=== PATIENT | male | born 1985 | race Two or more races ===

== ENCOUNTER 2024-01-20 16:47 | Inpatient (IN) | payer MEDICAID ==
[~2024-01-20] VITALS: Ht 167.6 cm; Wt 63.6 kg
[2024-01-20 18:45] LABS: Hematocrit 40.5 % (41.0-53.0); Hemoglobin 13.6 g/dL (13.5-17.5); Mean Corpuscular Hemoglobin 31.3 pg (28.0-32.0); Mean Corpuscular Volume 93.1 fL (80.0-100.0); Red Blood Cells 4.36 10^6/uL (4.5-5.90); White Blood Cell 7.5 10^3/uL (4.4-10.8)
[2024-01-20 18:46] LABS: Mean Corpuscular Hgb Conc. 33.7 g/dL (32.0-36.0); Platelet Count (auto) 49 10^3/uL (140-450); Red Cell Distribution Width 14.6 % (11.8-14.3)
[2024-01-20 18:48] LABS: Band Neutrophils % (manual) 0
[2024-01-20 18:49] LABS: Basophils % (manual) 0 (0.0-2.0); Blast Cells 0; Eosinophils % (manual) 0 (0-7); Metamyelocytes % 0; Myelocytes % 0; Promyelocytes % 0; Reactive Lymphocytes 0
[2024-01-20 19:06] LABS: Lymphocytes % (manual) 13 (10.0-50.0); Monocytes % (manual) 6 (0-12)
[2024-01-20] MEDS: SODIUM CHLORIDE 0.9% 1,000 ML IV ONE ×2 (19:15→21:49)
[2024-01-20 19:39] LABS: INR 0.99 (0.9-1.15); Prothrombin Time 10.5 sec (9.3-11.8)
[2024-01-20 19:40] LABS: Partial Thromboplastin Time 29.9 SEC (24.5-34.5)
[2024-01-20 19:43] LABS: Albumin 2.7 g/dL (3.2-4.8); Alkaline Phosphatase 545 U/L (46-116); Anion Gap 20 (5-15); BUN/Creatinine Ratio 13.6 (10.0-20.0); Blood Urea Nitrogen 11 mg/dL (9-23); Calcium 7.3 mg/dL (8.7-10.4); Carbon Dioxide 13 mmol/L (20-30); Chloride 89 mmol/L (98-107); Glucose 194 mg/dL (74-106); Potassium 3.7 mmol/L (3.5-5.1); Sodium 122 mmol/L (136-145)
[2024-01-20 19:44] LABS: Bilirubin, Total 3.8 mg/dL (0.2-1.0); Total Protein 5.9 g/dL (5.7-8.2)
[2024-01-20 19:54] LABS: Alanine Aminotransferase 117 U/L (7-40); Aspartate Aminotransferase 179 U/L (13-40); Lipase 183 U/L (12-53)
[2024-01-20 20:17] LABS: Platelet Estimate Decreased
[2024-01-20] MEDS: FAMOTIDINE (10MG/ML) 2ML VL IV ONE (21:49)
[2024-01-20] MEDS: MORPHINE SULFATE 4 MG/ML SYR/VIAL IV ONE (21:49)
[2024-01-20] MEDS: ONDANSETRON HCL 4 MG/2 ML VIAL IV ONE (21:50)
[2024-01-20] MEDS: PIPERACILLIN-TAZO 4.5GM 100 ML IV ONE (21:50)
[2024-01-20] MEDS: LORazepam 2MG/ML-1ML VIAL IV ONE (21:50)
[2024-01-21] VITALS (7 sets, daily range): BP systolic 122–143; BP diastolic 66–86; PULSE 68–144; RESP 16–22; TEMP 97.5–98.5; O2SAT 96–100
[2024-01-21 01:42] LABS: Albumin 2.8 g/dL (3.2-4.8); Alkaline Phosphatase 486 U/L (46-116); Anion Gap 14 (5-15); Calcium 6.7 mg/dL (8.7-10.4); Carbon Dioxide 16 mmol/L (20-30); Chloride 97 mmol/L (98-107); Glucose 178 mg/dL (74-106); Total Protein 5.8 g/dL (5.7-8.2)
[2024-01-21 01:43] LABS: Alanine Aminotransferase 112 U/L (7-40); Aspartate Aminotransferase 190 U/L (13-40); BUN/Creatinine Ratio 13.3 (10.0-20.0); Blood Urea Nitrogen 12 mg/dL (9-23); Potassium 4.4 mmol/L (3.5-5.1)
[2024-01-21 01:44] LABS: Sodium 127 mmol/L (136-145)
[2024-01-21] MEDS ORDERED: NITROGLYCERIN 0.4 MG SL TAB SL PRN (04:15)
[2024-01-21] MEDS ORDERED: ONDANSETRON HCL 4 MG/2 ML VIAL IV PRN (04:15)
[2024-01-21] MEDS ORDERED: MORPHINE SULFATE INJ 2 MG/ml SYRG IV PRN ×2 (04:15)
[2024-01-21] MEDS: SODIUM CHLORIDE 0.9% 500 ML IV ONE (04:35)
[2024-01-21] MEDS: SODIUM CHLORIDE 0.9% 1,000 ML IV SCH ×2 (05:28→17:28)
[2024-01-21] MEDS: metroNIDAZOLE 500MG/100ML 100 ML IV SCH (05:56)
[2024-01-21 08:45] LABS: Basophils # (auto) 0 10 ^3/uL (0-0.2); Eosinophils # (auto) 0 10 ^3/uL (0-0.8); Red Blood Cells 3.53 10^6/uL (4.5-5.90); Red Cell Distribution Width 14.6 % (11.8-14.3)
[2024-01-21 08:47] LABS: Basophils % (auto) 0.5 % (0.0-2.0); Eosinophils % (auto) 0.1 % (0.0-7.0); Hematocrit 32.9 % (41.0-53.0); Lymphocytes # (auto) 3.4 10 ^3/uL (0.4-5.4); Mean Corpuscular Volume 93.2 fL (80.0-100.0); Monocytes # (auto) 0.1 10 ^3/uL (0-1.3); Monocytes % (auto) 2.5 % (0.0-12.0); Neutrophils # (auto) 0.8 10 ^3/uL (1.6-8.6); Neutrophils % (auto) 18.9 % (37.0-80.0); Platelet Count (auto) 41 10^3/uL (140-450); White Blood Cell 4.4 10^3/uL (4.4-10.8)
[2024-01-21 09:08] LABS: Anion Gap 14 (5-15); Blood Alcohol < 3.0 mg/dL (<10); Calcium 6.5 mg/dL (8.7-10.4); Carbon Dioxide 14 mmol/L (20-30); Chloride 94 mmol/L (98-107); Glucose 191 mg/dL (74-106)
[2024-01-21 09:18] LABS: Bilirubin, Total 3.9 mg/dL (0.2-1.0)
[2024-01-21] MEDS: cefTRIAXone 1GM/50ML D5W 50 ML IV SCH (09:22)
[2024-01-21 09:30] LABS: LDL Cholesterol 137 mg/dL (< 100)
[2024-01-21 09:31] LABS: Cholesterol 615 mg/dL (< 200)
[2024-01-21 09:45] LABS: Mean Corpuscular Hemoglobin 30.7 pg (28.0-32.0); Mean Corpuscular Hgb Conc. 32.7 g/dL (32.0-36.0)
[2024-01-21 09:47] LABS: Hemoglobin 11.4 g/dL (13.5-17.5)
[2024-01-21 10:23] LABS: Hepatitis B Surface Antigen Negative (Negative); Sodium 122 mmol/L (136-145)
[2024-01-21 10:44] LABS: Hepatitis B Core IgM Negative; Hepatitis C Antibody Negative (Negative)
[2024-01-21 10:53] LABS: Alanine Aminotransferase 96 U/L (7-40); Albumin 2.5 g/dL (3.2-4.8); Alkaline Phosphatase 393 U/L (46-116); Aspartate Aminotransferase 158 U/L (13-40); BUN/Creatinine Ratio 12.6 (10.0-20.0); Blood Urea Nitrogen 11 mg/dL (9-23); Potassium 4.3 mmol/L (3.5-5.1); Total Protein 5.2 g/dL (5.7-8.2)
[2024-01-21 11:58] LABS: HDL Cholesterol < 5 mg/dL (40-59); Triglycerides 2182 mg/dL (< 150)
[2024-01-21] MEDS: SODIUM CHLORIDE 0.9% 1,000 ML IV ONE (12:15)
[2024-01-21 16:29] LABS: Hepatitis A Ab IgM Negative
[2024-01-21] MEDS: LORazepam 2MG/ML-1ML VIAL IV ONE (17:29)
[2024-01-21] MEDS ORDERED: LORazepam 0.5 MG TAB PO PRN (19:15)
[2024-01-21] MEDS ORDERED: LORazepam 2MG/ML-1ML VIAL IV PRN (19:15)
[2024-01-21] MEDS: LORazepam 0.5 MG TAB PO PRN (20:32)
[2024-01-21] MEDS: LORazepam 2MG/ML-1ML VIAL IM ONE (20:57)
[2024-01-21] MEDS ORDERED: DEXTROSE (50%) 50ML SYRG IV PRN (21:00)
[2024-01-21 21:15] LABS: Base Excess -1.2 mmol/L (-2.0-3.0)
[2024-01-21] MEDS: diphenhdrAMINE HCL 50 MG/1 ML VL IV PRN (23:06)
[2024-01-22] VITALS (9 sets, daily range): BP systolic 101–117; BP diastolic 65–79; PULSE 92–112; RESP 16–28; TEMP 98.2–99.2; O2SAT 96–100
[2024-01-22] MEDS: InsuLIN REG 1unit/0.01ml Soln (100units/ml) SC SCH
[2024-01-22] MEDS: HALOPERIDOL LACTATE 5 MG/ML INJ VIAL IM PRN (01:37)
[2024-01-22] MEDS ORDERED: POTASSIUM CHLORIDE 20 MEQ in D5W/LACTATED RINGERS 1,000 ML IV SCH (08:00)
[2024-01-22] MEDS ORDERED: INSULIN DRIP 100 UNIT/100ML 100 ML IV SCH (08:00)
[2024-01-22] MEDS ORDERED: LACTATED RINGER'S 1,000 ML IV SCH (08:00)
[2024-01-22] MEDS ORDERED: SODIUM CHLORIDE 0.9% 1,000 ML IV SCH (08:15)
[2024-01-22 08:36] LABS: Base Excess -0.4 mmol/L (-2.0-3.0)
[2024-01-22] MEDS: D5W/ SOD CHL 0.9%/KCL 20MEQ 1,000 ML IV SCH ×3 (10:13→15:56)
[2024-01-22] MEDS: PANTOPRAZOLE 40 MG/10 ML VIAL INJ IV SCH (10:16)
[2024-01-22] MEDS: ACCU-CHEK COMFORT CURVE STRIP VI SCH ×2 (10:33)
[2024-01-22] MEDS: INSULIN DRIP 100 UNIT/100ML 100 ML IV SCH (10:35)
[2024-01-22 10:37] LABS: White Blood Cell 3.4 10^3/uL (4.4-10.8)
[2024-01-22 10:38] LABS: Hematocrit 28.2 % (41.0-53.0); Mean Corpuscular Hemoglobin 32.8 pg (28.0-32.0); Mean Corpuscular Hgb Conc. 35.4 g/dL (32.0-36.0); Mean Corpuscular Volume 92.8 fL (80.0-100.0); Platelet Count (auto) 41 10^3/uL (140-450); Red Blood Cells 3.04 10^6/uL (4.5-5.90); Red Cell Distribution Width 14.8 % (11.8-14.3)
[2024-01-22 10:41] LABS: INR 1.08 (0.9-1.15); Partial Thromboplastin Time 29.7 SEC (24.5-34.5); Prothrombin Time 11.4 sec (9.3-11.8)
[2024-01-22 10:42] LABS: Basophils % (manual) 0 (0.0-2.0); Blast Cells 0; Eosinophils % (manual) 0 (0-7); Metamyelocytes % 0; Myelocytes % 0; Promyelocytes % 0; Reactive Lymphocytes 0
[2024-01-22 10:47] LABS: Alanine Aminotransferase 70 U/L (7-40); Albumin 2.3 g/dL (3.2-4.8); Alkaline Phosphatase 302 U/L (46-116); Anion Gap 8 (5-15); Aspartate Aminotransferase 103 U/L (13-40); BUN/Creatinine Ratio 10.9 (10.0-20.0); Bilirubin, Total 5.3 mg/dL (0.2-1.0); Blood Urea Nitrogen 7 mg/dL (9-23); Calcium 7.1 mg/dL (8.7-10.4); Carbon Dioxide 22 mmol/L (20-30); Chloride 103 mmol/L (98-107); Cholesterol 323 mg/dL (< 200); Glucose 82 mg/dL (74-106); HDL Cholesterol < 5 mg/dL (40-59); LDL Cholesterol 153 mg/dL (< 100); Magnesium 1.7 mg/dL (1.6-2.6); Phosphorus 1.2 mg/dL (2.4-5.1); Potassium 2.7 mmol/L (3.5-5.1); Total Protein 4.6 g/dL (5.7-8.2)
[2024-01-22 10:55] LABS: Triglycerides 1229 mg/dL (< 150)
[2024-01-22 10:56] LABS: CRP High Sensitivity 8.43 mg/dL (<1.0)
[2024-01-22 11:05] LABS: Band Neutrophils % (manual) 12; Lymphocytes % (manual) 19 (10.0-50.0); Monocytes % (manual) 4 (0-12); Platelet Estimate Decreased
[2024-01-22] MEDS: DEXTROSE (50%) 50ML SYRG IV PRN (12:03)
[2024-01-22] MEDS: SODIUM CHLORIDE 0.9% 1,000 ML IV SCH (12:08)
[2024-01-22 12:18] LABS: Sodium 133 mmol/L (136-145)
[2024-01-22 12:20] LABS: Lipase 145 U/L (12-53)
[2024-01-22] MEDS ORDERED: POTASSIUM CHLORIDE 40 MEQ, LIDOCAINE 1% (LOCAL ANESTH.) 4 ML in SODIUM CHL 0.9% 250 ML IV ONE (15:00)
[2024-01-22] MEDS ORDERED: POTASSIUM PHOSPHATE 26.4 MEQ in SODIUM CHL 0.9% 100 ML IV ONE (15:00)
[2024-01-22 15:22] LABS: Lactic Acid w/Reflex 2.5 mmol/L (0.4-2.0); Potassium 2.4 mmol/L (3.5-5.1)
[2024-01-22] MEDS: POTASSIUM PHOSPHATE 44 MEQ in D5W 5% 250 ML IV ONE (15:50)
[2024-01-22 17:36] LABS: Alanine Aminotransferase 69 U/L (7-40); Alkaline Phosphatase 287 U/L (46-116); Aspartate Aminotransferase 91 U/L (13-40); Calcium 7.1 mg/dL (8.7-10.4); Carbon Dioxide 22 mmol/L (20-30); Chloride 107 mmol/L (98-107); Triglycerides 603 mg/dL (< 150)
[2024-01-22 17:37] LABS: Albumin 2.3 g/dL (3.2-4.8); Anion Gap 8 (5-15); Bilirubin, Total 5.6 mg/dL (0.2-1.0); Blood Urea Nitrogen 6 mg/dL (9-23); Glucose 68 mg/dL (74-106); Potassium 2.7 mmol/L (3.5-5.1); Sodium 137 mmol/L (136-145); Total Protein 4.8 g/dL (5.7-8.2)
[2024-01-22 17:43] LABS: Protein, Urine 28.8 mg/dL (0.0-11.9)
[2024-01-22 17:46] LABS: Creatinine, Urine 26.73 mg/dL (30.0-125.0)
[2024-01-22 18:00] LABS: Urine Bacteria FEW /hpf (None Seen); Urine Blood TRACE /uL (Negative); Urine Clarity Clear (Clear); Urine Color Yellow (Yellow); Urine Protein, UAD Negative (Negative); Urine Specific Gravity 1.006 (1.001-1.035); Urine Urobilinogen Normal (Negative); Urine WBC <1 /hpf (0 - 3); Urine pH 6.5 (5.0-9.0)
[2024-01-22] MEDS: POTASSIUM CHLORIDE 80 MEQ, LIDOCAINE 1% (LOCAL ANESTH.) 6 ML in SODIUM CHL 0.9% 500 ML IV ONE (22:34)
[2024-01-23] VITALS (17 sets, daily range): BP systolic 101–166; BP diastolic 67–89; PULSE 88–135; RESP 18–33; TEMP 98.2–99.9; O2SAT 94–99
[2024-01-23 04:20] LABS: Amphetamine Screen, Urine Neg (NEGATIVE); Barbiturate Scree,Urine Neg (NEGATIVE); Benzodiazephine Screen, Urine Neg (NEGATIVE); Cocaine Screen, Urine Neg (NEGATIVE)
[2024-01-23 04:21] LABS: Cannabinoid Screen, Urine Neg (NEGATIVE); Opiate Scree,Urine Neg (NEGATIVE); Phencyclidine Screen, Urine Neg (NEGATIVE)
[2024-01-23 05:13] LABS: Basophils # (auto) 0 10 ^3/uL (0-0.2); Eosinophils # (auto) 0 10 ^3/uL (0-0.8); Mean Corpuscular Volume 91.8 fL (80.0-100.0); Nucleated Red Blood Cells % 0.3 %; White Blood Cell 3.7 10^3/uL (4.4-10.8)
[2024-01-23 05:14] LABS: Basophils % (auto) 0.3 % (0.0-2.0); Eosinophils % (auto) 0.3 % (0.0-7.0); Hematocrit 28.9 % (41.0-53.0); Lymphocytes # (auto) 2.4 10 ^3/uL (0.4-5.4); Mean Corpuscular Hemoglobin 31.6 pg (28.0-32.0); Mean Corpuscular Hgb Conc. 34.5 g/dL (32.0-36.0); Monocytes # (auto) 0.3 10 ^3/uL (0-1.3); Monocytes % (auto) 7.4 % (0.0-12.0); Neutrophils % (auto) 27.8 % (37.0-80.0); Platelet Count (auto) 59 10^3/uL (140-450); Red Blood Cells 3.15 10^6/uL (4.5-5.90); Red Cell Distribution Width 14.9 % (11.8-14.3)
[2024-01-23 05:18] LABS: Lymphocytes % (auto) 64.2 % (10.0-50.0)
[2024-01-23 05:24] LABS: Alanine Aminotransferase 60 U/L (7-40); Albumin 2.3 g/dL (3.2-4.8); Alkaline Phosphatase 249 U/L (46-116); Anion Gap 6 (5-15); Aspartate Aminotransferase 65 U/L (13-40); Calcium 7.1 mg/dL (8.7-10.4); Carbon Dioxide 21 mmol/L (20-30); Chloride 112 mmol/L (98-107); Glucose 117 mg/dL (74-106); Magnesium 1.7 mg/dL (1.6-2.6); Potassium 3.4 mmol/L (3.5-5.1); Sodium 139 mmol/L (136-145)
[2024-01-23 05:25] LABS: Bilirubin, Total 5.7 mg/dL (0.2-1.0); Creatine Kinase IFCC 230 U/L (46-171); Phosphorus 0.9 mg/dL (2.4-5.1); Total Protein 4.8 g/dL (5.7-8.2)
[2024-01-23 05:41] LABS: BUN/Creatinine Ratio 8.6 (10.0-20.0); Blood Urea Nitrogen < 5 mg/dL (9-23)
[2024-01-23 05:51] LABS: Triglycerides 280 mg/dL (< 150)
[2024-01-23 05:53] LABS: Bilirubin, Direct 4.3 mg/dL (<0.3)
[2024-01-23] MEDS ORDERED: POTASSIUM PHOSPHATE 44 MEQ in D5W 5% 250 ML IV ONE (09:00)
[2024-01-23] MEDS: MAGNESIUM SULFATE 1GM/100ML 100 ML IV ONE (09:41)
[2024-01-23] MEDS: LACTATED RINGER'S 1,000 ML IV SCH (09:43)
[2024-01-23] MEDS ORDERED: DEXTROSE (50%) 50ML SYRG IV PRN (10:30)
[2024-01-23] MEDS: POTASSIUM PHOSPHATE 44 MEQ in D5W 5% 250 ML IV ONE (11:54)
[2024-01-23] MEDS: ACCU-CHEK COMFORT CURVE STRIP VI SCH (11:54)
[2024-01-23] MEDS ORDERED: InsuLIN REG 1unit/0.01ml Soln (100units/ml) SC SCH (12:00)
[2024-01-23] MEDS ORDERED: MORPHINE SULFATE INJ 2 MG/ml SYRG IV PRN (17:15)
[2024-01-23] MEDS: PANTOPRAZOLE 40 MG TAB PO ONE (17:40)
[2024-01-23] MEDS: ATORVASTATIN 20 MG TAB PO SCH (21:34)
[2024-01-24] VITALS (9 sets, daily range): BP systolic 95–111; BP diastolic 60–75; PULSE 76–134; RESP 14–24; TEMP 98–99.3; O2SAT 96–100
[2024-01-24] MEDS: MELATONIN 5 MG TAB PO ONE (00:32)
[2024-01-24] MEDS: PANTOPRAZOLE 40 MG TAB PO SCH (05:29)
[2024-01-24 05:47] LABS: Basophils # (auto) 0 10 ^3/uL (0-0.2); Basophils % (auto) 0.6 % (0.0-2.0); Eosinophils # (auto) 0 10 ^3/uL (0-0.8); Eosinophils % (auto) 0.9 % (0.0-7.0); Hematocrit 28.8 % (41.0-53.0); Hemoglobin 9.8 g/dL (13.5-17.5); Lymphocytes # (auto) 1.4 10 ^3/uL (0.4-5.4); Mean Corpuscular Hemoglobin 31.3 pg (28.0-32.0); Mean Corpuscular Hgb Conc. 34.2 g/dL (32.0-36.0); Mean Corpuscular Volume 91.7 fL (80.0-100.0); Neutrophils # (auto) 1.7 10 ^3/uL (1.6-8.6); Neutrophils % (auto) 41.5 % (37.0-80.0); Nucleated Red Blood Cells % 0.9 %; Platelet Count (auto) 89 10^3/uL (140-450); Red Blood Cells 3.14 10^6/uL (4.5-5.90); Red Cell Distribution Width 14.7 % (11.8-14.3); White Blood Cell 4.2 10^3/uL (4.4-10.8)
[2024-01-24 06:03] LABS: Alanine Aminotransferase 48 U/L (7-40); Albumin 2.5 g/dL (3.2-4.8); Alkaline Phosphatase 257 U/L (46-116); Anion Gap 6 (5-15); Aspartate Aminotransferase 40 U/L (13-40); Calcium 7.4 mg/dL (8.7-10.4); Carbon Dioxide 22 mmol/L (20-30); Chloride 106 mmol/L (98-107); Creatine Kinase IFCC 129 U/L (46-171); Glucose 110 mg/dL (74-106); Lipase 102 U/L (12-53); Magnesium 1.5 mg/dL (1.6-2.6); Phosphorus 2.3 mg/dL (2.4-5.1); Potassium 3.2 mmol/L (3.5-5.1)
[2024-01-24 06:04] LABS: Bilirubin, Total 4.8 mg/dL (0.2-1.0)
[2024-01-24 06:18] LABS: BUN/Creatinine Ratio 9.3 (10.0-20.0); Blood Urea Nitrogen < 5 mg/dL (9-23); Sodium 134 mmol/L (136-145)
[2024-01-24 06:58] LABS: Platelet Estimate Decreased; Stomatocytes Moderate
[2024-01-24] MEDS: MAGNESIUM SULFATE 1GM/100ML 100 ML IV SCH (11:06)
[2024-01-24 11:46] LABS: INR 1.14 (0.9-1.15)
[2024-01-24] MEDS: POTASSIUM EFFERVESENT TAB 25 MEQ PO ONE (14:32)
[2024-01-24] MEDS: METOPROLOL TARTRATE 25 MG TAB PO SCH (19:37)
[2024-01-25 01:00] VITALS: BP 113/68; PULSE 111; RESP 16; TEMP 99.8; O2SAT 95
[2024-01-25 05:00] VITALS: BP 111/75; PULSE 105; RESP 15; TEMP 98.9; O2SAT 99
[2024-01-25 08:00] VITALS: PULSE 89
[2024-01-25 08:27] LABS: Hematocrit 24.9 % (41.0-53.0); Hemoglobin 8.8 g/dL (13.5-17.5); Mean Corpuscular Hemoglobin 32.6 pg (28.0-32.0); Mean Corpuscular Hgb Conc. 35.2 g/dL (32.0-36.0); Mean Corpuscular Volume 92.6 fL (80.0-100.0); Platelet Count (auto) 117 10^3/uL (140-450); Red Blood Cells 2.69 10^6/uL (4.5-5.90); Red Cell Distribution Width 15.1 % (11.8-14.3); White Blood Cell 4.6 10^3/uL (4.4-10.8)
[2024-01-25 08:45] LABS: Alanine Aminotransferase 36 U/L (7-40); Albumin 2.4 g/dL (3.2-4.8); Alkaline Phosphatase 310 U/L (46-116); Anion Gap 6 (5-15); Aspartate Aminotransferase 38 U/L (13-40); Bilirubin, Total 2.9 mg/dL (0.2-1.0); Calcium 7.7 mg/dL (8.7-10.4); Carbon Dioxide 24 mmol/L (20-30); Chloride 104 mmol/L (98-107); Glucose 101 mg/dL (74-106); Magnesium 1.8 mg/dL (1.6-2.6); Phosphorus 2.4 mg/dL (2.4-5.1); Potassium 3.7 mmol/L (3.5-5.1); Sodium 134 mmol/L (136-145); Total Protein 4.9 g/dL (5.7-8.2)
[2024-01-25 08:46] LABS: BUN/Creatinine Ratio 8.9 (10.0-20.0); Blood Urea Nitrogen < 5 mg/dL (9-23)
[2024-01-25] MEDS: EMPAGLIFLOZIN 10 MG TAB PO SCH (08:49)
[2024-01-25] MEDS: SPIRONOLACTONE 25 MG TAB PO SCH (08:49)
[2024-01-25 08:55] LABS: Basophils % (manual) 0 (0.0-2.0); Blast Cells 0; Myelocytes % 0; Promyelocytes % 0
[2024-01-25 09:00] VITALS: BP 109/76; PULSE 87; RESP 16; O2SAT 95
[2024-01-25 09:16] LABS: Lipase 103 U/L (12-53)
[2024-01-25 09:27] LABS: Anisocytosis Slight; Band Neutrophils % (manual) 7; Eosinophils % (manual) 1 (0-7); Lymphocytes % (manual) 23 (10.0-50.0); Metamyelocytes % 1; Monocytes % (manual) 21 (0-12); Platelet Estimate Decreased; Reactive Lymphocytes 2; Stomatocytes Moderate
[2024-01-25] MEDS: LISINOPRIL 5 MG TAB PO SCH (10:00)
[2024-01-25 13:00] VITALS: BP 108/72; PULSE 101; RESP 16
[2024-01-25] MEDS: MAGNESIUM OXIDE 400 MG TAB PO ONE (14:06)
[2024-01-25] MEDS ORDERED: SPIR25TA8 PO (16:29)
[2024-01-25] MEDS ORDERED: LISI2.5T47 PO (16:29)
[2024-01-25] MEDS ORDERED: GEMF-66 PO (16:29)
[2024-01-25] MEDS ORDERED: MULT-1018 PO (16:29)
[2024-01-25] MEDS ORDERED: METO25TA93 PO (16:29)
[2024-01-25] MEDS ORDERED: MAGN400T40 OR (16:29)
[2024-01-25] MEDS ORDERED: EMPA1TAB PO (16:29)
[2024-01-25] MEDS ORDERED: [UNRECOGNIZED DRUG - CODE] PO (16:29)
[2024-01-25 16:59] VITALS: BP 108/74; PULSE 109; RESP 20; TEMP 98.2; O2SAT 98
[2024-01-25] MEDS ORDERED: GEMFIBROZIL 600 MG TAB PO SCH (22:00)
[2024-01-26] MEDS ORDERED: MAGNESIUM OXIDE 400 MG TAB PO SCH (10:00)
[2024-01-26] MEDS ORDERED: METOPROLOL SUCCINATE XL 50 MG TAB PO SCH (10:00)
== END 2024-01-25 19:05 | disposition home or self-care (01) | DRG 282 ==
LOC: EDBD 16:47 → ER 16:47 → OVERFLOW 01-21 04:05 → WEST WING 01-21 14:00 → TELE-WESTW 01-22 05:40 → DOU IN ICU 01-22 17:24 → TELE-E-ADS 01-23 12:51
PROVIDERS: ADMIT Internal Medicine; ATTEND Internal Medicine
DX: K85.20 Alcohol induced acute pancreatitis without necrosis or infection (principal); G92.8 Other toxic encephalopathy; D69.6 Thrombocytopenia, unspecified; E87.20 Acidosis, unspecified; E83.39 Other disorders of phosphorus metabolism; K70.10 Alcoholic hepatitis without ascites; E87.1 Hypo-osmolality and hyponatremia; I50.22 Chronic systolic (congestive) heart failure; E86.1 Hypovolemia; E87.6 Hypokalemia; E78.1 Pure hyperglyceridemia; K76.0 Fatty (change of) liver, not elsewhere classified; F10.139 Alcohol abuse with withdrawal, unspecified; R74.01 Elevation of levels of liver transaminase levels; F41.9 Anxiety disorder, unspecified; Z59.00 Homelessness unspecified; K52.9 Noninfective gastroenteritis and colitis, unspecified; Z79.899 Other long term (current) drug therapy; Y90.9 Presence of alcohol in blood, level not specified
CPT/HCPCS: 36415; 36600; 70450; 71045; 74176; 74181; 76705; 76870; 80053; 80061; 80074; 80307; 80320; 81001; 82140; 82248; 82550; 82570; 82805; 82962; 83036; 83605; 83615; 83690; 83735; 83880; 83930; 83935; 84100; 84132; 84156; 84300; 84443; 84478; 84484; 85007; 85025; 85027; 85610; 85730; 86038; 86141; 87040; 87045; 87427; 87493; 93005; 93306; G0378; J2001; J2405; J2470; J2543; J3490; J7060

== ENCOUNTER 2024-09-15 18:56 | Inpatient (IN) | payer SELFPAY ==
[~2024-09-15] VITALS: Ht 167.6 cm; Wt 63.3 kg
[~2024-09-15 18:56] MED LIST: EMPA1TAB PO; GEMF-66 PO; LISI2.5T47 PO; MAGN400T40 OR; METO25TA93 PO; MULT-1018 PO; SPIR25TA8 PO; [UNRECOGNIZED DRUG - CODE] PO
[2024-09-15] MEDS: SODIUM CHLORIDE 0.9% 1,000 ML IV ONE (19:15)
--- NOTE | 2024-09-15 19:15 | ED.PDOC ---
History of Present Illness HPI Comments 38-year-old male came to ER via EMS for alcohol intoxication. Per EMS, patient was picked up outside the [employer] restaurant, wherein the employees called them since patient was wandering around, annoying costumers, and patient appears to be intoxicated with alcohol. Difficult to obtain more information due to language barrier. 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 Allergies: Coded Allergies: NO KNOWN ALLERGIES (Unverified , 01/20/24) Home Meds Active Scripts Cobalamine Combinations (B-12 + Folic Acid 2500-400 Mcg) 1 Tab Tab, 1 TAB PO DAILY for 30 Days, #30 TAB 0 Refills Prov:ALYCIA ANDINO [facility] 01/25/24 Multiple Vitamin (Multivitamins) Tab, 1 TAB PO DAILY for 30 Days, #90 TAB 0 [facility] 01/25/24 Magnesium Oxide (MAGNESIUM OXIDE) 400 Mg Tab, 400 MG OR DAILY for 7 Days, #7 TAB Prov:ALYCIA ANDINO [facility] 01/25/24 Gemfibrozil (Gemfibrozil) 600 Mg Tab, 1 TAB PO BID for 30 Days, #60 TAB 2 Refills Prov:ALYCIA ANDINO [facility] 01/25/24 Lisinopril (Lisinopril) 2.5 Mg Tab, 1 TAB PO DAILY for 30 Days, #30 TAB 2 Refills Prov:ALYCIA ANDINO [facility] 01/25/24 Empagliflozin (Jardiance) 10 Mg Tab, 10 MG PO DAILY for 30 Days, #30 TAB 2 R efills Prov:ALYCIA ANDINO [facility] 01/25/24 Metoprolol Succinate (Metoprolol Succinate Er) 25 Mg Tab, 25 MG PO DAILY for 30 Days, #30 TAB 2 Refills Prov:ALYCIA ANDINO [facility] 01/25/24 Spironolactone (Spironolactone) 25 Mg Tab, 1 TAB PO DAILY for 30 Days, #30 TAB 2 Refills Prov:ALYCIA ANDINO [facility] 01/25/24 Information Source: Emergency Med Personnel Mode of Arrival: EMS Severity: Moderate Timing: Hours Duration: Since onset Past Medical History PAST MEDICAL HISTORY: Unobtainable Surgical History: Unobtainable Family History Family History: Unobtainable Social History Smoker: Unobtainable Alcohol: Heavy Drugs: Unobtainable Lives In: Unobtainable Unable to Obtain due to: Other (Intoxicated with alcohol) Physical Exam General Appearance: No Apparent Distress, Normal HEENT: Normal ENT Inspection, Pharynx Normal, TMs Normal Neck: Full Range of Motion, Non-Tender, Normal, Normal Inspection Respiratory: Chest Non-Tender, Lungs Clear, No Accessory Muscle Use, No Respiratory Distress, Normal Breath Sounds Cardiovascular: No Edema, No JVD, No Murmur, No Gallop, Normal Peripheral Pulses, Regular Rate/Rhythm Breast Exam: Deferred Gastrointestinal: No Organomegaly, Non Tender, No Pulsatile Mass, Normal Bowel Sounds, Soft Genitalia: Deferred Pelvic: Deferred Rectal: Deferred Extremities: No calf tenderness, Normal capillary refill, Normal inspection, Normal range of motion, Non-tender, No pedal edema Musculoskeletal : Apperance: Normal Neurologic: Alert, 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 Was a procedure done?: No Differential Dx Considerations may include: Anemia, electrolyte imbalance, dehydration, alcohol intoxication X-Ray, Labs, Meds, VS Vital Signs Date Time Temp Pulse Resp B/P (MAP) Pulse Ox O2 Delivery O2 Flow Rate FiO2 09/16/24 05:30 105 18 110/67 (81) 96 09/15/24 22:07 114 16 105/72 (83) 95 09/15/24 19:40 135 20 99 Room Air* 0 21 09/15/24 19:40 98.4 135 20 122/72 (89) 99 98.4 09/15/24 19:01 98.1 130 20 140/82 (101) 99 98.1 Lab Test 09/15/24 19:19 Range/Units White Blood Count 5.1 4.4-10.8 10^3/uL Red Blood Count 4.71 4.5-5.90 10^6/uL Hemoglobin 14.5 13.5-17.5 g/dL Hematocrit 42.8 41.0-53.0 % Mean Corpuscular Volume 90.9 80.0-100.0 fL Mean Corpuscular Hemoglobin 30.7 28.0-32.0 pg Mean Corpuscular Hemoglobin Concent 33.8 32.0-36.0 g/dL Red Cell Distribution Width 14.2 11.8-14.3 % Platelet Count 167 140-450 10^3/uL Mean Platelet Volume 6.5 L 6.9-10.8 fL Neutrophils (%) (Auto) 52.8 37.0-80.0 % Lymphocytes (%) (Auto) 37.3 10.0-50.0 % Monocytes (%) (Auto) 9.4 0.0-12.0 % Eosinophils (%) (Auto) 0.1 0.0-7.0 % Basophils (%) (Auto) 0.4 0.0-2.0 % Neutrophils # (Auto) 2.7 1.6-8.6 10 ^3/uL Lymphocytes # (Auto) 1.9 0.4-5.4 10 ^3/uL Monocytes # (Auto) 0.5 0-1.3 10 ^3/uL Eosinophils # (Auto) 0 0-0.8 10 ^3/uL Basophils # (Auto) 0 0-0.2 10 ^3/uL Nucleated Red Blood Cells 0.2 % Sodium Level 139 136-145 mmol/L Potassium Level 3.3 L 3.5-5.1 mmol/L Chloride Level 97 L 98-107 mmol/L Carbon Dioxide Level 23 20-31 mmol/L Anion Gap 19 H 5-15 Blood Urea Nitrogen 6 L 9-23 mg/dL Creatinine 0.72 0.700-1.30 mg/dL Glomerular Filtration Rate Calc 119 >90 mL/min BUN/Creatinine Ratio 8.3 L 10.0-20.0 Serum Glucose 122 H 74-106 mg/dL Calcium Level 9.1 8.7-10.4 mg/dL Plasma/Serum Blood Alcohol 418.9 *H <10 mg/dL Current Medications Medications (Trade) Dose Ordered Sig/Surjit Route Start Time Stop Time Status Last Admin Sodium Chloride 1,000 ml @ 1,000 mls/hr Q1H ONCE IV 09/15/24 19:15 09/15/24 20:14 DC 09/15/24 21:19 Ondansetron HCl (Zofran) 4 mg ONCE ONCE IV 09/15/24 19:15 09/15/24 19:16 DC 09/15/24 21:20 Pantoprazole Sodium (Protonix) 40 mg ONCE ONCE IV 5/1/25 19:15 09/15/24 19:16 DC 09/15/24 21:20 Thiamine HCl 100 mg ONCE ONCE IV 09/15/24 19:15 09/15/24 19:16 DC 09/15/24 21:21 Folic Acid 1 mg/ Dextrose 50.2 ml @ 200.8 mls/ hr ONCE ONCE INJ 09/15/24 19:15 09/15/24 19:29 DC 09/15/24 21:52 Chlordiazepoxide HCl (Librium Capsule) 50 mg ONCE ONCE PO 09/15/24 19:15 09/15/24 19:16 DC 09/15/24 21:20 Haloperidol Lactate (Haldol) 10 mg ONCE ONCE IM 09/15/24 20:00 09/15/24 20:01 DC 09/15/24 20:14 Chlordiazepoxide HCl (Librium Capsule) 50 mg ONCE ONCE PO 09/16/24 05:45 09/16/24 05:46 DC 09/16/24 05:40 Lorazepam (Ativan Inj) 2 mg ONCE ONCE IV 09/16/24 05:45 09/16/24 05:46 DC 09/16/24 05:40 Time of 1ST Reevaluation: 19:10 Reevaluation 1ST: Unchanged Patient Education/Counseling: Diagnosis, Treatment, Other (There is language ba wilber) Family Education/Counseling: No Family Present Departure 1 Departure Time of Disposition: 05:51 (Patient presented intoxicated however waited here until he would be into withdrawal from alcohol. We will admit patient for alcohol withdrawal) Impression: Primary Impression: Alcohol withdrawal Qualified Codes: F10.930 - Alcohol use, unspecified with withdrawal, unco mplicated Disposition: 09 ADMITTED INPATIENT Admit to: Med Surg Condition: Serious Critical Care Note Critical Care Time?: No Stability Stability form required: No Heart Score Heart Score: Heart Score Response (Comments) Value History N/A 0 EKG N/A 0 Age N/A 0 Risk Factors N/A 0 Troponin N/A 0 Total 0 I personally scribed for BOB SMITH MD ([email or web address]) on 09/15/24 at 19:15. Electronically submitted by Stephen Pearl ([facility]). BOB SMITH MD September 15, 2024 19:15
[2024-09-15 19:40] VITALS: PULSE 135; RESP 20; O2SAT 99
[2024-09-15 19:47] LABS: Basophils # (auto) 0 10 ^3/uL (0-0.2); Basophils % (auto) 0.4 % (0.0-2.0); Eosinophils # (auto) 0 10 ^3/uL (0-0.8); Eosinophils % (auto) 0.1 % (0.0-7.0); Hematocrit 42.8 % (41.0-53.0); Hemoglobin 14.5 g/dL (13.5-17.5); Lymphocytes # (auto) 1.9 10 ^3/uL (0.4-5.4); Lymphocytes % (auto) 37.3 % (10.0-50.0); Mean Corpuscular Hemoglobin 30.7 pg (28.0-32.0); Mean Corpuscular Hgb Conc. 33.8 g/dL (32.0-36.0); Mean Corpuscular Volume 90.9 fL (80.0-100.0); Monocytes # (auto) 0.5 10 ^3/uL (0-1.3); Monocytes % (auto) 9.4 % (0.0-12.0); Neutrophils # (auto) 2.7 10 ^3/uL (1.6-8.6); Neutrophils % (auto) 52.8 % (37.0-80.0); Nucleated Red Blood Cells % 0.2 %; Platelet Count (auto) 167 10^3/uL (140-450); Red Blood Cells 4.71 10^6/uL (4.5-5.90); Red Cell Distribution Width 14.2 % (11.8-14.3); White Blood Cell 5.1 10^3/uL (4.4-10.8)
[2024-09-15 19:58] LABS: Sodium 139 mmol/L (136-145)
[2024-09-15 19:59] LABS: Anion Gap 19 (5-15); Calcium 9.1 mg/dL (8.7-10.4); Carbon Dioxide 23 mmol/L (20-31)
[2024-09-15 20:04] LABS: BUN/Creatinine Ratio 8.3 (10.0-20.0)
[2024-09-15] MEDS: HALOPERIDOL LACTATE 5 MG/ML INJ VIAL IM ONE (20:14)
[2024-09-15 20:17] LABS: Blood Urea Nitrogen 6 mg/dL (9-23); Chloride 97 mmol/L (98-107); Glucose 122 mg/dL (74-106); Potassium 3.3 mmol/L (3.5-5.1)
[2024-09-15 20:19] LABS: Blood Alcohol 418.9 mg/dL (<10)
[2024-09-15] MEDS: chlordiazePOXIDE HCL 25 MG CAP PO ONE (21:20)
[2024-09-15] MEDS: ONDANSETRON HCL 4 MG/2 ML VIAL IV ONE (21:20)
[2024-09-15] MEDS: PANTOPRAZOLE 40 MG/10 ML VIAL INJ IV ONE (21:20)
[2024-09-15] MEDS: THIAMINE 100mg/ml INJ (200mg/2ml VIAL) IV ONE (21:21)
[2024-09-15] MEDS: FOLIC ACID 1 MG in D5W 5% 50 ML INJ ONE (21:52)
[2024-09-16] MEDS: chlordiazePOXIDE HCL 25 MG CAP PO ONE (05:40)
[2024-09-16] MEDS: LORazepam 2MG/ML-1ML VIAL IV ONE (05:40)
[2024-09-16 08:30] VITALS: PULSE 105; PULSE 135; RESP 20; O2SAT 99
--- NOTE | 2024-09-16 10:38 | DVHHP2 ---
History of Present Illness Reason for Visit: ETOH intoxication History of Present Illness Thien Rider is a 38-year-old male with past medical history of ETOH abuse who presents to the ED with ETOH intoxication. Patient was reported by bystanders in a restaurant stated that he was wandering around. Patient is a poor historian and unable to provide further information. Patient denies chest pain, fever, chills, shortness of breath, tremors, headache, visual or auditory hallucinations, abdominal pain, nausea, vomiting, or diarrhea. Upon examination patient looks disheveled and unkempt. Past Medical History ETOH abuse Past Surgical History: None Family History: None, Other (Reports that both parents are ) Smoke: No ALCOHOL: heavy Drugs: None Lives: Homeless Domestic Violence: Neg Review of Systems Other ETOH abuse Allergies: Coded Allergies: NO KNOWN ALLERGIES (Unverified , 01/20/24) Exam Vital Signs Vital Signs Date Time Temp Pulse Resp B/P (MAP) Pulse Ox O2 Delivery O2 Flow Rate FiO2 09/16/24 08:30 105 20 99 Room Air* 0 21 09/16/24 07:45 98.6 116/71 (86) 98.6 General Appearance: Alert, Cooperative, No acute distress HEENT: Atraumatic, PERRLA, EOMI Respiratory: Normal air movement Cardiovascular: Normal S1, Normal S2 Abdominal: Normal bowel sounds, Soft Extremities: No edema, Normal pulses Neuro: Normal speech, Normal tone, Sensation intact Psych/Mental Status: Mental status NL Labs/Xrays Labs Test 09/15/24 19:19 Range/Units White Blood Count 5.1 4.4-10.8 10^3/uL Red Blood Count 4.71 4.5-5.90 10^6/uL Hemoglobin 14.5 13.5-17.5 g/dL Hematocrit 42.8 41.0-53.0 % Mean Corpuscular Volume 90.9 80.0-100.0 fL Mean Corpuscular Hemoglobin 30.7 28.0-32.0 pg Mean Corpuscular Hemoglobin Concent 33.8 32.0-36.0 g/dL Red Cell Distribution Width 14.2 11.8-14.3 % Platelet Count 167 140-450 10^3/uL Mean Platelet Volume 6.5 L 6.9-10.8 fL Neutrophils (%) (Auto) 52.8 37.0-80.0 % Lymphocytes (%) (Auto) 37.3 10.0-50.0 % Monocytes (%) (Auto) 9.4 0.0-12.0 % Eosinophils (%) (Auto) 0.1 0.0-7.0 % Basophils (%) (Auto) 0.4 0.0-2.0 % Neutrophils # (Auto) 2.7 1.6-8.6 10 ^3/uL Lymphocytes # (Auto) 1.9 0.4-5.4 10 ^3/uL Monocytes # (Auto) 0.5 0-1.3 10 ^3/uL Eosinophils # (Auto) 0 0-0.8 10 ^3/uL Basophils # (Auto) 0 0-0.2 10 ^3/uL Nucleated Red Blood Cells 0.2 % Sodium Level 139 136-145 mmol/L Potassium Level 3.3 L 3.5-5.1 mmol/L Chloride Level 97 L 98-107 mmol/L Carbon Dioxide Level 23 20-31 mmol/L Anion Gap 19 H 5-15 Blood Urea Nitrogen 6 L 9-23 mg/dL Creatinine 0.72 0.700-1.30 mg/dL Glomerular Filtration Rate Calc 119 >90 mL/min BUN/Creatinine Ratio 8.3 L 10.0-20.0 Serum Glucose 122 H 74-106 mg/dL Calcium Level 9.1 8.7-10.4 mg/dL Plasma/Serum Blood Alcohol 418.9 *H <10 mg/dL XY CHEST TWO VIEWS ROUTINE, HISTORY: r/o pna COMPARISON: None None TECHNICAL DATA: 2 view of the chest was obtained. FINDINGS: Lines and tubes: None Cardiomediastinal silhouette: normal Pulmonary vasculature: normal Lung expansion: normal Lung airspace: normal Lung interstitium: normal Pleura: normal Pneumothorax: no Bones: Unremarkable Other: no IMPRESSION: No acute intrathoracic abnormality. 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
--- NOTE | 2024-09-16 11:07 | DVH ---
XY CHEST TWO VIEWS ROUTINE, HISTORY: r/o pna COMPARISON: None None TECHNICAL DATA: 2 view of the chest was obtained. FINDINGS: Lines and tubes: None Cardiomediastinal silhouette: normal Pulmonary vasculature: normal Lung expansion: normal Lung airspace: normal Lung interstitium: normal Pleura: normal Pneumothorax: no Bones: Unremarkable Other: no IMPRESSION: No acute intrathoracic abnormality.
[2024-09-16 11:11] LABS: Basophils # (auto) 0 10 ^3/uL (0-0.2); Basophils % (auto) 0.4 % (0.0-2.0); Eosinophils # (auto) 0 10 ^3/uL (0-0.8); Eosinophils % (auto) 0.4 % (0.0-7.0); Hematocrit 38.8 % (41.0-53.0); Hemoglobin 13.5 g/dL (13.5-17.5); Lymphocytes # (auto) 0.6 10 ^3/uL (0.4-5.4); Lymphocytes % (auto) 12.2 % (10.0-50.0); Mean Corpuscular Hemoglobin 31.2 pg (28.0-32.0); Mean Corpuscular Hgb Conc. 34.7 g/dL (32.0-36.0); Mean Corpuscular Volume 90.1 fL (80.0-100.0); Monocytes # (auto) 0.2 10 ^3/uL (0-1.3); Monocytes % (auto) 3.3 % (0.0-12.0); Neutrophils # (auto) 4.2 10 ^3/uL (1.6-8.6); Neutrophils % (auto) 83.7 % (37.0-80.0); Nucleated Red Blood Cells % 0.1 %; Platelet Count (auto) 136 10^3/uL (140-450); Red Blood Cells 4.31 10^6/uL (4.5-5.90); Red Cell Distribution Width 14.1 % (11.8-14.3); White Blood Cell 5.1 10^3/uL (4.4-10.8)
[2024-09-16] MEDS ORDERED: NITROGLYCERIN 0.4 MG SL TAB SL PRN (11:30)
[2024-09-16] MEDS ORDERED: ONDANSETRON HCL 4 MG/2 ML VIAL IV PRN (11:30)
[2024-09-16] MEDS ORDERED: MORPHINE SULFATE INJ 2 MG/ml SYRG IV PRN (11:30)
[2024-09-16] MEDS: MULTIPLE VITAMIN TAB PO ONE (11:35)
[2024-09-16] MEDS: FOLIC ACID 1 MG TAB PO ONE (11:35)
[2024-09-16] MEDS: THIAMINE HCL 100 MG TAB PO ONE (11:36)
[2024-09-16] MEDS: POTASSIUM CHL 20 Meq TABLET PO ONE (12:03)
[2024-09-16] MEDS: MAGNESIUM SULFATE 1GM/100ML 100 ML IV ONE (12:03)
[2024-09-16 19:45] VITALS: PULSE 103; RESP 17; O2SAT 95
[2024-09-16 20:00] VITALS: PULSE 99
[2024-09-16 22:01] VITALS: BP 126/79; PULSE 96; RESP 18; TEMP 98.4; O2SAT 97
[2024-09-16] MEDS: GEMFIBROZIL 600 MG TAB PO SCH (22:09)
[2024-09-17] VITALS (8 sets, daily range): BP systolic 87–130; BP diastolic 18–85; PULSE 83–108; RESP 16–19; TEMP 97.9–98.6; O2SAT 95–100
[2024-09-17 02:56] LABS: Urine Bacteria None Seen /hpf (None Seen)
[2024-09-17 03:06] LABS: Urine Blood Negative /uL (Negative); Urine Clarity Clear (Clear); Urine Color Colorless (Yellow); Urine Protein, UAD Negative (Negative); Urine Specific Gravity 1.004 (1.001-1.035); Urine Squamous Epithelial Cell None Seen /hpf (<5); Urine Urobilinogen Normal (Negative); Urine pH 7.5 (5.0-9.0)
[2024-09-17 03:07] LABS: Urine WBC < 1 /HPF (0-3)
[2024-09-17 03:19] LABS: Benzodiazephine Screen, Urine Pos (NEGATIVE)
[2024-09-17 03:20] LABS: Amphetamine Screen, Urine Neg (NEGATIVE); Barbiturate Scree,Urine Neg (NEGATIVE); Cannabinoid Screen, Urine Neg (NEGATIVE); Cocaine Screen, Urine Neg (NEGATIVE); Opiate Scree,Urine Neg (NEGATIVE); Phencyclidine Screen, Urine Neg (NEGATIVE)
[2024-09-17] MEDS: SPIRONOLACTONE 25 MG TAB PO SCH (09:51)
[2024-09-17] MEDS: LISINOPRIL 5 MG TAB PO SCH (09:51)
[2024-09-17] MEDS: MAGNESIUM OXIDE 400 MG TAB PO SCH (09:51)
[2024-09-17] MEDS: THIAMINE HCL 100 MG TAB PO SCH (09:51)
[2024-09-17] MEDS: MULTIPLE VITAMIN TAB PO SCH (09:51)
[2024-09-17] MEDS: FOLIC ACID 1 MG TAB PO SCH (09:51)
[2024-09-17] MEDS: METOPROLOL SUCCINATE XL 50 MG TAB PO SCH (09:52)
[2024-09-17] MEDS: FOLIC ACID PO SCH (10:00)
[2024-09-17] MEDS ORDERED: PATIENTS OWN MEDICATION (Magnesium Oxide 400 MG) OR SCH (10:00)
[2024-09-17] MEDS: CYANOCOBALAMIN PO SCH (10:00)
[2024-09-17] MEDS: ACETAMINOPHEN 325 MG TAB PO PRN (15:25)
--- NOTE | 2024-09-17 18:21 | DVHPN2 ---
Subjective having severe withdrawal with tremors, tachycardia Changes from previous H/P or p: No Changes Objective Vitals Vital Signs Date Time Temp Pulse Resp B/P (MAP) Pulse Ox O2 Delivery O2 Flow Rate FiO2 09/17/24 16:39 98.4 85 18 121/85 (97) 99 98.4 09/17/24 08:00 Room Air* 0 21 Intake/Output Intake and Output 09/17/24 07:00 Intake Total 100 ml Output Total 820 ml Balance -720 ml Intake Oral 100 ml Output Urine Total 820 ml General Appearance: Alert, Oriented X3 Lungs: Clear to auscultation Cardiovascular: Regular rate, Normal S1, Normal S2 Abdomen: Normal bowel sounds Medications Current Medications Medications Dose Ordered Sig/Surjit Route Start Time Stop Time Status Last Admin Dose Admin Thiamine HCl 100 mg DAILY PO 09/17/24 10:00 09/17/24 09:51 100 MG Folic Acid 1 mg DAILY PO 09/17/24 10:00 09/17/24 09:51 1 MG Multivitamins 1 tab DAILY PO 09/17/24 10:00 09/17/24 09:51 1 TAB Ondansetron HCl 4 mg Q4HP PRN IV 09/16/24 11:30 Acetaminophen 650 mg Q6HP PRN PO 09/16/24 11:30 09/17/24 15:25 650 MG Nitroglycerin 0.4 mg Q5MINP PRN SL 09/16/24 11:30 Morphine Sulfate 2 mg Q30M PRN IV 09/16/24 11:30 Gemfibrozil 600 mg BID PO 09/16/24 22:00 09/17/24 09:50 600 MG Spironolactone 25 mg DAILY PO 09/17/24 10:00 09/17/24 09:51 25 MG Patient Own Medication 1 tab DAILY PO 09/17/24 10:00 Lisinopril 2.5 mg DAILY PO 09/17/24 10:00 09/17/24 09:51 2.5 MG Patient Own Medication 400 mg DAILY OR 09/17/24 10:00 UNV Metoprolol Succinate 25 mg DAILY PO 09/17/24 10:00 09/17/24 09:52 25 MG Magnesium Oxide 400 mg DAILY PO 09/17/24 10:00 09/17/24 09:51 400 MG Laboratory Results Laboratory Tests 09/15/24 19:19 09/16/24 10:52 Urinalysis Test 09/17/24 02:23 Urine Color Colorless (Yellow) Urine Clarity Clear (Clear) Urine pH 7.5 (5.0-9.0) Urine Specific [place] 1.004 (1.001-1.035) Urine Protein Negative (Negative) Urine Ketones Negative (Negative) Urine Blood Negative /uL (Negative) Urine Nitrite Negative (Negative) Urine Bilirubin Negative (Negative) Urine Urobilinogen Normal mg/dL (Negative) Urine Leukocyte Esterase Negative /uL (Negative) Urine RBC <1 /hpf (0 - 3) Urine Microscopic WBC < 1 /HPF (0-3) Urine Squamous Epithelial Cells None seen /hpf (<5) Urine Bacteria None seen /hpf (None Seen) Urine Glucose Normal mg/dL (Normal) Microbiology Microbiology Date/Time Source Procedure Growth Status 09/16/24 22:00 Nose MRSA Screen - Final Complete Assessment/Plan Assessment/Plan ETOH intoxication alcohol withdrawal with CIWA 10 Hypokalemia Sinus tachycardia Start withdrawal protocol monitor BMP Plan discussed with: Patient Date of Service: September 17, 2024 Billing Provider: ANUSHA HERNANDEZ MD Common Visit Codes: [id number] INP/OBS CARE(HIGH) ANUSHA HERNANDEZ MD September 17, 2024 18:21
[2024-09-17] MEDS: chlordiazePOXIDE HCL 25 MG CAP PO SCH (18:57)
[2024-09-18] VITALS (8 sets, daily range): BP systolic 100–131; BP diastolic 68–89; PULSE 86–115; RESP 18–20; TEMP 97.7–98.4; O2SAT 95–100
--- NOTE | 2024-09-18 15:27 | DVHPN2 ---
Subjective tremors are better today Changes from previous H/P or p: No Changes Objective Vitals Vital Signs Date Time Temp Pulse Resp B/P (MAP) Pulse Ox O2 Delivery O2 Flow Rate FiO2 09/18/24 12:13 97.7 97 19 110/77 (88) 98 97.7 09/18/24 08:00 Room Air* 0 21 Intake/Output Intake and Output 09/18/24 07:00 Intake Total 1180 ml Output Total 1140 ml Balance 40 ml Intake Oral 1180 ml Output Urine Total 1140 ml # Voids 1 General Appearance: Alert, Oriented X3 Lungs: Clear to auscultation Cardiovascular: Regular rate, Normal S1, Normal S2 Abdomen: Normal bowel sounds Medications Current Medications Medications Dose Ordered Sig/Surjit Route Start Time Stop Time Status Last Admin Dose Admin Thiamine HCl 100 mg DAILY PO 09/17/24 10:00 09/18/24 09:06 100 MG Folic Acid 1 mg DAILY PO 09/17/24 10:00 09/18/24 09:08 1 MG Multivitamins 1 tab DAILY PO 09/17/24 10:00 09/18/24 09:05 1 TAB Ondansetron HCl 4 mg Q4HP PRN IV 09/16/24 11:30 Acetaminophen 650 mg Q6HP PRN PO 09/16/24 11:30 09/17/24 21:34 650 MG Nitroglycerin 0.4 mg Q5MINP PRN SL 09/16/24 11:30 Morphine Sulfate 2 mg Q30M PRN IV 09/16/24 11:30 Gemfibrozil 600 mg BID PO 09/16/24 22:00 09/18/24 09:06 600 MG Spironolactone 25 mg DAILY PO 09/17/24 10:00 09/18/24 09:06 25 MG Patient Own Medication 1 tab DAILY PO 09/17/24 10:00 Lisinopril 2.5 mg DAILY PO 09/17/24 10:00 09/18/24 09:08 2.5 MG Patient Own Medication 400 mg DAILY OR 09/17/24 10:00 UNV Metoprolol Succinate 25 mg DAILY PO 09/17/24 10:00 09/18/24 09:07 25 MG Magnesium Oxide 400 mg DAILY PO 09/17/24 10:00 09/18/24 09:05 400 MG Chlordiazepoxide HCl 50 mg Q12HR PO 09/18/24 22:00 09/19/24 10:01 Chlordiazepoxide HCl 25 mg Q12HR PO 09/19/24 22:00 09/20/24 10:01 Chlordiazepoxide HCl 25 mg QAM PO 09/20/24 22:00 09/20/24 22:01 Laboratory Results Laboratory Tests 09/15/24 19:19 09/16/24 10:52 Urinalysis Test 09/17/24 02:23 Urine Color Colorless (Yellow) Urine Clarity Clear (Clear) Urine pH 7.5 (5.0-9.0) Urine Specific [place] 1.004 (1.001-1.035) Urine Protein Negative (Negative) Urine Ketones Negative (Negative) Urine Blood Negative /uL (Negative) Urine Nitrite Negative (Negative) Urine Bilirubin Negative (Negative) Urine Urobilinogen Normal mg/dL (Negative) Urine Leukocyte Esterase Negative /uL (Negative) Urine RBC <1 /hpf (0 - 3) Urine Microscopic WBC < 1 /HPF (0-3) Urine Squamous Epithelial Cells None seen /hpf (<5) Urine Bacteria None seen /hpf (None Seen) Urine Glucose Normal mg/dL (Normal) Microbiology Microbiology Date/Time Source Procedure Growth Status 09/16/24 22:00 Nose MRSA Screen - Final Complete Assessment/Plan Assessment/Plan ETOH intoxication alcohol withdrawal with CIWA 10 Hypokalemia Sinus tachycardia withdrawal protocol monitor BMP Dispo: DC tomorrow if symptoms are better Plan discussed with: Patient My Orders Orders - ANUSHA HERNANDEZ MD Procedure Category Date Status Time Chlordiazepoxide Hcl PHA 09/18/24 In Process Capsule (Librium Ca 22:00 Chlordiazepoxide Hcl PHA 09/19/24 In Process Capsule (Librium Ca 22:00 Chlordiazepoxide Hcl PHA 09/20/24 In Process Capsule (Librium Ca 22:00 Basic Metabolic Panel LAB 09/19/24 Verified 05:00 Basic Metabolic Panel LAB 09/20/24 Verified 05:00 Basic Metabolic Panel LAB 09/21/24 Verified 05:00 Basic Metabolic Panel LAB 09/22/24 Verified 05:00 Basic Metabolic Panel LAB 09/23/24 Verified 05:00 Basic Metabolic Panel LAB 09/24/24 Verified 05:00 Basic Metabolic Panel LAB 09/25/24 Verified 05:00 Date of Service: September 18, 2024 Billing Provider: ANUSHA HERNANDEZ MD Common Visit Codes: [id number] INP/OBS CARE(HIGH) ANUSHA HERNANDEZ MD September 18, 2024 15:27
[2024-09-18] MEDS: chlordiazePOXIDE HCL 25 MG CAP PO SCH (21:11)
[2024-09-19] VITALS (8 sets, daily range): BP systolic 97–122; BP diastolic 65–86; PULSE 78–117; RESP 17–19; TEMP 97.3–98.3; O2SAT 97–100
[2024-09-19 06:28] LABS: Chloride 104 mmol/L (98-107); Potassium 4.1 mmol/L (3.5-5.1); Sodium 137 mmol/L (136-145)
[2024-09-19 06:29] LABS: Anion Gap 8 (5-15); Carbon Dioxide 25 mmol/L (20-31)
[2024-09-19 06:33] LABS: Calcium 10.6 mg/dL (8.7-10.4)
[2024-09-19 06:34] LABS: BUN/Creatinine Ratio 10.3 (10.0-20.0); Glucose 96 mg/dL (74-106)
[2024-09-19 06:35] LABS: Blood Urea Nitrogen 8 mg/dL (9-23)
--- NOTE | 2024-09-19 11:14 | DVHPN2 ---
Subjective Still having the tremors and anxiety Tachycardic Changes from previous H/P or p: Changes Objective Vitals Vital Signs Date Time Temp Pulse Resp B/P (MAP) Pulse Ox O2 Delivery O2 Flow Rate FiO2 09/19/24 10:05 117 122/67 09/19/24 09:00 97.6 17 99 97.6 09/18/24 20:00 Room Air* 0 21 Intake/Output Intake and Output 09/19/24 06:59 Intake Total 1370 ml Balance 1370 ml Intake Oral 1370 ml # Voids 5 # Bowel Movements 2 General Appearance: Alert, Oriented X3 Lungs: Clear to auscultation Cardiovascular: Regular rate, Normal S1, Normal S2 Abdomen: Normal bowel sounds Medications Current Medications Medications Dose Ordered Sig/Surjit Route Start Time Stop Time Status Last Admin Dose Admin Thiamine HCl 100 mg DAILY PO 09/17/24 10:00 09/19/24 10:05 100 MG Folic Acid 1 mg DAILY PO 09/17/24 10:00 09/19/24 10:05 1 MG Multivitamins 1 tab DAILY PO 09/17/24 10:00 09/19/24 10:04 1 TAB Ondansetron HCl 4 mg Q4HP PRN IV 09/16/24 11:30 Acetaminophen 650 mg Q6HP PRN PO 09/16/24 11:30 09/18/24 21:12 650 MG Nitroglycerin 0.4 mg Q5MINP PRN SL 09/16/24 11:30 Morphine Sulfate 2 mg Q30M PRN IV 09/16/24 11:30 Gemfibrozil 600 mg BID PO 09/16/24 22:00 09/19/24 10:06 600 MG Spironolactone 25 mg DAILY PO 09/17/24 10:00 09/19/24 10:05 25 MG Patient Own Medication 1 tab DAILY PO 09/17/24 10:00 Lisinopril 2.5 mg DAILY PO 09/17/24 10:09/19/24 10:05 2.5 MG Patient Own Medication 400 mg DAILY OR 09/17/24 10:00 UNV Metoprolol Succinate 25 mg DAILY PO 09/17/24 10:00 09/19/24 10:05 25 MG Magnesium Oxide 400 mg DAILY PO 09/17/24 10:00 09/19/24 10:04 400 MG Chlordiazepoxide HCl 25 mg Q12HR PO 09/19/24 22:00 09/20/24 10:01 Chlordiazepoxide HCl 25 mg QAM PO 09/20/24 22:00 09/20/24 22:01 Laboratory Results Laboratory Tests 09/16/24 10:52 09/19/24 05:28 Chemistry Test 09/19/24 05:28 Calcium Level 10.6 mg/dL (8.7-10.4) H Urinalysis Test 09/17/24 02:23 Urine Color Colorless (Yellow) Urine Clarity Clear (Clear) Urine pH 7.5 (5.0-9.0) Urine Specific [place] 1.004 (1.001-1.035) Urine Protein Negative (Negative) Urine Ketones Negative (Negative) Urine Blood Negative /uL (Negative) Urine Nitrite Negative (Negative) Urine Bilirubin Negative (Negative) Urine Urobilinogen Normal mg/dL (Negative) Urine Leukocyte Esterase Negative /uL (Negative) Urine RBC <1 /hpf (0 - 3) Urine Microscopic WBC < 1 /HPF (0-3) Urine Squamous Epithelial Cells None seen /hpf (<5) Urine Bacteria None seen /hpf (None Seen) Urine Glucose Normal mg/dL (Normal) Microbiology Microbiology Date/Time Source Procedure Growth Status 09/16/24 22:00 Nose MRSA Screen - Final Complete Assessment/Plan Assessment/Plan Alcohol withdrawal Post Alcohol intoxication Hypokalemia Sinus tachycardia to the above Hypomagnesemia Plan Continue IV fluids Librium Ativan as needed Multivitamins Thiamine May 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
[2024-09-19] MEDS ORDERED: chlordiazePOXIDE HCL 5 MG CAP PO PRN (11:15)
[2024-09-19] MEDS ORDERED: LORazepam 2MG/ML-1ML VIAL IV PRN (11:15)
[2024-09-19] MEDS: D5W/SOD CHL 0.45%/KCL 20MEQ 1,000 ML IV SCH (13:00)
[2024-09-19] MEDS: chlordiazePOXIDE HCL 25 MG CAP PO SCH (21:29)
[2024-09-20 01:00] VITALS: BP 108/73; PULSE 104; RESP 20; TEMP 97.6; O2SAT 99
[2024-09-20 05:00] VITALS: BP 104/68; PULSE 90; RESP 19; TEMP 97.4; O2SAT 99
[2024-09-20 08:00] VITALS: PULSE 108; PULSE 98; RESP 18; O2SAT 96
[2024-09-20 09:00] VITALS: BP 98/64; PULSE 104; RESP 17; TEMP 97.2; O2SAT 99
--- NOTE | 2024-09-20 10:21 | DVHDS2 ---
Discharge Summary Date of Admission September 16, 2024 at 11:23 Date of Discharge: September 20, 2024 Labs/Diagnostic Data: Laboratory Results Test 09/19/24 05:28 09/17/24 02:23 09/16/24 10:52 09/15/24 19:19 Sodium Level 137 mmol/L (136-145) Potassium Level 4.1 mmol/L (3.5-5.1) Chloride Level 104 mmol/L (98-107) Carbon Dioxide Level 25 mmol/L (20-31) Anion Gap 8 (5-15) Blood Urea Nitrogen 8 mg/dL (9-23) Creatinine 0.78 mg/dL (0.700-1.30) Glomerular Filtration Rate Calc 116 mL/min (>90) BUN/Creatinine Ratio 10.3 (10.0-20.0) Serum Glucose 96 mg/dL (74-106) Calcium Level 10.6 mg/dL (8.7-10.4) Urine Color Colorless (Yellow) Urine Clarity Clear (Clear) Urine pH 7.5 (5.0-9.0) Urine Specific [place] 1.004 (1.001-1.035) Urine Protein Negative (Negative) Urine Ketones Negative (Negative) Urine Blood Negative /uL (Negative) Urine Nitrite Negative (Negative) Urine Bilirubin Negative (Negative) Urine Urobilinogen Normal mg/dL (Negative) Urine Leukocyte Esterase Negative /uL (Negative) Urine RBC <1 /hpf (0 - 3) Urine Microscopic WBC < 1 /HPF (0-3) Urine Squamous Epithelial Cells None seen /hpf (<5) Urine Bacteria None seen /hpf (None Seen) Urine Glucose Normal mg/dL (Normal) Urine Opiates Screen Neg (NEGATIVE) Urine Fentanyl Screen Neg (NEGATIVE) Urine Barbiturates Screen Neg (NEGATIVE) Urine Phencyclidine Screen Neg (NEGATIVE) Urine Amphetamines Screen Neg (NEGATIVE) Urine Benzodiazepines Screen Pos (NEGATIVE) Urine Cocaine Screen Neg (NEGATIVE) Urine Cannabinoids Screen Neg (NEGATIVE) White Blood Count 5.1 10^3/uL (4.4-10.8) Red Blood Count 4.31 10^6/uL (4.5-5.90) Hemoglobin 13.5 g/dL (13.5-17.5) Hematocrit 38.8 % (41.0-53.0) Mean Corpuscular Volume 90.1 fL (80.0-100.0) Mean Corpuscular Hemoglobin 31.2 pg (28.0-32.0) Mean Corpuscular Hemoglobin Concent 34.7 g/dL (32.0-36.0) Red Cell Distribution Width 14.1 % (11.8-14.3) Platelet Count 136 10^3/uL (140-450) Mean Platelet Volume 6.9 fL (6.9-10.8) Neutrophils (%) (Auto) 83.7 % (37.0-80.0) Lymphocytes (%) (Auto) 12.2 % (10.0-50.0) Monocytes (%) (Auto) 3.3 % (0.0-12.0) Eosinophils (%) (Auto) 0.4 % (0.0-7.0) Basophils (%) (Auto) 0.4 % (0.0-2.0) Neutrophils # (Auto) 4.2 10 ^3/uL (1.6-8.6) Lymphocytes # (Auto) 0.6 10 ^3/uL (0.4-5.4) Monocytes # (Auto) 0.2 10 ^3/uL (0-1.3) Eosinophils # (Auto) 0 10 ^3/uL (0-0.8) Basophils # (Auto) 0 10 ^3/uL (0-0.2) Nucleated Red Blood Cells 0.1 % Magnesium Level 1.7 mg/dL (1.6-2.6) Plasma/Serum Blood Alcohol 418.9 mg/dL (<10) Other Laboratory Tests 09/19/24 05:28 09/16/24 10:52 Brief Hx & Hospital Course: Final diagnoses: Alcohol withdrawal Post Alcohol intoxication Hypokalemia Sinus tachycardia to the above Hypomagnesemia Acute metabolic encephalopathy due to the above 38-year-old male who was admitted for alcohol intoxication and metabolic encephalopathy Alcohol level was 418 He started going into withdrawal and therefore he was given IV fluids and electrolytes replacement and thiamine and multivitamins and folic acid He was given IV fluids which helped his tachycardia He was given Librium Overall he is doing better now and less tachycardic and more alert and oriented and he wants to go home Potassium magnesium were replaced Discharge the patient He is homeless but he lives in a Shack near a store and he wants to go back there but he does not have a right Consult social worker assistant for his homelessness and to provide him with a right Follow up with the primary care physician as soon as possible Condition at Discharge: Stable Final Diagnosis/Problems List Alcohol withdrawal Post Alcohol intoxication Hypokalemia Sinus tachycardia to the above Hypomagnesemia Discharge Disposition: Home SNF Discharge Will this Physician continue t: No Discharge Statement: "Patient was advised to return to the ER or call 911 if any headaches, dizziness, shortness of breath, chest pain, abdominal pain, bleeding, fevers, or worsening of medical condition. Patient was counseled about treatment plan, medications, possible side effects, patientverbalized understanding. All questions were answered to the best of my ability. This discharge took greater then 30 minutes in planning, reviewing documentation, counseling the patient, and discussing with other team members." ASSESSMENT ASSESSMENT Assessment Date of Service: September 20, 2024 Billing Provider: ZEINA REAGAN MD Common Visit Codes: 51667-BQO/OBS DISCH DAY >30min ZEINA REAGAN MD September 20, 2024 10:21
[2024-09-20 12:15] VITALS: BP 122/67; PULSE 117; TEMP 36.2
[2024-09-20] MEDS ORDERED: chlordiazePOXIDE HCL 25 MG CAP PO SCH (22:00)
== END 2024-09-20 13:05 | disposition home or self-care (01) | DRG 71 ==
LOC: EDBD 18:56 → ER 19:00 → OVERFLOW 09-16 11:23 → TELE-CENTR 09-17 02:10
PROVIDERS: ADMIT Internal Medicine Geriatric Medicine; ATTEND Internal Medicine Geriatric Medicine
DX: G93.41 Metabolic encephalopathy (principal); F10.130 Alcohol abuse with withdrawal, uncomplicated; Z59.00 Homelessness unspecified; E87.6 Hypokalemia; F10.129 Alcohol abuse with intoxication, unspecified; E83.42 Hypomagnesemia; F17.200 Nicotine dependence, unspecified, uncomplicated; F41.9 Anxiety disorder, unspecified; Y90.8 Blood alcohol level of 240 mg/100 ml or more; Z60.3 Acculturation difficulty
CPT/HCPCS: 36415; 71046; 80048; 80307; 80320; 81001; 83735; 85025; 87081; 96361; 96374; 96375; G0378; J2405; J2470; J7060

== ENCOUNTER 2024-09-30 16:42 | Emergency (ER) | payer SELFPAY ==
[~2024-09-30] VITALS: Ht 167.6 cm; Wt 64.0 kg
--- NOTE | 2024-09-30 17:11 | ED.PDOC ---
History of Present Illness HPI Comments 38-year-old male with unknown PMHx or PSHx brought in by EMS presents with a chief complaint of ETOH/ALOC. Patient was found by EMS outside an [place] restaurant, intoxicated, stating he had one bottle of vodka to drink today. Patient also states that his chest is hurting in the center of his sternum. Patient appears intoxicated, but denies any injury. No other symptoms or modifying factors present at this time. Chief Complaint: ETOH Time Seen by MD: 17:05 Primary Care Provider: NONE Reviewed Notes: Medications, Allergies Allergies: Coded Allergies: NO KNOWN ALLERGIES (Unverified , 01/20/24) Home Meds Active Scripts Pantoprazole Sodium Sesquihydr (Protonix) 40 Mg Tab, 40 MG PO DAILY, #30 TAB Prov:NAYELI SOSA MD 09/30/24 Ondansetron Odt 4MG Tab (ZOFRAN PO) 4 Mg Tb, 4 MG PO TID PRN, #30 TAB ODT TAB-DISSOLVE IN MOUTH, THEN SWALLOW Prov:NAYELI SOSA MD 09/30/24 Cobalamine Combinations (B-12 + Folic Acid 2500-400 Mcg) 1 Tab Tab, 1 TAB PO DAILY for 30 Days, #30 TAB 0 Refills Prov:ALYCIA ANDINO RESIDENT 01/25/24 Multiple Vitamin (Multivitamins) Tab, 1 TAB PO DAILY for 30 Days, #90 TAB 0 Refills Prov:ANDINOALYCIA [facility] 01/25/24 Magnesium Oxide (MAGNESIUM OXIDE) 400 Mg Tab, 400 MG OR DAILY for 7 Days, #7 TAB Prov:ALYCIA ANDINO [facility] 01/25/24 Gemfibrozil (Gemfibrozil) 600 Mg Tab, 1 TAB PO BID for 30 Days, #60 TAB 2 Refills Prov:ANDINOJUAN DANIEL SchulteU [facility] 01/25/24 Lisinopril (Lisinopril) 2.5 Mg Tab, 1 TAB PO DAILY for 30 Days, #30 TAB 2 Refills Prov:ANDINOALYCIA [facility] 01/25/24 Empagliflozin (Jardiance) 10 Mg Tab, 10 MG PO DAILY for 30 Days, #30 TAB 2 Refills Prov:ALYCIA ANDINO [facility] 01/25/24 Metoprolol Succinate (Metoprolol Succinate Er) 25 Mg Tab, 25 MG PO DAILY for 30 Days, #30 TAB 2 Refills Prov:ALYCIA ANDINO RESIDENT 01/25/24 Spironolactone (Spironolactone) 25 Mg Tab, 1 TAB PO DAILY for 30 Days, #30 TAB 2 Refills Prov:ALYCAI ANDINO RESIDENT 01/25/24 Information Source: Patient, Emergency Med Personnel Mode of Arrival: EMS Severity: Moderate Timing: Hours Duration: Since onset Prehospital treatment: Legal Services Professional Past Medical History PAST MEDICAL HISTORY: Unobtainable Surgical History: Unobtainable Family History Family History: Unobtainable Social History Smoker: Unobtainable Alcohol: Heavy Drugs: Unobtainable Lives In: Unobtainable Constitutional: denies: chills, diaphoresis, fatigue, fever, malaise, sweats, weakness, others EENTM: denies: blurred vision, double vision, ear bleeding, ear discharge, ear drainage, ear pain, ear ringing, eye pain, eye redness, hearing loss, mouth pain, mouth swelling, nasal discharge, nose bleeding, nose congestion, nose pain, photophobia, tearing, throat pain, throat swelling, voice changes, others Respiratory: denies: cough, hemoptysis, orthopnea, SOB at rest, shortness of breath, SOB with excertion, stridor, wheezing, others Cardiovascular: reports: chest pain; denies: dizzy spells, diaphoresis, Dyspnea on exertion, edema, irregular heart beat, left arm pain, lightheadedness, palpitations, PND, syncope, others Gastrointestinal: denies: abdomen distended, abdominal pain, blood streaked bowels, constipated, diarrhea, dysphagia, difficulty swallowing, hematemesis, melena, nausea, poor appetite, poor fluid intake, rectal bleeding, rectal pain, vomiting, others Genitourinary: denies: burning, dysuria, flank pain, frequency, hematuria, incontinence, penile discharge, penile sore, pain, testicle pain, testicle swelling, urgency, others Neurological: denies: dizziness, fainting, headache, left sided numbness, left sided weakness, numbness, paresthesia, pre-existing deficit, right sided numbness, right sided weakness, seizure, speech problems, tingling, tremors, weakness, others Musculoskeletal: denies: back pain, gout, joint pain, joint swelling, muscle pain, muscle stiffness, neck pain, others Integumetry: denies: bruises, change in color, change in hair/nails, dryness, laceration, lesions, lumps, rash, wounds, others Allergic/Immunocompromised: denies: Difficulty Healing, Frequent Infections, Hives, Itching, others Hematologic/Lymphatic: denies: anemia, blood clots, easy bleeding, easy bruising, swollen glands, others Endocrine: denies: excessive hunger, excessive sweating, excessive thirst, excessive urination, flushing, intolerance to cold, intolerance to heat, unexplained weight gain, unexplained weight loss, others Psychiatric: denies: anxiety, bipolar disorder, depression, hopeless, panic disorder, schizophrenia, sleepless, suicidal, others Unable to Obtain due to: Altered Mental Status (Complete systems review unobtainable due to intoxication. Positive for what is stated in the HPI.) Physical Exam General Appearance: No Apparent Distress, Other (Appears intoxicated) HEENT: Other (Pupils and face symmetric. Moist mucous membranes.) Neck: Full Range of Motion, Normal Inspection Respiratory: Lungs Clear, No Accessory Muscle Use, No Respiratory Distress, Normal Breath Sounds Cardiovascular: No Edema, No JVD, Tachycardia Breast Exam: Deferred Gastrointestinal: Non Tender, Soft Genitalia: Deferred Pelvic: Deferred Rectal: Deferred Extremities: Normal inspection, Normal range of motion, Non-tender, No pedal edema Neurologic: Alert (Oriented x3), Normal Affect, Normal Mood, Other (Moves all extremities. No gross focal deficit.) Cerebellar Function: NOT DONE Reflexes: NOT DONE Skin: Dry, Normal Color, Warm Lymphatic: NOT DONE Was a procedure done? Was a procedure done?: No EKG EKG : Comments Sinus tach, rate 123, normal VT and QRS intervals, QTC 482, normal axis, normal QRS, nonspecific T change. Differential Dx Considerations may include: Gastritis, ulcer disease, pancreatitis, GERD, ACS, OH, intoxication, electrolyte imbalance, among others X-Ray, Labs, Meds, VS Vital Signs Date Time Temp Pulse Resp B/P (MAP) Pulse Ox O2 Delivery O2 Flow Rate FiO2 09/30/24 20:10 135 18 100 Room Air* 0 21 09/30/24 20:09 98.4 135 18 127/75 (92) 100 98.4 09/30/24 16:51 98.6 145 16 138/72 (94) 100 98.6 Lab Test 09/30/24 18:46 09/30/24 17:34 Range/Units Troponin I High Sensitivity 18 19 </=54 ng/L White Blood Count 8.2 4.4-10.8 10^3/uL Red Blood Count 4.98 4.5-5.90 10^6/uL Hemoglobin 15.1 13.5-17.5 g/dL Hematocrit 44.5 41.0-53.0 % Mean Corpuscular Volume 89.3 80.0-100.0 fL Mean Corpuscular Hemoglobin 30.4 28.0-32.0 pg Mean Corpuscular Hemoglobin Concent 34.0 32.0-36.0 g/dL Red Cell Distribution Width 14.2 11.8-14.3 % Platelet Count 351 140-450 10^3/uL Mean Platelet Volume 6.2 L 6.9-10.8 fL Neutrophils (%) (Auto) 67.4 37.0-80.0 % Lymphocytes (%) (Auto) 29.6 10.0-50.0 % Monocytes (%) (Auto) 2.6 0.0-12.0 % Eosinophils (%) (Auto) 0.0 0.0-7.0 % Basophils (%) (Auto) 0.4 0.0-2.0 % Neutrophils # (Auto) 5.5 1.6-8.6 10 ^3/uL Lymphocytes # (Auto) 2.4 0.4-5.4 10 ^3/uL Monocytes # (Auto) 0.2 0-1.3 10 ^3/uL Eosinophils # (Auto) 0 0-0.8 10 ^3/uL Basophils # (Auto) 0 0-0.2 10 ^3/uL Nucleated Red Blood Cells 0.2 % Sodium Level 142 136-145 mmol/L Potassium Level 3.8 3.5-5.1 mmol/L Chloride Level 102 98-107 mmol/L Carbon Dioxide Level 20 20-31 mmol/L Anion Gap 20 H 5-15 Blood Urea Nitrogen 21 9-23 mg/dL Creatinine 0.91 0.700-1.30 mg/dL Glomerular Filtration Rate Calc 110 >90 mL/min BUN/Creatinine Ratio 23.1 H 10.0-20.0 Serum Glucose 119 H 74-106 mg/dL Calcium Level 9.3 8.7-10.4 mg/dL Total Bilirubin 0.6 0.2-1.0 mg/dL Aspartate Amino Transferase (AST) 39 13-40 U/L Alanine Aminotransferase (ALT) 62 H 7-40 U/L Alkaline Phosphatase 98 46-116 U/L B-Type Natriuretic Peptide 52.92 0-100 pg/mL Total Protein 7.3 5.7-8.2 g/dL Albumin 4.2 3.2-4.8 g/dL Plasma/Serum Blood Alcohol 371.4 H <10 mg/dL Current Medications Medications (Trade) Dose Ordered Sig/Surjit Route Start Time Stop Time Status Last Admin Sodium Chloride 1,000 ml @ 1,000 mls/hr Q1H ONCE IV 09/30/24 17:15 09/30/24 18:14 DC 09/30/24 17:48 Ondansetron HCl (Zofran) 4 mg ONCE ONCE IV 09/30/24 17:15 09/30/24 17:16 DC 09/30/24 17:43 Pantoprazole Sodium (Protonix) 40 mg ONCE ONCE IV 09/30/24 17:15 09/30/24 17:16 DC 09/30/24 17:41 Lidocaine HCl (Xylocaine 2% Viscous) 10 ml ONCE ONCE PO 09/30/24 17:15 09/30/24 17:16 DC 09/30/24 17:41 Belladonna Alkaloids/ Phenobarbital ( Elixir) 10 ml ONCE ONCE PO 09/30/24 17:15 09/30/24 17:16 DC 09/30/24 17:41 Al Hydrox/Mg Hydrox/Simethicone (Maalox Plus) 30 ml ONCE ONCE PO 09/30/24 17:15 09/30/24 17:16 DC 09/30/24 17:41 Acetaminophen/ Hydrocodone Bitart ([place] 5/325MG Tab) 1 tab ONCE ONCE PO 09/30/24 20:30 09/30/24 20:31 DC 09/30/24 20:25 Ondansetron HCl (Zofran) 4 mg ONCE ONCE IV 09/30/24 21:00 09/30/24 21:01 DC 09/30/24 21:20 X-Ray, Labs, Meds, VS Comment 38-year-old male with a history of alcohol dependence brought in by EMS after being found intoxicated Vitals remarkable for heart rate 145 Exam remarkable for tachycardia and the appearance of alcohol intoxication Rhythm strip independently interpreted by me: Sinus tach, rate 145, no ectopy. Alcohol level 371.4, CBC, CMP, BNP and 2 serial troponins unremarkable Patient treated with the following in the ED: 2 L 0.9 normal saline IV bolus, Zofran 4 mg IV x2, Protonix 40 mg IV, [place] 5/325 mg p.o. On re-evaluation at 9:43 p.m., patient appears comfortable, is eating crackers, and has stable vital signs. Patient appears stable for discharge with close outpatient follow-up with his primary physician. Rx Protonix, Zofran Time of 1ST Reevaluation: 17:35 Reevaluation 1ST: Unchanged Patient Education/Counseling: Diagnosis, Treatment Family Education/Counseling: No Family Present Departure 1 Departure Time of Disposition: 21:44 Impression: Primary Impression: Alcohol intoxication Qualified Codes: F10.929 - Alcohol use, unspecified with intoxication, unspecified Additional Impression: Chest pain with low risk for cardiac etiology Disposition: 01 HOME / SELF CARE / HOMELESS Condition: Stable Additional Instructions: Follow-up with your primary doctor in 1-2 days. e-Prescriptions Pantoprazole Sodium Sesquihydr (Protonix) 40 Mg Tab 40 MG PO DAILY, #30 TAB Prov: NAYELI SOSA MD 09/30/24 Ondansetron Odt 4MG Tab (ZOFRAN PO) 4 Mg Tb 4 MG PO TID PRN, #30 TAB ODT TAB-DISSOLVE IN MOUTH, THEN SWALLOW Prov: NAYELI SOSA MD 09/30/24 Discharged With: Self Critical Care Note Critical Care Time?: No Stability Stability form required: No Heart Score Heart Score: Heart Score Response (Comments) Value History Slightly Suspicious 0 EKG Repolarization Disturb 1 Age <45 0 Risk Factors No known risk factors 0 Troponin Normal limit 0 Total 1 I personally scribed for NAYELI SOSA MD ([email or web address]) on 09/30/24 at 17:11. Electronically submitted by Ryan Rivera ([email or web address]). NAYELI SOSA MD September 30, 2024 17:11
[2024-09-30] MEDS: DONNATAL 5ml ORAL Elix (BELLADONNA ALK-PHENOBARB) PO ONE (17:41)
[2024-09-30] MEDS: LIDOCAINE VISCOUS 2% 15ML UD PO ONE (17:41)
[2024-09-30] MEDS: PANTOPRAZOLE 40 MG/10 ML VIAL INJ IV ONE (17:41)
[2024-09-30] MEDS: MAALOX PLUS or MAALOX 30 ML PO ONE (17:41)
[2024-09-30] MEDS: ONDANSETRON HCL 4 MG/2 ML VIAL IV ONE ×2 (17:43→21:20)
[2024-09-30 17:46] LABS: Basophils # (auto) 0 10 ^3/uL (0-0.2); Basophils % (auto) 0.4 % (0.0-2.0); Eosinophils # (auto) 0 10 ^3/uL (0-0.8); Hematocrit 44.5 % (41.0-53.0); Hemoglobin 15.1 g/dL (13.5-17.5); Lymphocytes # (auto) 2.4 10 ^3/uL (0.4-5.4); Lymphocytes % (auto) 29.6 % (10.0-50.0); Mean Corpuscular Hemoglobin 30.4 pg (28.0-32.0); Mean Corpuscular Volume 89.3 fL (80.0-100.0); Monocytes # (auto) 0.2 10 ^3/uL (0-1.3); Monocytes % (auto) 2.6 % (0.0-12.0); Neutrophils # (auto) 5.5 10 ^3/uL (1.6-8.6); Neutrophils % (auto) 67.4 % (37.0-80.0); Nucleated Red Blood Cells % 0.2 %; Platelet Count (auto) 351 10^3/uL (140-450); Red Blood Cells 4.98 10^6/uL (4.5-5.90); Red Cell Distribution Width 14.2 % (11.8-14.3); White Blood Cell 8.2 10^3/uL (4.4-10.8)
[2024-09-30] MEDS: SODIUM CHLORIDE 0.9% 1,000 ML IV ONE ×2 (17:48→21:49)
[2024-09-30 18:15] LABS: Albumin 4.2 g/dL (3.2-4.8); Alkaline Phosphatase 98 U/L (46-116); Anion Gap 20 (5-15); Aspartate Aminotransferase 39 U/L (13-40); BUN/Creatinine Ratio 23.1 (10.0-20.0); Bilirubin, Total 0.6 mg/dL (0.2-1.0); Blood Urea Nitrogen 21 mg/dL (9-23); Calcium 9.3 mg/dL (8.7-10.4); Carbon Dioxide 20 mmol/L (20-31); Chloride 102 mmol/L (98-107); Potassium 3.8 mmol/L (3.5-5.1); Sodium 142 mmol/L (136-145); Total Protein 7.3 g/dL (5.7-8.2)
[2024-09-30 18:16] LABS: Alanine Aminotransferase 62 U/L (7-40); Glucose 119 mg/dL (74-106)
[2024-09-30 20:10] VITALS: PULSE 135; RESP 18; O2SAT 100
[2024-09-30] MEDS: HYDROcodone-ACET 5/325MG TAB PO ONE (20:25)
[2024-09-30] MEDS ORDERED: ZOFR4T PO (21:45)
[2024-09-30] MEDS ORDERED: MORPHINE SULFATE 4 MG/ML SYR/VIAL IV ONE (21:45)
[2024-09-30] MEDS ORDERED: PANT40TA2 PO (21:45)
[2024-09-30] MEDS ORDERED: ONDANSETRON HCL 4 MG/2 ML VIAL IV ONE (21:45)
[2024-09-30 22:39] VITALS: BP 109/70; PULSE 140; RESP 24; TEMP 98.7; O2SAT 95
--- NOTE | 2024-10-03 10:34 | ECG ---
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
== END 2024-09-30 22:25 | disposition home or self-care (01) ==
LOC: EDBD 16:42 → ER 16:46
DX: F10.129 Alcohol abuse with intoxication, unspecified (principal); Z79.84 Long term (current) use of oral hypoglycemic drugs; Z79.899 Other long term (current) drug therapy; Y90.8 Blood alcohol level of 240 mg/100 ml or more
CPT/HCPCS: 36415; 80053; 80320; 83880; 84484; 85025; 93005; 96361; 96374; 96375; 96376; 99284; J2405; J2470; J7030

== ENCOUNTER 2024-09-30 23:54 | Emergency (ER) | payer SELFPAY ==
[~2024-09-30] VITALS: Ht 167.6 cm; Wt 68.0 kg
[~2024-09-30 23:54] MED LIST changes: +PANT40TA2 PO; +ZOFR4T PO
[2024-10-01] MEDS: METOPROLOL TARTRATE 1MG/1ML-5ML VIAL IV ONE ×2 (00:15→02:30)
[2024-10-01 00:37] LABS: Chloride 100 mmol/L (98-107); Sodium 137 mmol/L (136-145)
[2024-10-01 00:38] LABS: Anion Gap 17 (5-15); Carbon Dioxide 20 mmol/L (20-31)
[2024-10-01 00:40] LABS: Basophils # (auto) 0 10 ^3/uL (0-0.2); Basophils % (auto) 0.4 % (0.0-2.0); Eosinophils # (auto) 0 10 ^3/uL (0-0.8); Hematocrit 39.6 % (41.0-53.0); Hemoglobin 13.6 g/dL (13.5-17.5); Lymphocytes # (auto) 0.6 10 ^3/uL (0.4-5.4); Lymphocytes % (auto) 9.6 % (10.0-50.0); Mean Corpuscular Hemoglobin 30.7 pg (28.0-32.0); Mean Corpuscular Hgb Conc. 34.3 g/dL (32.0-36.0); Mean Corpuscular Volume 89.3 fL (80.0-100.0); Monocytes # (auto) 0.5 10 ^3/uL (0-1.3); Monocytes % (auto) 7.5 % (0.0-12.0); Neutrophils # (auto) 5.1 10 ^3/uL (1.6-8.6); Neutrophils % (auto) 82.5 % (37.0-80.0); Nucleated Red Blood Cells % 0.1 %; Platelet Count (auto) 272 10^3/uL (140-450); Red Blood Cells 4.43 10^6/uL (4.5-5.90); Red Cell Distribution Width 14.5 % (11.8-14.3); White Blood Cell 6.1 10^3/uL (4.4-10.8)
[2024-10-01 00:42] LABS: Potassium 3.4 mmol/L (3.5-5.1)
[2024-10-01 00:43] LABS: Blood Urea Nitrogen 16 mg/dL (9-23)
[2024-10-01 00:47] LABS: Glucose 157 mg/dL (74-106)
[2024-10-01] MEDS: SODIUM CHLORIDE 0.9% 1,000 ML IV ONE (01:30)
[2024-10-01] MEDS: ONDANSETRON HCL 4 MG/2 ML VIAL IV ONE (01:40)
[2024-10-01] MEDS: KETOROLAC TROMETH 30 MG/ML 1ML VIAL IV ONE (01:41)
--- NOTE | 2024-10-01 01:51 | ED.PDOC ---
HPI Comments This patient is a 38-year-old male who has a history of significant alcohol abuse who arrives the ED again today for complaints of chest pain concerns. Patient was seen here earlier for ETOH overdose. Patient returns with complaints of chest pain. Patient denies any history of chest pain concerns. Patient blood alcohol level earlier was 0.37. Patient was tachycardic at arrival. Chief Complaint: Chest Pain Time Seen by MD: 00:00 Primary Care Provider: NONE Reviewed Notes: Nurses Notes Allergies: Coded Allergies: NO KNOWN ALLERGIES (Unverified , 01/20/24) Home Meds Active Scripts Pantoprazole Sodium Sesquihydr (Protonix) 40 Mg Tab, 40 MG PO DAILY, #30 TAB Prov:NAYELI SOSA MD 09/30/24 Ondansetron Odt 4MG Tab (ZOFRAN PO) 4 Mg Tb, 4 MG PO TID PRN, #30 TAB ODT TAB-DISSOLVE IN MOUTH, THEN SWALLOW Prov:NAYELI SOSA MD 09/30/24 Cobalamine Combinations (B-12 + Folic Acid 2500-400 Mcg) 1 Tab Tab, 1 TAB PO DAILY for 30 Days, #30 TAB 0 Refills Prov:ALYCIA ANDINO [facility] 01/25/24 Multiple Vitamin (Multivitamins) Tab, 1 TAB PO DAILY for 30 Days, #90 TAB 0 Refills Prov:ALYCIA ANDINO [facility] 01/25/24 Magnesium Oxide (MAGNESIUM OXIDE) 400 Mg Tab, 400 MG OR DAILY for 7 Days, #7 TAB [facility] 01/25/24 Gemfibrozil (Gemfibrozil) 600 Mg Tab, 1 TAB PO BID for 30 Days, #60 TAB 2 Refills Prov:ALYCIA ANDINO [facility] 01/25/24 Lisinopril (Lisinopril) 2.5 Mg Tab, 1 TAB PO DAILY for 30 Days, #30 TAB 2 Refills Prov:ALYCIA ANDINO [facility] 01/25/24 Empagliflozin (Jardiance) 10 Mg Tab, 10 MG PO DAILY for 30 Days, #30 TAB 2 Refills Prov:ALYCIA ANDINO [facility] 01/25/24 Metoprolol Succinate (Metoprolol Succinate Er) 25 Mg Tab, 25 MG PO DAILY for 30 Days, #30 TAB 2 Refills Prov:ALYCIA ANDINO [facility] 01/25/24 Spironolactone (Spironolactone) 25 Mg Tab, 1 TAB PO DAILY for 30 Days, #30 TAB 2 Refills Prov:ALYCIA ANDINO [facility] 01/25/24 Information Source: Patient Mode of Arrival: Ambulatory Severity: Moderate Timing: Hours Duration: Since onset Prehospital treatment: None Location: Substernal Radiation: No Radiation Quality: Sharp Onset: At Rest Cardiac Risk Factors: Other (Alcohol abuse) History of: Similar pain in past Past Medical History PAST MEDICAL HISTORY: Unobtainable Surgical History: Unobtainable Family History Family History: Unobtainable Social History Smoker: Non-Smoker Alcohol: Heavy Drugs: Methamphetamine Lives In: Homeless Constitutional: denies: chills, diaphoresis, fatigue, fever, malaise, sweats, weakness, others EENTM: denies: blurred vision, double vision, ear bleeding, ear discharge, ear drainage, ear pain, ear ringing, eye pain, eye redness, hearing loss, mouth pain, mouth swelling, nasal discharge, nose bleeding, nose congestion, nose pain, photophobia, tearing, throat pain, throat swelling, voice changes, others Respiratory: denies: cough, hemoptysis, orthopnea, SOB at rest, shortness of breath, SOB with excertion, stridor, wheezing, others Cardiovascular: reports: chest pain; denies: dizzy spells, diaphoresis, Dyspnea on exertion, edema, irregular heart beat, left arm pain, lightheadedness, palpitations, PND, syncope, others Gastrointestinal: denies: abdomen distended, abdominal pain, blood streaked bowels, constipated, diarrhea, dysphagia, difficulty swallowing, hematemesis, melena, nausea, poor appetite, poor fluid intake, rectal bleeding, rectal pain, vomiting, others Genitourinary: denies: burning, dysuria, flank pain, frequency, hematuria, incontinence, penile discharge, penile sore, pain, testicle pain, testicle swelling, urgency, others Neurological: denies: dizziness, fainting, headache, left sided numbness, left sided weakness, numbness, paresthesia, pre-existing deficit, right sided numbness, right sided weakness, seizure, speech problems, tingling, tremors, weakness, others Musculoskeletal: denies: back pain, gout, joint pain, joint swelling, muscle pain, muscle stiffness, neck pain, others Integumetry: denies: bruises, change in color, change in hair/nails, dryness, laceration, lesions, lumps, rash, wounds, others Allergic/Immunocompromised: denies: Difficulty Healing, Frequent Infections, Hives, Itching, others Hematologic/Lymphatic: denies: anemia, blood clots, easy bleeding, easy bruising, swollen glands, others Endocrine: denies: excessive hunger, excessive sweating, excessive thirst, excessive urination, flushing, intolerance to cold, intolerance to heat, unexplained weight gain, unexplained weight loss, others Psychiatric: denies: anxiety, bipolar disorder, depression, hopeless, panic disorder, schizophrenia, sleepless, suicidal, others Physical Exam General Appearance: Moderate Distress (Moderate distress due to probable drug use and alcohol abuse. Patient appears to be in poor overall health, not well kempt and dirty.), Normal HEENT: Normal ENT Inspection, Pharynx Normal, TMs Normal Neck: Full Range of Motion, Non-Tender, Normal, Normal Inspection Respiratory: Chest Non-Tender, Lungs Clear, No Accessory Muscle Use, No Respiratory Distress, Normal Breath Sounds Cardiovascular: No Edema, No JVD, No Murmur, No Gallop, Normal Peripheral Pulses, Tachycardia Breast Exam: Deferred Gastrointestinal: No Organomegaly, Non Tender, No Pulsatile Mass, Normal Bowel Sounds, Soft Genitalia: Deferred Pelvic: Deferred Rectal: Deferred Extremities: No calf tenderness, Normal capillary refill, Non-tender, No pedal edema Neurologic: Other (Patient was intoxicated at time of evaluation.) Cerebellar Function: Normal Reflexes: Normal Skin: Dry, Normal Color, Warm Lymphatic: No Adenopathy Was a procedure done? Was a procedure done?: No CP Differential Dx Differential Diagnosis: A-fib, A-Flutter, Anxiety / Panic Attack, Atrial Dysrhythmia, AL Differential Diagnosis: CHF, Other (Illicit drug use, alcoholism) X-Ray, Labs, Meds, VS Vital Signs Date Time Temp Pulse Resp B/P (MAP) Pulse Ox O2 Delivery O2 Flow Rate FiO2 10/01/24 01:19 99.4 138 18 135/77 (96) 97 99.4 10/01/24 01:19 138 18 97 Room Air 10/01/24 00:15 101.0 125 20 132/88 (103) 98 101.0 10/01/24 00:15 125 10/01/24 00:04 124 Lab Test 10/01/24 01:07 10/01/24 00:14 Range/Units Troponin I High Sensitivity 13 14 </=54 ng/L White Blood Count 6.1 # 4.4-10.8 10^3/uL Red Blood Count 4.43 L 4.5-5.90 10^6/uL Hemoglobin 13.6 13.5-17.5 g/dL Hematocrit 39.6 #L 41.0-53.0 % Mean Corpuscular Volume 89.3 80.0-100.0 fL Mean Corpuscular Hemoglobin 30.7 28.0-32.0 pg Mean Corpuscular Hemoglobin Concent 34.3 32.0-36.0 g/dL Red Cell Distribution Width 14.5 H 11.8-14.3 % Platelet Count 272 140-450 10^3/uL Mean Platelet Volume 6.1 L 6.9-10.8 fL Neutrophils (%) (Auto) 82.5 H 37.0-80.0 % Lymphocytes (%) (Auto) 9.6 L 10.0-50.0 % Monocytes (%) (Auto) 7.5 0.0-12.0 % Eosinophils (%) (Auto) 0.0 0.0-7.0 % Basophils (%) (Auto) 0.4 0.0-2.0 % Neutrophils # (Auto) 5.1 1.6-8.6 10 ^3/uL Lymphocytes # (Auto) 0.6 0.4-5.4 10 ^3/uL Monocytes # (Auto) 0.5 0-1.3 10 ^3/uL Eosinophils # (Auto) 0 0-0.8 10 ^3/uL Basophils # (Auto) 0 0-0.2 10 ^3/uL Nucleated Red Blood Cells 0.1 % Sodium Level 137 # 136-145 mmol/L Potassium Level 3.4 L 3.5-5.1 mmol/L Chloride Level 100 98-107 mmol/L Carbon Dioxide Level 20 20-31 mmol/L Anion Gap 17 H 5-15 Blood Urea Nitrogen 16 9-23 mg/dL Creatinine 0.84 0.700-1.30 mg/dL Glomerular Filtration Rate Calc 114 >90 mL/min BUN/Creatinine Ratio 19.0 10.0-20.0 Serum Glucose 157 H 74-106 mg/dL Calcium Level 8.0 L 8.7-10.4 mg/dL Current Medications Medications (Trade) Dose Ordered Sig/Surjit Route Start Time Stop Time Status Last Admin Sodium Chloride 1,000 ml @ 1,000 mls/hr Q1H ONCE IV 10/01/24 00:15 10/01/24 01:14 DC 10/01/24 01:30 Ketorolac Tromethamine (Toradol Injection) 30 mg ONCE ONCE IV 10/01/24 00:15 10/01/24 00:16 DC 10/01/24 01:41 Ondansetron HCl (Zofran) 4 mg ONCE ONCE IV 10/01/24 00:15 10/01/24 00:16 DC 10/01/24 01:40 X-Ray, Labs, Meds, VS Comment All studies performed the ED were evaluated by me personally. Serum laboratories were relatively unremarkable for any acute findings. EKG revealed a sinus tachycardia with a rate of 124. Borderline prolonged QT interval noted. NM interval 135 and QT interval of 340. Patient will receive treatment in the ED including the use of a beta-adri to aid in adjusting his tachycardic state. Advised patient to cease alcohol use immediately and follow up with a support groups such as alcohol anonymous. Time of 1ST Reevaluation: 01:49 Reevaluation 1ST: Improved Consultation: PCP, Other (AA) Patient Education/Counseling: Diagnosis, Treatment Family Education/Counseling: Diagnosis, Treatment Departure 1 Departure Time of Disposition: 01:50 Impression: Primary Impression: Chest pain Additional Impressions: Alcohol abuse Alcohol intoxication Illicit drug use Disposition: 01 HOME / SELF CARE / HOMELESS Condition: Stable Additional Instructions: Advised patient cease alcohol use immediately and follow up with an alcohol support groups such as AA. Advised good hydration and healthy nutrition for the next few months. Discharged With: Self Critical Care Note Critical Care Time?: No Stability Stability form required: No Heart Score Heart Score: Heart Score Response (Comments) Value History Slightly Suspicious 0 EKG Repolarization Disturb 1 Age <45 0 Risk Factors 1 or 2 risk factors 1 Troponin Normal limit 0 Total 2 LAYA KAPOOR PAC October 01, 2024 01:51
[2024-10-01 03:43] VITALS: RESP 14; O2SAT 95
[2024-10-01 04:00] VITALS: TEMP 98.5
[2024-10-01 05:00] VITALS: BP 114/67; PULSE 102; RESP 20; O2SAT 95
--- NOTE | 2024-10-01 06:34 | ECG ---
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
== END 2024-10-01 06:47 | disposition home or self-care (01) ==
LOC: ER 23:58
DX: F10.129 Alcohol abuse with intoxication, unspecified (principal); F19.90 Other psychoactive substance use, unspecified, uncomplicated; F15.90 Other stimulant use, unspecified, uncomplicated; Z79.84 Long term (current) use of oral hypoglycemic drugs; Z79.899 Other long term (current) drug therapy; Z59.00 Homelessness unspecified; Y90.9 Presence of alcohol in blood, level not specified
CPT/HCPCS: 36415; 80048; 84484; 85025; 93005; 96361; 96374; 96375; 96376; 99285; J1885; J2405; J7030

== ENCOUNTER 2024-10-08 03:12 | Emergency (ER) | payer MEDICAID ==
[~2024-10-08] VITALS: Ht 170.2 cm; Wt 68.2 kg
--- NOTE | 2024-10-08 03:29 | ED.PDOC ---
Altered Mental Status HPI Comments 38-year-old male came to ER via EMS for alcohol intoxication. Seen here multiple times for similar complaints. Patient is homeless. Patient was seen by the gas station, apparently intoxicated alcohol again. Denies any subjective complaints this time of care. Chief Complaint: ETOH Time Seen by MD: 03:29 Primary Care Provider: NONE Reviewed Notes: Embedder Notes Allergies: Coded Allergies: NO KNOWN ALLERGIES (Unverified , 01/20/24) Home Meds Active Scripts Pantoprazole Sodium Sesquihydr (Protonix) 40 Mg Tab, 40 MG PO DAILY, #30 TAB Prov:NAYELI SOSA MD 09/30/24 Ondansetron Odt 4MG Tab (ZOFRAN PO) 4 Mg Tb, 4 MG PO TID PRN, #30 TAB ODT TAB-DISSOLVE IN MOUTH, THEN SWALLOW Prov:NAYELI SOSA MD 09/30/24 Cobalamine Combinations (B-12 + Folic Acid 2500-400 Mcg) 1 Tab Tab, 1 TAB PO DAILY for 30 Days, #30 TAB 0 Refills Prov:ALYCIA ANDINO [facility] 01/25/24 Multiple Vitamin (Multivitamins) Tab, 1 TAB PO DAILY for 30 Days, #90 TAB 0 Refills Prov:ALYCIA ANDINO [facility] 01/25/24 Magnesium Oxide (MAGNESIUM OXIDE) 400 Mg Tab, 400 MG OR DAILY for 7 Days, #7 TAB Prov:ALYCIA ANDINO [facility] 01/25/24 Gemfibrozil (Gemfibrozil) 600 Mg Tab, 1 TAB PO BID for 30 Days, #60 TAB 2 Refills Prov:ALYCIA ANDINO [facility] 01/25/24 Lisinopril (Lisinopril) 2.5 Mg Tab, 1 TAB PO DAILY for 30 Days, #30 TAB 2 Refills Prov:ALYCIA ADNINO [facility] 01/25/24 Empagliflozin (Jardiance) 10 Mg Tab, 10 MG PO DAILY for 30 Days, #30 TAB 2 Refills Prov:ALYCIA ANDINO [facility] 01/25/24 Metoprolol Succinate (Metoprolol Succinate Er) 25 Mg Tab, 25 MG PO DAILY for 30 Days, #30 TAB 2 Refills Prov:ALYCIA ANDINO [facility] 01/25/24 Spironolactone (Spironolactone) 25 Mg Tab, 1 TAB PO DAILY for 30 Days, #30 TAB 2 Refills Prov:ALYCIA ANDINO [facility] 01/25/24 Information Source: Patient, Emergency Med Personnel Mode of Arrival: EMS Severity: Unable to Care for Self Timing: Hours Duration: Since onset Quality: Decreased Alertness, Change in Behavior, Confusion Recent: Medication/Drug Abuse (Alcohol) History of: Other (Alcohol) Past Medical History PAST MEDICAL HISTORY: Unobtainable Surgical History: Unobtainable Family History Family History: Unobtainable Social History Smoker: Non-Smoker Alcohol: Heavy Drugs: Denies Drug Use Lives In: Homeless Unable to Obtain due to: Altered Mental Status, Other (Intoxication alcohol) Physical Exam General Appearance: No Apparent Distress, Normal HEENT: Normal ENT Inspection, Pharynx Normal, TMs Normal Neck: Full Range of Motion, Non-Tender, Normal, Normal Inspection Respiratory: Chest Non-Tender, Lungs Clear, No Accessory Muscle Use, No Respiratory Distress, Normal Breath Sounds Cardiovascular: No Edema, No JVD, No Murmur, No Gallop, Normal Peripheral Pulses, Regular Rate/Rhythm Breast Exam: Deferred Gastrointestinal: No Organomegaly, Non Tender, No Pulsatile Mass, Normal Bowel Sounds, Soft Genitalia: Deferred Pelvic: Deferred Rectal: Deferred Extremities: No calf tenderness, Normal capillary refill, Normal inspection, Normal range of motion, Non-tender, No pedal edema Musculoskeletal : Apperance: Normal Neurologic: Alert, art therapy specialist II-XII 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 Was a procedure done?: No Differential Diagnosis (ALOC) Differential Diagnosis: Dehydration, Hypoglycemia, Encephalopathy, ETOH Intoxication X-Ray, Labs, Meds, VS Vital Signs Date Time Temp Pulse Resp B/P (MAP) Pulse Ox O2 Delivery O2 Flow Rate FiO2 10/08/24 03:26 98.3 98 14 115/80 (92) 96 98.3 10/08/24 03:17 88 Lab Test 10/08/24 03:35 Range/Units White Blood Count 4.3 L 4.4-10.8 10^3/uL Red Blood Count 5.03 4.5-5.90 10^6/uL Hemoglobin 15.4 13.5-17.5 g/dL Hematocrit 45.3 41.0-53.0 % Mean Corpuscular Volume 90.1 80.0-100.0 fL Mean Corpuscular Hemoglobin 30.6 28.0-32.0 pg Mean Corpuscular Hemoglobin Concent 34.0 32.0-36.0 g/dL Red Cell Distribution Width 14.7 H 11.8-14.3 % Platelet Count 260 140-450 10^3/uL Mean Platelet Volume 6.6 L 6.9-10.8 fL Neutrophils (%) (Auto) 37.0-80.0 % Lymphocytes (%) (Auto) 10.0-50.0 % Monocytes (%) (Auto) 0.0-12.0 % Basophils (%) (Auto) 0.0-2.0 % Neutrophils # (Auto) 1.6-8.6 10 ^3/uL Lymphocytes # (Auto) 0.4-5.4 10 ^3/uL Monocytes # (Auto) 0-1.3 10 ^3/uL Differential Total Cells Counted 100.0 100 Neutrophils % (Manual) 30 L 37.0-80.0 Band Neutrophils % (Manual) 0 Lymphocytes % (Manual) 64 H 10.0-50.0 Monocytes % (Manual) 0 0-12 Eosinophils % (Manual) 0 0-7 Basophils % (Manual) 0 0.0-2.0 Metamyelocytes % (manual) 0 Myelocytes % (Manual) 1 Promyelocytes % (Manual) 0 Blast Cells % (Manual) 0 Reactive Lymphocytes 5 Platelet Estimate Adequate Sodium Level 148 H 136-145 mmol/L Potassium Level 4.0 3.5-5.1 mmol/L Chloride Level 107 98-107 mmol/L Carbon Dioxide Level 31 20-31 mmol/L Anion Gap 10 5-15 Blood Urea Nitrogen 8 L 9-23 mg/dL Creatinine 0.68 L 0.700-1.30 mg/dL Glomerular Filtration Rate Calc 121 >90 mL/min BUN/Creatinine Ratio 11.8 10.0-20.0 Serum Glucose 121 H 74-106 mg/dL Calcium Level 8.8 8.7-10.4 mg/dL Total Bilirubin 0.3 0.2-1.0 mg/dL Aspartate Amino Transferase (AST) 29 13-40 U/L Alanine Aminotransferase (ALT) 33 7-40 U/L Alkaline Phosphatase 87 46-116 U/L Total Protein 7.5 5.7-8.2 g/dL Albumin 4.4 3.2-4.8 g/dL Salicylates Level < 3.0 -30 mg/dL Acetaminophen Level < 2.0 L 10.0-20.0 UG/ML Plasma/Serum Blood Alcohol 448.5 *H <10 mg/dL Time of 1ST Reevaluation: 03:26 Reevaluation 1ST: Unchanged Patient Education/Counseling: Diagnosis, Treatment Family Education/Counseling: No Family Present Departure 1 Departure Time of Disposition: 05:32 Impression: Primary Impression: Alcohol intoxication Disposition: 01 HOME / SELF CARE / HOMELESS Condition: Stable Discharged With: Self Comments Patient was observed in the emergency department for several hours and on re- evaluation the patient has a GCS of 15 and is ambulatory with steady gait Critical Care Note Critical Care Time?: No Stability Stability form required: No Heart Score Heart Score: Heart Score Response (Comments) Value History N/A 0 EKG N/A 0 Age N/A 0 Risk Factors N/A 0 Troponin N/A 0 Total 0 I personally scribed for BALDEMAR HUBER MD ([email or web address]) on 10/08/24 at 03:29. Electronically submitted by Stephen Pearl ([email or web address]). BALDEMAR HUBER MD October 08, 2024 03:29
[2024-10-08 03:56] LABS: Hematocrit 45.3 % (41.0-53.0); Hemoglobin 15.4 g/dL (13.5-17.5); Mean Corpuscular Hemoglobin 30.6 pg (28.0-32.0); Mean Corpuscular Volume 90.1 fL (80.0-100.0); Platelet Count (auto) 260 10^3/uL (140-450); Red Blood Cells 5.03 10^6/uL (4.5-5.90); Red Cell Distribution Width 14.7 % (11.8-14.3); White Blood Cell 4.3 10^3/uL (4.4-10.8)
[2024-10-08 04:03] LABS: Band Neutrophils % (manual) 0; Basophils % (manual) 0 (0.0-2.0); Blast Cells 0; Eosinophils % (manual) 0 (0-7); Metamyelocytes % 0; Monocytes % (manual) 0 (0-12); Promyelocytes % 0
[2024-10-08 04:11] LABS: Alanine Aminotransferase 33 U/L (7-40); Albumin 4.4 g/dL (3.2-4.8); Alkaline Phosphatase 87 U/L (46-116); Anion Gap 10 (5-15); Aspartate Aminotransferase 29 U/L (13-40); BUN/Creatinine Ratio 11.8 (10.0-20.0); Calcium 8.8 mg/dL (8.7-10.4); Total Protein 7.5 g/dL (5.7-8.2)
[2024-10-08 04:16] LABS: Bilirubin, Total 0.3 mg/dL (0.2-1.0); Blood Urea Nitrogen 8 mg/dL (9-23); Carbon Dioxide 31 mmol/L (20-31); Chloride 107 mmol/L (98-107); Glucose 121 mg/dL (74-106); Sodium 148 mmol/L (136-145)
[2024-10-08 04:21] LABS: Acetaminophen < 2.0 UG/ML (10.0-20.0); Blood Alcohol 448.5 mg/dL (<10); Salicylate < 3.0 mg/dL (-30)
[2024-10-08 05:07] LABS: Lymphocytes % (manual) 64 (10.0-50.0); Myelocytes % 1; Platelet Estimate Adequate; Reactive Lymphocytes 5
[2024-10-08 08:32] VITALS: BP 98/61; PULSE 102; RESP 14; TEMP 97.6; O2SAT 99
== END 2024-10-08 09:00 | disposition home or self-care (01) ==
LOC: ER 03:12
DX: F10.129 Alcohol abuse with intoxication, unspecified (principal); Z79.84 Long term (current) use of oral hypoglycemic drugs; Z79.899 Other long term (current) drug therapy; Z59.00 Homelessness unspecified; Y90.8 Blood alcohol level of 240 mg/100 ml or more
CPT/HCPCS: 36415; 80053; 80320; 80329; 85007; 85027

== ENCOUNTER 2024-10-10 01:40 | Emergency (ER) | payer SELFPAY ==
[~2024-10-10] VITALS: Ht 167.6 cm; Wt 58.7 kg
--- NOTE | 2024-10-10 01:59 | ED.PDOC ---
HPI Comments C/C: SHARP, NON-RADIATING, CHEST PAIN WITH GENERALIZED WEAKNESS TODAY. HR: 131, ALL OTHER VSS. A&OX4. DENIES SHORTNESS OF BREATH, DIFFICULTY BREATHING, NAUSEA, VOMITING, DIARRHEA, RECENT TRAVEL, CALF PAIN. Chief Complaint: Chest Pain Time Seen by MD: 01:55 Primary Care Provider: NONE Reviewed Notes: Nurses Notes, Medications, Allergies Allergies: Coded Allergies: NO KNOWN ALLERGIES (Unverified , 01/20/24) Home Meds Active Scripts Pantoprazole Sodium Sesquihydr (Protonix) 40 Mg Tab, 40 MG PO DAILY, #30 TAB Prov:NAYELI SOSA MD 09/30/24 Ondansetron Odt 4MG Tab (ZOFRAN PO) 4 Mg Tb, 4 MG PO TID PRN, #30 TAB ODT TAB-DISSOLVE IN MOUTH, THEN SWALLOW Prov:NAYELI SOSA MD 09/30/24 Cobalamine Combinations (B-12 + Folic Acid 2500-400 Mcg) 1 Tab Tab, 1 TAB PO DAILY for 30 Days, #30 TAB 0 Refills Prov:ALYCIA ANDINO [facility] 01/25/24 Multiple Vitamin (Multivitamins) Tab, 1 TAB PO DAILY for 30 Days, #90 TAB 0 [facility] 01/25/24 Magnesium Oxide (MAGNESIUM OXIDE) 400 Mg Tab, 400 MG OR DAILY for 7 Days, #7 TAB Prov[facility] 01/25/24 Gemfibrozil (Gemfibrozil) 600 Mg Tab, 1 TAB PO BID for 30 Days, #60 TAB 2 Refills Prov:ALYCIA ANDINO [facility] 01/25/24 Lisinopril (Lisinopril) 2.5 Mg Tab, 1 TAB PO DAILY for 30 Days, #30 TAB 2 [facility]ills [facility] 01/25/24 Empagliflozin (Jardiance) 10 Mg Tab, 10 MG PO DAILY for 30 Days, #30 TAB 2 Refills Prov:ALYCIA ANDINO [facility] 01/25/24 Metoprolol Succinate (Metoprolol Succinate Er) 25 Mg Tab, 25 MG PO DAILY for 30 Days, #30 TAB 2 Refills Prov[facility] 01/25/24 Spironolactone (Spironolactone) 25 Mg Tab, 1 TAB PO DAILY for 30 Days, #30 TAB 2 Refills Prov:ALYCIA ANDINO RESIDENT 01/25/24 Information Source: Patient Past Medical History PAST MEDICAL HISTORY: Unobtainable Surgical History: Unobtainable Family History Family History: Unobtainable Social History Smoker: Non-Smoker Alcohol: Heavy Drugs: Denies Drug Use Lives In: Homeless Constitutional: denies: chills, diaphoresis, fatigue, fever, malaise, sweats, weakness, others EENTM: denies: blurred vision, double vision, ear bleeding, ear discharge, ear drainage, ear pain, ear ringing, eye pain, eye redness, hearing loss, mouth pain, mouth swelling, nasal discharge, nose bleeding, nose congestion, nose pain, photophobia, tearing, throat pain, throat swelling, voice changes, others Respiratory: denies: cough, hemoptysis, orthopnea, SOB at rest, shortness of breath, SOB with excertion, stridor, wheezing, others Cardiovascular: reports: chest pain; denies: dizzy spells, diaphoresis, Dyspnea on exertion, edema, irregular heart beat, left arm pain, lightheadedness, palpitations, PND, syncope, others Gastrointestinal: denies: abdomen distended, abdominal pain, blood streaked bowels, constipated, diarrhea, dysphagia, difficulty swallowing, hematemesis, melena, nausea, poor appetite, poor fluid intake, rectal bleeding, rectal pain, vomiting, others Genitourinary: denies: burning, dysuria, flank pain, frequency, hematuria, incontinence, penile discharge, penile sore, pain, testicle pain, testicle swelling, urgency, others Neurological: denies: dizziness, fainting, headache, left sided numbness, left sided weakness, numbness, paresthesia, pre-existing deficit, right sided numbness, right sided weakness, seizure, speech problems, tingling, tremors, weakness, others Musculoskeletal: denies: back pain, gout, joint pain, joint swelling, muscle pain, muscle stiffness, neck pain, others Integumetry: reports: laceration; denies: bruises, change in color, change in hair/nails, dryness, lesions, lumps, rash, wounds, others Allergic/Immunocompromised: denies: Difficulty Healing, Frequent Infections, Hives, Itching, others Hematologic/Lymphatic: denies: anemia, blood clots, easy bleeding, easy bruising, swollen glands, others Endocrine: denies: excessive hunger, excessive sweating, excessive thirst, excessive urination, flushing, intolerance to cold, intolerance to heat, unexplained weight gain, unexplained weight loss, others Psychiatric: denies: anxiety, bipolar disorder, depression, hopeless, panic disorder, schizophrenia, sleepless, suicidal, others Physical Exam General Appearance: No Apparent Distress, Normal HEENT: Normal ENT Inspection, Pharynx Normal, TMs Normal Neck: Full Range of Motion, Non-Tender Respiratory: Chest Non-Tender, Lungs Clear, No Respiratory Distress, Normal Breath Sounds Cardiovascular: No Edema, No JVD, No Murmur, No Gallop, Normal Peripheral Pulses, Regular Rate/Rhythm Breast Exam: Deferred Gastrointestinal: No Organomegaly, Non Tender, No Pulsatile Mass, Normal Bowel Sounds, Soft Genitalia: Deferred Pelvic: Deferred Rectal: Deferred Extremities: No calf tenderness, Normal capillary refill, Normal inspection, Normal range of motion, Non-tender, No pedal edema Musculoskeletal : Apperance: Normal Neurologic: Alert, pulley man II-XII 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 Was a procedure done?: No CP Differential Dx Differential Diagnosis: SC, PAC's, PSVT, PVC's X-Ray, Labs, Meds, VS Vital Signs Date Time Temp Pulse Resp B/P (MAP) Pulse Ox O2 Delivery O2 Flow Rate FiO2 10/10/24 03:51 97.9 119 20 146/91 (109) 100 97.9 10/10/24 02:45 112 10/10/24 01:56 97.7 131 20 118/86 (97) 100 97.7 10/10/24 01:48 116 Lab Test 10/10/24 03:09 10/10/24 02:10 Range/Units Troponin I High Sensitivity 13 13 </=54 ng/L White Blood Count 3.6 L 4.4-10.8 10^3/uL Red Blood Count 4.68 4.5-5.90 10^6/uL Hemoglobin 14.2 13.5-17.5 g/dL Hematocrit 41.6 41.0-53.0 % Mean Corpuscular Volume 88.9 80.0-100.0 fL Mean Corpuscular Hemoglobin 30.3 28.0-32.0 pg Mean Corpuscular Hemoglobin Concent 34.1 32.0-36.0 g/dL Red Cell Distribution Width 14.7 H 11.8-14.3 % Platelet Count 238 140-450 10^3/uL Mean Platelet Volume 6.5 L 6.9-10.8 fL Neutrophils (%) (Auto) 49.8 37.0-80.0 % Lymphocytes (%) (Auto) 41.6 10.0-50.0 % Monocytes (%) (Auto) 7.9 0.0-12.0 % Eosinophils (%) (Auto) 0.2 0.0-7.0 % Basophils (%) (Auto) 0.5 0.0-2.0 % Neutrophils # (Auto) 1.8 1.6-8.6 10 ^3/uL Lymphocytes # (Auto) 1.5 0.4-5.4 10 ^3/uL Monocytes # (Auto) 0.3 0-1.3 10 ^3/uL Eosinophils # (Auto) 0 0-0.8 10 ^3/uL Basophils # (Auto) 0 0-0.2 10 ^3/uL Nucleated Red Blood Cells 0.1 % Sodium Level 140 # 136-145 mmol/L Potassium Level 3.5 3.5-5.1 mmol/L Chloride Level 102 98-107 mmol/L Carbon Dioxide Level 23 20-31 mmol/L Anion Gap 15 5-15 Blood Urea Nitrogen 11 9-23 mg/dL Creatinine 0.76 0.700-1.30 mg/dL Glomerular Filtration Rate Calc 117 >90 mL/min BUN/Creatinine Ratio 14.5 10.0-20.0 Serum Glucose 138 H 74-106 mg/dL Calcium Level 8.5 L 8.7-10.4 mg/dL Magnesium Level 1.9 1.6-2.6 mg/dL Total Bilirubin 0.4 0.2-1.0 mg/dL Aspartate Amino Transferase (AST) 39 13-40 U/L Alanine Aminotransferase (ALT) 33 7-40 U/L Alkaline Phosphatase 88 46-116 U/L Total Protein 7.3 5.7-8.2 g/dL Albumin 4.2 3.2-4.8 g/dL Thyroid Stimulating Hormone (TSH) 1.89 0.55-4.78 uIU/mL X-Ray, Labs, Meds, VS Comment CBC CMP WITHIN THI LIMITS MAGNESIUM WITHIN NORMAL LIMITS. EKG X2 NO ECTOPY OR ST ELEVATION TROPONINS X2 NEGATIVE REPORTS IMPROVEMENT IN PAIN STATUS RESOLVED. CHEST X-RAY PENDING IMPRESSION HOWEVER DOES SHOW RIGHT PERIHILAR EDEMA LIKELY LEAST SECONDARY TO ATYPICAL PNEUMONIA/VIRAL PNEUMONIA. WE WILL SCRIPT A TRIAL OF AZITHROMYCIN ADVISED PATIENT TAKE MEDICATIONS PRESCRIBED SIDE EFFECTS DISCUSSED. ADVISED TO FOLLOW UP WITH HIS PCP IN 2 DAYS. PATIENT REQUESTING DISCHARGE AT THIS TIME. PATIENT ADVISED TO FOLLOW UP WITH HIS PCP IN 2 DAYS. WE DISCUSSED ER RETURN PRECAUTIONS PATIENT INDICATES UNDERSTANDING AGREES WITH DISCHARGE PLAN OF CARE. Time of 1ST Reevaluation: 01:58 Reevaluation 1ST: Unchanged Time of 2ND Reevaluation: 04:02 Reevaluation 2ND: Improved Patient Education/Counseling: Diagnosis, Treatment, Prognosis, Need For Follow Up Family Education/Counseling: No Family Present Departure 1 Departure Time of Disposition: 04:01 Impression: Primary Impression: Chest pain Qualified Codes: R07.9 - Chest pain, unspecified Additional Impression: Lower respiratory infection (e.g., bronchitis, pneumonia, pneumonitis, pulmonitis) Disposition: 01 HOME / SELF CARE / HOMELESS Condition: Stable e-Prescriptions Azithromycin (Azithromycin) 250 Mg Tab 250 MG PO DAILY MDD 500 for 5 Days, #6 TAB 0 Refills 2 TABLETS ORALLY ON DAY ONE, THEN 1 TABLET ORALLY DAILY FOR 4 DAYS Prov: LOVE JIMENEZ 10/10/24 Discharged With: Self Critical Care Note Critical Care Time?: No Stability Stability form required: No Heart Score Heart Score: Heart Score Response (Comments) Value History Slightly Suspicious 0 EKG Normal 0 Age <45 0 Risk Factors 1 or 2 risk factors 1 Troponin Normal limit 0 Total 1 LOVE JIMENEZ October 10, 2024 01:59
--- NOTE | 2024-10-10 02:02 | ECG ---
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
--- NOTE | 2024-10-10 02:47 | ECG ---
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
[2024-10-10 02:51] LABS: Basophils # (auto) 0 10 ^3/uL (0-0.2); Basophils % (auto) 0.5 % (0.0-2.0); Eosinophils # (auto) 0 10 ^3/uL (0-0.8); Eosinophils % (auto) 0.2 % (0.0-7.0); Hematocrit 41.6 % (41.0-53.0); Hemoglobin 14.2 g/dL (13.5-17.5); Lymphocytes # (auto) 1.5 10 ^3/uL (0.4-5.4); Lymphocytes % (auto) 41.6 % (10.0-50.0); Mean Corpuscular Hemoglobin 30.3 pg (28.0-32.0); Mean Corpuscular Hgb Conc. 34.1 g/dL (32.0-36.0); Mean Corpuscular Volume 88.9 fL (80.0-100.0); Monocytes # (auto) 0.3 10 ^3/uL (0-1.3); Monocytes % (auto) 7.9 % (0.0-12.0); Neutrophils # (auto) 1.8 10 ^3/uL (1.6-8.6); Neutrophils % (auto) 49.8 % (37.0-80.0); Nucleated Red Blood Cells % 0.1 %; Platelet Count (auto) 238 10^3/uL (140-450); Red Blood Cells 4.68 10^6/uL (4.5-5.90); Red Cell Distribution Width 14.7 % (11.8-14.3); White Blood Cell 3.6 10^3/uL (4.4-10.8)
[2024-10-10 02:56] LABS: Alanine Aminotransferase 33 U/L (7-40); Albumin 4.2 g/dL (3.2-4.8); Alkaline Phosphatase 88 U/L (46-116); Anion Gap 15 (5-15); Aspartate Aminotransferase 39 U/L (13-40); BUN/Creatinine Ratio 14.5 (10.0-20.0); Blood Urea Nitrogen 11 mg/dL (9-23); Carbon Dioxide 23 mmol/L (20-31); Chloride 102 mmol/L (98-107); Magnesium 1.9 mg/dL (1.6-2.6); Potassium 3.5 mmol/L (3.5-5.1); Sodium 140 mmol/L (136-145); Total Protein 7.3 g/dL (5.7-8.2)
[2024-10-10 02:57] LABS: Bilirubin, Total 0.4 mg/dL (0.2-1.0)
[2024-10-10 03:17] LABS: Calcium 8.5 mg/dL (8.7-10.4); Glucose 138 mg/dL (74-106)
[2024-10-10 03:51] VITALS: BP 146/91; PULSE 119; RESP 20; TEMP 97.9; O2SAT 100
[2024-10-10] MEDS ORDERED: AZIT-43 PO (04:59)
[2024-10-10] MEDS: cefTRIAXone SOD 1,000 MG VL IM ONE (05:23)
--- NOTE | 2024-10-10 06:05 | DVH ---
EXAM: XY CHEST TWO VIEWS ROUTINE CLINICAL HISTORY: Chest pain COMPARISON: XY CHEST TWO VIEWS ROUTINE on DOS: 09/16/24 TECHNIQUE: Frontal and lateral view of the chest was obtained FINDINGS: Lines and Tubes: None Lungs: No focal consolidation. Pleura: No effusion. No pneumothorax. Cardiomediastinal contours: Unremarkable Bones: No acute osseous abnormality. IMPRESSION: No acute cardiopulmonary disease.
== END 2024-10-10 05:30 | disposition home or self-care (01) ==
LOC: ER 01:40
DX: J22 Unspecified acute lower respiratory infection (principal); R07.89 Other chest pain; Z79.899 Other long term (current) drug therapy; Z59.00 Homelessness unspecified
CPT/HCPCS: 36415; 71046; 80053; 83735; 84443; 84484; 85025; 93005; 96372; 99285; J0696

== ENCOUNTER 2024-10-29 17:36 | Emergency (ER) | payer MEDICAID ==
[~2024-10-29] VITALS: Ht 167.6 cm; Wt 62.2 kg
[~2024-10-29 17:36] MED LIST changes: +AZIT-43 PO
--- NOTE | 2024-10-29 17:45 | ECG ---
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
--- NOTE | 2024-10-29 18:05 | ED.PDOC ---
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 Patient states, he has been experiencing substernal chest pain x1year. In triage, patient's EKG shows sinus tachycardia with a HR of 123. Patient reports, similar symptoms in the past. Patient denies shortness of breath, headache, or extremity numbness. No other symptoms or modifying factors present at this time. Language skills made medical history limited. Patient has been seen at this facility multiple signs for chest pain concerns that resulted in unremarkable findings. Patient was tachycardic at arrival. Patient may utilize illicit drugs. Chief Complaint: Body Pain Time Seen by MD: 17:50 Primary Care Provider: NONE Reviewed Notes: Nurses Notes, Medications, Allergies Allergies: Coded Allergies: NO KNOWN ALLERGIES (Unverified , 01/20/24) Home Meds Active Scripts Azithromycin (Azithromycin) 250 Mg Tab, 250 MG PO DAILY MDD 500 for 5 Days, #6 TAB 0 Refills 2 TABLETS ORALLY ON DAY ONE, THEN 1 TABLET ORALLY DAILY FOR 4 DAYS Prov:LOVE JIMENEZ 10/10/24 Pantoprazole Sodium Sesquihydr (Protonix) 40 Mg Tab, 40 MG PO DAILY, #30 TAB Prov:NAYELI SOSA MD 09/30/24 Ondansetron Odt 4MG Tab (ZOFRAN PO) 4 Mg Tb, 4 MG PO TID PRN, #30 TAB ODT TAB-DISSOLVE IN MOUTH, THEN SWALLOW Prov:NAYELI SOSA MD 09/30/24 Cobalamine Combinations (B-12 + Folic Acid 2500-400 Mcg) 1 Tab Tab, 1 TAB PO DAILY for 30 Days, #30 TAB 0 Refills Prov:ALYCIA ANDINO [facility]IDENT 01/25/24 Multiple Vitamin (Multivitamins) Tab, 1 TAB PO DAILY for 30 Days, #90 TAB 0 Refills Prov:ALYCIA ANDINO RESIDENT 01/25/24 Magnesium Oxide (MAGNESIUM OXIDE) 400 Mg Tab, 400 MG OR DAILY for 7 Days, #7 TAB Prov:ALYCIA ANDINO RESIDENT 01/25/24 Gemfibrozil (Gemfibrozil) 600 Mg Tab, 1 TAB PO BID for 30 Days, #60 TAB 2 Refills Prov:ALYCIA ANDINO RESIDENT 01/25/24 Lisinopril (Lisinopril) 2.5 Mg Tab, 1 TAB PO DAILY for 30 Days, #30 TAB 2 Refills Prov:ALYCIA ANDINO 01/25/24 Empagliflozin (Jardiance) 10 Mg Tab, 10 MG PO DAILY for 30 Days, #30 TAB 2 Refills Prov:ALYCIA ANDINO [facility] 01/25/24 Metoprolol Succinate (Metoprolol Succinate Er) 25 Mg Tab, 25 MG PO DAILY for 30 Days, #30 TAB 2 Refills Prov:ALYCIA ANDINO [facility] 01/25/24 Spironolactone (Spironolactone) 25 Mg Tab, 1 TAB PO DAILY for 30 Days, #30 TAB 2 Refills Prov:ALYCIA ANDINO 01/25/24 Information Source: Patient Mode of Arrival: Ambulatory Severity: Moderate Timing: Months Duration: Since onset Location: Substernal Onset: At Rest Cardiac Risk Factors: None PE Risk Factors: None History of: Similar pain in past Modifying Factors: Nothing Associated Signs and Symptoms: None Past Medical History PAST MEDICAL HISTORY: Unknown Past Medical History (Other): History of chest pain Surgical History: Unobtainable Family History Family History: Unobtainable Social History Smoker: Non-Smoker Alcohol: Heavy Drugs: Denies Drug Use Lives In: Homeless Constitutional: denies: chills, diaphoresis, fatigue, fever, malaise, sweats, weakness, others EENTM: denies: blurred vision, double vision, ear bleeding, ear discharge, ear drainage, ear pain, ear ringing, eye pain, eye redness, hearing loss, mouth pain, mouth swelling, nasal discharge, nose bleeding, nose congestion, nose pain, photophobia, tearing, throat pain, throat swelling, voice changes, others Respiratory: denies: cough, hemoptysis, orthopnea, SOB at rest, shortness of breath, SOB with excertion, stridor, wheezing, others Cardiovascular: reports: chest pain; denies: dizzy spells, diaphoresis, Dyspnea on exertion, edema, irregular heart beat, left arm pain, lightheadedness, palpitations, PND, syncope, others Gastrointestinal: denies: abdomen distended, abdominal pain, blood streaked bowels, constipated, diarrhea, dysphagia, difficulty swallowing, hematemesis, melena, nausea, poor appetite, poor fluid intake, rectal bleeding, rectal pain, vomiting, others Genitourinary: denies: burning, dysuria, flank pain, frequency, hematuria, incontinence, penile discharge, penile sore, pain, testicle pain, testicle swelling, urgency, others Neurological: denies: dizziness, fainting, headache, left sided numbness, left sided weakness, numbness, paresthesia, pre-existing deficit, right sided numbness, right sided weakness, seizure, speech problems, tingling, tremors, weakness, others Musculoskeletal: denies: back pain, gout, joint pain, joint swelling, muscle pain, muscle stiffness, neck pain, others Integumetry: denies: bruises, change in color, change in hair/nails, dryness, laceration, lesions, lumps, rash, wounds, others Allergic/Immunocompromised: denies: Difficulty Healing, Frequent Infections, Hives, Itching, others Hematologic/Lymphatic: denies: anemia, blood clots, easy bleeding, easy bruising, swollen glands, others Endocrine: denies: excessive hunger, excessive sweating, excessive thirst, excessive urination, flushing, intolerance to cold, intolerance to heat, unexplained weight gain, unexplained weight loss, others Psychiatric: denies: anxiety, bipolar disorder, depression, hopeless, panic disorder, schizophrenia, sleepless, suicidal, others All Other Systems: Reviewed and Negative Physical Exam Exam Comments Patient is dirty and not well kempt. Patient may be on drugs or alcohol. General Appearance: Moderate Distress ([id number] distress due to chest pain concerns), Normal HEENT: Normal ENT Inspection, Pharynx Normal, TMs Normal Neck: Full Range of Motion, Non-Tender, Normal, Normal Inspection Respiratory: Chest Non-Tender, Lungs Clear, No Accessory Muscle Use, No Respiratory Distress, Normal Breath Sounds Cardiovascular: No Edema, No JVD, No Murmur, No Gallop, Normal Peripheral Pulses, Tachycardia Breast Exam: Deferred Gastrointestinal: No Organomegaly, Non Tender, No Pulsatile Mass, Normal Bowel Sounds, Soft Genitalia: Deferred Pelvic: Deferred Rectal: Deferred Extremities: No calf tenderness, Normal capillary refill, Normal inspection, Normal range of motion, Non-tender, No pedal edema Neurologic: No Motor Deficits, No Sensory Deficits Cerebellar Function: NOT DONE Reflexes: NOT DONE Skin: Dry, Normal Color, Warm Lymphatic: No Adenopathy Was a procedure done? Was a procedure done?: No CP Differential Dx Differential Diagnosis: Angina, [place], Sinus Tachycardia Differential Diagnosis: Chest Wall Pain, Costochondritis, Esophageal reflux/spasm, Gastritis, Other (Illicit drug use, alcohol abuse) X-Ray, Labs, Meds, VS Vital Signs Date Time Temp Pulse Resp B/P (MAP) Pulse Ox O2 Delivery O2 Flow Rate FiO2 10/29/24 19:27 98.3 117 20 113/81 (92) 98 98.3 10/29/24 18:59 130/70 10/29/24 18:36 130 20 99 Room Air* 0 21 10/29/24 18:19 137/89 10/29/24 18:14 99.1 133 16 137/89 (105) 98 99.1 10/29/24 17:43 123 Lab Test 10/29/24 18:37 10/29/24 18:05 10/29/24 17:48 Range/Units White Blood Count 4.2 L 4.4-10.8 10^3/uL Red Blood Count 4.63 4.5-5.90 10^6/uL Hemoglobin 13.7 13.5-17.5 g/dL Hematocrit 40.8 L 41.0-53.0 % Mean Corpuscular Volume 88.2 80.0-100.0 fL Mean Corpuscular Hemoglobin 29.7 28.0-32.0 pg Mean Corpuscular Hemoglobin Concent 33.6 32.0-36.0 g/dL Red Cell Distribution Width 15.6 H 11.8-14.3 % Platelet Count 367 140-450 10^3/uL Mean Platelet Volume 6.0 L 6.9-10.8 fL Neutrophils (%) (Auto) 37.9 37.0-80.0 % Lymphocytes (%) (Auto) 52.9 H 10.0-50.0 % Monocytes (%) (Auto) 7.5 0.0-12.0 % Eosinophils (%) (Auto) 0.4 0.0-7.0 % Basophils (%) (Auto) 1.3 0.0-2.0 % Neutrophils # (Auto) 1.6 1.6-8.6 10 ^3/uL Lymphocytes # (Auto) 2.2 0.4-5.4 10 ^3/uL Monocytes # (Auto) 0.3 0-1.3 10 ^3/uL Eosinophils # (Auto) 0 0-0.8 10 ^3/uL Basophils # (Auto) 0.1 0-0.2 10 ^3/uL Nucleated Red Blood Cells 0.2 % Lactic Acid Level 3.2 *H 0.4-2.0 mmol/L Troponin I High Sensitivity 10 10 </=54 ng/L Urine Color Light-yellow Yellow Urine Clarity Clear Clear Urine pH 7.0 5.0-9.0 Urine Specific [place] 1.020 1.001-1.035 Urine Protein Negative Negative Urine Ketones Negative Negative Urine Blood Negative Negative /uL Urine Nitrite Negative Negative Urine Bilirubin Negative Negative Urine Urobilinogen Normal Negative mg/dL Urine Leukocyte Esterase Negative Negative /uL Urine RBC 2 0 - 3 /hpf Urine Microscopic WBC 1 0-3 /HPF Urine Squamous Epithelial Cells None seen <5 /hpf Urine Bacteria None seen None Seen /hpf Urine Glucose Normal Normal mg/dL Urine Opiates Screen Neg NEGATIVE Urine Fentanyl Screen Neg NEGATIVE Urine Barbiturates Screen Neg NEGATIVE Urine Phencyclidine Screen Neg NEGATIVE Urine Amphetamines Screen Neg NEGATIVE Urine Benzodiazepines Screen Pos NEGATIVE Urine Cocaine Screen Neg NEGATIVE Urine Cannabinoids Screen Neg NEGATIVE Sodium Level 144 136-145 mmol/L Potassium Level 4.6 3.5-5.1 mmol/L Chloride Level 106 98-107 mmol/L Carbon Dioxide Level 23 20-31 mmol/L Anion Gap 15 5-15 Blood Urea Nitrogen 9 9-23 mg/dL Creatinine 0.83 0.700-1.30 mg/dL Glomerular Filtration Rate Calc 114 >90 mL/min BUN/Creatinine Ratio 10.8 10.0-20.0 Serum Glucose 135 H 74-106 mg/dL Calcium Level 8.5 L 8.7-10.4 mg/dL Current Medications Medications (Trade) Dose Ordered Sig/Surjit Route Start Time Stop Time Status Last Admin Nitroglycerin (Ntrostat Sublingual) 0.4 mg ONCE ONCE SL 10/29/24 18:00 10/29/24 18:01 DC 10/29/24 18:19 Sodium Chloride 1,000 ml @ 1,000 mls/hr Q1H ONCE IV 10/29/24 19:30 10/29/24 20:29 DC 10/29/24 19:24 X-Ray, Labs, Meds, VS Comment All studies performed the ED were evaluated by me personally. Serum studies were unremarkable for any systemic concerns other than an elevated lactic acid. Patient refused the 2nd lactic acid drop. Urinalysis was remarkable for benzo use. EKG revealed a sinus tachycardia with a rate of 123. Borderline prolonged QT interval. PA interval of 127 and QT interval of 346. Advised patient that we were unable to elicit any definitive cause of his chest pain concerns. Patient needs to follow up with the primary care provider for continued ceci luation and cease alcohol and drug use immediately. Time of 1ST Reevaluation: 21:31 Reevaluation 1ST: Improved Consultation: PCP, Cardiology Patient Education/Counseling: Diagnosis, Treatment Family Education/Counseling: Diagnosis, Treatment, No Family Present Sepsis Sepsis Reasesment Focused Exam Orders: Laboratory Tests 10/29/24 18:37: Lactic Acid Level 3.2 Departure 1 Departure Time of Disposition: 21:32 Impression: Primary Impression: Chest pain Disposition: 01 HOME / SELF CARE / HOMELESS Condition: Stable Additional Instructions: Patient needs to follow up with the primary care provider for continued evaluation and probable cardiac referral. e-Prescriptions Ibuprofen Micronized (Ibuprofen) 600 Mg Tab 600 MG PO Q6HP PRN, #30 TAB Prov: LAYA KAPOOR PAC 10/29/24 Discharged With: Self Critical Care Note Critical Care Time?: No Stability Stability form required: No Heart Score Heart Score: Heart Score Response (Comments) Value History Slightly Suspicious 0 EKG Repolarization Disturb 1 Age <45 0 Risk Factors 1 or 2 risk factors 1 Troponin Normal limit 0 Total 2 I personally scribed for LAYA KAPOOR PAC ([email or web address]) on 10/29/24 at 18:05. Elect ronically submitted by Wen Jones ([email or web address]). LAYA KAPOOR PAC Oct 29, 2024 18:05
[2024-10-29 18:16] LABS: Chloride 106 mmol/L (98-107); Potassium 4.6 mmol/L (3.5-5.1); Sodium 144 mmol/L (136-145)
[2024-10-29 18:17] LABS: Anion Gap 15 (5-15); Carbon Dioxide 23 mmol/L (20-31)
[2024-10-29 18:18] LABS: Calcium 8.5 mg/dL (8.7-10.4)
[2024-10-29] MEDS: NITROGLYCERIN 0.4 MG SL TAB SL ONE (18:19)
[2024-10-29 18:22] LABS: BUN/Creatinine Ratio 10.8 (10.0-20.0); Blood Urea Nitrogen 9 mg/dL (9-23)
[2024-10-29 18:22] LABS: Urine Bacteria None Seen /hpf (None Seen)
[2024-10-29 18:23] LABS: Glucose 135 mg/dL (74-106)
[2024-10-29 18:32] LABS: Urine Blood Negative /uL (Negative); Urine Clarity Clear (Clear); Urine Color Light-Yellow (Yellow); Urine Protein, UAD Negative (Negative); Urine Squamous Epithelial Cell None Seen /hpf (<5); Urine Urobilinogen Normal (Negative); Urine WBC 1 /HPF (0-3)
[2024-10-29 18:36] VITALS: PULSE 130; RESP 20; O2SAT 99
[2024-10-29 18:45] LABS: Benzodiazephine Screen, Urine Pos (NEGATIVE)
[2024-10-29 18:47] LABS: Amphetamine Screen, Urine Neg (NEGATIVE); Barbiturate Scree,Urine Neg (NEGATIVE); Cannabinoid Screen, Urine Neg (NEGATIVE); Cocaine Screen, Urine Neg (NEGATIVE); Opiate Scree,Urine Neg (NEGATIVE); Phencyclidine Screen, Urine Neg (NEGATIVE)
[2024-10-29 18:57] LABS: Basophils # (auto) 0.1 10 ^3/uL (0-0.2); Basophils % (auto) 1.3 % (0.0-2.0); Eosinophils # (auto) 0 10 ^3/uL (0-0.8); Eosinophils % (auto) 0.4 % (0.0-7.0); Hematocrit 40.8 % (41.0-53.0); Hemoglobin 13.7 g/dL (13.5-17.5); Lymphocytes # (auto) 2.2 10 ^3/uL (0.4-5.4); Lymphocytes % (auto) 52.9 % (10.0-50.0); Mean Corpuscular Hemoglobin 29.7 pg (28.0-32.0); Mean Corpuscular Hgb Conc. 33.6 g/dL (32.0-36.0); Mean Corpuscular Volume 88.2 fL (80.0-100.0); Monocytes # (auto) 0.3 10 ^3/uL (0-1.3); Monocytes % (auto) 7.5 % (0.0-12.0); Neutrophils # (auto) 1.6 10 ^3/uL (1.6-8.6); Neutrophils % (auto) 37.9 % (37.0-80.0); Nucleated Red Blood Cells % 0.2 %; Platelet Count (auto) 367 10^3/uL (140-450); Red Blood Cells 4.63 10^6/uL (4.5-5.90); Red Cell Distribution Width 15.6 % (11.8-14.3); White Blood Cell 4.2 10^3/uL (4.4-10.8)
[2024-10-29 19:18] LABS: Lactic Acid w/Reflex 3.2 mmol/L (0.4-2.0)
[2024-10-29] MEDS: SODIUM CHLORIDE 0.9% 1,000 ML IV ONE (19:24)
[2024-10-29 21:30] VITALS: BP 101/66; PULSE 108; RESP 18; TEMP 97.9; O2SAT 94
[2024-10-29] MEDS ORDERED: IBUP1TAB5 PO (21:33)
== END 2024-10-29 22:08 | disposition home or self-care (01) ==
LOC: ER 17:36
DX: R07.89 Other chest pain (principal); Z79.899 Other long term (current) drug therapy; Z59.00 Homelessness unspecified
CPT/HCPCS: 36415; 80048; 80307; 81001; 83605; 84484; 85025; 93005; 96360; 99284; J7030

== ENCOUNTER 2024-10-31 22:08 | Emergency (ER) | payer MEDICAID ==
[~2024-10-31] VITALS: Ht 167.6 cm; Wt 72.6 kg
[~2024-10-31 22:08] MED LIST changes: +IBUP1TAB5 PO
--- NOTE | 2024-10-31 22:31 | ECG ---
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
[2024-10-31 22:59] LABS: Basophils # (auto) 0 10 ^3/uL (0-0.2); Basophils % (auto) 0.8 % (0.0-2.0); Eosinophils # (auto) 0 10 ^3/uL (0-0.8); Eosinophils % (auto) 0.1 % (0.0-7.0); Hematocrit 45.2 % (41.0-53.0); Hemoglobin 15.4 g/dL (13.5-17.5); Lymphocytes % (auto) 50.5 % (10.0-50.0); Mean Corpuscular Hgb Conc. 34.1 g/dL (32.0-36.0); Mean Corpuscular Volume 88.1 fL (80.0-100.0); Monocytes # (auto) 0.4 10 ^3/uL (0-1.3); Monocytes % (auto) 7.5 % (0.0-12.0); Neutrophils # (auto) 2.4 10 ^3/uL (1.6-8.6); Neutrophils % (auto) 41.1 % (37.0-80.0); Nucleated Red Blood Cells % 0.2 %; Platelet Count (auto) 370 10^3/uL (140-450); Red Blood Cells 5.13 10^6/uL (4.5-5.90); Red Cell Distribution Width 15.4 % (11.8-14.3); White Blood Cell 5.9 10^3/uL (4.4-10.8)
[2024-10-31 23:09] LABS: Chloride 104 mmol/L (98-107); Potassium 3.8 mmol/L (3.5-5.1); Sodium 144 mmol/L (136-145)
[2024-10-31 23:10] LABS: Anion Gap 21 (5-15); Calcium 9.3 mg/dL (8.7-10.4)
[2024-10-31 23:11] LABS: Carbon Dioxide 19 mmol/L (20-31)
[2024-10-31 23:15] LABS: BUN/Creatinine Ratio 9.3 (10.0-20.0); Blood Urea Nitrogen 9 mg/dL (9-23)
[2024-10-31 23:19] LABS: Glucose 137 mg/dL (74-106)
--- NOTE | 2024-11-01 01:25 | ED.PDOC ---
History of Present Illness HPI Comments Patient brought in by EMS. Patient complaining of generalized weakness and chest pain. Patient has a history of being homeless. Patient states he has not eaten in days. Nothing makes it better, nothing makes it worse. Patient has a hard time following directions and obeying commands from EMS. Patient does not appear unkept. Thin. Chief Complaint: General Weakness Time Seen by MD: 22:11 Primary Care Provider: NONE Reviewed Notes: Nurses Notes Allergies: Coded Allergies: NO KNOWN ALLERGIES (Unverified , 01/20/24) Home Meds Active Scripts Ibuprofen Micronized (Ibuprofen) 600 Mg Tab, 600 MG PO Q6HP PRN, #30 TAB Prov:LAYA KAPOOR PAC 10/29/24 Azithromycin (Azithromycin) 250 Mg Tab, 250 MG PO DAILY MDD 500 for 5 Days, #6 TAB 0 Refills 2 TABLETS ORALLY ON DAY ONE, THEN 1 TABLET ORALLY DAILY FOR 4 DAYS Prov:LOVE JIMENEZ [employer] CUTTER 10/10/24 Pantoprazole Sodium Sesquihydr (Protonix) 40 Mg Tab, 40 MG PO DAILY, #30 TAB Prov:NAYELI SOSA MD 09/30/24 Ondansetron Odt 4MG Tab (ZOFRAN PO) 4 Mg Tb, 4 MG PO TID PRN, #30 TAB ODT TAB-DISSOLVE IN MOUTH, THEN SWALLOW Prov:NAYELI SOSA MD 09/30/24 Cobalamine Combinations (B-12 + Folic Acid 2500-400 Mcg) 1 Tab Tab, 1 TAB PO DAILY for 30 Days, #30 TAB 0 Refills Prov:JUAN DANIEL ANDINOU RESIDENT 01/25/24 Multiple Vitamin (Multivitamins) Tab, 1 TAB PO DAILY for 30 Days, #90 TAB 0 Refills Prov:JUAN DANIEL ANDINOU RESIDENT 01/25/24 Magnesium Oxide (MAGNESIUM OXIDE) 400 Mg Tab, 400 MG OR DAILY for 7 Days, #7 TAB Prov:JUAN DANIEL ANDINOU RESIDENT 01/25/24 Gemfibrozil (Gemfibrozil) 600 Mg Tab, 1 TAB PO BID for 30 Days, #60 TAB 2 Refills Prov:JUAN DANIEL ANDINOU RESIDENT 01/25/24 Lisinopril (Lisinopril) 2.5 Mg Tab, 1 TAB PO DAILY for 30 Days, #30 TAB 2 Refills Prov:ALYCIA ANDINO RESIDENT 01/25/24 Empagliflozin (Jardiance) 10 Mg Tab, 10 MG PO DAILY for 30 Days, #30 TAB 2 Refills Prov:ALYCIA ANDINO [facility] 01/25/24 Metoprolol Succinate (Metoprolol Succinate Er) 25 Mg Tab, 25 MG PO DAILY for 30 Days, #30 TAB 2 Refills Prov:ALYCIA ANDINO [facility] 01/25/24 Spironolactone (Spironolactone) 25 Mg Tab, 1 TAB PO DAILY for 30 Days, #30 TAB 2 Refills Prov:ALYCIA ANDINO [facility] 01/25/24 Information Source: Patient Mode of Arrival: EMS Past Medical History PAST MEDICAL HISTORY: Unknown Surgical History: Unobtainable Family History Family History: Unobtainable Social History Smoker: Non-Smoker Alcohol: Heavy Drugs: Denies Drug Use Lives In: Homeless Constitutional: reports: malaise; denies: chills, diaphoresis, fatigue, fever, sweats, weakness, others EENTM: denies: blurred vision, double vision, ear bleeding, ear discharge, ear drainage, ear pain, ear ringing, eye pain, eye redness, hearing loss, mouth pain, mouth swelling, nasal discharge, nose bleeding, nose congestion, nose pain, photophobia, tearing, throat pain, throat swelling, voice changes, others Respiratory: denies: cough, hemoptysis, orthopnea, SOB at rest, shortness of breath, SOB with excertion, stridor, wheezing, others Cardiovascular: denies: chest pain, dizzy spells, diaphoresis, Dyspnea on exertion, edema, irregular heart beat, left arm pain, lightheadedness, palpitations, PND, syncope, others Gastrointestinal: denies: abdomen distended, abdominal pain, blood streaked bowels, constipated, diarrhea, dysphagia, difficulty swallowing, hematemesis, melena, nausea, poor appetite, poor fluid intake, rectal bleeding, rectal pain, vomiting, others Genitourinary: denies: burning, dysuria, flank pain, frequency, hematuria, incontinence, penile discharge, penile sore, pain, testicle pain, testicle swelling, urgency, others Neurological: denies: dizziness, fainting, headache, left sided numbness, left sided weakness, numbness, paresthesia, pre-existing deficit, right sided numbness, right sided weakness, seizure, speech problems, tingling, tremors, weakness, others Musculoskeletal: denies: back pain, gout, joint pain, joint swelling, muscle pain, muscle stiffness, neck pain, others Integumetry: denies: bruises, change in color, change in hair/nails, dryness, laceration, lesions, lumps, rash, wounds, others Allergic/Immunocompromised: denies: Difficulty Healing, Frequent Infections, Hives, Itching, others Physical Exam General Appearance: Mild Distress, Normal HEENT: Normal ENT Inspection, Pharynx Normal, TMs Normal Neck: Full Range of Motion, Non-Tender, Normal, Normal Inspection Respiratory: Chest Non-Tender, Lungs Clear, No Accessory Muscle Use, No Respiratory Distress, Normal Breath Sounds Cardiovascular: No Edema, No JVD, No Murmur, No Gallop, Normal Peripheral Pulses, Regular Rate/Rhythm Breast Exam: Deferred Gastrointestinal: No Organomegaly, Non Tender, No Pulsatile Mass, Normal Bowel Sounds, Soft Genitalia: Deferred Pelvic: Deferred Rectal: Deferred Extremities: No calf tenderness, Normal capillary refill, Normal inspection, Normal range of motion, Non-tender, No pedal edema Musculoskeletal : Apperance: Normal Neurologic: Alert, building operator II-XII 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 Was a procedure done?: No Differential Dx Considerations may include: Generalized weakness, anxiety, [place], X-Ray, Labs, Meds, VS Vital Signs Date Time Temp Pulse Resp B/P (MAP) Pulse Ox O2 Delivery O2 Flow Rate FiO2 10/31/24 22:19 144 10/31/24 22:15 98.6 133 20 121/59 (79) 100 98.6 Lab Test 10/31/24 22:31 Range/Units White Blood Count 5.9 # 4.4-10.8 10^3/uL Red Blood Count 5.13 4.5-5.90 10^6/uL Hemoglobin 15.4 13.5-17.5 g/dL Hematocrit 45.2 # 41.0-53.0 % Mean Corpuscular Volume 88.1 80.0-100.0 fL Mean Corpuscular Hemoglobin 30.0 28.0-32.0 pg Mean Corpuscular Hemoglobin Concent 34.1 32.0-36.0 g/dL Red Cell Distribution Width 15.4 H 11.8-14.3 % Platelet Count 370 140-450 10^3/uL Mean Platelet Volume 6.3 L 6.9-10.8 fL Neutrophils (%) (Auto) 41.1 37.0-80.0 % Lymphocytes (%) (Auto) 50.5 H 10.0-50.0 % Monocytes (%) (Auto) 7.5 0.0-12.0 % Eosinophils (%) (Auto) 0.1 0.0-7.0 % Basophils (%) (Auto) 0.8 0.0-2.0 % Neutrophils # (Auto) 2.4 1.6-8.6 10 ^3/uL Lymphocytes # (Auto) 3.0 0.4-5.4 10 ^3/uL Monocytes # (Auto) 0.4 0-1.3 10 ^3/uL Eosinophils # (Auto) 0 0-0.8 10 ^3/uL Basophils # (Auto) 0 0-0.2 10 ^3/uL Nucleated Red Blood Cells 0.2 % Sodium Level 144 136-145 mmol/L Potassium Level 3.8 3.5-5.1 mmol/L Chloride Level 104 98-107 mmol/L Carbon Dioxide Level 19 L 20-31 mmol/L Anion Gap 21 H 5-15 Blood Urea Nitrogen 9 9-23 mg/dL Creatinine 0.97 0.700-1.30 mg/dL Glomerular Filtration Rate Calc 102 >90 mL/min BUN/Creatinine Ratio 9.3 L 10.0-20.0 Serum Glucose 137 H 74-106 mg/dL Calcium Level 9.3 8.7-10.4 mg/dL Troponin I High Sensitivity 10 </=54 ng/L X-Ray, Labs, Meds, VS Comment Imaging: X-rays and CT scans were reviewed and interpreted by this provider, imaging shows no fractures and no pathological disease. Pending radiology review. Laboratory: Labs reviewed and interpreted by this provider. No significant abnormalities noted. Patient has prior medical visits reviewed. Med reconciliation performed Vital signs reviewed Time of 1ST Reevaluation: 01:25 Reevaluation 1ST: Improved Patient Education/Counseling: Diagnosis, Treatment, Need For Follow Up (Follow up with PCP next available appointment) Family Education/Counseling: Diagnosis SEPSIS Sepsis Screen Date sepsis recognized/suspect: Oct 31, 2024 Time Sepsis recognized/suspect: 2215 Recent Procedure: No On Antibiotic Therapy: No Respiratory Rate >20: No Heart Rate >90: Yes Temp<36 C (96.8 F) or >38.3 C: No SBP <90 or MAP <65 mmHG: No New Acute Mental Status Change: No Is the patient on CPAP, BIPAP,: No Orders/Vitals/Labs Physician Orders Chest Xray 1 View (10/31/24 22:13) Vital Signs Date Time Temp Pulse Resp B/P (MAP) Pulse Ox O2 Delivery O2 Flow Rate FiO2 10/31/24 22:19 144 10/31/24 22:15 98.6 133 20 121/59 (79) 100 98.6 Laboratory Tests Test 10/31/24 22:31 White Blood Count 5.9 10^3/uL (4.4-10.8) # Departure 1 Departure Time of Disposition: 01:24 Impression: Primary Impression: Chest pain Qualified Codes: R07.1 - Chest pain on breathing Additional Impression: Alcohol withdrawal Qualified Codes: F10.930 - Alcohol use, unspecified with withdrawal, uncomplicated Disposition: 01 HOME / SELF CARE / HOMELESS Condition: Fair Discharged With: Self Critical Care Note Critical Care Time?: No Stability Stability form required: No Heart Score Heart Score: Heart Score Response (Comments) Value History N/A 0 EKG N/A 0 Age N/A 0 Risk Factors N/A 0 Troponin N/A 0 Total 0 BHARATH BETTENCOURT Nov 01, 2024 01:25
--- NOTE | 2024-11-01 01:54 | DVH ---
CHEST RADIOGRAPH Indication: cp Technique: Single frontal view of the chest was obtained COMPARISON: XY CHEST XRAY 1 VIEW on DOS: 01/23/24, XY CHEST PORTABLE on DOS: 01/22/24 FINDINGS: Lines and Tubes: None Lungs: Clear Pleura: No effusion. No pneumothorax. Cardiomediastinal contours: Unremarkable Bones: Unremarkable IMPRESSION: 1. No acute disease.
[2024-11-01 03:50] VITALS: BP 151/98; TEMP 98.3
[2024-11-01 04:00] VITALS: PULSE 70; RESP 20; O2SAT 98
== END 2024-11-01 04:03 | disposition home or self-care (01) ==
LOC: EDBD 22:08 → ER 22:08
DX: R07.89 Other chest pain (principal); F10.139 Alcohol abuse with withdrawal, unspecified; Z79.899 Other long term (current) drug therapy; Z79.84 Long term (current) use of oral hypoglycemic drugs; Z59.00 Homelessness unspecified; Y90.9 Presence of alcohol in blood, level not specified
CPT/HCPCS: 36415; 71045; 80048; 84484; 85025; 93005

== ENCOUNTER 2024-11-10 16:10 | Inpatient (IN) | payer MEDICAID ==
[~2024-11-10] VITALS: Ht 167.6 cm; Wt 63.3 kg
--- NOTE | 2024-11-10 16:30 | ED.PDOC ---
HPI Comments This is a 38 year old male PANCHO presenting to the ED with chief complaint of chest pain. EMS reports that the patient was found in the lobby of [facility] complaining of chest pain and generalized weakness. EMS relays that the patient is fully alert and awake, continuing to complain of chest pain. Patient denies any SOB, dizziness, N/V/D, abdominal pain, headache, or fever. 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 10/10/24 Pantoprazole Sodium Sesquihydr (Protonix) 40 Mg Tab, 40 MG PO DAILY, #30 TAB Prov:NAYELI SOSA MD 09/30/24 Ondansetron Odt 4MG Tab (ZOFRAN PO) 4 Mg Tb, 4 MG PO TID PRN, #30 TAB ODT TAB-DISSOLVE IN MOUTH, THEN SWALLOW Prov:NAYELI SOSA MD 09/30/24 Cobalamine Combinations (B-12 + Folic Acid 2500-400 Mcg) 1 Tab Tab, 1 TAB PO DAILY for 30 Days, #30 TAB 0 Refills Prov:ALYCIA ANDINO RESIDENT 01/25/24 Multiple Vitamin (Multivitamins) Tab, 1 TAB PO DAILY for 30 Days, #90 TAB 0 Refills Prov:ALYCIA ANDINO RESIDENT 01/25/24 Magnesium Oxide (MAGNESIUM OXIDE) 400 Mg Tab, 400 MG OR DAILY for 7 Days, #7 TAB Prov:ALYCIA ANDINO RESIDENT 01/25/24 Gemfibrozil (Gemfibrozil) 600 Mg Tab, 1 TAB PO BID for 30 Days, #60 TAB 2 Refills Prov:ALYCIA ANDINO RESIDENT 01/25/24 Lisinopril (Lisinopril) 2.5 Mg Tab, 1 TAB PO DAILY for 30 Days, #30 TAB 2 Refills Prov:ALYCIA ANDINO 01/25/24 Empagliflozin (Jardiance) 10 Mg Tab, 10 MG PO DAILY for 30 Days, #30 TAB 2 Refills Prov:ALYCIA ANDINO 01/25/24 Metoprolol Succinate (Metoprolol Succinate Er) 25 Mg Tab, 25 MG PO DAILY for 30 Days, #30 TAB 2 Refills Prov:ALYCIA ANDINO 01/25/24 Spironolactone (Spironolactone) 25 Mg Tab, 1 TAB PO DAILY for 30 Days, #30 TAB 2 Refills Prov:ALYCIA ANDINO 01/25/24 Information Source: Patient, Emergency Med Personnel Mode of Arrival: EMS Severity: Moderate Timing: Hours Duration: Since onset Prehospital treatment: None Location: Substernal Radiation: No Radiation Quality: Sharp Onset: At Rest Cardiac Risk Factors: None PE Risk Factors: None History of: None Past Medical History PAST MEDICAL HISTORY: Denies Surgical History: Denies all surgeries Family History Family History: Reviewed,noncontributory to illness Social History Smoker: Non-Smoker Alcohol: Heavy Drugs: Denies Drug Use Lives In: Homeless Constitutional: reports: weakness; denies: chills, diaphoresis, fatigue, fever, malaise, sweats, others EENTM: denies: blurred vision, double vision, ear bleeding, ear discharge, ear drainage, ear pain, ear ringing, eye pain, eye redness, hearing loss, mouth pain, mouth swelling, nasal discharge, nose bleeding, nose congestion, nose pain , photophobia, tearing, throat pain, throat swelling, voice changes, others Respiratory: denies: cough, hemoptysis, orthopnea, SOB at rest, shortness of breath, SOB with excertion, stridor, wheezing, others Cardiovascular: reports: chest pain; denies: dizzy spells, diaphoresis, Dyspnea on exertion, edema, irregular heart beat, left arm pain, lightheadedness, palpitations, PND, syncope, others Gastrointestinal: denies: abdomen distended, abdominal pain, blood streaked bowels, constipated, diarrhea, dysphagia, difficulty swallowing, hematemesis, melena, nausea, poor appetite, poor fluid intake, rectal bleeding, rectal pain, vomiting, others Genitourinary: denies: burning, dysuria, flank pain, frequency, hematuria, incontinence, penile discharge, penile sore, pain, testicle pain, testicle swelling, urgency, others Neurological: denies: dizziness, fainting, headache, left sided numbness, left sided weakness, numbness, paresthesia, pre-existing deficit, right sided numbness, right sided weakness, seizure, speech problems, tingling, tremors, weakness, others Musculoskeletal: denies: back pain, gout, joint pain, joint swelling, muscle pain, muscle stiffness, neck pain, others Integumetry: denies: bruises, change in color, change in hair/nails, dryness, laceration, lesions, lumps, rash, wounds, others Allergic/Immunocompromised: denies: Difficulty Healing, Frequent Infections, Hives, Itching, others Hematologic/Lymphatic: denies: anemia, blood clots, easy bleeding, easy bruising, swollen glands, others Endocrine: denies: excessive hunger, excessive sweating, excessive thirst, excessive urination, flushing, intolerance to cold, intolerance to heat, unexplained weight gain, unexplained weight loss, others Psychiatric: denies: anxiety, bipolar disorder, depression, hopeless, panic disorder, schizophrenia, sleepless, suicidal, others All Other Systems: Reviewed and Negative Physical Exam General Appearance: Moderate Distress HEENT: Normal ENT Inspection, Pharynx Normal, TMs Normal Neck: Full Range of Motion, Non-Tender, Normal, Normal Inspection Respiratory: Chest Non-Tender, Lungs Clear, No Accessory Muscle Use, No Respiratory Distress, Normal Breath Sounds Cardiovascular: No Edema, No JVD, No Murmur, No Gallop, Tachycardia Breast Exam: Deferred Gastrointestinal: No Organomegaly, Non Tender, No Pulsatile Mass, Normal Bowel Sounds, Soft Genitalia: Deferred Pelvic: Deferred Rectal: Deferred Extremities: No calf tenderness, Normal capillary refill, Pedal edema Musculoskeletal : Apperance: Normal Neurologic: culinary specialist II-XII nml as Tested, Motor Weakness, Normal Affect, Normal Mood, No Sensory Deficits Cerebellar Function: Normal Reflexes: Normal Skin: Dry, Normal Color, Warm Lymphatic: No Adenopathy EKG EKG : Pulse Rate (adult): 110 [place]: Normal Cardiac Rhythm: ST Block: None ST: Nonsp Was a procedure done? Was a procedure done?: No CP Differential Dx Differential Diagnosis: A-fib, A-Flutter, Angina, [place], Pulmonary Embolus Differential Diagnosis: CHF X-Ray, Labs, Meds, VS Vital Signs Date Time Temp Pulse Resp B/P (MAP) Pulse Ox O2 Delivery O2 Flow Rate FiO2 11/10/24 18:48 110 11/10/24 16:25 98.3 113 20 111/81 (91) 99 98.3 Lab Test 11/10/24 16:33 Range/Units White Blood Count 3.1 L 4.4-10.8 10^3/uL Red Blood Count 4.80 4.5-5.90 10^6/uL Hemoglobin 14.2 13.5-17.5 g/dL Hematocrit 41.8 41.0-53.0 % Mean Corpuscular Volume 86.9 80.0-100.0 fL Mean Corpuscular Hemoglobin 29.6 28.0-32.0 pg Mean Corpuscular Hemoglobin Concent 34.1 32.0-36.0 g/dL Red Cell Distribution Width 16.1 H 11.8-14.3 % Platelet Count 123 L 140-450 10^3/uL Mean Platelet Volume 6.5 L 6.9-10.8 fL Neutrophils (%) (Auto) 37.0-80.0 % Lymphocytes (%) (Auto) 10.0-50.0 % Monocytes (%) (Auto) 0.0-12.0 % Basophils (%) (Auto) 0.0-2.0 % Neutrophils # (Auto) 1.6-8.6 10 ^3/uL Lymphocytes # (Auto) 0.4-5.4 10 ^3/uL Monocytes # (Auto) 0-1.3 10 ^3/uL Differential Total Cells Counted 100.0 100 Neutrophils % (Manual) 35 L 37.0-80.0 Band Neutrophils % (Manual) 0 Lymphocytes % (Manual) 60 H 10.0-50.0 Monocytes % (Manual) 5 0-12 Eosinophils % (Manual) 0 0-7 Basophils % (Manual) 0 0.0-2.0 Metamyelocytes % (manual) 0 Myelocytes % (Manual) 0 Promyelocytes % (Manual) 0 Blast Cells % (Manual) 0 Reactive Lymphocytes 0 Platelet Estimate Decreased Sodium Level 143 136-145 mmol/L Potassium Level 4.3 3.5-5.1 mmol/L Chloride Level 105 98-107 mmol/L Carbon Dioxide Level 25 20-31 mmol/L Anion Gap 13 5-15 Blood Urea Nitrogen 12 9-23 mg/dL Creatinine 0.88 0.700-1.30 mg/dL Glomerular Filtration Rate Calc 112 >90 mL/min BUN/Creatinine Ratio 13.6 10.0-20.0 Serum Glucose 110 H 74-106 mg/dL Calcium Level 8.9 8.7-10.4 mg/dL Plasma/Serum Blood Alcohol 357.9 H <10 mg/dL IV Hep-Lock was established The alcohol level 357.9 Patient's CBC is within normal limits The chemistry panel is within normal limits The patient is being admitted to the hospitalist with toxic encephalopathy The patient is also admitted the CT exhaustion and dehydration Images Reviewed?: Images reviewed and evaluated by me Time of 1ST Reevaluation: 18:47 Reevaluation 1ST: Unchanged Patient Education/Counseling: Diagnosis, Treatment, Prognosis Family Education/Counseling: No Family Present SEPSIS Sepsis Screen Physician Orders Urinalysis (11/10/24 16:17) Heplock Iv (11/10/24 16:17) Rasper Machine Operator (11/10/24 16:17) Blood Pressure (11/10/24 16:17) Pulse Oximetry (11/10/24 16:17) Electrocardigram (11/10/24 16:17) Drug Screen (11/10/24 16:17) Vital Signs Date Time Temp Pulse Resp B/P (MAP) Pulse Ox O2 Delivery O2 Flow Rate FiO2 11/10/24 18:48 110 11/10/24 16:25 98.3 113 20 111/81 (91) 99 98.3 Laboratory Tests Test 11/10/24 16:33 White Blood Count 3.1 10^3/uL (4.4-10.8) L Departure 1 Departure Time of Disposition: 18:47 Impression: Primary Impression: Dehydration Additional Impressions: Toxic encephalopathy Qualified Codes: G92.9 - Unspecified toxic encephalopathy Alcohol abuse Disposition: 09 ADMITTED INPATIENT Admit to: [place] Condition: Fair Critical Care Note Critical Care Time?: No Stability Stability form required: No Heart Score Heart Score: Heart Score Response (Comments) Value History Moderate Suspicious 1 EKG Normal 0 Age <45 0 Risk Factors No known risk factors 0 Troponin Normal limit 0 Total 1 I personally scribed for BENTLEY CISNEROS MD ([email or web address]) on 11/10/24 at 16:30. Electronically submitted by Zeeshan Estevez ([email or web address]). BENTLEY CISNEROS MD Nov 10, 2024 16:30
[2024-11-10 16:57] LABS: Hematocrit 41.8 % (41.0-53.0); Hemoglobin 14.2 g/dL (13.5-17.5); Mean Corpuscular Hemoglobin 29.6 pg (28.0-32.0); Mean Corpuscular Hgb Conc. 34.1 g/dL (32.0-36.0); Mean Corpuscular Volume 86.9 fL (80.0-100.0); Platelet Count (auto) 123 10^3/uL (140-450); Red Cell Distribution Width 16.1 % (11.8-14.3); White Blood Cell 3.1 10^3/uL (4.4-10.8)
[2024-11-10 17:02] LABS: Band Neutrophils % (manual) 0; Basophils % (manual) 0 (0.0-2.0); Blast Cells 0; Eosinophils % (manual) 0 (0-7); Metamyelocytes % 0; Myelocytes % 0; Promyelocytes % 0; Reactive Lymphocytes 0
[2024-11-10 17:09] LABS: Chloride 105 mmol/L (98-107); Potassium 4.3 mmol/L (3.5-5.1); Sodium 143 mmol/L (136-145)
[2024-11-10 17:10] LABS: Anion Gap 13 (5-15); Carbon Dioxide 25 mmol/L (20-31)
[2024-11-10 17:11] LABS: Calcium 8.9 mg/dL (8.7-10.4)
[2024-11-10 17:15] LABS: BUN/Creatinine Ratio 13.6 (10.0-20.0); Blood Urea Nitrogen 12 mg/dL (9-23)
[2024-11-10 17:25] LABS: Blood Alcohol 357.9 mg/dL (<10); Glucose 110 mg/dL (74-106)
[2024-11-10 18:07] LABS: Lymphocytes % (manual) 60 (10.0-50.0); Monocytes % (manual) 5 (0-12); Platelet Estimate Decreased
[2024-11-10] MEDS: SODIUM CHLORIDE 0.9% 1,000 ML IV ONE (20:41)
[2024-11-10] MEDS: LORazepam 2MG/ML-1ML VIAL IV ONE (21:05)
[2024-11-10] MEDS: LORazepam 2MG/ML-1ML VIAL ONE ×2 (21:06→22:33)
[2024-11-10] MEDS ORDERED: NITROGLYCERIN 0.4 MG SL TAB SL PRN (21:15)
[2024-11-10] MEDS ORDERED: MORPHINE SULFATE INJ 2 MG/ml SYRG IV PRN (21:15)
[2024-11-10 21:35] LABS: Magnesium 1.9 mg/dL (1.6-2.6)
[2024-11-10 21:37] LABS: Phosphorus 3.2 mg/dL (2.4-5.1)
[2024-11-10] MEDS: SUCRALFATE 1 GM/10 ML ORAL SUSP PO SCH (22:00)
[2024-11-10 22:20] LABS: Bilirubin, Total 0.8 mg/dL (0.2-1.0)
[2024-11-10 22:28] LABS: Bilirubin, Direct 0.3 mg/dL (<0.3)
[2024-11-10] MEDS: PANTOPRAZOLE 40 MG/10 ML VIAL INJ IV ONE ×2 (22:32→22:33)
[2024-11-10] MEDS: LORazepam 2MG/ML-1ML VIAL IV SCH (22:32)
[2024-11-10 22:33] LABS: Lactic Acid w/Reflex 3.5 mmol/L (0.4-2.0)
[2024-11-10] MEDS: THIAMINE 100mg/ml INJ (200mg/2ml VIAL) ONE (23:19)
[2024-11-10] MEDS: SUCRALFATE 1 GM TAB PO ONE (23:19)
[2024-11-10] MEDS: FOLIC ACID 1 MG in D5W 5% 50 ML INJ ONE (23:19)
[2024-11-10] MEDS: SODIUM CHLORIDE 0.9% 500 ML IV ONE (23:22)
[2024-11-10] MEDS: THIAMINE 100mg/ml INJ (200mg/2ml VIAL) IV ONE (23:22)
[2024-11-11] MEDS ORDERED: ONDANSETRON HCL 4 MG/2 ML VIAL IV PRN (01:15)
[2024-11-11] MEDS: SODIUM CHLORIDE 0.9% 1,000 ML IV ONE (01:30)
--- NOTE | 2024-11-11 03:31 | DVHHPRES ---
History of Present Illness Resident Creating Document: MAINORLUI RESIDENT History of Present Illness Patient is a 38-year-old male with a past medical history of hypertriglyceridemia, hypertension, heart failure with reduced ejection fraction presented to the ED with a chief complaint of chest pain. Patient reported lowe r sternal chest pain that started a few hours ago, nonradiating, sharp and is intermittent following which 12 lead ECG was done which showed sinus tachycardia with no ST or T-wave changes. Patient reported that he has on and off pain at the same location, severe in intensity at times and otherwise he does not have with the pain at all. Reports binge drinking last night with multiple shots of hard liquor with the last drink being about 24 hours ago. Patient denied nausea, vomiting, abdominal pain. He reported feeling very anxious,"feels like he is going to ", fidgety. 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 Denies nausea, vomiting, abdominal pain Reports mild headache and chest pain has improved Allergies: Coded Allergies: NO KNOWN ALLERGIES (Unverified , 01/20/24) Medications Current Medications Medications Dose Ordered Sig/Surjit Route Start Time Stop Time Status Last Admin Dose Admin Nitroglycerin 0.4 mg Q5MINP PRN SL 11/10/24 21:15 Morphine Sulfate 2 mg Q30M PRN IV 11/10/24 21:15 Folic Acid 1 mg/ Dextrose 50.2 ml @ 200.8 mls/ hr DAILY INJ 11/11/24 10:00 Lorazepam 1 mg Q4HR IV 11/10/24 22:00 11/10/24 22:32 1 MG Pantoprazole Sodium 40 mg DAILY IV 11/11/24 10:00 Sucralfate 1 gm BID@0600,2200 PO 11/10/24 22:00 Ondansetron HCl 4 mg Q8HPRN PRN IV 11/11/24 01:15 Exam Vital Signs Vital Signs Date Time Temp Pulse Resp B/P (MAP) Pulse Ox O2 Delivery O2 Flow Rate FiO2 11/11/24 00:00 98 11/10/24 22:47 99.4 18 120/83 (95) 99 99.4 11/10/24 20:18 Room Air* 0 21 Exam Gen - no pallor, no icterus, no cyanosis, no clubbing, no LAD, no edema . Skin - Patients skin is warm and dry. HEENT - normocephalic, atraumatic, dry mucous membranes. Neck - full ROM, no LAD, no JVD Pulmonary - B/L equal breath sounds, no crackles, no wheezing, no stridor. cardiovascular - regular S1,S2 heard, no added sounds, no murmurs heard. GI - soft, nontender abdomen. no hepatospleenomegaly. Bowel sounds normoactive Neurological - Patient is A/O X 3 . Bilateral upper extremity strength 5/5, bilateral lower extremity strength 5/5, no facial droop, normal speech, no tremor, no sensory deficiets. CIWA score> 20 Labs/Xrays Labs Test 11/10/24 23:36 11/10/24 16:33 Range/Units Lactic Acid Level 3.1 *H 0.4-2.0 mmol/L White Blood Count 3.1 L 4.4-10.8 10^3/uL Red Blood Count 4.80 4.5-5.90 10^6/uL Hemoglobin 14.2 13.5-17.5 g/dL Hematocrit 41.8 41.0-53.0 % Mean Corpuscular Volume 86.9 80.0-100.0 fL Mean Corpuscular Hemoglobin 29.6 28.0-32.0 pg Mean Corpuscular Hemoglobin Concent 34.1 32.0-36.0 g/dL Red Cell Distribution Width 16.1 H 11.8-14.3 % Platelet Count 123 L 140-450 10^3/uL Mean Platelet Volume 6.5 L 6.9-10.8 fL Neutrophils (%) (Auto) 37.0-80.0 % Lymphocytes (%) (Auto) 10.0-50.0 % Monocytes (%) (Auto) 0.0-12.0 % Basophils (%) (Auto) 0.0-2.0 % Neutrophils # (Auto) 1.6-8.6 10 ^3/uL Lymphocytes # (Auto) 0.4-5.4 10 ^3/uL Monocytes # (Auto) 0-1.3 10 ^3/uL Differential Total Cells Counted 100.0 100 Neutrophils % (Manual) 35 L 37.0-80.0 Band Neutrophils % (Manual) 0 Lymphocytes % (Manual) 60 H 10.0-50.0 Monocytes % (Manual) 5 0-12 Eosinophils % (Manual) 0 0-7 Basophils % (Manual) 0 0.0-2.0 Metamyelocytes % (manual) 0 Myelocytes % (Manual) 0 Promyelocytes % (Manual) 0 Blast Cells % (Manual) 0 Reactive Lymphocytes 0 Platelet Estimate Decreased Sodium Level 143 136-145 mmol/L Potassium Level 4.3 3.5-5.1 mmol/L Chloride Level 105 98-107 mmol/L Carbon Dioxide Level 25 20-31 mmol/L Anion Gap 13 5-15 Blood Urea Nitrogen 12 9-23 mg/dL Creatinine 0.88 0.700-1.30 mg/dL Glomerular Filtration Rate Calc 112 >90 mL/min BUN/Creatinine Ratio 13.6 10.0-20.0 Serum Glucose 110 H 74-106 mg/dL Calcium Level 8.9 8.7-10.4 mg/dL Phosphorus Level 3.2 2.4-5.1 mg/dL Magnesium Level 1.9 1.6-2.6 mg/dL Total Bilirubin 0.8 0.2-1.0 mg/dL Direct Bilirubin 0.3 <0.3 mg/dL Aspartate Amino Transferase (AST) 20 <34 U/L Alanine Aminotransferase (ALT) 14 7-40 U/L Alkaline Phosphatase 94 46-116 U/L Total Protein 7.0 5.7-8.2 g/dL Albumin 4.0 3.2-4.8 g/dL Triglycerides Level 333 H < 150 mg/dL Cholesterol Level 160 < 200 mg/dL LDL Cholesterol 55 < 100 mg/dL HDL Cholesterol 68 H 40-59 mg/dL Lipase 33 12-53 U/L Plasma/Serum Blood Alcohol 357.9 H <10 mg/dL Assessment/Plan Assessment/Plan Acute chest pain Rule out ACS Probable acute gastritis - ECG shows no acute ST segment or T-wave changes - IV Protonix and sucralfate p.o. Severe alcohol withdrawal syndrome, CIWA > 20 - IV fluids - thiamine - banana bag - lorazepam 1 mg IV q.6 hours - on telemetry H/o heart failure with reduced ejection fraction, no exacerbation Hypertriglyceridemia - echo from January 2024 shows LVEF 40% with the anterior anteroseptal akinesis - patient noncompliant with his medications including lisinopril, metoprolol succinate, spironolactone, empagliflozin -to be continued on gemfibrozil PUD prophylaxis: Protonix DVT prophylaxis: Not indicated Goals of care discussed with the patient for over 21 minutes. Full code Time spent: 39 minutes Plan discussed with Dr. 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 PHA 11/10/24 In Process 23:45 Sodium Chloride 0.9% PHA 11/11/24 In Process 01:15 Ondansetron Hcl PHA 11/11/24 In Process (Zofran) 01:15 Date of Service: Nov 10, 2024 Billing Provider: MIGUEL PEDRAZA MD Common Visit Codes: [id number] INP/OBS CARE (HIGH) Secondary Visit Codes: [id number] CARE PLAN 30 MINUTES LUI HAYWARD RESIDENT Nov 11, 2024 03:30
[2024-11-11] MEDS: SODIUM CHLORIDE 0.9% 1,000 ML IV SCH (05:24)
[2024-11-11] MEDS: LORazepam 2MG/ML-1ML VIAL IV SCH ×2 (06:09→13:04)
[2024-11-11 06:10] LABS: Urine Bacteria None Seen /hpf (None Seen)
[2024-11-11 06:30] LABS: Basophils # (auto) 0 10 ^3/uL (0-0.2); Basophils % (auto) 0.8 % (0.0-2.0); Eosinophils # (auto) 0 10 ^3/uL (0-0.8); Eosinophils % (auto) 0.8 % (0.0-7.0); Hematocrit 36.1 % (41.0-53.0); Hemoglobin 12.1 g/dL (13.5-17.5); Mean Corpuscular Hemoglobin 29.4 pg (28.0-32.0); Mean Corpuscular Hgb Conc. 33.6 g/dL (32.0-36.0); Mean Corpuscular Volume 87.6 fL (80.0-100.0); Monocytes # (auto) 0.3 10 ^3/uL (0-1.3); Monocytes % (auto) 13.7 % (0.0-12.0); Neutrophils % (auto) 43.7 % (37.0-80.0); Nucleated Red Blood Cells % 0.3 %; Platelet Count (auto) 88 10^3/uL (140-450); Red Blood Cells 4.12 10^6/uL (4.5-5.90); Red Cell Distribution Width 15.4 % (11.8-14.3); White Blood Cell 2.4 10^3/uL (4.4-10.8)
[2024-11-11 06:44] LABS: Sodium 142 mmol/L (136-145)
[2024-11-11 06:44] LABS: Urine Blood Negative /uL (Negative); Urine Clarity Clear (Clear); Urine Color Colorless (Yellow); Urine Protein, UAD Negative (Negative); Urine Specific Gravity 1.011 (1.001-1.035); Urine Squamous Epithelial Cell None Seen /hpf (<5); Urine Urobilinogen Normal (Negative); Urine WBC < 1 /HPF (0-3); Urine pH 6.5 (5.0-9.0)
[2024-11-11 06:45] LABS: Anion Gap 15 (5-15)
[2024-11-11 06:48] LABS: INR 1.19 (0.9-1.15); Partial Thromboplastin Time 28.6 SEC (24.5-34.5); Prothrombin Time 12.4 sec (9.3-11.8)
[2024-11-11 06:49] LABS: Amphetamine Screen, Urine Neg (NEGATIVE); Barbiturate Scree,Urine Neg (NEGATIVE); Benzodiazephine Screen, Urine Neg (NEGATIVE); Cannabinoid Screen, Urine Neg (NEGATIVE); Cocaine Screen, Urine Neg (NEGATIVE); Opiate Scree,Urine Neg (NEGATIVE); Phencyclidine Screen, Urine Neg (NEGATIVE)
[2024-11-11 06:50] LABS: BUN/Creatinine Ratio 10.2 (10.0-20.0); Blood Urea Nitrogen 6 mg/dL (9-23); Calcium 7.3 mg/dL (8.7-10.4); Carbon Dioxide 19 mmol/L (20-31); Chloride 108 mmol/L (98-107); Glucose 78 mg/dL (74-106); Potassium 3.5 mmol/L (3.5-5.1)
[2024-11-11] MEDS: FOLIC ACID 1 MG, MAGNESIUM SULF SDV 50% 8 MEQ, MULTIPLE VITAMIN 10 ML, THIAMINE INJ 100... INJ ONE (08:42)
[2024-11-11 09:00] VITALS: PULSE 109; RESP 14; O2SAT 98
[2024-11-11] MEDS: LISINOPRIL 5 MG TAB PO SCH (10:29)
[2024-11-11] MEDS: EMPAGLIFLOZIN 10 MG TAB PO SCH (10:29)
[2024-11-11] MEDS: SPIRONOLACTONE 25 MG TAB PO SCH (10:29)
[2024-11-11] MEDS: PANTOPRAZOLE 40 MG/10 ML VIAL INJ IV SCH (10:30)
[2024-11-11] MEDS: METOPROLOL SUCCINATE XL 50 MG TAB PO SCH (10:30)
[2024-11-11] MEDS: FOLIC ACID 1 MG in D5W 5% 50 ML INJ SCH (10:39)
[2024-11-11] MEDS ORDERED: LORazepam 2MG/ML-1ML VIAL IV PRN (12:00)
--- NOTE | 2024-11-11 12:12 | DVHPNRES ---
Progress Note Date Seen: Nov 11, 2024 Resident Creating Document: DALLAS CHANDLER RUFINA Has the PT tested + for MRSA If YES, has PT been informed?: No Medical Necessity Reason Pt with a Central, PICC or Fol: No Subjective Review of Systems Patient is a 38-year-old male with a past medical history of hypertriglyceridemia, hypertension, heart failure with reduced ejection fraction presented to the ED with a chief complaint of chest pain. Patient reported lower sternal chest pain that started a few hours ago, nonradiating, sharp and is intermittent following which 12 lead ECG was done which showed sinus tachycardia with no ST or T-wave changes. Patient reports that he can not recall properly the event. Reports binge drinking last night with multiple shots of hard liquor with the last drink being about 24 hours ago. Patient denied nausea, vomiting, abdominal pain. He reported feeling very anxious,"feels like he is going to ", fidgety. 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 Patient is still complaining of anxiety, and epigastric pain. Patient reports: No new complaints Changes from previous H/P or p: No Changes Objective vital signs Vital Sign Date Time Temp Pulse Resp B/P (MAP) Pulse Ox O2 Delivery O2 Flow Rate FiO2 11/11/24 10:30 99 15 133/88 (103) 99 11/11/24 09:00 Room Air* 0 21 11/11/24 08:00 98.0 98.0 medications Current Medications Medications Dose Ordered Sig/Surjit Route Start Time Stop Time Status Last Admin Dose Admin Folic Acid 1 mg/ Dextrose 50.2 ml @ 200.8 mls/ hr DAILY INJ 11/11/24 10:00 11/11/24 10:39 200.8 MLS/HR Pantoprazole Sodium 40 mg DAILY IV 11/11/24 10:00 11/11/24 10:30 40 MG Sucralfate 1 gm BID@0600,2200 PO 11/10/24 22:00 11/11/24 06:09 1 GM Ondansetron HCl 4 mg Q8HPRN PRN IV 11/11/24 01:15 Gemfibrozil 600 mg DAILY PO 11/11/24 22:00 Thiamine HCl 100 mg DAILY IV 11/11/24 18:00 Sodium Chloride 1,000 ml @ 100 mls/hr Q10H IV 11/11/24 05:15 11/11/24 05:24 100 MLS/HR Empaglifozin 10 mg DAILY PO 11/11/24 10:00 11/11/24 10:29 10 MG Lisinopril 2.5 mg DAILY PO 11/11/24 10:00 11/11/24 10:29 2.5 MG Metoprolol Succinate 25 mg DAILY PO 11/11/24 10:00 11/11/24 10:30 25 MG Spironolactone 25 mg DAILY PO 11/11/24 10:00 11/11/24 10:29 25 MG Lorazepam 1 mg Q6HR IV 11/11/24 12:00 UNV Lorazepam 1 mg Q2HP PRN IV 11/11/24 12:00 UNV Examination General Appearance: Alert, Oriented X3, Cooperative, No acute distress HEENT: Atraumatic, PERRLA, EOMI, Mucous membrane moist/pink Respiratory: Clear to auscultation, Normal air movement Cardiovascular: Regular rate, Normal S1, Normal S2, No murmurs, no chest wall tenderness Abdominal: Epigastric tenderness Extremities: No clubbing, No cyanosis, No edema, Normal pulses, No tenderness/swelling Skin: No rashes, No breakdown, No significant lesion Neuro: Bilateral upper limb tremor happened extension Psych/Mental Status: Mental status NL, Mood NL laboratory and microbiology Laboratory Tests 11/11/24 06:00 11/11/24 03:27 Test 11/11/24 03:27 Range/Units Serum Glucose 78 74-106 mg/dL Labs and/or images reviewed: Labs reviewed by me, Image(s) reviewed by me Problem List/Assessment/Plan Problem List/Assessment/Plan ? Aspiration pneumonia Sepsis, likely due to above Alcohol intoxication Alcohol withdrawal Acute gastritis, likely due to alcohol and induced Systolic heart failure Medication and adherence Dyslipidemia Thrombocytopenia Homelessness Plan/recommendation Empiric antibiotic Rocephin, IV fluid, pain management Ativan 1 mg q.6 hours Thiamine Folic acid Banana bag Consulted surgeon, for homelessness Continue meds Check echocardiogram Blood culture DIET: Cardiac diet DVT PROPHYLAXIS: Lovenox GI PROPHYLAXIS:: Protonix CODE STATUS: Goal of care discussed for more than 18 minutes, full code DISPOSITION: Telemetry Patient's status and plan discussed with the patient. Case discussed with Dr. Chu. Plan discussed with: Patient, Other (RN) My Orders My Orders Orders - DALLAS CHANDLER Procedure Category Date Status Time Empagliflozin PHA 11/11/24 In Process (Jardiance) 10:00 Lisinopril Tablet PHA 11/11/24 In Process (Zestril Tablet) 10:00 Metoprolol Xl PHA 11/11/24 In Process Succinate (Toprol Xl) 10:00 Spironolactone PHA 11/11/24 In Process (Aldactone) 10:00 Electrocardigram EKG 11/11/24 Logged 08:35 Lorazepam 2mg/Ml Inj PHA 11/11/24 Logged (Ativan Inj) 12:00 Lorazepam 2mg/Ml Inj PHA 11/11/24 Logged (Ativan Inj) 12:00 Date of Service: Nov 11, 2024 Billing Provider: OPAL CHU MD Common Visit Codes: [id number] INP/OBS CARE(HIGH) DALLAS CHANDLER RESDIENT Nov 11, 2024 12:12 OPAL CHU MD Nov 14, 2024 22:14
[2024-11-11 16:00] VITALS: BP 131/84; PULSE 92; RESP 19; TEMP 97.7; O2SAT 99
--- NOTE | 2024-11-11 17:05 | DVH ---
CHEST RADIOGRAPH Indication: Pneumonia Technique: Single frontal view of the chest was obtained COMPARISON: XY CHEST XRAY 1 VIEW on DOS: 10/31/24, XY CHEST XRAY 1 VIEW on DOS: 01/23/24, XY CHEST JAMAAL BLE on DOS: 01/22/24 FINDINGS: Lines and Tubes: None Lungs: Increased interstitial prominence Pleura: No effusion. No pneumothorax. Cardiomediastinal contours: Unremarkable Bones: Unremarkable IMPRESSION: Possible viral pneumonia
--- NOTE | 2024-11-11 17:44 | DVH ---
Technique: Real-time ultrasound imaging of the abdomen was performed with grayscale and color Doppler . Indication: liver cirrhosis Comparison: US LIVER on DOS: 01/21/24 Findings: Liver measures 14.4 cm. It is increased in echogenicity and echotexture without focal mass. Portal v ein is normal in caliber and demonstrates normal hepatopetal flow. Gallbladder demonstrates no evidence for cholelithiasis. There is no pericholecystic fluid. The wall thickness is normal. The common bile duct measures 3 mm. No intrahepatic biliary ductal dilatation. The right kidney measures 11.4 cm. There is no hydronephrosis or sonographic evidence of nephrolithia sis. The visualized portion of the pancreas is unremarkable. The visualized portion of the IVC is unremarkable. Impression: Echogenic liver which can be seen with hepatic steatosis, cirrhosis.
[2024-11-11] MEDS: THIAMINE 100mg/ml INJ (200mg/2ml VIAL) IV SCH (18:50)
--- NOTE | 2024-11-11 19:45 | DVHSR ---
APPROVED REPORT EXAM: Two-dimensional and M-mode echocardiogram with Doppler and color Doppler. Blood Pressure: 126/88 mmHg INDICATION Chest Pain RISK FACTORS Height: 66, Weight: 155 DIMENSIONS LVDd5.6 (3.8-5.7cm)LA (2D)4.0 (1.9-4.0cm)Aortic Root4.4 (2.0-3.7cm) LVDs4.9 (2.5-4.0cm)LA (MM) (1.9-4.0cm)Aortic Cusp Exc2.0 (1.5-2.0cm) EF (%) 26.0 (55-70%)Rt. Atrium4.0 (1.9-4.0cm)Asc. Aorta cm IVSd1.0 (0.7-1.1cm)RV (D) (1.8-2.4cm) PWd1.1 (0.7-1.1cm) Mitral Valve MitralMitral Stenosis E wave1.14m/sMV Mean GR.mmHg E/A ratio0.02D MVAcm2 Aortic Valve Aortic ValveAortic Stenosis V10.90m/Iraida Mean GR.4mmHg V21.28m/Iraida Peak GR.7mmHg LVOT Diameter2.4 (1.8-2.4cm)Doppler AVA3.18cm2 Pulmonic Valve V20.93m/s Other Information Technically limited study due to body habitus and patient position. Conclusion DILATED ALL CARDIAC CHAMBERS SEVERE LV AND RV HYPOKINESIS LV EF IS ONLY 20% NORMAL VALVES NO EFFUSION
[2024-11-11 20:58] VITALS: BP 134/87; PULSE 102; RESP 18; TEMP 98.4; O2SAT 99
[2024-11-11 22:04] VITALS: PULSE 109; RESP 18; O2SAT 100
[2024-11-11 22:10] VITALS: BP 128/98; PULSE 106; RESP 19; TEMP 98.5; O2SAT 100
[2024-11-11] MEDS: GEMFIBROZIL 600 MG TAB PO SCH (22:17)
[2024-11-11 23:49] VITALS: PULSE 89
[2024-11-12] VITALS (7 sets, daily range): BP systolic 118–127; BP diastolic 75–89; PULSE 99–110; RESP 16–20; TEMP 97.3–98.7; O2SAT 99–100
[2024-11-12 05:39] LABS: Basophils # (auto) 0 10 ^3/uL (0-0.2); Basophils % (auto) 0.6 % (0.0-2.0); Eosinophils # (auto) 0 10 ^3/uL (0-0.8); Eosinophils % (auto) 1.2 % (0.0-7.0); Hematocrit 37.8 % (41.0-53.0); Hemoglobin 13.1 g/dL (13.5-17.5); Lymphocytes # (auto) 0.9 10 ^3/uL (0.4-5.4); Mean Corpuscular Hemoglobin 30.3 pg (28.0-32.0); Mean Corpuscular Hgb Conc. 34.7 g/dL (32.0-36.0); Mean Corpuscular Volume 87.3 fL (80.0-100.0); Monocytes # (auto) 0.5 10 ^3/uL (0-1.3); Monocytes % (auto) 17.3 % (0.0-12.0); Neutrophils # (auto) 1.5 10 ^3/uL (1.6-8.6); Neutrophils % (auto) 50.9 % (37.0-80.0); Nucleated Red Blood Cells % 0.3 %; Platelet Count (auto) 73 10^3/uL (140-450); Red Blood Cells 4.32 10^6/uL (4.5-5.90); Red Cell Distribution Width 15.7 % (11.8-14.3); White Blood Cell 2.9 10^3/uL (4.4-10.8)
[2024-11-12 06:01] LABS: Anion Gap 14 (5-15); Chloride 101 mmol/L (98-107)
[2024-11-12 06:03] LABS: Calcium 8.7 mg/dL (8.7-10.4); Carbon Dioxide 20 mmol/L (20-31); Potassium 3.3 mmol/L (3.5-5.1); Sodium 135 mmol/L (136-145)
[2024-11-12 06:10] LABS: BUN/Creatinine Ratio 8.2 (10.0-20.0); Blood Urea Nitrogen < 5 mg/dL (9-23); Glucose 66 mg/dL (74-106)
[2024-11-12] MEDS ORDERED: chlordiazePOXIDE HCL 25 MG CAP PO PRN (15:45)
--- NOTE | 2024-11-12 23:32 | DVHPN2 ---
Objective Vitals Vital Signs Date Time Temp Pulse Resp B/P (MAP) Pulse Ox O2 Delivery O2 Flow Rate FiO2 11/12/24 21:00 97.3 104 16 125/75 (92) 99 97.3 11/12/24 08:00 Room Air* 0 21 Intake/Output Intake and Output 11/12/24 07:00 Intake Total 700 ml Output Total 600 ml Balance 100 ml Intake Oral 0 ml IV Total 700 ml Output Urine Total 600 ml # Voids 1 Medications Current Medications Medications Dose Ordered Sig/Surjit Route Start Time Stop Time Status Last Admin Dose Admin Folic Acid 1 mg/ Dextrose 50.2 ml @ 200.8 mls/ hr DAILY INJ 11/11/24 10:00 11/12/24 10:13 200.8 MLS/HR Pantoprazole Sodium 40 mg DAILY IV 11/11/24 10:00 11/12/24 10:06 40 MG Sucralfate 1 gm BID@0600,2200 PO 11/10/24 22:00 11/12/24 20:38 1 GM Ondansetron HCl 4 mg Q8HPRN PRN IV 11/11/24 01:15 Gemfibrozil 600 mg DAILY PO 11/11/24 22:00 11/12/24 10:06 600 MG Thiamine HCl 100 mg DAILY IV 11/11/24 18:00 11/12/24 10:07 100 MG Sodium Chloride 1,000 ml @ 100 mls/hr Q10H IV 11/11/24 05:15 11/12/24 20:34 100 MLS/HR Empaglifozin 10 mg DAILY PO 11/11/24 10:00 11/12/24 10:05 10 MG Lisinopril 2.5 mg DAILY PO 11/11/24 10:00 11/12/24 10:06 2.5 MG Metoprolol Succinate 25 mg DAILY PO 11/11/24 10:00 11/12/24 10:05 25 MG Spironolactone 25 mg DAILY PO 11/11/24 10:00 11/12/24 10:05 25 MG Lorazepam 1 mg Q6HR IV 11/11/24 12:00 11/12/24 17:47 1 MG Lorazepam 1 mg Q2HP PRN IV 11/11/24 12:00 Chlordiazepoxide HCl 25 mg Q8HPRN PRN PO 11/12/24 15:45 Laboratory Results Laboratory Tests 11/12/24 05:05 Chemistry Test 11/12/24 05:05 Calcium Level 8.7 mg/dL (8.7-10.4) Urinalysis Test 11/11/24 05:25 Urine Color Colorless (Yellow) Urine Clarity Clear (Clear) Urine pH 6.5 (5.0-9.0) Urine Specific [place] 1.011 (1.001-1.035) Urine Protein Negative (Negative) Urine Ketones Negative (Negative) Urine Blood Negative /uL (Negative) Urine Nitrite Negative (Negative) Urine Bilirubin Negative (Negative) Urine Urobilinogen Normal mg/dL (Negative) Urine Leukocyte Esterase Negative /uL (Negative) Urine RBC <1 /hpf (0 - 3) Urine Microscopic WBC < 1 /HPF (0-3) Urine Squamous Epithelial Cells None seen /hpf (<5) Urine Bacteria None seen /hpf (None Seen) Urine Glucose Normal mg/dL (Normal) Microbiology Microbiology Date/Time Source Procedure Growth Status 11/11/24 15:34 Blood Blood Culture - Preliminary NO GROWTH AFTER 24 HOURS OF INCUBATION. Resulted Assessment/Plan My Orders Orders - IRON YU MD Procedure Category Date Status Time Chlordiazepoxide Hcl PHA 11/12/24 In Process Capsule (Librium Ca 15:45 IRON UY MD Nov 12, 2024 23:32
[2024-11-13] VITALS (8 sets, daily range): BP systolic 107–133; BP diastolic 77–88; PULSE 85–104; RESP 16–20; TEMP 97.3–98.8; O2SAT 99–100
[2024-11-13 09:12] LABS: Basophils # (auto) 0 10 ^3/uL (0-0.2); Basophils % (auto) 0.4 % (0.0-2.0); Eosinophils # (auto) 0.1 10 ^3/uL (0-0.8); Eosinophils % (auto) 2.2 % (0.0-7.0); Hematocrit 37.8 % (41.0-53.0); Hemoglobin 12.9 g/dL (13.5-17.5); Lymphocytes # (auto) 0.9 10 ^3/uL (0.4-5.4); Lymphocytes % (auto) 30.7 % (10.0-50.0); Mean Corpuscular Hemoglobin 30.3 pg (28.0-32.0); Mean Corpuscular Hgb Conc. 34.1 g/dL (32.0-36.0); Mean Corpuscular Volume 88.8 fL (80.0-100.0); Monocytes # (auto) 0.4 10 ^3/uL (0-1.3); Monocytes % (auto) 13.9 % (0.0-12.0); Neutrophils # (auto) 1.5 10 ^3/uL (1.6-8.6); Neutrophils % (auto) 52.8 % (37.0-80.0); Platelet Count (auto) 85 10^3/uL (140-450); Red Blood Cells 4.26 10^6/uL (4.5-5.90); Red Cell Distribution Width 15.4 % (11.8-14.3); White Blood Cell 2.9 10^3/uL (4.4-10.8)
[2024-11-13 09:21] LABS: Chloride 105 mmol/L (98-107); Sodium 136 mmol/L (136-145)
[2024-11-13] MEDS: POTASSIUM EFFERVESENT TAB 25 MEQ PO ONE (09:21)
[2024-11-13 09:22] LABS: Anion Gap 9 (5-15); Calcium 8.8 mg/dL (8.7-10.4); Carbon Dioxide 22 mmol/L (20-31); Potassium 3.4 mmol/L (3.5-5.1)
[2024-11-13 09:30] LABS: BUN/Creatinine Ratio 7.1 (10.0-20.0); Blood Urea Nitrogen < 5 mg/dL (9-23); Glucose 154 mg/dL (74-106)
[2024-11-13 09:38] LABS: Lactic Acid w/Reflex 2.4 mmol/L (0.4-2.0)
--- NOTE | 2024-11-13 14:13 | DVHPN2 ---
Objective Vitals Vital Signs Date Time Temp Pulse Resp B/P (MAP) Pulse Ox O2 Delivery O2 Flow Rate FiO2 11/13/24 13:00 98.5 104 20 122/87 (99) 100 98.5 11/13/24 08:00 Room Air* 0 21 Intake/Output Intake and Output 11/13/24 07:00 Intake Total 2800 ml Output Total 1300 ml Balance 1500 ml Intake Oral 650 ml IV Total 2150 ml Output Urine Total 1300 ml Medications Current Medications Medications Dose Ordered Sig/Surjit Route Start Time Stop Time Status Last Admin Dose Admin Folic Acid 1 mg/ Dextrose 50.2 ml @ 200.8 mls/ hr DAILY INJ 11/11/24 10:00 11/13/24 09:38 200.8 MLS/HR Pantoprazole Sodium 40 mg DAILY IV 11/11/24 10:00 11/13/24 09:20 40 MG Sucralfate 1 gm BID@0600,2200 PO 11/10/24 22:00 11/13/24 06:02 1 GM Ondansetron HCl 4 mg Q8HPRN PRN IV 11/11/24 01:15 Gemfibrozil 600 mg DAILY PO 11/11/24 22:00 11/13/24 09:23 600 MG Thiamine HCl 100 mg DAILY IV 11/11/24 18:00 11/13/24 09:20 100 MG Sodium Chloride 1,000 ml @ 100 mls/hr Q10H IV 11/11/24 05:15 11/13/24 06:02 100 MLS/HR Empaglifozin 10 mg DAILY PO 11/11/24 10:00 11/13/24 09:23 10 MG Lisinopril 2.5 mg DAILY PO 11/11/24 10:00 11/13/24 09:23 2.5 MG Metoprolol Succinate 25 mg DAILY PO 11/11/24 10:00 11/13/24 09:24 25 MG Spironolactone 25 mg DAILY PO 11/11/24 10:00 11/13/24 09:21 25 MG Lorazepam 1 mg Q6HR IV 11/11/24 12:00 11/13/24 11:54 1 MG Lorazepam 1 mg Q2HP PRN IV 11/11/24 12:00 Chlordiazepoxide HCl 25 mg Q8HPRN PRN PO 11/12/24 15:45 Laboratory Results Laboratory Tests 11/13/24 08:51 Chemistry Test 11/13/24 08:51 Calcium Level 8.8 mg/dL (8.7-10.4) Urinalysis Test 11/11/24 05:25 Urine Color Colorless (Yellow) Urine Clarity Clear (Clear) Urine pH 6.5 (5.0-9.0) Urine Specific [place] 1.011 (1.001-1.035) Urine Protein Negative (Negative) Urine Ketones Negative (Negative) Urine Blood Negative /uL (Negative) Urine Nitrite Negative (Negative) Urine Bilirubin Negative (Negative) Urine Urobilinogen Normal mg/dL (Negative) Urine Leukocyte Esterase Negative /uL (Negative) Urine RBC <1 /hpf (0 - 3) Urine Microscopic WBC < 1 /HPF (0-3) Urine Squamous Epithelial Cells None seen /hpf (<5) Urine Bacteria None seen /hpf (None Seen) Urine Glucose Normal mg/dL (Normal) Microbiology Microbiology Date/Time Source Procedure Growth Status 11/11/24 15:34 Blood Blood Culture - Preliminary NO GROWTH AFTER 24 HOURS OF INCUBATION. Resulted Assessment/Plan My Orders Orders - IRON YU MD Procedure Category Date Status Time Chlordiazepoxide Hcl PHA 11/12/24 In Process Capsule (Librium Ca 15:45 IRON YU MD Nov 13, 2024 14:13
[2024-11-14 01:00] VITALS: BP 118/83; PULSE 88; RESP 17; TEMP 98.3; O2SAT 99
[2024-11-14 05:00] VITALS: BP 118/78; PULSE 89; RESP 17; TEMP 98.2; O2SAT 98
[2024-11-14 06:00] VITALS: BP 123/90; PULSE 92; RESP 18; TEMP 98.5; O2SAT 99
[2024-11-14 08:00] VITALS: PULSE 90
[2024-11-14 13:15] VITALS: BP 118/89; PULSE 89; RESP 18; TEMP 98.2; O2SAT 98
--- NOTE | 2024-11-14 16:14 | DVHDSRES ---
Discharge Summary Date of Admission Resident Creating Document: JALEN SENIOR RESIDENT Nov 10, 2024 at 21:01 Date of Discharge: Nov 14, 2024 Admitting Diagnosis Acute Chest Pain Labs/Diagnostic Data: Laboratory Results Test 11/14/24 15:00 11/13/24 08:51 11/11/24 06:00 11/11/24 05:25 Lactic Acid Level 2.0 mmol/L (0.4-2.0) White Blood Count 2.9 10^3/uL (4.4-10.8) Red Blood Count 4.26 10^6/uL (4.5-5.90) Hemoglobin 12.9 g/dL (13.5-17.5) Hematocrit 37.8 % (41.0-53.0) Mean Corpuscular Volume 88.8 fL (80.0-100.0) Mean Corpuscular Hemoglobin 30.3 pg (28.0-32.0) Mean Corpuscular Hemoglobin Concent 34.1 g/dL (32.0-36.0) Red Cell Distribution Width 15.4 % (11.8-14.3) Platelet Count 85 10^3/uL (140-450) Mean Platelet Volume 7.8 fL (6.9-10.8) Neutrophils (%) (Auto) 52.8 % (37.0-80.0) Lymphocytes (%) (Auto) 30.7 % (10.0-50.0) Monocytes (%) (Auto) 13.9 % (0.0-12.0) Eosinophils (%) (Auto) 2.2 % (0.0-7.0) Basophils (%) (Auto) 0.4 % (0.0-2.0) Neutrophils # (Auto) 1.5 10 ^3/uL (1.6-8.6) Lymphocytes # (Auto) 0.9 10 ^3/uL (0.4-5.4) Monocytes # (Auto) 0.4 10 ^3/uL (0-1.3) Eosinophils # (Auto) 0.1 10 ^3/uL (0-0.8) Basophils # (Auto) 0 10 ^3/uL (0-0.2) Nucleated Red Blood Cells 0.0 % Sodium Level 136 mmol/L (136-145) Potassium Level 3.4 mmol/L (3.5-5.1) Chloride Level 105 mmol/L (98-107) Carbon Dioxide Level 22 mmol/L (20-31) Anion Gap 9 (5-15) Blood Urea Nitrogen < 5 mg/dL (9-23) Creatinine 0.70 mg/dL (0.700-1.30) Glomerular Filtration Rate Calc 120 mL/min (>90) BUN/Creatinine Ratio 7.1 (10.0-20.0) Serum Glucose 154 mg/dL (74-106) Calcium Level 8.8 mg/dL (8.7-10.4) Prothrombin Time 12.4 sec (9.3-11.8) Prothrombin Time INR 1.19 (0.9-1.15) Activated Partial Thromboplast Time 28.6 SEC (24.5-34.5) Urine Color Colorless (Yellow) Urine Clarity Clear (Clear) Urine pH 6.5 (5.0-9.0) Urine Specific [place] 1.011 (1.001-1.035) Urine Protein Negative (Negative) Urine Ketones Negative (Negative) Urine Blood Negative /uL (Negative) Urine Nitrite Negative (Negative) Urine Bilirubin Negative (Negative) Urine Urobilinogen Normal mg/dL (Negative) Urine Leukocyte Esterase Negative /uL (Negative) Urine RBC <1 /hpf (0 - 3) Urine Microscopic WBC < 1 /HPF (0-3) Urine Squamous Epithelial Cells None seen /hpf (<5) Urine Bacteria None seen /hpf (None Seen) Urine Glucose Normal mg/dL (Normal) Urine Opiates Screen Neg (NEGATIVE) Urine Fentanyl Screen Neg (NEGATIVE) Urine Barbiturates Screen Neg (NEGATIVE) Urine Phencyclidine Screen Neg (NEGATIVE) Urine Amphetamines Screen Neg (NEGATIVE) Urine Benzodiazepines Screen Neg (NEGATIVE) Urine Cocaine Screen Neg (NEGATIVE) Urine Cannabinoids Screen Neg (NEGATIVE) Test 11/11/24 03:27 11/10/24 16:33 Troponin I High Sensitivity 11 ng/L (</=54) Differential Total Cells Counted 100.0 (100) Neutrophils % (Manual) 35 (37.0-80.0) Band Neutrophils % (Manual) 0 Lymphocytes % (Manual) 60 (10.0-50.0) Monocytes % (Manual) 5 (0-12) Eosinophils % (Manual) 0 (0-7) Basophils % (Manual) 0 (0.0-2.0) Metamyelocytes % (manual) 0 Myelocytes % (Manual) 0 Promyelocytes % (Manual) 0 Blast Cells % (Manual) 0 Reactive Lymphocytes 0 Platelet Estimate Decreased Phosphorus Level 3.2 mg/dL (2.4-5.1) Magnesium Level 1.9 mg/dL (1.6-2.6) Total Bilirubin 0.8 mg/dL (0.2-1.0) Direct Bilirubin 0.3 mg/dL (<0.3) Aspartate Amino Transferase (AST) 20 U/L (<34) Alanine Aminotransferase (ALT) 14 U/L (7-40) Alkaline Phosphatase 94 U/L (46-116) Total Protein 7.0 g/dL (5.7-8.2) Albumin 4.0 g/dL (3.2-4.8) Triglycerides Level 333 mg/dL (< 150) Cholesterol Level 160 mg/dL (< 200) LDL Cholesterol 55 mg/dL (< 100) HDL Cholesterol 68 mg/dL (40-59) Lipase 33 U/L (12-53) Plasma/Serum Blood Alcohol 357.9 mg/dL (<10) Other Laboratory Tests 11/13/24 08:51 Brief Hx & Hospital Course: Patient is a 38-year-old male with prior medical history of hypertriglyceridemia , hypertension, HFrEF who presented to the ED BIBA with chief complaint of chest pain in the lower sternal region described as nonradiating, sharp, intermittent secondary to binge drinking hard liquor the 24 hours before. Patient denied nausea, vomiting, and abdominal pain. On examination patient found in moderate distress and with tachycardia. A 12 lead ECG performed in the ED showed sinus tachycardia with no ST or T-wave changes. Troponins negative. Serum alcohol level 357.9. Patient admitted for further monitoring. On admission, patient stated improvement of chest pain, ACS ruled out. On physical examination patient was found to have epigastric tenderness and upper limb tremors on extension. On evaluation CIWA score was found to be greater than 20, suggesting severe alcohol withdrawal secondary to chronic alcohol abuse. Labs show leukopenia, anemia and thrombocytopenia possibly due to early stage liver disease, however liver function tests were normal. Lactic acid was elevated at 3.5, 3.1, 2.4. Patient placed on telemetry, and started on IV fluids, thiamine replacement started, banana bag, and lorazepam g IV q.6 hours. Additionally, patient started on IV Protonix and sucralfate p.o. for probable acute gastritis. Liver ultrasound showed steatosis and cirrhosis. Due to prior history of the patient of HFrEF, echocardiogram was performed showing dilation and all heart chambers, severe left ventricular and right ventricular hypokinesis, left ventricular EF only 20%, normal valves and no effusions. Worsened from previous echocardiogram from January 2024 which showed an EF of 40%. Likely due to medication noncompliance. Due to decreased ejection fraction fluids were discontinued. X-ray showing increased interstitial prominence with possible viral pneumonia. Due to concern of possible aspiration pneumonia blood cultures were drawn which preliminary results of no growth at 48 hours, however no antibiotics were given. On examination today, patient stated he felt better and had resolution of his chest pain. All stable condition and normalization of lactic acid patient was discharged to assisted with outpatient follow-up with Cardiology and PCP. Consults/Reason for consult Social work was consulted for placement due to homelessness. Operations or Procedures Technique: Real-time ultrasound imaging of the abdomen was performed with grayscale and color Doppler. Indication: liver cirrhosis Comparison: US LIVER on DOS: 01/21/24 Findings: Liver measures 14.4 cm. It is increased in echogenicity and echotexture without focal mass. Portal vein is normal in caliber and demonstrates normal hepatopetal flow. Gallbladder demonstrates no evidence for cholelithiasis. There is no pericholecystic fluid. The wall thickness is normal. The common bile duct measures 3 mm. No intrahepatic biliary ductal dilatation. The right kidney measures 11.4 cm. There is no hydronephrosis or sonographic evidence of nephrolithiasis. The visualized portion of the pancreas is unremarkable. The visualized portion of the IVC is unremarkable. Impression: Echogenic liver which can be seen with hepatic steatosis, cirrhosis. CHEST RADIOGRAPH Indication: Pneumonia Technique: Single frontal view of the chest was obtained COMPARISON: XY CHEST XRAY 1 VIEW on DOS: 10/31/24, XY CHEST XRAY 1 VIEW on DOS: 01/23/24, XY CHEST PORTABLE on DOS: 01/22/24 FINDINGS: Lines and Tubes: None Lungs: Increased interstitial prominence Pleura: No effusion. No pneumothorax. Cardiomediastinal contours: Unremarkable Bones: Unremarkable IMPRESSION: Possible viral pneumonia EXAM: Two-dimensional and M-mode echocardiogram with Doppler and color Doppler. Blood Pressure: 126/88 mmHg INDICATION Chest Pain RISK FACTORS Height: 66, Weight: 155 DIMENSIONS LVDd 5.6 (3.8-5.7cm) LA (2D) 4.0 (1.9-4.0cm) Aortic Root 4.4 (2.0- 3.7cm) LVDs 4.9 (2.5-4.0cm) LA (MM) (1.9-4.0cm) Aortic Cusp Exc 2.0 (1.5- 2.0cm) EF (%) 26.0 (55-70%) Rt. Atrium 4.0 (1.9-4.0cm) Asc. Aorta cm IVSd 1.0 (0.7-1.1cm) RV (D) (1.8-2.4cm) PWd 1.1 (0.7-1.1cm) Mitral Valve Mitral Mitral Stenosis E wave 1.14m/s MV Mean GR. mmHg E/A ratio 0.0 2D MVA cm2 Aortic Valve Aortic Valve Aortic Stenosis V1 0.90m/s AO Mean GR. 4mmHg V2 1.28m/s AO Peak GR. 7mmHg LVOT Diameter 2.4 (1.8-2.4cm) Doppler GAVI 3.18cm2 Pulmonic Valve V2 0.93m/s Other Information Technically limited study due to body habitus and patient position. Conclusion DILATED ALL CARDIAC CHAMBERS SEVERE LV AND RV HYPOKINESIS LV EF IS ONLY 20% NORMAL VALVES NO EFFUSION Condition at Discharge: Stable Final Diagnosis/Problems List Possible Aspiration pneumonia Sepsis, ruled out SIRS without end organ damage Alcohol intoxication Alochol abuse Alcohol withdrawal Acute gastritis, likely due to alcohol and induced Chronic Systolic heart failure ACS, ruled out Medication and adherence Dyslipidemia Thrombocytopenia Homelessness Discharge Disposition: Halfway Discharge Instruct/Medications Diet: Cardiac 2g Na,low cholest Activity: No Restrictions, As Tolerated Follow Up/Referral: Follow up with Cardiology outpatient Follow up with PCP in 1-2 weeks Medications: Resume home medications Discharge Statement: "Patient was advised to return to the ER or call 911 if any headaches, dizziness, shortness of breath, chest pain, abdominal pain, bleeding, fevers, or worsening of medical condition. Patient was counseled about treatment plan, medications, possible side effects, patientverbalized understanding. All questions were answered to the best of my ability. This discharge took greater then 30 minutes in planning, reviewing documentation, counseling the patient, and discussing with other team members." ASSESSMENT ASSESSMENT Assessment Possible Aspiration pneumonia Sepsis, likely due to above Alcohol intoxication Alcohol withdrawal Acute gastritis, likely due to alcohol and induced Systolic heart failure Medication and adherence Dyslipidemia Thrombocytopenia Homelessness Date of Service: Nov 14, 2024 Billing Provider: ANUSHA HERNANDEZ MD Common Visit Codes: 29912-ZVH/OBS DISCH DAY >30min JALEN SENIOR RESIDENT Nov 14, 2024 16:14 ANUSHA HERNANDEZ MD Nov 15, 2024 20:35
[2024-11-14 17:00] VITALS: BP 108/82; PULSE 98; RESP 16; TEMP 98.1; O2SAT 98
== END 2024-11-14 18:40 | disposition home or self-care (01) | DRG 137 ==
LOC: EDBD 16:10 → ER 16:14 → OVERFLOW 21:01 → TELE-WESTW 11-11 22:04
PROVIDERS: ADMIT Hospitalist; ATTEND Hospitalist
DX: J69.0 Pneumonitis due to inhalation of food and vomit (principal); D69.6 Thrombocytopenia, unspecified; R65.10 Systemic inflammatory response syndrome (SIRS) of non-infectious origin without acute organ dysfunction; E87.20 Acidosis, unspecified; I11.0 Hypertensive heart disease with heart failure; I50.22 Chronic systolic (congestive) heart failure; E86.0 Dehydration; E78.1 Pure hyperglyceridemia; F10.239 Alcohol dependence with withdrawal, unspecified; K29.00 Acute gastritis without bleeding; K29.20 Alcoholic gastritis without bleeding; F10.229 Alcohol dependence with intoxication, unspecified; Z59.00 Homelessness unspecified; Z91.148 Patient's other noncompliance with medication regimen for other reason; Y90.8 Blood alcohol level of 240 mg/100 ml or more; Z79.899 Other long term (current) drug therapy
CPT/HCPCS: 36415; 71045; 76705; 80048; 80061; 80076; 80307; 80320; 81001; 83605; 83690; 83735; 84100; 84484; 85007; 85025; 85027; 85610; 85730; 87040; 93306; 96361; 96374; 96375; G0378; J2470; J7060

== ENCOUNTER 2024-11-19 02:48 | Emergency (ER) | payer MEDICAID ==
[~2024-11-19] VITALS: Ht 162.6 cm; Wt 60.0 kg
[~2024-11-19 02:48] MED LIST changes: -AZIT-43 PO
[2024-11-19 04:16] LABS: Hematocrit 42.0 % (41.0-53.0); Hemoglobin 14.0 g/dL (13.5-17.5); Mean Corpuscular Hemoglobin 30.0 pg (28.0-32.0); Mean Corpuscular Volume 89.7 fL (80.0-100.0)
[2024-11-19 04:17] LABS: Chloride 107 mmol/L (98-107); Potassium 3.8 mmol/L (3.5-5.1)
[2024-11-19 04:18] LABS: Anion Gap 9 (5-15); Carbon Dioxide 30 mmol/L (20-31)
[2024-11-19 04:23] LABS: BUN/Creatinine Ratio 15.7 (10.0-20.0); Glucose 102 mg/dL (74-106)
[2024-11-19 04:31] LABS: Blood Urea Nitrogen 8 mg/dL (9-23); Calcium 8.1 mg/dL (8.7-10.4); Sodium 146 mmol/L (136-145)
--- NOTE | 2024-11-19 04:41 | ED.PDOC ---
History of Present Illness HPI Comments 38-year-old male with h/o etoh dependence brought in by EMS with alcohol intoxication. Patient well known to this ER, and has been seen here multiple times for alcohol intoxication. Per EMS, patient was found outside [employer] restaurant, intoxicated. was also on scene and stated patient could stay on the premises, so patient was transported here for evaluation. On arrival, the patient denies any recent illness or injury. He states he is hungry. He has no other complaints. Chief Complaint: ETOH Time Seen by MD: 04:40 Primary Care Provider: NONE Reviewed Notes: Die Polisher Notes Allergies: Coded Allergies: NO KNOWN ALLERGIES (Unverified , 01/20/24) Home Meds Active Scripts Ibuprofen Micronized (Ibuprofen) 600 Mg Tab, 600 MG PO Q6HP PRN, #30 TAB Prov:LAYA KAPOOR PAC 10/29/24 Pantoprazole Sodium Sesquihydr (Protonix) 40 Mg Tab, 40 MG PO DAILY, #30 TAB Prov:NAYELI SOSA MD 09/30/24 Ondansetron Odt 4MG Tab (ZOFRAN PO) 4 Mg Tb, 4 MG PO TID PRN, #30 TAB ODT TAB-DISSOLVE IN MOUTH, THEN SWALLOW Prov:NAYELI SOSA MD 09/30/24 Cobalamine Combinations (B-12 + Folic Acid 2500-400 Mcg) 1 Tab Tab, 1 TAB PO DAILY for 30 Days, #30 TAB 0 Refills Prov:ALYCIA ANDINO RESIDENT 01/25/24 Multiple Vitamin (Multivitamins) Tab, 1 TAB PO DAILY for 30 Days, #90 TAB 0 Refills Prov:ALYCIA ANDINO RESIDENT 01/25/24 Magnesium Oxide (MAGNESIUM OXIDE) 400 Mg Tab, 400 MG OR DAILY for 7 Days, #7 TAB Prov:ALYCIA ANDINO RESIDENT 01/25/24 Gemfibrozil (Gemfibrozil) 600 Mg Tab, 1 TAB PO BID for 30 Days, #60 TAB 2 Refills Prov:ALYCIA ANDINO RESIDENT 01/25/24 Lisinopril (Lisinopril) 2.5 Mg Tab, 1 TAB PO DAILY for 30 Days, #30 TAB 2 Refills Prov:ALYCIA ANDINO RESIDENT 01/25/24 Empagliflozin (Jardiance) 10 Mg Tab, 10 MG PO DAILY for 30 Days, #30 TAB 2 Refills Prov:ALYCIA ANDINO RESIDENT 01/25/24 Metoprolol Succinate (Metoprolol Succinate Er) 25 Mg Tab, 25 MG PO DAILY for 30 Days, #30 TAB 2 Refills Prov:ALYCIA ANDINO RESIDENT 01/25/24 Spironolactone (Spironolactone) 25 Mg Tab, 1 TAB PO DAILY for 30 Days, #30 TAB 2 Refills Prov:ALYCIA ANDINO 01/25/24 Discontinued Scripts Azithromycin (Azithromycin) 250 Mg Tab, 250 MG PO DAILY MDD 500 for 5 Days, #6 TAB 0 Refills 2 TABLETS ORALLY ON DAY ONE, THEN 1 TABLET ORALLY DAILY FOR 4 DAYS Prov:LOVE JIMENEZ 10/10/24 Information Source: Patient, Emergency Med Personnel Mode of Arrival: EMS Severity: Moderate Timing: Hours Duration: Since onset Past Medical History Past Medical History (Other): alcohol dependence Surgical History: Denies all surgeries Family History Family History: Reviewed,noncontributory to illness Social History Smoker: Non-Smoker Alcohol: Heavy Drugs: Denies Drug Use Lives In: Homeless Constitutional: denies: chills, diaphoresis, fatigue, fever, malaise, sweats, weakness, others EENTM: denies: blurred vision, double vision, ear bleeding, ear discharge, ear drainage, ear pain, ear ringing, eye pain, eye redness, hearing loss, mouth pain, mouth swelling, nasal discharge, nose bleeding, nose congestion, nose pain, photophobia, tearing, throat pain, throat swelling, voice changes, others Respiratory: denies: cough, hemoptysis, orthopnea, SOB at rest, shortness of breath, SOB with excertion, stridor, wheezing, others Cardiovascular: denies: chest pain, dizzy spells, diaphoresis, Dyspnea on exertion, edema, irregular heart beat, left arm pain, lightheadedness, palpitations, PND, syncope, others Gastrointestinal: denies: abdomen distended, abdominal pain, blood streaked bowels, constipated, diarrhea, dysphagia, difficulty swallowing, hematemesis, melena, nausea, poor appetite, poor fluid intake, rectal bleeding, rectal pain, vomiting, others Genitourinary: denies: burning, dysuria, flank pain, frequency, hematuria, incontinence, penile discharge, penile sore, pain, testicle pain, testicle swelling, urgency, others Neurological: denies: dizziness, fainting, headache, left sided numbness, left sided weakness, numbness, paresthesia, pre-existing deficit, right sided numbness, right sided weakness, seizure, speech problems, tingling, tremors, weakness, others Musculoskeletal: denies: back pain, gout, joint pain, joint swelling, muscle pain, muscle stiffness, neck pain, others Integumetry: denies: bruises, change in color, change in hair/nails, dryness, laceration, lesions, lumps, rash, wounds, others Allergic/Immunocompromised: denies: Difficulty Healing, Frequent Infections, Hives, Itching, others Hematologic/Lymphatic: denies: anemia, blood clots, easy bleeding, easy bruising, swollen glands, others Endocrine: denies: excessive hunger, excessive sweating, excessive thirst, excessive urination, flushing, intolerance to cold, intolerance to heat, unexplained weight gain, unexplained weight loss, others Psychiatric: reports: others (Intoxicated with alcohol); denies: anxiety, bipolar disorder, depression, hopeless, panic disorder, schizophrenia, sleepless, suicidal All Other Systems: Reviewed and Negative (Comprehensive systems review obtained and negative except for what is stated in the HPI.) Physical Exam General Appearance: No Apparent Distress, Other (Appears intoxicated) HEENT: PERRL/EOMI, Other (No facial asymmetry. Moist mucous membranes.) Neck: Full Range of Motion, Normal Inspection Respiratory: Lungs Clear, No Accessory Muscle Use, No Respiratory Distress, Normal Breath Sounds Cardiovascular: No Edema, No JVD, Regular Rate/Rhythm Breast Exam: Deferred Gastrointestinal: Non Tender, Soft Genitalia: Deferred Pelvic: Deferred Rectal: Deferred Extremities: Normal inspection, Normal range of motion, Non-tender, No pedal edema Neurologic: Alert (Oriented x3), Normal Affect, Normal Mood, Other (Moves all extremities. No gross focal deficit.) Cerebellar Function: NOT DONE Reflexes: NOT DONE Skin: Dry, Normal Color, Warm Lymphatic: NOT DONE Was a procedure done? Was a procedure done?: No Differential Dx Considerations may include: Alcohol intoxication, drug intoxication, electrolyte imbalance, dehydration, among others X-Ray, Labs, Meds, VS Vital Signs Date Time Temp Pulse Resp B/P (MAP) Pulse Ox O2 Delivery O2 Flow Rate FiO2 11/19/24 05:20 98.0 107 18 114/82 (93) 97 98.0 11/19/24 02:55 98.3 93 17 117/96 (103) 97 98.3 Lab Test 11/19/24 03:07 Range/Units White Blood Count 3.3 L 4.4-10.8 10^3/uL Red Blood Count 4.69 4.5-5.90 10^6/uL Hemoglobin 14.0 13.5-17.5 g/dL Hematocrit 42.0 # 41.0-53.0 % Mean Corpuscular Volume 89.7 80.0-100.0 fL Mean Corpuscular Hemoglobin 30.0 28.0-32.0 pg Mean Corpuscular Hemoglobin Concent 33.4 32.0-36.0 g/dL Red Cell Distribution Width 16.7 H 11.8-14.3 % Platelet Count 263 # 140-450 10^3/uL Mean Platelet Volume 6.2 L 6.9-10.8 fL Neutrophils (%) (Auto) 37.0-80.0 % Lymphocytes (%) (Auto) 10.0-50.0 % Monocytes (%) (Auto) 0.0-12.0 % Basophils (%) (Auto) 0.0-2.0 % Neutrophils # (Auto) 1.6-8.6 10 ^3/uL Lymphocytes # (Auto) 0.4-5.4 10 ^3/uL Monocytes # (Auto) 0-1.3 10 ^3/uL Differential Total Cells Counted Pending Neutrophils % (Manual) Pending Band Neutrophils % (Manual) Pending Lymphocytes % (Manual) Pending Monocytes % (Manual) Pending Eosinophils % (Manual) Pending Basophils % (Manual) Pending Metamyelocytes % (manual) Pending Myelocytes % (Manual) Pending Promyelocytes % (Manual) Pending Blast Cells % (Manual) Pending Reactive Lymphocytes Pending Platelet Estimate Pending Sodium Level 146 #H 136-145 mmol/L Potassium Level 3.8 3.5-5.1 mmol/L Chloride Level 107 98-107 mmol/L Carbon Dioxide Level 30 20-31 mmol/L Anion Gap 9 5-15 Blood Urea Nitrogen 8 L 9-23 mg/dL Creatinine 0.51 L 0.700-1.30 mg/dL Glomerular Filtration Rate Calc 132 >90 mL/min BUN/Creatinine Ratio 15.7 10.0-20.0 Serum Glucose 102 74-106 mg/dL Calcium Level 8.1 L 8.7-10.4 mg/dL Plasma/Serum Blood Alcohol 488.8 *H <10 mg/dL X-Ray, Labs, Meds, VS Comment 38-year-old male with a history of alcohol dependence brought in by EMS after being found intoxicated outside a local restaurant. Patient has no complaint. Vitals remarkable for heart rate 107, BP 117/96 Exam unremarkable except for the appearance of intoxication Rhythm strip independently interpreted by me: Sinus tach, rate 107, no ectopy. CBC remarkable for WBC 3.3, basic metabolic panel remarkable for sodium 136, serum alcohol level 488.8 Patient treated with the following in the ED: 2 L 0.9 normal saline IV bolus On re-evaluation, patient was alert, ate a sandwich, vitals were stable. Patient appears stable for discharge pending sobriety. Patient endorsed to the oncoming ED physician at 6:00 a.m. pending sobriety. Time of 1ST Reevaluation: 04:36 Reevaluation 1ST: Unchanged Patient Education/Counseling: Diagnosis, Treatment Family Education/Counseling: No Family Present SEPSIS Sepsis Screen Date sepsis recognized/suspect: Nov 19, 2024 Time Sepsis recognized/suspect: 254 Recent Procedure: No On Antibiotic Therapy: No Respiratory Rate >20: No Heart Rate >90: No Temp<36 C (96.8 F) or >38.3 C: No SBP <90 or MAP <65 mmHG: No New Acute Mental Status Change: No Is the patient on CPAP, BIPAP,: No SEPSIS EXCLUSION NOTE: Sepsis Exclusion Note: Patient presents with SIRS criteria, but the SIRS response is attributed to [alcohol intoxication ], not a suspected infection. Sepsis bundle is not initiated at this time, due to this reason. Further management will focus on the treatment of the above condition (s). Physician Orders Complete Blood Count (11/19/24 02:58) Drug Screen (11/19/24 02:58) Manual Differential (11/19/24 03:07) Vital Signs Date Time Temp Pulse Resp B/P (MAP) Pulse Ox O2 Delivery O2 Flow Rate FiO2 11/19/24 05:20 98.0 107 18 114/82 (93) 97 98.0 11/19/24 02:55 98.3 93 17 117/96 (103) 97 98.3 Laboratory Tests Test 11/19/24 03:07 White Blood Count 3.3 10^3/uL (4.4-10.8) L Departure 1 Departure Time of Disposition: 06:00 Impression: Primary Impression: Alcohol intoxication Disposition: HOME / SELF CARE / HOMELESS Condition: Stable Additional Instructions: Follow-up with your primary doctor in 1-2 days. Discharged With: Self Critical Care Note Critical Care Time?: No Stability Stability form required: No Heart Score Heart Score: Heart Score Response (Comments) Value History N/A 0 EKG N/A 0 Age N/A 0 Risk Factors N/A 0 Troponin N/A 0 Total 0 I personally scribed for NAYELI SOSA MD ([email or web address]) on 11/19/24 at 04: 41. Electronically submitted by Stephen Pearl ([facility]). NAYELI SOSA MD Nov 19, 2024 04:41
[2024-11-19] MEDS: SODIUM CHLORIDE 0.9% 2,000 ML IV ONE ×2 (05:28→15:30)
[2024-11-19 06:56] LABS: Total Cells Counted 100.0 (100)
[2024-11-19 16:05] VITALS: PULSE 96; RESP 19; O2SAT 99
[2024-11-19 19:20] VITALS: PULSE 88; RESP 14; O2SAT 94
[2024-11-20 04:00] VITALS: BP 110/72; PULSE 94; RESP 12; TEMP 97.3; O2SAT 95
[2024-11-20 04:46] LABS: Benzodiazephine Screen, Urine Neg (NEGATIVE)
[2024-11-20 04:49] LABS: Barbiturate Scree,Urine Neg (NEGATIVE); Cannabinoid Screen, Urine Neg (NEGATIVE); Cocaine Screen, Urine Neg (NEGATIVE); Opiate Scree,Urine Neg (NEGATIVE); Phencyclidine Screen, Urine Neg (NEGATIVE)
[2024-11-20 05:02] LABS: Amphetamine Screen, Urine Neg (NEGATIVE)
== END 2024-11-20 05:35 | disposition home or self-care (01) ==
LOC: ER 02:48 → EDUNIT# 02:48 → EDBD 02:48 → ER 11-20 05:35
DX: F10.129 Alcohol abuse with intoxication, unspecified (principal); Z79.899 Other long term (current) drug therapy; Z79.84 Long term (current) use of oral hypoglycemic drugs; Z59.00 Homelessness unspecified; Y90.8 Blood alcohol level of 240 mg/100 ml or more
CPT/HCPCS: 36415; 80048; 80307; 80320; 85007; 85027; 96360; 96361; 99285; J7030

== ENCOUNTER 2024-11-25 19:58 | Emergency (ER) | payer MEDICAID ==
[~2024-11-25] VITALS: Ht 170.2 cm; Wt 63.0 kg
--- NOTE | 2024-11-25 20:35 | ED.PDOC ---
History of Present Illness HPI Comments 39 year old male with a history of alcohol abuse brought in by EMS for evaluation of alcohol intoxication and complaining of chest pain. Per EMS, he was picked up outside a gas station intoxicated. He states he is having chest pain and wants water. No other history is available from the patient due to intoxication. Chief Complaint: Chest Pain Time Seen by MD: 20:35 Primary Care Provider: NONE Reviewed Notes: Nurses Notes Allergies: Coded Allergies: NO KNOWN ALLERGIES (Unverified , 01/20/24) Home Meds Active Scripts Ibuprofen Micronized (Ibuprofen) 600 Mg Tab, 600 MG PO Q6HP PRN, #30 TAB Prov:LAYA KAPOOR PAC 10/29/24 Pantoprazole Sodium Sesquihydr (Protonix) 40 Mg Tab, 40 MG PO DAILY, #30 TAB Prov:NAYELI SOSA MD 09/30/24 Ondansetron Odt 4MG Tab (ZOFRAN PO) 4 Mg Tb, 4 MG PO TID PRN, #30 TAB ODT TAB-DISSOLVE IN MOUTH, THEN SWALLOW Prov:NAYELI SOSA MD 09/30/24 Cobalamine Combinations (B-12 + Folic Acid 2500-400 Mcg) 1 Tab Tab, 1 TAB PO DAILY for 30 Days, #30 TAB 0 Refills Prov:ALYCIA ANDINO [facility] 01/25/24 Multiple Vitamin (Multivitamins) Tab, 1 TAB PO DAILY for 30 Days, #90 TAB 0 Refills Prov:JUAN DANIEL ANDINOU [facility] 01/25/24 Magnesium Oxide (MAGNESIUM OXIDE) 400 Mg Tab, 400 MG OR DAILY for 7 Days, #7 TAB Prov:ANDINOJUAN DANIEL SchulteU [facility] 01/25/24 Gemfibrozil (Gemfibrozil) 600 Mg Tab, 1 TAB PO BID for 30 Days, #60 TAB 2 [facility]ills [facility] 01/25/24 Lisinopril (Lisinopril) 2.5 Mg Tab, 1 TAB PO DAILY for 30 Days, #30 TAB 2 Refills Prov:JUAN DANIEL ANDINOU [facility] 01/25/24 Empagliflozin (Jardiance) 10 Mg Tab, 10 MG PO DAILY for 30 Days, #30 TAB 2 Refills Prov:ANDINOALYCIA [facility] 01/25/24 Metoprolol Succinate (Metoprolol Succinate Er) 25 Mg Tab, 25 MG PO DAILY for 30 Days, #30 TAB 2 Refills Prov:ALYCIA ANDINO [facility] 01/25/24 Spironolactone (Spironolactone) 25 Mg Tab, 1 TAB PO DAILY for 30 Days, #30 TAB 2 Refills Prov:ALYCIA ANDINO [facility] 01/25/24 Information Source: Patient Mode of Arrival: EMS Severity: Moderate Timing: Hours Duration: Since onset Past Medical History Past Medical History (Other): Alcohol dependence Surgical History: Denies all surgeries Family History Family History: Reviewed,noncontributory to illness Social History Smoker: Non-Smoker Alcohol: Heavy Drugs: Denies Drug Use Lives In: Homeless Constitutional: denies: chills, diaphoresis, fatigue, fever, malaise, sweats, weakness, others EENTM: denies: blurred vision, double vision, ear bleeding, ear discharge, ear drainage, ear pain, ear ringing, eye pain, eye redness, hearing loss, mouth pain, mouth swelling, nasal discharge, nose bleeding, nose congestion, nose pain, photophobia, tearing, throat pain, throat swelling, voice changes, others Respiratory: denies: cough, hemoptysis, orthopnea, SOB at rest, shortness of breath, SOB with excertion, stridor, wheezing, others Cardiovascular: reports: chest pain; denies: dizzy spells, diaphoresis, Dyspnea on exertion, edema, irregular heart beat, left arm pain, lightheadedness, palpitations, PND, syncope, others Gastrointestinal: denies: abdomen distended, abdominal pain, blood streaked bowels, constipated, diarrhea, dysphagia, difficulty swallowing, hematemesis, melena, nausea, poor appetite, poor fluid intake, rectal bleeding, rectal pain, vomiting, others Genitourinary: denies: burning, dysuria, flank pain, frequency, hematuria, incontinence, penile discharge, penile sore, pain, testicle pain, testicle swelling, urgency, others Neurological: denies: dizziness, fainting, headache, left sided numbness, left sided weakness, numbness, paresthesia, pre-existing deficit, right sided numbness, right sided weakness, seizure, speech problems, tingling, tremors, weakness, others Musculoskeletal: denies: back pain, gout, joint pain, joint swelling, muscle pain, muscle stiffness, neck pain, others Integumetry: denies: bruises, change in color, change in hair/nails, dryness, laceration, lesions, lumps, rash, wounds, others Allergic/Immunocompromised: denies: Difficulty Healing, Frequent Infections, Hives, Itching, others Hematologic/Lymphatic: denies: anemia, blood clots, easy bleeding, easy bruising, swollen glands, others Endocrine: denies: excessive hunger, excessive sweating, excessive thirst, excessive urination, flushing, intolerance to cold, intolerance to heat, unexplained weight gain, unexplained weight loss, others Psychiatric: reports: others (intoxicated with alcohol); denies: anxiety, bipolar disorder, depression, hopeless, panic disorder, schizophrenia, sleepless, suicidal Physical Exam General Appearance: No Apparent Distress HEENT: Other (Pupils and face symmetric. Moist mucous membranes.) Neck: Full Range of Motion, Normal Inspection Respiratory: Lungs Clear, No Accessory Muscle Use, No Respiratory Distress, Normal Breath Sounds Cardiovascular: No Edema, No JVD, Tachycardia Breast Exam: Deferred Gastrointestinal: Non Tender, Soft Genitalia: Deferred Pelvic: Deferred Rectal: Deferred Extremities: Normal inspection, Normal range of motion, Non-tender, No pedal edema Neurologic: Alert, Other (Appears intoxicated. Can answer yes or no questions. Follows commands.) Cerebellar Function: NOT DONE Reflexes: NOT DONE Skin: Dry, Normal Color, Warm Lymphatic: NOT DONE Was a procedure done? Was a procedure done?: No EKG EKG : Comments Sinus tach, rate 125, normal SD and QRS intervals, QTC 479, normal axis, normal QRS, no ST/T changes. Differential Dx Considerations may include: alcohol intoxication, drug intoxication, ACS, [place], pancreatitis, dehydration, electrolyte imbalance, among others X-Ray, Labs, Meds, VS Vital Signs Date Time Temp Pulse Resp B/P (MAP) Pulse Ox O2 Delivery O2 Flow Rate FiO2 11/25/24 20:02 125 11/25/24 19:58 98.0 120 16 126/86 (99) 96 98.0 Lab Test 11/25/24 21:42 11/25/24 20:48 Range/Units Troponin I High Sensitivity 8 7 </=54 ng/L White Blood Count 3.2 L 4.4-10.8 10^3/uL Red Blood Count 4.68 4.5-5.90 10^6/uL Hemoglobin 14.2 13.5-17.5 g/dL Hematocrit 41.6 41.0-53.0 % Mean Corpuscular Volume 88.8 80.0-100.0 fL Mean Corpuscular Hemoglobin 30.2 28.0-32.0 pg Mean Corpuscular Hemoglobin Concent 34.0 32.0-36.0 g/dL Red Cell Distribution Width 16.5 H 11.8-14.3 % Platelet Count 231 140-450 10^3/uL Mean Platelet Volume 6.3 L 6.9-10.8 fL Neutrophils (%) (Auto) 71.6 37.0-80.0 % Lymphocytes (%) (Auto) 24.3 10.0-50.0 % Monocytes (%) (Auto) 3.5 0.0-12.0 % Eosinophils (%) (Auto) 0.0 0.0-7.0 % Basophils (%) (Auto) 0.6 0.0-2.0 % Neutrophils # (Auto) 2.3 1.6-8.6 10 ^3/uL Lymphocytes # (Auto) 0.8 0.4-5.4 10 ^3/uL Monocytes # (Auto) 0.1 0-1.3 10 ^3/uL Eosinophils # (Auto) 0 0-0.8 10 ^3/uL Basophils # (Auto) 0 0-0.2 10 ^3/uL Nucleated Red Blood Cells 0.2 % Sodium Level 135 #L 136-145 mmol/L Potassium Level 3.7 3.5-5.1 mmol/L Chloride Level 97 #L 98-107 mmol/L Carbon Dioxide Level 19 #L 20-31 mmol/L Anion Gap 19 H 5-15 Blood Urea Nitrogen 9 9-23 mg/dL Creatinine 0.85 0.700-1.30 mg/dL Glomerular Filtration Rate Calc 113 >90 mL/min BUN/Creatinine Ratio 10.6 10.0-20.0 Serum Glucose 168 H 74-106 mg/dL Calcium Level 9.1 8.7-10.4 mg/dL B-Type Natriuretic Peptide 14.14 0-100 pg/mL Lipase 39 12-53 U/L Plasma/Serum Blood Alcohol 382.5 H <10 mg/dL PROCEDURE(s): CXRP - CHEST PORTABLE REASON: cp ORDER NUMBER(s): [id number], ACCESSION NUMBER(s): [id number] CHEST RADIOGRAPH Indication: cp Technique: Single frontal view of the chest was obtained Comparison: XY CHEST PORTABLE on DOS: 11/11/24, XY CHEST XRAY 1 VIEW on DOS: 10/31/24, XY CHEST XRAY 1 VIEW on DOS: 01/23/24 FINDINGS: Lines and Tubes: None Lungs: No focal consolidation. Pleura: No effusion. No pneumothorax. Cardiomediastinal contours: Unremarkable Bones: No acute osseous abnormality. IMPRESSION: 1. No acute cardiopulmonary disease. X-Ray, Labs, Meds, VS Comment 39-year-old male with a history of alcohol dependence brought in by EMS with alcohol intoxication and complaining of chest pain Vitals remarkable for heart rate 120 Exam remarkable for tachycardia Rhythm strip independently interpreted by me: Sinus tach, rate 125, no ectopy. Chest x-ray unremarkable CBC remarkable for WBC 3.2, basic metabolic panel remarkable for sodium 135, chloride 97, CO2 19, BNP and 2 serial troponins negative, alcohol 382.5 Patient treated with the following in the ED: 2 L 0.9 normal saline IV bolus, morphine 2 mg IV, Zofran 4 mg IV, Ativan 1 mg IV, Librium 50 mg p.o. On re-evaluation, patient is tremulous. Patient has been seen in this ED with much higher alcohol levels in the past. He was treated with Ativan and Librium for prevention of alcohol withdrawal. Patient appears stable for discharge at this time. Time of 1ST Reevaluation: 20:32 Reevaluation 1ST: Unchanged Patient Education/Counseling: Diagnosis, Treatment Family Education/Counseling: No Family Present SEPSIS Sepsis Screen Date sepsis recognized/suspect: Nov 25, 2024 Time Sepsis recognized/suspect: 1957 Recent Procedure: No On Antibiotic Therapy: No Respiratory Rate >20: No Heart Rate >90: No Temp<36 C (96.8 F) or >38.3 C: No SBP <90 or MAP <65 mmHG: No New Acute Mental Status Change: No Is the patient on CPAP, BIPAP,: No SEPSIS EXCLUSION NOTE: Sepsis Exclusion Note: Patient presents with SIRS criteria, but the SIRS response is attributed to [ alcohol intoxication], not a suspected infection. Sepsis bundle is not initiated at this time, due to this reason. Further management will focus on the treatment of the above condition (s). Physician Orders Chest Portable (11/25/24 20:22) Urinalysis (11/25/24 20:22) Electrocardigram (11/25/24 23:22) Electrocardigram (11/25/24 21:22) Vital Signs Date Time Temp Pulse Resp B/P (MAP) Pulse Ox O2 Delivery O2 Flow Rate FiO2 11/25/24 20:02 125 11/25/24 19:58 98.0 120 16 126/86 (99) 96 98.0 Laboratory Tests Test 11/25/24 20:48 White Blood Count 3.2 10^3/uL (4.4-10.8) L Departure 1 Departure Time of Disposition: 03:05 Impression: Primary Impression: Alcohol intoxication Qualified Codes: F10.929 - Alcohol use, unspecified with intoxication, unspecified Additional Impression: Chest pain with low risk for cardiac etiology Disposition: 01 HOME / SELF CARE / HOMELESS Condition: Fair Additional Instructions: Your blood tests, including screening test for heart attack and heart failure were unremarkable except for a high alcohol level. Your chest x-ray was normal. Follow-up with your primary doctor in 1-2 days. Discharged With: Self Critical Care Note Critical Care Time?: No Stability Stability form required: No Heart Score Heart Score: Heart Score Response (Comments) Value History Slightly Suspicious 0 EKG Repolarization Disturb 1 Age <45 0 Risk Factors No known risk factors 0 Troponin Normal limit 0 Total 1 I personally scribed for NAYELI SOSA MD ([facility]) on 11/25/24 at 20:35. Electronically submitted by Stephen Pearl ([facility]). NAYELI SOSA MD Nov 25, 2024 20:35
--- NOTE | 2024-11-25 21:02 | DVH ---
CHEST RADIOGRAPH Indication: cp Technique: Single frontal view of the chest was obtained Comparison: XY CHEST PORTABLE on DOS: 11/11/24, XY CHEST XRAY 1 VIEW on DOS: 10/31/24, XY CHEST XRAY 1 VIEW on DOS: 01/23/24 FINDINGS: Lines and Tubes: None Lungs: No focal consolidation. Pleura: No effusion. No pneumothorax. Cardiomediastinal contours: Unremarkable Bones: No acute osseous abnormality. IMPRESSION: 1. No acute cardiopulmonary disease.
[2024-11-25 21:15] LABS: Hematocrit 41.6 % (41.0-53.0); Hemoglobin 14.2 g/dL (13.5-17.5); Mean Corpuscular Hemoglobin 30.2 pg (28.0-32.0); Mean Corpuscular Volume 88.8 fL (80.0-100.0); Nucleated Red Blood Cells % 0.2 %
--- NOTE | 2024-11-25 21:16 | ECG ---
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
[2024-11-25 21:20] LABS: Potassium 3.7 mmol/L (3.5-5.1)
[2024-11-25 21:21] LABS: Anion Gap 19 (5-15); Calcium 9.1 mg/dL (8.7-10.4)
[2024-11-25 21:25] LABS: Carbon Dioxide 19 mmol/L (20-31); Chloride 97 mmol/L (98-107); Sodium 135 mmol/L (136-145)
[2024-11-25 21:26] LABS: Glucose 168 mg/dL (74-106)
[2024-11-25 21:27] LABS: BUN/Creatinine Ratio 10.6 (10.0-20.0); Blood Urea Nitrogen 9 mg/dL (9-23)
[2024-11-25 21:38] LABS: Lipase 39 U/L (12-53)
[2024-11-26 05:45] VITALS: BP 129/84; PULSE 119; RESP 20; TEMP 98.3
[2024-11-26] MEDS: MORPHINE SULFATE INJ 2 MG/ml SYRG IV ONE (05:47)
[2024-11-26] MEDS: SODIUM CHLORIDE 0.9% 2,000 ML IV ONE (05:48)
[2024-11-26] MEDS: PANTOPRAZOLE 40 MG/10 ML VIAL INJ IV ONE (05:52)
[2024-11-26] MEDS: ONDANSETRON HCL 4 MG/2 ML VIAL IV ONE (05:52)
[2024-11-26] MEDS: LORazepam 2MG/ML-1ML VIAL IV ONE (05:52)
[2024-11-26 06:32] VITALS: O2SAT 98
== END 2024-11-26 06:44 | disposition home or self-care (01) ==
LOC: EDUNIT# 19:58 → EDBD 19:58 → ER 19:58
DX: F10.129 Alcohol abuse with intoxication, unspecified (principal); R07.9 Chest pain, unspecified; R06.02 Shortness of breath; Z79.899 Other long term (current) drug therapy
CPT/HCPCS: 36415; 71045; 80048; 80320; 83690; 83880; 84484; 85025; 93005; 96361; 96374; 96375; 99285; J2060; J2405; J2470; J7030

== ENCOUNTER 2024-11-28 11:06 | Emergency (ER) | payer MEDICAID ==
[~2024-11-28] VITALS: Ht 172.7 cm; Wt 68.0 kg
--- NOTE | 2024-11-28 11:10 | ED.PDOC ---
History of Present Illness HPI Comments This is a 39-year-old male who comes in with chief complaint of ETOH intoxication. The patient is well known to our facility and was picked up at the [employer] restaurant. At this time, the patient is answering questions slowly but has a strong odor of ETOH. Time Seen by MD: 11:07 Primary Care Provider: NONE Reviewed Notes: Nurses Notes, Medications, Allergies (No allergies to medications) Allergies: Coded Allergies: NO KNOWN ALLERGIES (Unverified , 01/20/24) Home Meds Active Scripts Ibuprofen Micronized (Ibuprofen) 600 Mg Tab, 600 MG PO Q6HP PRN, #30 TAB Prov:LAYA KAPOOR PAC 10/29/24 Pantoprazole Sodium Sesquihydr (Protonix) 40 Mg Tab, 40 MG PO DAILY, #30 TAB Prov:NAYELI SOSA MD 09/30/24 Ondansetron Odt 4MG Tab (ZOFRAN PO) 4 Mg Tb, 4 MG PO TID PRN, #30 TAB ODT TAB-DISSOLVE IN MOUTH, THEN SWALLOW Prov:NAYELI SOSA MD 09/30/24 Cobalamine Combinations (B-12 + Folic Acid 2500-400 Mcg) 1 Tab Tab, 1 TAB PO DAILY for 30 Days, #30 TAB 0 Refills Prov:ALYCIA ANDINO [facility] 01/25/24 Multiple Vitamin (Multivitamins) Tab, 1 TAB PO DAILY for 30 Days, #90 TAB 0 Refills Prov:JUAN DANIEL [facility] 01/25/24 Magnesium Oxide (MAGNESIUM OXIDE) 400 Mg Tab, 400 MG OR DAILY for 7 Days, #7 TAB Prov:ANDINOJUAN DANIEL SchulteU [facility] 01/25/24 Gemfibrozil (Gemfibrozil) 600 Mg Tab, 1 TAB PO BID for 30 Days, #60 TAB 2 [facility]ills [facility] 01/25/24 Lisinopril (Lisinopril) 2.5 Mg Tab, 1 TAB PO DAILY for 30 Days, #30 TAB 2 Refills Prov:JUAN DANIEL ANDINOU [facility] 01/25/24 Empagliflozin (Jardiance) 10 Mg Tab, 10 MG PO DAILY for 30 Days, #30 TAB 2 Ref ills Prov:ANDINOJUAN DANIEL SchulteU [facility] 01/25/24 Metoprolol Succinate (Metoprolol Succinate Er) 25 Mg Tab, 25 MG PO DAILY for 30 Days, #30 TAB 2 Refills Prov:ALYCIA ANDINO [facility] 01/25/24 Spironolactone (Spironolactone) 25 Mg Tab, 1 TAB PO DAILY for 30 Days, #30 TAB 2 Refills Prov:ALYCIA ANDINO [facility] 01/25/24 Information Source: Patient, Emergency Med Personnel Mode of Arrival: EMS Severity: Moderate Timing: Hours Duration: Since onset 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 Past Medical History PAST MEDICAL HISTORY: Denies Surgical History: Denies all surgeries Family History Family History: Reviewed,noncontributory to illness Social History Smoker: Non-Smoker Alcohol: Heavy Drugs: Denies Drug Use Lives In: Homeless Constitutional: reports: weakness; denies: chills, diaphoresis, fatigue, fever, malaise, sweats, others EENTM: denies: blurred vision, double vision, ear bleeding, ear discharge, ear drainage, ear pain, ear ringing, eye pain, eye redness, hearing loss, mouth pain , mouth swelling, nasal discharge, nose bleeding, nose congestion, nose pain, photophobia, tearing, throat pain, throat swelling, voice changes, others Respiratory: denies: cough, hemoptysis, orthopnea, SOB at rest, shortness of breath, SOB with excertion, stridor, wheezing, others Cardiovascular: denies: chest pain, dizzy spells, diaphoresis, Dyspnea on exertion, edema, irregular heart beat, left arm pain, lightheadedness, palpitations, PND, syncope, others Gastrointestinal: denies: abdomen distended, abdominal pain, blood streaked bowels, constipated, diarrhea, dysphagia, difficulty swallowing, hematemesis, melena, nausea, poor appetite, poor fluid intake, rectal bleeding, rectal pain, vomiting, others Genitourinary: denies: burning, dysuria, flank pain, frequency, hematuria, incontinence, penile discharge, penile sore, pain, testicle pain, testicle swelling, urgency, others Neurological: denies: dizziness, fainting, headache, left sided numbness, left sided weakness, numbness, paresthesia, pre-existing deficit, right sided numbness, right sided weakness, seizure, speech problems, tingling, tremors, weakness, others Musculoskeletal: denies: back pain, gout, joint pain, joint swelling, muscle pain, muscle stiffness, neck pain, others Integumetry: denies: bruises, change in color, change in hair/nails, dryness, laceration, lesions, lumps, rash, wounds, others Allergic/Immunocompromised: denies: Difficulty Healing, Frequent Infections, Hives, Itching, others Hematologic/Lymphatic: denies: anemia, blood clots, easy bleeding, easy bruising, swollen glands, others Endocrine: denies: excessive hunger, excessive sweating, excessive thirst, excessive urination, flushing, intolerance to cold, intolerance to heat, unexplained weight gain, unexplained weight loss, others Psychiatric: denies: anxiety, bipolar disorder, depression, hopeless, panic disorder, schizophrenia, sleepless, suicidal, others Physical Exam General Appearance: Mild Distress, Other (Alcohol on the breath) HEENT: Normal ENT Inspection, Pharynx Normal, TMs Normal Neck: Full Range of Motion, Non-Tender, Normal, Normal Inspection Respiratory: Chest Non-Tender, Lungs Clear, No Accessory Muscle Use, No Respiratory Distress, Normal Breath Sounds Cardiovascular: No Edema, No JVD, No Murmur, No Gallop, Normal Peripheral Pulses, Regular Rate/Rhythm Breast Exam: Deferred Gastrointestinal: No Organomegaly, Non Tender, No Pulsatile Mass, Normal Bowel Sounds, Soft Genitalia: Deferred Pelvic: Deferred Rectal: Deferred Extremities: No calf tenderness, Normal capillary refill, Normal inspection, Normal range of motion, Non-tender, No pedal edema Musculoskeletal : Apperance: Normal 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 Was a procedure done?: No Differential Dx Considerations may include: Alcohol intoxication, generalized weakness, dehydration X-Ray, Labs, Meds, VS Vital Signs Date Time Temp Pulse Resp B/P (MAP) Pulse Ox O2 Delivery O2 Flow Rate FiO2 11/28/24 12:00 99.7 108 18 108/73 (85) 98 99.7 Lab Test 11/28/24 11:52 11/28/24 11:31 Range/Units Urine Opiates Screen Neg NEGATIVE Urine Fentanyl Screen Neg NEGATIVE Urine Barbiturates Screen Neg NEGATIVE Urine Phencyclidine Screen Neg NEGATIVE Urine Amphetamines Screen Neg NEGATIVE Urine Benzodiazepines Screen Pos NEGATIVE Urine Cocaine Screen Neg NEGATIVE Urine Cannabinoids Screen Neg NEGATIVE Plasma/Serum Blood Alcohol 404.1 *H <10 mg/dL Current Medications Medications (Trade) Dose Ordered Sig/Surjit Route Start Time Stop Time Status Last Admin Sodium Chloride 1,000 ml @ 1,000 mls/hr Q1H ONCE IV 11/28/24 11:30 11/28/24 12:29 DC 11/28/24 11:27 At this time the urine tox is positive for benzodiazepine The alcohol level is also elevated at 404 An IV Hep-Lock was established The patient was given 1 L bolus of normal saline At this time, the patient is being discharged and will follow up with the primary care doctor The patient will return to the emergency department's the condition worsens. The patient understands and agrees with the management. We did call high school social studies tutor and they will be evaluating the patient secondary to his homelessness Time of 1ST Reevaluation: 11:15 Reevaluation 1ST: Unchanged Patient Education/Counseling: Diagnosis, Treatment, Prognosis, Need For Follow Up Family Education/Counseling: No Family Present SEPSIS Sepsis Screen Physician Orders Heplock Iv (11/28/24 ) * Vice President Fixed Income Consult (11/28/24 ) Vital Signs Date Time Temp Pulse Resp B/P (MAP) Pulse Ox O2 Delivery O2 Flow Rate FiO2 11/28/24 12:00 99.7 108 18 108/73 (85) 98 99.7 Medications Medications Dose Ordered Sig/Surjit Route Start Time Stop Time Status Last Admin Dose Admin Sodium Chloride 1,000 ml @ 1,000 mls/hr Q1H ONCE IV 11/28/24 11:30 11/28/24 12:29 DC 11/28/24 11:27 Departure 1 Departure Time of Disposition: 14:51 Impression: Primary Impression: Alcohol intoxication Qualified Codes: F10.920 - Alcohol use, unspecified with intoxication, uncomplicated Disposition: 01 HOME / SELF CARE / HOMELESS Condition: Fair Discharged With: Self Critical Care Note Critical Care Time?: No Stability Stability form required: No Heart Score Heart Score: Heart Score Response (Comments) Value History N/A 0 EKG N/A 0 Age N/A 0 Risk Factors N/A 0 Troponin N/A 0 Total 0 BENTLEY CISNEROS MD Nov 28, 2024 11:10
[2024-11-28] MEDS: SODIUM CHLORIDE 0.9% 1,000 ML IV ONE (11:27)
[2024-11-28 12:20] LABS: Barbiturate Scree,Urine Neg (NEGATIVE); Opiate Scree,Urine Neg (NEGATIVE)
[2024-11-28 12:21] LABS: Amphetamine Screen, Urine Neg (NEGATIVE); Benzodiazephine Screen, Urine Pos (NEGATIVE); Cannabinoid Screen, Urine Neg (NEGATIVE); Cocaine Screen, Urine Neg (NEGATIVE); Phencyclidine Screen, Urine Neg (NEGATIVE)
[2024-11-28 14:54] VITALS: BP 106/64; PULSE 90; RESP 18; TEMP 97.4; O2SAT 98
== END 2024-11-28 15:56 | disposition home or self-care (01) ==
LOC: EDBD 11:06 → ER 11:06
DX: F10.129 Alcohol abuse with intoxication, unspecified (principal); Z79.899 Other long term (current) drug therapy; Z59.00 Homelessness unspecified; Z79.84 Long term (current) use of oral hypoglycemic drugs; Y90.8 Blood alcohol level of 240 mg/100 ml or more
CPT/HCPCS: 36415; 80307; 80320; 96360; 99283; J7030

== ENCOUNTER 2024-12-06 12:06 | Emergency (ER) | payer MEDICAID ==
[~2024-12-06] VITALS: Ht 175.3 cm; Wt 75.0 kg
[2024-12-06] MEDS: SODIUM CHLORIDE 0.9% 1,000 ML IV ONE (12:15)
--- NOTE | 2024-12-06 12:23 | ECG ---
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
--- NOTE | 2024-12-06 12:31 | ED.PDOC ---
History of Present Illness HPI Comments 39-year-old male with no reported PMHx presents with a chief complaint of alcohol use and chest pain. Patient was picked up at the local [employer] after being found intoxicated. Patient also complains of chest pain, but is unable to quantify it or state the quality of the pain. Patient endorses nausea, but no vomiting. No other symptoms or modifying factors present at this time. Chief Complaint: Chest Pain Time Seen by MD: 12:25 Primary Care Provider: NONE Reviewed Notes: Nurses Notes, Medications, Allergies Allergies: Coded Allergies: NO KNOWN ALLERGIES (Unverified , 01/20/24) Home Meds Active Scripts Ibuprofen Micronized (Ibuprofen) 600 Mg Tab, 600 MG PO Q6HP PRN, #30 TAB Prov:LAYA KAPOOR 10/29/24 Pantoprazole Sodium Sesquihydr (Protonix) 40 Mg Tab, 40 MG PO DAILY, #30 TAB Prov:NAYELI SOSA MD 09/30/24 Ondansetron Odt 4MG Tab (ZOFRAN PO) 4 Mg Tb, 4 MG PO TID PRN, #30 TAB ODT TAB-DISSOLVE IN MOUTH, THEN SWALLOW Prov:NAYELI SOSA MD 09/30/24 Cobalamine Combinations (B-12 + Folic Acid 2500-400 Mcg) 1 Tab Tab, 1 TAB PO DAILY for 30 Days, #30 TAB 0 Refills Prov:ALYCIA ANDINO [facility] 01/25/24 Multiple Vitamin (Multivitamins) Tab, 1 TAB PO DAILY for 30 Days, #90 TAB 0 Refills Prov:ALYCIA ANDINO [facility] 01/25/24 Magnesium Oxide (MAGNESIUM OXIDE) 400 Mg Tab, 400 MG OR DAILY for 7 Days, #7 TAB Prov:ALYCIA ANDINO [facility] 01/25/24 Gemfibrozil (Gemfibrozil) 600 Mg Tab, 1 TAB PO BID for 30 Days, #60 TAB 2 Refills Prov:ALYCIA ANDINO [facility] 01/25/24 Lisinopril (Lisinopril) 2.5 Mg Tab, 1 TAB PO DAILY for 30 Days, #30 TAB 2 Refills Prov:ALYCIA ANDINO 01/25/24 Empagliflozin (Jardiance) 10 Mg Tab, 10 MG PO DAILY for 30 Days, #30 TAB 2 Refills Prov:ALYCIA ANDINO 01/25/24 Metoprolol Succinate (Metoprolol Succinate Er) 25 Mg Tab, 25 MG PO DAILY for 30 Days, #30 TAB 2 Refills Prov:ALYCIA ANDINO [facility] 01/25/24 Spironolactone (Spironolactone) 25 Mg Tab, 1 TAB PO DAILY for 30 Days, #30 TAB 2 Refills Prov:ALYCIA ANDINO [facility] 01/25/24 Information Source: Patient Mode of Arrival: EMS Severity: Moderate Timing: Hours Duration: Since onset Prehospital treatment: 12 Lead EKG, Supervisor Intelligence Analyst Past Medical History PAST MEDICAL HISTORY: Denies Surgical History: Denies all surgeries Family History Family History: Reviewed,noncontributory to illness Social History Smoker: Non-Smoker Alcohol: Heavy Drugs: Denies Drug Use Lives In: Homeless Constitutional: denies: chills, diaphoresis, fatigue, fever, malaise, sweats, weakness, others EENTM: denies: blurred vision, double vision, ear bleeding, ear discharge, ear drainage, ear pain, ear ringing, eye pain, eye redness, hearing loss, mouth pain, mouth swelling, nasal discharge, nose bleeding, nose congestion, nose pain, photophobia, tearing, throat pain, throat swelling, voice changes, others Respiratory: denies: cough, hemoptysis, orthopnea, SOB at rest, shortness of breath, SOB with excertion, stridor, wheezing, others Cardiovascular: reports: chest pain; denies: dizzy spells, diaphoresis, Dyspnea on exertion, edema, irregular heart beat, left arm pain, lightheadedness, palpitations, PND, syncope, others Gastrointestinal: reports: nausea; denies: abdomen distended, abdominal pain, b lood streaked bowels, constipated, diarrhea, dysphagia, difficulty swallowing, hematemesis, melena, poor appetite, poor fluid intake, rectal bleeding, rectal pain, vomiting, others Genitourinary: denies: burning, dysuria, flank pain, frequency, hematuria, incontinence, penile discharge, penile sore, pain, testicle pain, testicle swelling, urgency, others Neurological: denies: dizziness, fainting, headache, left sided numbness, left sided weakness, numbness, paresthesia, pre-existing deficit, right sided numbness, right sided weakness, seizure, speech problems, tingling, tremors, weakness, others Musculoskeletal: denies: back pain, gout, joint pain, joint swelling, muscle pain, muscle stiffness, neck pain, others Integumetry: denies: bruises, change in color, change in hair/nails, dryness, laceration, lesions, lumps, rash, wounds, others Allergic/Immunocompromised: denies: Difficulty Healing, Frequent Infections, Hives, Itching, others Hematologic/Lymphatic: denies: anemia, blood clots, easy bleeding, easy bruising, swollen glands, others Endocrine: denies: excessive hunger, excessive sweating, excessive thirst, excessive urination, flushing, intolerance to cold, intolerance to heat, unexplained weight gain, unexplained weight loss, others Psychiatric: denies: anxiety, bipolar disorder, depression, hopeless, panic disorder, schizophrenia, sleepless, suicidal, others All Other Systems: Reviewed and Negative Physical Exam General Appearance: No Apparent Distress, Other (Alcohol on the breath) HEENT: Normal ENT Inspection, Pharynx Normal, TMs Normal Neck: Full Range of Motion, Non-Tender, Normal, Normal Inspection Respiratory: Chest Non-Tender, Lungs Clear, No Accessory Muscle Use, No Respiratory Distress, Normal Breath Sounds Cardiovascular: No Edema, No JVD, No Murmur, No Gallop, Normal Peripheral Pulses, Regular Rate/Rhythm Breast Exam: Deferred Gastrointestinal: No Organomegaly, Non Tender, No Pulsatile Mass, Normal Bowel Sounds, Soft Genitalia: Deferred Pelvic: Deferred Rectal: Deferred Extremities: No calf tenderness, Normal capillary refill, Normal inspection, Normal range of motion, Non-tender, No pedal edema Musculoskeletal : Apperance: Normal 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 Was a procedure done?: No EKG EKG : Pulse Rate (adult): 114 [place]: Normal Cardiac Rhythm: ST Block: None Hypertrophy: None ST: Normal Differential Dx Considerations may include: Generalized weakness, electrolyte imbalance, dehydration, alcohol intoxication X-Ray, Labs, Meds, VS Vital Signs Date Time Temp Pulse Resp B/P (MAP) Pulse Ox O2 Delivery O2 Flow Rate FiO2 12/06/24 12:31 114 12/06/24 12:22 114 12/06/24 12:12 98.0 101 16 97 98.0 Lab Test 12/06/24 12:41 Range/Units Urine Color Light-yellow Yellow Urine Clarity Clear Clear Urine pH 6.5 5.0-9.0 Urine Specific Revere 1.009 1.001-1.035 Urine Protein Negative Negative Urine Ketones Negative Negative Urine Blood 1+ H Negative /uL Urine Nitrite Negative Negative Urine Bilirubin Negative Negative Urine Urobilinogen Normal Negative mg/dL Urine Leukocyte Esterase Negative Negative /uL Urine RBC None seen 0 - 3 /hpf Urine Microscopic WBC 1 0-3 /HPF Urine Squamous Epithelial Cells Few <5 /hpf Urine Bacteria None seen None Seen /hpf Urine Glucose Normal Normal mg/dL Current Medications Medications (Trade) Dose Ordered Sig/Surjit Route Start Time Stop Time Status Last Admin Aspirin 162 mg ONCE ONCE PO 12/06/24 12:30 12/06/24 12:31 DC 12/06/24 13:46 The patient was given aspirin 160 mg by mouth The urine test is negative The patient is refusing all blood work at this time. The chest x-ray is negative At this time, the patient is being discharged The patient will follow up with the primary care doctor The patient has been wandering around the emergency department's At this time, the patient will follow up with the primary care doctor Images Reviewed?: Images reviewed and evaluated by me Time of 1ST Reevaluation: 12:50 Reevaluation 1ST: Improved Patient Education/Counseling: Diagnosis, Treatment, Prognosis, Need For Follow Up Family Education/Counseling: No Family Present SEPSIS Sepsis Screen Date sepsis recognized/suspect: Dec 06, 2024 Time Sepsis recognized/suspect: 1209 Recent Procedure: No On Antibiotic Therapy: No Respiratory Rate >20: No Heart Rate >90: No Temp<36 C (96.8 F) or >38.3 C: No SBP <90 or MAP <65 mmHG: No New Acute Mental Status Change: No Is the patient on CPAP, BIPAP,: No Physician Orders Chest Portable (12/06/24 12:11) Heplock Iv (12/06/24 12:08) Supervisor Intelligence Analyst (12/06/24 12:08) Blood Pressure (12/06/24 12:08) Pulse Oximetry (12/06/24 12:08) Electrocardigram (12/06/24 13:08) Electrocardigram (12/06/24 15:08) Vital Signs Date Time Temp Pulse Resp B/P (MAP) Pulse Ox O2 Delivery O2 Flow Rate FiO2 12/06/24 12:31 114 12/06/24 12:22 114 12/06/24 12:12 98.0 101 16 97 98.0 Medications Medications Dose Ordered Sig/Surjit Route Start Time Stop Time Status Last Admin Dose Admin Aspirin 162 mg ONCE ONCE PO 12/06/24 12:30 12/06/24 12:31 DC 12/06/24 13:46 Departure 1 Departure Time of Disposition: 19:12 Impression: Primary Impression: Alcohol intoxication Qualified Codes: F10.920 - Alcohol use, unspecified with intoxication, uncomplicated Additional Impression: Chest pain with low risk for cardiac etiology Disposition: 01 HOME / SELF CARE / HOMELESS Condition: Fair Discharged With: Self Critical Care Note Critical Care Time?: No Stability Stability form required: No Heart Score Heart Score: Heart Score Response (Comments) Value History N/A 0 EKG N/A 0 Age N/A 0 Risk Factors N/A 0 Troponin N/A 0 Total 0 I personally scribed for BENTLEY CISNEROS MD ([email or web address]) on 12/06/24 at 12:31. Electronically submitted by Ryan Rivera ([email or web address]). BENTLEY CISNEROS MD Dec 06, 2024 12:31
--- NOTE | 2024-12-06 12:51 | DVH ---
EXAM: XY CHEST PORTABLE Indication: cp Technique: Single frontal view of the chest was obtained Comparison: XY CHEST PORTABLE on DOS: 11/25/24, XY CHEST PORTABLE on DOS: 11/11/24, XY CHEST XRAY 1 VIE W on DOS: 10/31/24, XY CHEST XRAY 1 VIEW on DOS: 01/23/24, XY CHEST PORTABLE on DOS: 01/22/24 FINDINGS: Lines and Tubes: None Lungs: No focal consolidation. Pleura: No effusion. No pneumothorax. Cardiomediastinal contours: Unremarkable Bones: No acute osseous abnormality. IMPRESSION: No acute cardiopulmonary disease.
[2024-12-06 13:44] LABS: Urine Protein, UAD Negative (Negative)
[2024-12-06 19:20] VITALS: BP 110/75; PULSE 100; RESP 18; TEMP 98.1; O2SAT 98
== END 2024-12-06 19:44 | disposition home or self-care (01) ==
LOC: ER 12:06 → EDBD 12:06 → ER 19:44
DX: F10.129 Alcohol abuse with intoxication, unspecified (principal); R07.89 Other chest pain; Z79.899 Other long term (current) drug therapy; Z79.84 Long term (current) use of oral hypoglycemic drugs; Z59.00 Homelessness unspecified; Y90.9 Presence of alcohol in blood, level not specified
CPT/HCPCS: 71045; 81001; 93005

== ENCOUNTER 2024-12-19 23:33 | Emergency (ER) | payer MEDICAID ==
[~2024-12-19] VITALS: Ht 177.8 cm; Wt 68.2 kg
[2024-12-19 23:38] VITALS: BP 122/86; PULSE 110; RESP 16; TEMP 97.7; O2SAT 96
--- NOTE | 2024-12-20 02:46 | ED.PDOC ---
History of Present Illness HPI Comments 39-year-old male, with a history of alcohol abuse, is brought in by ambulance for chief complaint of alcohol intoxication. Per EMS report, patient was found passed out outside a [employer] diner restaurant, this morning, by employees. On scene, patient was only arousable to name and refusing to answer questions. Patient was tachycardic heart rate in the 110s. Initial blood glucose of 109. REVIEW OF SYSTEMS: Unable to obtain PHYSICAL EXAM: General: Obtunded and disheveled No acute distress. Skin: Skin in warm, dry and intact without rashes or lesions. HEENT: The head is normocephalic and atraumatic. Conjunctivae are clear without exudates or hemorrhage. Sclera is non-icteric. Neck: Normal range of motion. No JVD. Cardiac: Regular rate Respiratory: No signs of respiratory distress. No Stridor. Extremities: Upper and lower extremities are atraumatic in appearance without deformity. Neurological: Responsive the pain. Snoring respirations. Not answering questions. Chief Complaint: ETOH Time Seen by MD: 02:30 Primary Care Provider: NONE Reviewed Notes: Nurses Notes, Medications, Allergies Allergies: Coded Allergies: NO KNOWN ALLERGIES (Unverified , 01/20/24) Home Meds Active Scripts Ibuprofen Micronized (Ibuprofen) 600 Mg Tab, 600 MG PO Q6HP PRN, #30 TAB Prov:LAYA KAPOOR PAC 10/29/24 Pantoprazole Sodium Sesquihydr (Protonix) 40 Mg Tab, 40 MG PO DAILY, #30 TAB Prov:NAYELI SOSA MD 09/30/24 Ondansetron Odt 4MG Tab (ZOFRAN PO) 4 Mg Tb, 4 MG PO TID PRN, #30 TAB ODT TAB-DISSOLVE IN MOUTH, THEN SWALLOW Prov:NAYELI SOSA MD 09/30/24 Cobalamine Combinations (B-12 + Folic Acid 2500-400 Mcg) 1 Tab Tab, 1 TAB PO DAILY for 30 Days, #30 TAB 0 Refills Prov:ALYCIA ANDINO [facility] 01/25/24 Multiple Vitamin (Multivitamins) Tab, 1 TAB PO DAILY for 30 Days, #90 TAB 0 Refills Prov:ALYCIA ANDINO RESIDENT 01/25/24 Magnesium Oxide (MAGNESIUM OXIDE) 400 Mg Tab, 400 MG OR DAILY for 7 Days, #7 TAB Prov:ALYCIA ANDINO 01/25/24 Gemfibrozil (Gemfibrozil) 600 Mg Tab, 1 TAB PO BID for 30 Days, #60 TAB 2 Refills Prov:ALYCIA ANDINO 01/25/24 Lisinopril (Lisinopril) 2.5 Mg Tab, 1 TAB PO DAILY for 30 Days, #30 TAB 2 Refills Prov:ALYCIA ANDINO 01/25/24 Empagliflozin (Jardiance) 10 Mg Tab, 10 MG PO DAILY for 30 Days, #30 TAB 2 Refills Prov:ALYICA ANDINO 01/25/24 Metoprolol Succinate (Metoprolol Succinate Er) 25 Mg Tab, 25 MG PO DAILY for 30 Days, #30 TAB 2 Refills Prov:ALYCIA ANDINO 01/25/24 Spironolactone (Spironolactone) 25 Mg Tab, 1 TAB PO DAILY for 30 Days, #30 TAB 2 Refills Prov:ALYCIA ANDINO [facility] 01/25/24 Information Source: Patient, Emergency Med Personnel Mode of Arrival: EMS Severity: Moderate Timing: Hours Duration: Since onset Prehospital treatment: 12 Lead EKG, Accucheck, Cardiothoracic Physiotherapist Past Medical History PAST MEDICAL HISTORY: Denies Surgical History: Denies all surgeries Family History Family History: Reviewed,noncontributory to illness Social History Smoker: Non-Smoker Alcohol: Heavy Drugs: Denies Drug Use Lives In: Homeless Was a procedure done? Was a procedure done?: No Differential Dx Considerations may include: Differential diagnosis considered includes but not limited to intracranial hemorrhage, stroke, head injury, seizure, metabolic disturbance, electrolyte imbalance, infection, substance intoxication, psychiatric cause, other systemic illness, other X-Ray, Labs, Meds, VS Vital Signs Date Time Temp Pulse Resp B/P (MAP) Pulse Ox O2 Delivery O2 Flow Rate FiO2 12/19/24 23:38 97.7 110 16 122/86 96 97.7 Lab Test 12/20/24 03:32 Range/Units White Blood Count 3.0 L 4.4-10.8 10^3/uL Red Blood Count 4.88 4.5-5.90 10^6/uL Hemoglobin 15.0 13.5-17.5 g/dL Hematocrit 44.2 41.0-53.0 % Mean Corpuscular Volume 90.4 80.0-100.0 fL Mean Corpuscular Hemoglobin 30.7 28.0-32.0 pg Mean Corpuscular Hemoglobin Concent 33.9 32.0-36.0 g/dL Red Cell Distribution Width 18.1 H 11.8-14.3 % Platelet Count 88 L 140-450 10^3/uL Mean Platelet Volume 6.4 L 6.9-10.8 fL Neutrophils (%) (Auto) 38.5 37.0-80.0 % Lymphocytes (%) (Auto) 51.4 H 10.0-50.0 % Monocytes (%) (Auto) 8.8 0.0-12.0 % Eosinophils (%) (Auto) 0.4 0.0-7.0 % Basophils (%) (Auto) 0.9 0.0-2.0 % Neutrophils # (Auto) 1.2 L 1.6-8.6 10 ^3/uL Lymphocytes # (Auto) 1.5 0.4-5.4 10 ^3/uL Monocytes # (Auto) 0.3 0-1.3 10 ^3/uL Eosinophils # (Auto) 0 0-0.8 10 ^3/uL Basophils # (Auto) 0 0-0.2 10 ^3/uL Nucleated Red Blood Cells 0.2 % Sodium Level 144 136-145 mmol/L Potassium Level 3.4 L 3.5-5.1 mmol/L Chloride Level 105 98-107 mmol/L Carbon Dioxide Level 23 20-31 mmol/L Anion Gap 16 H 5-15 Blood Urea Nitrogen 6 L 9-23 mg/dL Creatinine 0.56 L 0.700-1.30 mg/dL Glomerular Filtration Rate Calc 128 >90 mL/min BUN/Creatinine Ratio 10.7 10.0-20.0 Serum Glucose 147 H 74-106 mg/dL Calcium Level 8.2 L 8.7-10.4 mg/dL Total Bilirubin 0.3 0.2-1.0 mg/dL Aspartate Amino Transferase (AST) 69 H 13-40 U/L Alanine Aminotransferase (ALT) 31 7-40 U/L Alkaline Phosphatase 123 H 46-116 U/L Total Protein 7.3 5.7-8.2 g/dL Albumin 4.2 3.2-4.8 g/dL Plasma/Serum Blood Alcohol 545.3 *H <10 mg/dL Time of 1ST Reevaluation: 03:00 Reevaluation 1ST: Unchanged Patient Education/Counseling: Other (Patient intoxicated) Family Education/Counseling: No Family Present SEPSIS Sepsis Screen Date sepsis recognized/suspect: Dec 19, 2024 Time Sepsis recognized/suspect: 2335 Recent Procedure: No On Antibiotic Therapy: No Respiratory Rate >20: No Heart Rate >90: Yes Temp<36 C (96.8 F) or >38.3 C: No SBP <90 or MAP <65 mmHG: No New Acute Mental Status Change: No Is the patient on CPAP, BIPAP,: No Physician Orders Drug Screen (12/20/24 00:27) Vital Signs Q1HR (12/20/24 02:12) Continuous Pulse Oximetry (12/20/24 02:12) Vital Signs Date Time Temp Pulse Resp B/P (MAP) Pulse Ox O2 Delivery O2 Flow Rate FiO2 12/19/24 23:38 97.7 110 16 122/86 96 97.7 Laboratory Tests Test 12/20/24 03:32 White Blood Count 3.0 10^3/uL (4.4-10.8) L Departure 1 Departure Time of Disposition: 06:00 Impression: Primary Impression: Thrombocytopenia Additional Impression: Alcohol intoxication Disposition: 30 STILL A PATIENT Condition: Other Comments MDM: 39-year-old male with history of alcohol abuse presents with severe alcohol intoxication. Signed out to Dr. Aviles @ 0600 I reviewed the following notes from the pt's past medical encounters: November 19, 2024, 2024, November 28, 2024, December 06, 2024 and November 10, 2024 encounters for alcohol intoxication. Additional information was gathered from interviewing the following independent historians: EMS personnel Critical Care Note Critical Care Time?: No Stability Stability form required: No Heart Score Heart Score: Heart Score Response (Comments) Value History N/A 0 EKG N/A 0 Age N/A 0 Risk Factors N/A 0 Troponin N/A 0 Total 0 I personally scribed for JESÚS MATOS MD ([email or web address]) on 12/20/24 at 02:46. Electronically submitted by Paulo Cheatham ([email or web address]). I personally scribed for JESÚS MATOS MD ([email or web address]) on 12/20/24 at 05:17. Electronically submitted by Paulo Cheatham ([email or web address]). JESÚS MATOS MD Dec 20, 2024 02:46
[2024-12-20 03:50] LABS: Hematocrit 44.2 % (41.0-53.0); Hemoglobin 15.0 g/dL (13.5-17.5); Mean Corpuscular Hemoglobin 30.7 pg (28.0-32.0); Mean Corpuscular Volume 90.4 fL (80.0-100.0); Nucleated Red Blood Cells % 0.2 %
[2024-12-20 04:06] LABS: Alanine Aminotransferase 31 U/L (7-40); Albumin 4.2 g/dL (3.2-4.8); Anion Gap 16 (5-15); BUN/Creatinine Ratio 10.7 (10.0-20.0); Carbon Dioxide 23 mmol/L (20-31); Chloride 105 mmol/L (98-107); Sodium 144 mmol/L (136-145); Total Protein 7.3 g/dL (5.7-8.2)
[2024-12-20 04:07] LABS: Alkaline Phosphatase 123 U/L (46-116); Bilirubin, Total 0.3 mg/dL (0.2-1.0); Blood Urea Nitrogen 6 mg/dL (9-23); Calcium 8.2 mg/dL (8.7-10.4); Glucose 147 mg/dL (74-106); Potassium 3.4 mmol/L (3.5-5.1)
[2024-12-20] MEDS ORDERED: FOLIC ACID 1 MG, MAGNESIUM SULF SDV 50% 8 MEQ, MULTIPLE VITAMIN 10 ML, THIAMINE INJ 100... INJ STA (04:39)
== END 2024-12-20 09:01 | disposition left against medical advice (07) ==
LOC: EDBD 23:33 → ER 23:33
DX: D69.6 Thrombocytopenia, unspecified (principal); F10.129 Alcohol abuse with intoxication, unspecified; Z79.899 Other long term (current) drug therapy; Z79.84 Long term (current) use of oral hypoglycemic drugs; Z59.00 Homelessness unspecified; Y90.8 Blood alcohol level of 240 mg/100 ml or more
CPT/HCPCS: 36415; 80053; 80320; 85025

== ENCOUNTER 2024-12-20 21:38 | Inpatient (IN) | payer MEDICAID ==
[~2024-12-20] VITALS: Ht 172.7 cm; Wt 64.2 kg
--- NOTE | 2024-12-20 22:57 | ED.PDOC ---
History of Present Illness HPI Comments 39-year-old male with a history of chronic alcohol abuse presents to the ED with a chief complaint of alcohol intoxication with the associated generalized weakness, chest pain. Was noted to have been seen here at [facility] earlier today with the same chief complaint, where he was noted to have eloped from the facility. Pt States that he drank hard liquor earlier today, in assisted with the symptoms, with no alleviating factors at this time. Patient is noted to be speaking but denies any nausea, vomiting, diarrhea, abdominal pain or associated symptoms at this time. PHYSICAL EXAM: General: Homeless appearing, ill-appearing. Skin: Skin in warm, dry and intact. Appropriate color for ethnicity. HEENT: The head is normocephalic and atraumatic. Conjunctivae are clear without exudates or hemorrhage. Sclera is non-icteric. EOM are intact. No signs of nystagmus. Eyelids are normal in appearance without swelling or lesions. Oral mucosa is pink and moist Neck: The neck is supple with normal range of motion. No JVD. Cardiac: Heart rate and rhythm are normal. No murmurs, gallops, or rubs are auscultated. Respiratory: No signs of respiratory distress. Lung sounds are clear in all lobes bilaterally without rales, rhonchi, or wheezes. Abdominal: Abdomen is soft, non-tender without distention, guarding or rigidity. Bowel sounds are present and normoactive in all four quadrants. Extremities: Upper and lower extremities are atraumatic in appearance without deformity or edema. Neurological: The patient is awake, alert and oriented to person, place, and time with normal speech. Speech is clear. There is no facial asymmetry. Psychiatric: Appropriate mood and affect. Good judgement and insight. REVIEW OF SYSTEMS: General: No fever, no chills, or fatigue HEENT: No sore throat, no earache, no congestion, no neck pain. Cardiac: + chest pain. No palpitations. Lungs: No shortness of breath, no cough. GI: No nausea, no vomiting, no diarrhea, no constipation, no abdominal pain : No dysuria, frequency, or urgency. No hematuria. Musculoskeletal: No joint pain , no joint swelling, no extremity edema. Skin: No rash, no itching. Neuro: No headache, no dizziness, no weakness Chief Complaint: ETOH Time Seen by MD: 22:53 Primary Care Provider: NONE Reviewed Notes: Nurses Notes, Medications, Allergies Allergies: Coded Allergies: NO KNOWN ALLERGIES (Unverified , 01/20/24) Home Meds Active Scripts Ibuprofen Micronized (Ibuprofen) 600 Mg Tab, 600 MG PO Q6HP PRN, #30 TAB Prov:LAYA KAPOOR [employer] [facility] 10/29/24 Pantoprazole Sodium Sesquihydr (Protonix) 40 Mg Tab, 40 MG PO DAILY, #30 TAB Prov:NAYELI SOSA MD 09/30/24 Ondansetron Odt 4MG Tab (ZOFRAN PO) 4 Mg Tb, 4 MG PO TID PRN, #30 TAB ODT TAB-DISSOLVE IN MOUTH, THEN SWALLOW Prov:NAYELI SOSA MD 09/30/24 Cobalamine Combinations (B-12 + Folic Acid 2500-400 Mcg) 1 Tab Tab, 1 TAB PO DAILY for 30 Days, #30 TAB 0 [facility] 01/[facility]/24 Multiple Vitamin (Multivitamins) Tab, 1 TAB PO DAILY for 30 Days, #90 TAB 0 [facility]24 Magnesium Oxide (MAGNESIUM OXIDE) 400 Mg Tab, 400 MG OR DAILY for 7 Days, #7 TAB [facility] 01/25/24 Gemfibrozil (Gemfibrozil) 600 Mg Tab, 1 TAB PO BID for 30 Days, #60 TAB 2 [facility] 01/25/24 Lisinopril (Lisinopril) 2.5 Mg Tab, 1 TAB PO DAILY for 30 Days, #30 TAB 2 [facility] 01/25/24 Empagliflozin (Jardiance) 10 Mg Tab, 10 MG PO DAILY for 30 Days, #30 TAB 2 [facility] 01/25/24 Metoprolol Succinate (Metoprolol Succinate Er) 25 Mg Tab, 25 MG PO DAILY for 30 Days, #30 TAB 2 [facility]ills [facility] 01/25/24 Spironolactone (Spironolactone) 25 Mg Tab, 1 TAB PO DAILY for 30 Days, #30 TAB 2 Refills Prov:ALYCIA ANDINO [facility] 01/25/24 Information Source: Patient Mode of Arrival: Ambulatory Severity: Mild Timing: Hours Duration: Since onset, Hours Prehospital treatment: None Past Medical History PAST MEDICAL HISTORY: Denies Surgical History: Denies all surgeries Family History Family History: Reviewed,noncontributory to illness Social History Smoker: Non-Smoker Alcohol: Heavy Drugs: Denies Drug Use Lives In: Homeless Was a procedure done? Was a procedure done?: No EKG EKG : Pulse Rate (adult): 118 Waldo: Normal Cardiac Rhythm: Afib Block: None Hypertrophy: None ST: Normal Differential Dx Considerations may include: Differential diagnosis considered includes but not limited to intracranial hemorrhage, stroke, head injury, seizure, metabolic disturbance, electrolyte imbalance, infection, substance intoxication, psychiatric cause, other systemic illness, other X-Ray, Labs, Meds, VS Vital Signs Date Time Temp Pulse Resp B/P (MAP) Pulse Ox O2 Delivery O2 Flow Rate FiO2 12/21/24 05:22 118 12/21/24 05:19 118 12/20/24 21:50 139 16 116/73 98 Lab Test 12/21/24 05:31 12/20/24 23:17 Range/Units White Blood Count 3.4 L 3.7 L 4.4-10.8 10^3/uL Red Blood Count 4.68 4.40 L 4.5-5.90 10^6/uL Hemoglobin 14.4 13.7 13.5-17.5 g/dL Hematocrit 42.0 39.3 #L 41.0-53.0 % Mean Corpuscular Volume 89.8 89.3 80.0-100.0 fL Mean Corpuscular Hemoglobin 30.8 31.0 28.0-32.0 pg Mean Corpuscular Hemoglobin Concent 34.3 34.8 32.0-36.0 g/dL Red Cell Distribution Width 18.3 H 18.5 H 11.8-14.3 % Platelet Count 74 L 79 L 140-450 10^3/uL Mean Platelet Volume 7.1 6.6 L 6.9-10.8 fL Neutrophils (%) (Auto) 47.3 37.0-80.0 % Lymphocytes (%) (Auto) 42.0 10.0-50.0 % Monocytes (%) (Auto) 9.6 0.0-12.0 % Basophils (%) (Auto) 0.7 0.0-2.0 % Neutrophils # (Auto) 1.8 1.6-8.6 10 ^3/uL Lymphocytes # (Auto) 1.6 0.4-5.4 10 ^3/uL Monocytes # (Auto) 0.4 0-1.3 10 ^3/uL Differential Total Cells Counted 100.0 100 Neutrophils % (Manual) 25 L 37.0-80.0 Band Neutrophils % (Manual) 0 Lymphocytes % (Manual) 69 H 10.0-50.0 Monocytes % (Manual) 5 0-12 Eosinophils % (Manual) 1 0-7 Basophils % (Manual) 0 0.0-2.0 Metamyelocytes % (manual) 0 Myelocytes % (Manual) 0 Promyelocytes % (Manual) 0 Blast Cells % (Manual) 0 Reactive Lymphocytes 0 Platelet Estimate Decreased Sodium Level 140 140 136-145 mmol/L Potassium Level 3.8 3.7 3.5-5.1 mmol/L Chloride Level 103 102 98-107 mmol/L Carbon Dioxide Level 23 26 20-31 mmol/L Anion Gap 14 12 5-15 Blood Urea Nitrogen 6 L 6 L 9-23 mg/dL Creatinine 0.64 L 0.75 0.700-1.30 mg/dL Glomerular Filtration Rate Calc 123 117 >90 mL/min BUN/Creatinine Ratio 9.4 L 8.0 L 10.0-20.0 Serum Glucose 97 115 H 74-106 mg/dL Calcium Level 8.4 L 8.6 L 8.7-10.4 mg/dL Magnesium Level 1.8 1.6-2.6 mg/dL Total Bilirubin 0.7 0.2-1.0 mg/dL Aspartate Amino Transferase (AST) 37 13-40 U/L Alanine Aminotransferase (ALT) 28 7-40 U/L Alkaline Phosphatase 101 46-116 U/L Total Protein 7.3 5.7-8.2 g/dL Albumin 4.4 3.2-4.8 g/dL Plasma/Serum Blood Alcohol 302.4 H <10 mg/dL Eosinophils (%) (Auto) 0.4 0.0-7.0 % Eosinophils # (Auto) 0 0-0.8 10 ^3/uL Basophils # (Auto) 0 0-0.2 10 ^3/uL Nucleated Red Blood Cells 0.2 % Troponin I High Sensitivity 19 </=54 ng/L B-Type Natriuretic Peptide 43.57 0-100 pg/mL PATIENT: DAMIEN BAIG ACCT: [id number] UNIT: [id number] : 1985 LOC: ER ROOM / BED: / AGE / SEX: 39 / M ADM STATUS: REG ER SERVICE 4213 ORDERING PHYSICIAN: JESÚS MATOS MD PROCEDURE(s): CXR1 - CHEST XRAY 1 VIEW REASON: cp ORDER NUMBER(s): [id number], ACCESSION NUMBER(s): [id number] CHEST RADIOGRAPH Indication: cp Technique: Single frontal view of the chest was obtained Comparison: XY CHEST PORTABLE on DOS: 12/06/24, XY CHEST PORTABLE on DOS: 11/25/24, XY CHEST PORTABLE on DOS: 11/11/24, XY CHEST XRAY 1 VIEW on DOS: 10/31/24, XY CHEST TWO VIEWS ROUTINE on DOS: 10/10/24 FINDINGS: Lines and Tubes: None Lungs: No focal consolidation. Pleura: No effusion. No pneumothorax. Cardiomediastinal contours: Unremarkable Bones: No acute osseous abnormality. IMPRESSION: 1. No focal consolidation. Time of 1ST Reevaluation: 23:23 Reevaluation 1ST: Unchanged Patient Education/Counseling: Diagnosis, Treatment, Need For Follow Up Family Education/Counseling: No Family Present SEPSIS Sepsis Screen Date sepsis recognized/suspect: Dec 20, 2024 Time Sepsis recognized/suspect: 2201 Recent Procedure: No On Antibiotic Therapy: No Respiratory Rate >20: No Heart Rate >90: No Temp<36 C (96.8 F) or >38.3 C: No SBP <90 or MAP <65 mmHG: No New Acute Mental Status Change: No Is the patient on CPAP, BIPAP,: No Physician Orders Electrocardigram (12/20/24 22:57) Chest Xray 1 View (12/20/24 22:57) Vital Signs Q1HR (12/20/24 22:57) Vital Signs Date Time Temp Pulse Resp B/P (MAP) Pulse Ox O2 Delivery O2 Flow Rate FiO2 12/21/24 05:22 118 12/21/24 05:19 118 12/20/24 21:50 139 16 116/73 98 Laboratory Tests Test 12/20/24 23:17 12/21/24 05:31 White Blood Count 3.7 10^3/uL (4.4-10.8) L 3.4 10^3/uL (4.4-10.8) L Departure 1 Departure Time of Disposition: 05:17 Impression: Primary Impression: Thrombocytopenia Additional Impressions: Alcohol abuse Chest pain Disposition: ADMITTED INPATIENT Condition: Stable Critical Care Note Critical Care Time?: No Stability Stability form required: No Heart Score Heart Score: Heart Score Response (Comments) Value History N/A 0 EKG N/A 0 Age N/A 0 Risk Factors N/A 0 Troponin N/A 0 Total 0 I personally scribed for JESÚS MATOS MD ([email or web address]) on 12/20/24 at 22:57. Electronically submitted by Rito Anand ([email or web address]). I personally scribed for JESÚS MATOS MD ([email or web address]) on 12/21/24 at 00:11. Electronically submitted by Rito Anand ([email or web address]). I personally scribed for JESÚS MATOS MD ([email or web address]) on 12/21/24 at 04:13. Electronically submitted by Rito Anand ([email or web address]). I personally scribed for JESÚS MATOS MD ([email or web address]) on 12/21/24 at 05:15. Electronically submitted by Rito Anand ([email or web address]). I personally scribed for JESÚS MATOS MD ([email or web address]) on 12/21/24 at 05:22. Electronically submitted by Rito Anand ([email or web address]). JESÚS MATOS MD Dec 20, 2024 22:57
[2024-12-20 23:54] LABS: Chloride 102 mmol/L (98-107); Potassium 3.7 mmol/L (3.5-5.1); Sodium 140 mmol/L (136-145)
[2024-12-20 23:55] LABS: Anion Gap 12 (5-15); Carbon Dioxide 26 mmol/L (20-31); Hematocrit 39.3 % (41.0-53.0); Hemoglobin 13.7 g/dL (13.5-17.5); Mean Corpuscular Hemoglobin 31.0 pg (28.0-32.0); Mean Corpuscular Volume 89.3 fL (80.0-100.0); Nucleated Red Blood Cells % 0.2 %
[2024-12-20 23:57] LABS: Calcium 8.6 mg/dL (8.7-10.4)
[2024-12-21] LABS: BUN/Creatinine Ratio 8.0 (10.0-20.0)
--- NOTE | 2024-12-21 00:05 | DVH ---
CHEST RADIOGRAPH Indication: cp Technique: Single frontal view of the chest was obtained Comparison: XY CHEST PORTABLE on DOS: 12/06/24, XY CHEST PORTABLE on DOS: 11/25/24, XY CHEST PORTABLE o n DOS: 11/11/24, XY CHEST XRAY 1 VIEW on DOS: 10/31/24, XY CHEST TWO VIEWS ROUTINE on DOS: 10/10/24 FINDINGS: Lines and Tubes: None Lungs: No focal consolidation. Pleura: No effusion. No pneumothorax. Cardiomediastinal contours: Unremarkable Bones: No acute osseous abnormality. IMPRESSION: 1. No focal consolidation.
[2024-12-21 00:13] LABS: Blood Urea Nitrogen 6 mg/dL (9-23); Glucose 115 mg/dL (74-106)
[2024-12-21] MEDS ORDERED: NITROGLYCERIN 0.4 MG SL TAB SL PRN (07:30)
[2024-12-21] MEDS ORDERED: ONDANSETRON HCL 4 MG/2 ML VIAL IV PRN (07:30)
[2024-12-21] MEDS: SODIUM CHLORIDE 0.9% 1,000 ML IVB ONE (07:30)
[2024-12-21] MEDS ORDERED: MORPHINE SULFATE INJ 2 MG/ml SYRG IV PRN (07:30)
[2024-12-21] MEDS ORDERED: DOCUSATE SOD 100 MG CAP PO PRN (07:30)
--- NOTE | 2024-12-21 07:57 | DVHHP2 ---
History of Present Illness Reason for Visit: ETOH History of Present Illness Thien Rider is a 39-year-old male with no significant past medical history who came to the hospital due to alcohol intoxication. Patient is homeless, and a daily drinker. He states he came to the hospital due to chest pain and tremors. At time of assessment he denies any chest pain, shortness of breath, or palpitations. Past Surgical History: None Smoke: No ALCOHOL: heavy Drugs: None Lives: Homeless Domestic Violence: Neg Review of Systems Review of Systems ETOH dependance Constitutional: No: Fever, Chills, Sweats, Weakness, Malaise, Other Eyes: No: Pain, Vision change, Conjunctivae inflammation, Eyelid inflammation, Other, Redness ENT: No: Ear pain, Ear discharge, Nose pain, Nose discharge, Nose congestion, Mouth pain, Mouth swelling, Throat pain, Throat swelling, Other Respiratory: No: Cough, Dry, Shortness of breath, SOB with excertion, Wheezing, Hemoptysis, Pleuritic Pain, Sputum, Wheezing, Other Cardiovascular: Chest Pain; No: Palpitations, Orthopnea, Paroxysmal Noc. Dyspnea, Edema, Lt Headedness, Other Gastrointestinal: No: Nausea, Vomiting, Abdominal Pain, Diarrhea, Constipation, Melena, Hematochezia, Other Genitourinary: No Dysuria, No Frequency, No Incontinence, No Hematuria, No Retention, No Other Musculoskeletal: No: other, neck pain, shoulder pain, arm pain, back pain, hand pain, leg pain, foot pain Skin: No: Rash, Lesions, Jaundice, Bruising, Other Neurological: Other (tremors); No: Weakness, Numbness, Incoordination, Change in speech, Confusion, Seizures Allergies: Coded Allergies: NO KNOWN ALLERGIES (Unverified , 01/20/24) Medications Current Medications Medications Dose Ordered Sig/Surjit Route Start Time Stop Time Status Last Admin Dose Admin Acetaminophen/ Hydrocodone Bitart 1 tab Q4HP PRN PO 12/21/24 07:30 UNV Ondansetron HCl 4 mg Q4HP PRN IV 12/21/24 07:30 UNV Docusate Sodium 100 mg BIDPRN PRN PO 12/21/24 07:30 UNV Acetaminophen 650 mg Q6HP PRN PO 12/21/24 07:30 UNV Nitroglycerin 0.4 mg Q5MINP PRN SL 12/21/24 07:30 UNV Morphine Sulfate 2 mg Q30M PRN IV 12/21/24 07:30 UNV Lorazepam 1 mg Q4H IV 12/21/24 07:30 UNV Lorazepam 1 mg Q2HPRN PRN IV 12/21/24 07:30 UNV Chlordiazepoxide HCl 50 mg TID PO 12/21/24 07:30 UNV Folic Acid 1 mg/ Multivitamins 10 ml/Magnesium Sulfate 8 meq/ Thiamine HCl 100 mg/Dextrose 1,013.2 ml @ 125.001 mls/hr DAILY@1800 INJ 12/21/24 07:30 UNV Exam Vital Signs Vital Signs Date Time Temp Pulse Resp B/P (MAP) Pulse Ox O2 Delivery O2 Flow Rate FiO2 12/21/24 05:22 118 12/20/24 21:50 16 116/73 98 General Appearance: Alert, Oriented X3, Cooperative, moderate distress HEENT: Atraumatic, PERRLA Respiratory: Clear to auscultation, Normal air movement Cardiovascular: Other (ST) Abdominal: Normal bowel sounds, Soft, No tenderness, No hepatospenomegaly Extremities: No clubbing, No cyanosis, No edema, Normal pulses Skin: No rashes, No breakdown Neuro: Normal speech, Other (tremors) Psych/Mental Status: Mood NL Labs/Xrays Labs Test 12/21/24 05:31 12/20/24 23:17 Range/Units Plasma/Serum Blood Alcohol 302.4 H <10 mg/dL White Blood Count 3.7 L 4.4-10.8 10^3/uL Red Blood Count 4.40 L 4.5-5.90 10^6/uL Hemoglobin 13.7 13.5-17.5 g/dL Hematocrit 39.3 #L 41.0-53.0 % Mean Corpuscular Volume 89.3 80.0-100.0 fL Mean Corpuscular Hemoglobin 31.0 28.0-32.0 pg Mean Corpuscular Hemoglobin Concent 34.8 32.0-36.0 g/dL Red Cell Distribution Width 18.5 H 11.8-14.3 % Platelet Count 79 L 140-450 10^3/uL Mean Platelet Volume 6.6 L 6.9-10.8 fL Neutrophils (%) (Auto) 47.3 37.0-80.0 % Lymphocytes (%) (Auto) 42.0 10.0-50.0 % Monocytes (%) (Auto) 9.6 0.0-12.0 % Eosinophils (%) (Auto) 0.4 0.0-7.0 % Basophils (%) (Auto) 0.7 0.0-2.0 % Neutrophils # (Auto) 1.8 1.6-8.6 10 ^3/uL Lymphocytes # (Auto) 1.6 0.4-5.4 10 ^3/uL Monocytes # (Auto) 0.4 0-1.3 10 ^3/uL Eosinophils # (Auto) 0 0-0.8 10 ^3/uL Basophils # (Auto) 0 0-0.2 10 ^3/uL Nucleated Red Blood Cells 0.2 % Sodium Level 140 136-145 mmol/L Potassium Level 3.7 3.5-5.1 mmol/L Chloride Level 102 98-107 mmol/L Carbon Dioxide Level 26 20-31 mmol/L Anion Gap 12 5-15 Blood Urea Nitrogen 6 L 9-23 mg/dL Creatinine 0.75 0.700-1.30 mg/dL Glomerular Filtration Rate Calc 117 >90 mL/min BUN/Creatinine Ratio 8.0 L 10.0-20.0 Serum Glucose 115 H 74-106 mg/dL Calcium Level 8.6 L 8.7-10.4 mg/dL Troponin I High Sensitivity 19 </=54 ng/L B-Type Natriuretic Peptide 43.57 0-100 pg/mL CHEST RADIOGRAPH FINDINGS: Lines and Tubes: None Lungs: No focal consolidation. Pleura: No effusion. No pneumothorax. Cardiomediastinal contours: Unremarkable Bones: No acute osseous abnormality. IMPRESSION: 1. No focal consolidation. SEPSIS Sepsis Screen Date sepsis recognized/suspect: Dec 20, 2024 Time Sepsis recognized/suspect: 2201 Recent Procedure: No On Antibiotic Therapy: No Respiratory Rate >20: No Heart Rate >90: No Temp<36 C (96.8 F) or >38.3 C: No SBP <90 or MAP <65 mmHG: No New Acute Mental Status Change: No Is the patient on CPAP, BIPAP,: No Physician Orders Admit (12/21/24 07:21) Code Status (12/21/24 07:21) Hydrocodone-Acet 5/325mg Tab ([place] 5/32 (8/6/25 07:30) Ondansetron Hcl (Zofran) (12/21/24 07:30) Docusate Sodium Capsule (Colace Capsule) (12/21/24 07:30) Complete Blood Count (12/22/24 04:00) Comprehensive Metabolic Panel (12/22/24 04:00) Condition: Critical (12/21/24 07:21) Acetaminophen Tablet (Tylenol Tablet) (12/21/24 07:30) Nitroglycerin Sublingual (Ntrostat Subli (12/21/24 07:30) Morphine Sulfate Injection (12/21/24 07:30) Stat Ekg For Chest Pain (12/21/24 07:21) Notify Md Of Changes From Base (12/21/24:21) Sports Doctor For 24 Hours (12/21/24 07:21) Emergency Dysrhythmia Protocol (12/21/24 07:21) Rhythm Strips Once Every Shift (12/21/24 07:21) Oxygen By Nasal Cannula (12/21/24 07:21) Sodium Chloride 0.9% (12/21/24 07:30) Magnesium (12/21/24 07:21) Lorazepam 2mg/Ml Inj (Ativan Inj) (12/21/24 07:30) Lorazepam 2mg/Ml Inj (Ativan Inj) (12/21/24 07:30) Lorazepam 2mg/Ml Inj (Ativan Inj) (12/21/24 07:30) Etoh Withdrawal Assessment (12/21/24 07:21) Etoh Withdrawal Assessment NOW (12/21/24 07:21) Chlordiazepoxide Hcl Capsule (Librium Ca (12/21/24 07:30) Complete Blood Count (12/21/24 07:21) Comprehensive Metabolic Panel (12/21/24 07:21) Folic Acid... (12/21/24 07:30) Vital Signs Date Time Temp Pulse Resp B/P (MAP) Pulse Ox O2 Delivery O2 Flow Rate FiO2 12/21/24 05:22 118 12/21/24 05:19 118 Laboratory Tests Test 12/20/24 23:17 White Blood Count 3.7 10^3/uL (4.4-10.8) L Assessment/Plan Assessment/Plan Assessment: Alcohol intoxication, ETOH dependance, Thrombocytopenia, Homelessness, Plan: Admit to [facility] protocol, Daily Banana bag, IV hydration, Scheduled Ativan, PRN Ativan, Social service consult, Manage/Monitor electrolytes closely, Plan discussed with: Patient My Orders Orders - ERIN NAIK Sandee [employer] Procedure Category Date Status Time Admit ADMIT 12/21/24 Transmitted 07:21 Code Status CODE 12/21/24 Transmitted 07:21 Hydrocodone-Acet PHA 12/21/24 Logged 5/325mg Tab ([place] 07:30 Ondansetron Hcl PHA 12/21/24 Logged (Zofran) 07:30 Docusate Sodium PHA 12/21/24 Logged Capsule (Colace 07:30 Complete Blood Count LAB 12/22/24 Verified 04:00 Comprehensive LAB 12/22/24 Verified Metabolic Panel 04:00 Condition: Critical [place] 12/21/24 In Process 07:21 Acetaminophen Tablet PHA 12/21/24 Logged (Tylenol Tablet) 07:30 Nitroglycerin PHA 12/21/24 Logged Sublingual (Ntrostat 07:30 Morphine Sulfate PHA 12/21/24 Logged Injection 07:30 Stat Ekg For Chest [facility] 12/21/24 In Process Pain 07:21 Notify Of Changes [facility] 12/21/24 In Process From Base 07:21 Sports Doctor For [facility] 12/21/24 In Process 24 Hours 07:21 Emergency Dysrhythmia [facility] 12/21/24 In Process Protocol 07:21 Rhythm Strips Once [facility] 12/21/24 In Process Every Shift 07:21 Oxygen By Nasal RT 12/21/24 Transmitted Cannula 07:21 Sodium Chloride 0.9% PHA 12/21/24 Logged 07:30 Magnesium LAB 12/21/24 Logged 07:21 Lorazepam 2mg/Ml Inj PHA 12/21/24 Logged (Ativan Inj) 07:30 Lorazepam 2mg/Ml Inj PHA 12/21/24 Logged (Ativan Inj) 07:30 Lorazepam 2mg/Ml Inj PHA 12/21/24 Logged (Ativan Inj) 07:30 Etoh Withdrawal [place] 12/21/24 In Process Assessment 07:21 Etoh Withdrawal [place] 12/21/24 In Process Assessment 07:21 Chlordiazepoxide Hcl PHA 12/21/24 Logged Capsule (Librium Ca 07:30 Complete Blood Count LAB 12/21/24 Logged 07:21 Comprehensive LAB 12/21/24 Logged Metabolic Panel 07:21 Folic Acid... PHA 12/21/24 Logged 07:30 Date of Service: Dec 21, 2024 Billing Provider: ERIN NAIK Common Visit Codes: [id number] INP/OBS CARE (HIGH) ERIN NAIK Dec 21, 2024 07:57
[2024-12-21 08:40] LABS: Hematocrit 42.0 % (41.0-53.0); Hemoglobin 14.4 g/dL (13.5-17.5); Mean Corpuscular Hemoglobin 30.8 pg (28.0-32.0); Mean Corpuscular Volume 89.8 fL (80.0-100.0)
[2024-12-21 08:52] LABS: Alanine Aminotransferase 28 U/L (7-40); Albumin 4.4 g/dL (3.2-4.8); Alkaline Phosphatase 101 U/L (46-116); Anion Gap 14 (5-15); BUN/Creatinine Ratio 9.4 (10.0-20.0); Bilirubin, Total 0.7 mg/dL (0.2-1.0); Carbon Dioxide 23 mmol/L (20-31); Chloride 103 mmol/L (98-107); Glucose 97 mg/dL (74-106); Magnesium 1.8 mg/dL (1.6-2.6); Potassium 3.8 mmol/L (3.5-5.1); Sodium 140 mmol/L (136-145); Total Protein 7.3 g/dL (5.7-8.2)
[2024-12-21 08:55] LABS: Blood Urea Nitrogen 6 mg/dL (9-23); Calcium 8.4 mg/dL (8.7-10.4)
[2024-12-21 08:59] LABS: Total Cells Counted 100.0 (100)
--- NOTE | 2024-12-21 11:46 | ECG ---
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
[2024-12-21] MEDS: FOLIC ACID 1 MG, MULTIPLE VITAMIN 10 ML, MAGNESIUM SULF SDV 50% 8 MEQ, THIAMINE INJ 100... INJ SCH (11:53)
[2024-12-21] MEDS: LORazepam 2MG/ML-1ML VIAL IV SCH (12:16)
[2024-12-21] MEDS: LORazepam 2MG/ML-1ML VIAL IV ONE (12:16)
[2024-12-21 14:55] VITALS: PULSE 99; RESP 17; O2SAT 99
--- NOTE | 2024-12-21 14:55 | DVHPN2 ---
Subjective Patient here for withdrawal, following up on CIWA. Reviewed: H&P Changes from previous H/P or p: No Changes General: Per HPI Eyes: No Pain, No Vision change, No Conjunctivae inflammation, No Eyelid inflammation, No Other, No Redness ENT: No Ear pain, No Ear discharge, No Nose pain, No Nose discharge, No Nose congestion, No Mouth pain, No Mouth swelling, No Throat pain, No Throat swelling, No Other Cardiovascular: Chest Pain; No Palpitations, No Orthopnea, No Paroxysmal Noc. Dyspnea, No Edema, No Lt Headedness, No Other Respiratory: No Cough, No Dry, No Shortness of breath, No SOB with excertion, No Wheezing, No Hemoptysis, No Pleuritic Pain, No Sputum, No Other Gastrointestinal: No Nausea, No Vomiting, No Abdominal Pain, No Diarrhea, No Constipation, No Melena, No Hematochezia, No Other Genitourinary: No Dysuria, No Frequency, No Incontinence, No Hematuria, No Retention, No Other Musculoskeletal: No other, No neck pain, No shoulder pain, No arm pain, No back pain, No hand pain, No leg pain, No foot pain Skin: No Rash, No Lesions, No Jaundice, No Bruising, No Other Objective Vitals Vital Signs Date Time Temp Pulse Resp B/P (MAP) Pulse Ox O2 Delivery O2 Flow Rate FiO2 12/21/24 11:24 76 18 98 Room Air 12/21/24 11:24 98.0 136/78 (97) 98.0 Exam GEN: Healthy appearing, well-developed, NAD. HEENT: NC/AT; MMM. CV: RRR, no m/r/g. LUNGS: CTAB, no w/r/c. ABD: Soft, NT/ND, NBS, no masses or organomegaly. EXT: skin Warm, well perfused. no rashes. No clubbing, cyanosis, or edema. NEURO: Ambulating with no limitations. No focal deficits. CIWA elevated Medications Current Medications Medications Dose Ordered Sig/Surjit Route Start Time Stop Time Status Last Admin Dose Admin Acetaminophen/ Hydrocodone Bitart 1 tab Q4HP PRN PO 12/21/24 07:30 Ondansetron HCl 4 mg Q4HP PRN IV 12/21/24 07:30 Docusate Sodium 100 mg BIDPRN PRN PO 12/21/24 07:30 Acetaminophen 650 mg Q6HP PRN PO 12/21/24 07:30 Nitroglycerin 0.4 mg Q5MINP PRN SL 12/21/24 07:30 Morphine Sulfate 2 mg Q30M PRN IV 12/21/24 07:30 Lorazepam 1 mg Q4H IV 12/21/24 07:30 Lorazepam 1 mg Q2HPRN PRN IV 12/21/24 07:30 Chlordiazepoxide HCl 50 mg TID PO 12/21/24 07:30 12/21/24 12:21 50 MG Folic Acid 1 mg/ Multivitamins 10 ml/Magnesium Sulfate 8 meq/ Thiamine HCl 100 mg/Dextrose 1,013.2 ml @ 125.001 mls/hr DAILY@1800 INJ 12/21/24 07:30 12/21/24 11:53 125.001 MLS/HR Laboratory Results Laboratory Tests 12/21/24 05:31 Chemistry Test 12/20/24 23:17 12/21/24 05:31 Calcium Level 8.6 mg/dL (8.7-10.4) L 8.4 mg/dL (8.7-10.4) L Albumin 4.4 g/dL (3.2-4.8) Magnesium Level 1.8 mg/dL (1.6-2.6) Total Protein 7.3 g/dL (5.7-8.2) Cardiac Markers Test 12/20/24 23:17 B-Type Natriuretic Peptide 43.57 pg/mL (0-100) LFT Test 12/21/24 05:31 Alanine Aminotransferase (ALT) 28 U/L (7-40) Alkaline Phosphatase 101 U/L (46-116) Aspartate Amino Transferase (AST) 37 U/L (13-40) Total Bilirubin 0.7 mg/dL (0.2-1.0) Labs and/or images reviewed: Labs reviewed by me, Image(s) reviewed by me Assessment/Plan Assessment/Plan 39-year-old male with history of alcohol dependence, who came to the hospital due to alcohol intoxication. Patient is homeless, and a daily drinker. He states he came to the hospital due to chest pain and tremors. At time of assessment he denies any chest pain, shortness of breath, or palpitations. 12/21: Patient pulses tachycardic, thrombocytopenic 70s, leukopenic 3.7, blood alcohol level 302, chest x-ray without any opacities. CIWA levels are elevated,. We will continue Librium taper, IV hydration, NPO, CIWA protocol, patient is homeless. Can deescalate down to tele. Alcohol intoxication, with poisoning Alcohol withdrawal Tachycardia ETOH dependance, Thrombocytopenia, Leukopenia Homelessness, CIWA protocol Banana bag, x1 then IV hydration, d5 halfNS 60cchr continuuous Scheduled librium taper PRN Ativan, per ciwa protocol Social service consult, homelessness Manage/Monitor electrolytes closely NPO tele Full code Plan discussed with: Patient Date of Service: Dec 21, 2024 Billing Provider: MORIAH FIERRO MD Common Visit Codes: [id number] INP/OBS CARE(HIGH) MORIAH FIERRO MD Dec 21, 2024 14:55
[2024-12-21] MEDS ORDERED: FOLIC ACID 1 MG, MAGNESIUM SULF SDV 50% 8 MEQ, MULTIPLE VITAMIN 10 ML, THIAMINE INJ 100... INJ SCH (18:00)
[2024-12-21 22:00] VITALS: PULSE 103; RESP 20; O2SAT 98
[2024-12-22] VITALS (9 sets, daily range): BP systolic 103–148; BP diastolic 73–97; PULSE 98–158; RESP 16–21; TEMP 98–98.7; O2SAT 97–99
[2024-12-22 08:34] LABS: Hematocrit 40.1 % (41.0-53.0); Hemoglobin 13.8 g/dL (13.5-17.5); Mean Corpuscular Hemoglobin 30.8 pg (28.0-32.0); Mean Corpuscular Volume 89.9 fL (80.0-100.0); Nucleated Red Blood Cells % 0.1 %
[2024-12-22 08:43] LABS: Alanine Aminotransferase 21 U/L (7-40); Albumin 4.1 g/dL (3.2-4.8); Alkaline Phosphatase 103 U/L (46-116); Anion Gap 10 (5-15); BUN/Creatinine Ratio 7.8 (10.0-20.0); Bilirubin, Total 1.8 mg/dL (0.2-1.0); Blood Urea Nitrogen 5 mg/dL (9-23); Calcium 8.8 mg/dL (8.7-10.4); Carbon Dioxide 26 mmol/L (20-31); Chloride 100 mmol/L (98-107); Glucose 89 mg/dL (74-106); Potassium 3.3 mmol/L (3.5-5.1); Sodium 136 mmol/L (136-145); Total Protein 6.7 g/dL (5.7-8.2)
[2024-12-22] MEDS: POTASSIUM CHL 20 Meq TABLET PO ONE (13:53)
--- NOTE | 2024-12-22 15:25 | DVHPN2 ---
Subjective Patient here for withdrawal, following up on CIWA. Reviewed: H&P Changes from previous H/P or p: No Changes General: Per HPI Eyes: No Pain, No Vision change, No Conjunctivae inflammation, No Eyelid inflammation, No Other, No Redness ENT: No Ear pain, No Ear discharge, No Nose pain, No Nose discharge, No Nose congestion, No Mouth pain, No Mouth swelling, No Throat pain, No Throat swelling, No Other Cardiovascular: Chest Pain; No Palpitations, No Orthopnea, No Paroxysmal Noc. Dyspnea, No Edema, No Lt Headedness, No Other Respiratory: No Cough, No Dry, No Shortness of breath, No SOB with excertion, No Wheezing, No Hemoptysis, No Pleuritic Pain, No Sputum, No Other Gastrointestinal: No Nausea, No Vomiting, No Abdominal Pain, No Diarrhea, No Constipation, No Melena, No Hematochezia, No Other Genitourinary: No Dysuria, No Frequency, No Incontinence, No Hematuria, No Retention, No Other Musculoskeletal: No other, No neck pain, No shoulder pain, No arm pain, No back pain, No hand pain, No leg pain, No foot pain Skin: No Rash, No Lesions, No Jaundice, No Bruising, No Other Objective Vitals Vital Signs Date Time Temp Pulse Resp B/P (MAP) Pulse Ox O2 Delivery O2 Flow Rate FiO2 12/22/24 13:07 98.0 98 21 110/83 (92) 98 98.0 12/22/24 08:30 Room Air* 0 21 Intake/Output Intake and Output 12/22/24 07:00 Intake Total 1475.007 ml Balance 1475.007 ml Intake Oral 600 ml IV Total 875.007 ml Exam GEN: Healthy appearing, well-developed, NAD. HEENT: NC/AT; MMM. CV: RRR, no m/r/g. LUNGS: CTAB, no w/r/c. ABD: Soft, NT/ND, NBS, no masses or organomegaly. EXT: skin Warm, well perfused. no rashes. No clubbing, cyanosis, or edema. NEURO: Ambulating with no limitations. No focal deficits. CIWA elevated Medications Current Medications Medications Dose Ordered Sig/Surjit Route Start Time Stop Time Status Last Admin Dose Admin Acetaminophen/ Hydrocodone Bitart 1 tab Q4HP PRN PO 12/21/24 07:30 Ondansetron HCl 4 mg Q4HP PRN IV 12/21/24 07:30 Docusate Sodium 100 mg BIDPRN PRN PO 12/21/24 07:30 Acetaminophen 650 mg Q6HP PRN PO 12/21/24 07:30 Nitroglycerin 0.4 mg Q5MINP PRN SL 12/21/24 07:30 Morphine Sulfate 2 mg Q30M PRN IV 12/21/24 07:30 Lorazepam 1 mg Q4H IV 12/21/24 07:30 12/22/24 11:50 1 MG Lorazepam 1 mg Q2HPRN PRN IV 12/21/24 07:30 Folic Acid 1 mg/ Multivitamins 10 ml/Magnesium Sulfate 8 meq/ Thiamine HCl 100 mg/Dextrose 1,013.2 ml @ 125.001 mls/hr DAILY@1800 INJ 12/21/24 07:30 12/21/24 11:53 125.001 MLS/HR Chlordiazepoxide HCl 50 mg Q12HR PO 12/22/24 10:00 12/22/24 22:01 12/22/24 10:04 50 MG Chlordiazepoxide HCl 25 mg Q12HR PO 12/23/24 10:00 12/23/24 22:01 Chlordiazepoxide HCl 25 mg QAM PO 12/24/24 07:00 12/24/24 07:01 Laboratory Results Laboratory Tests 12/22/24 07:42 Chemistry Test 12/22/24 07:42 Albumin 4.1 g/dL (3.2-4.8) Calcium Level 8.8 mg/dL (8.7-10.4) Total Protein 6.7 g/dL (5.7-8.2) LFT Test 12/22/24 07:42 Alanine Aminotransferase (ALT) 21 U/L (7-40) Alkaline Phosphatase 103 U/L (46-116) Aspartate Amino Transferase (AST) 28 U/L (13-40) Total Bilirubin 1.8 mg/dL (0.2-1.0) H Labs and/or images reviewed: Labs reviewed by me, Image(s) reviewed by me Assessment/Plan Assessment/Plan 39-year-old male with history of alcohol dependence, who came to the hospital due to alcohol intoxication. Patient is homeless, and a daily drinker. He states he came to the hospital due to chest pain and tremors. At time of assessment he denies any chest pain, shortness of breath, or palpitations. 12/21: Patient pulses tachycardic, thrombocytopenic 70s, leukopenic 3.7, blood alcohol level 302, chest x-ray without any opacities. CIWA levels are elevated. We will continue Librium taper, IV hydration, NPO, CIWA protocol, patient is homeless. Can deescalate down to tele. 12/22: CIWA mildly elevated continuing Librium taper, patient had trouble swallowing, some nausea. We will start IV Protonix daily. Decreased diet to soft mechanical vegetarian. Patient presented yesterday with elevated alcohol level, We will monitor 24 hours more for alcohol withdrawal. social consult for homeless. Alcohol intoxication, with poisoning Alcohol withdrawal Tachycardia ETOH dependance, Thrombocytopenia, Leukopenia Homelessness, - [facility] protocol - Banana bag, x1 then IV hydration, d5 halfNS 60cchr continuous - Scheduled librium taper - PRN Ativan, per [facility] protocol - Social service consult, homelessness - Manage/Monitor electrolytes closely soft mech (vegeratian) Tele Full code Plan discussed with: Patient My Orders Orders - MORIAH FIERRO MD Procedure Category Date Status Time Transfer Orders XFER 12/21/24 Transmitted 17:36 Mrsa Screen LEOBARDO 12/22/24 Uncollected 02:47 Potassium Er Tablet PHA 12/22/24 In Process (Klor-Con Tablet) 13:45 Soft Diet DIET 12/22/24 Transmitted Dinner Lorazepam 2mg/Ml Inj PHA 12/22/24 Verified (Ativan Inj) 15:30 Date of Service: Dec 22, 2024 Billing Provider: MORIAH FIERRO MD Common Visit Codes: 66201-[id number] INP/OBS CARE(HIGH) MORIAH FIERRO MD Dec 22, 2024 15:25
[2024-12-22] MEDS ORDERED: LORazepam 2MG/ML-1ML VIAL IV PRN (15:30)
[2024-12-22] MEDS: MULTIPLE VITAMIN TAB PO SCH (15:57)
[2024-12-22] MEDS: FOLIC ACID 1 MG TAB PO SCH (15:57)
[2024-12-22] MEDS: D5W/SOD CHL 0.45% 1,000 ML IV SCH (15:58)
[2024-12-22] MEDS: THIAMINE HCL 100 MG TAB PO SCH (15:58)
[2024-12-22] MEDS: HYDROcodone-ACET 5/325MG TAB PO PRN (22:35)
[2024-12-23 01:00] VITALS: BP 108/80; PULSE 96; RESP 19; TEMP 98.1; O2SAT 96
[2024-12-23 05:00] VITALS: BP 104/75; PULSE 96; RESP 18; TEMP 98; O2SAT 98
[2024-12-23] MEDS: LORazepam 2MG/ML-1ML VIAL IV PRN (07:51)
[2024-12-23 08:15] LABS: Alanine Aminotransferase 17 U/L (7-40); Albumin 3.8 g/dL (3.2-4.8); Alkaline Phosphatase 91 U/L (46-116); Anion Gap 8 (5-15); BUN/Creatinine Ratio 7.9 (10.0-20.0); Bilirubin, Total 1.1 mg/dL (0.2-1.0); Carbon Dioxide 23 mmol/L (20-31); Chloride 104 mmol/L (98-107); Glucose 100 mg/dL (74-106); Total Protein 6.3 g/dL (5.7-8.2)
[2024-12-23 08:16] LABS: Blood Urea Nitrogen 5 mg/dL (9-23); Calcium 8.4 mg/dL (8.7-10.4); Potassium 3.3 mmol/L (3.5-5.1); Sodium 135 mmol/L (136-145)
[2024-12-23 09:04] VITALS: BP 117/88; PULSE 131; RESP 20; TEMP 97.3; O2SAT 99
[2024-12-23] MEDS: ACETAMINOPHEN 325 MG TAB PO PRN (10:40)
[2024-12-23 13:00] VITALS: BP 109/77; PULSE 132; RESP 18; TEMP 97.5; O2SAT 98
--- NOTE | 2024-12-23 16:43 | DVHDS2 ---
Discharge Summary Date of Admission Dec 21, 2024 at 07:21 Labs/Diagnostic Data: Laboratory Results Test 12/23/24 07:12 12/22/24 07:42 12/21/24 05:31 12/20/24 23:17 Sodium Level 135 mmol/L (136-145) Potassium Level 3.3 mmol/L (3.5-5.1) Chloride Level 104 mmol/L (98-107) Carbon Dioxide Level 23 mmol/L (20-31) Anion Gap 8 (5-15) Blood Urea Nitrogen 5 mg/dL (9-23) Creatinine 0.63 mg/dL (0.700-1.30) Glomerular Filtration Rate Calc 123 mL/min (>90) BUN/Creatinine Ratio 7.9 (10.0-20.0) Serum Glucose 100 mg/dL (74-106) Calcium Level 8.4 mg/dL (8.7-10.4) Total Bilirubin 1.1 mg/dL (0.2-1.0) Aspartate Amino Transferase (AST) 25 U/L (13-40) Alanine Aminotransferase (ALT) 17 U/L (7-40) Alkaline Phosphatase 91 U/L (46-116) Total Protein 6.3 g/dL (5.7-8.2) Albumin 3.8 g/dL (3.2-4.8) White Blood Count 3.3 10^3/uL (4.4-10.8) Red Blood Count 4.47 10^6/uL (4.5-5.90) Hemoglobin 13.8 g/dL (13.5-17.5) Hematocrit 40.1 % (41.0-53.0) Mean Corpuscular Volume 89.9 fL (80.0-100.0) Mean Corpuscular Hemoglobin 30.8 pg (28.0-32.0) Mean Corpuscular Hemoglobin Concent 34.3 g/dL (32.0-36.0) Red Cell Distribution Width 18.3 % (11.8-14.3) Platelet Count 54 10^3/uL (140-450) Mean Platelet Volume 7.1 fL (6.9-10.8) Neutrophils (%) (Auto) 65.2 % (37.0-80.0) Lymphocytes (%) (Auto) 19.3 % (10.0-50.0) Monocytes (%) (Auto) 14.1 % (0.0-12.0) Eosinophils (%) (Auto) 0.8 % (0.0-7.0) Basophils (%) (Auto) 0.6 % (0.0-2.0) Neutrophils # (Auto) 2.2 10 ^3/uL (1.6-8.6) Lymphocytes # (Auto) 0.6 10 ^3/uL (0.4-5.4) Monocytes # (Auto) 0.5 10 ^3/uL (0-1.3) Eosinophils # (Auto) 0 10 ^3/uL (0-0.8) Basophils # (Auto) 0 10 ^3/uL (0-0.2) Nucleated Red Blood Cells 0.1 % Differential Total Cells Counted 100.0 (100) Neutrophils % (Manual) 25 (37.0-80.0) Band Neutrophils % (Manual) 0 Lymphocytes % (Manual) 69 (10.0-50.0) Monocytes % (Manual) 5 (0-12) Eosinophils % (Manual) 1 (0-7) Basophils % (Manual) 0 (0.0-2.0) Metamyelocytes % (manual) 0 Myelocytes % (Manual) 0 Promyelocytes % (Manual) 0 Blast Cells % (Manual) 0 Reactive Lymphocytes 0 Platelet Estimate Decreased Magnesium Level 1.8 mg/dL (1.6-2.6) Plasma/Serum Blood Alcohol 302.4 mg/dL (<10) Troponin I High Sensitivity 19 ng/L (</=54) B-Type Natriuretic Peptide 43.57 pg/mL (0-100) Other Laboratory Tests 12/23/24 07:12 12/22/24 07:42 Brief Hx & Hospital Course: 39-year-old male with history of alcohol dependence, who came to the hospital due to alcohol intoxication. Patient is homeless, and a daily drinker. He states he came to the hospital due to chest pain and tremors. At time of assessment he denies any chest pain, shortness of breath, or palpitations. 12/21: Patient pulses tachycardic, thrombocytopenic 70s, leukopenic 3.7, blood alcohol level 302, chest x-ray without any opacities. CIWA levels are elevated. We will continue Librium taper, IV hydration, NPO, CIWA protocol, patient is homeless. Can deescalate down to tele. 12/22: CIWA mildly elevated continuing Librium taper, patient had trouble swallowing, some nausea. We will start IV Protonix daily. Decreased diet to soft mechanical vegetarian. Patient presented yesterday with elevated alcohol level, We will monitor 24 hours more for alcohol withdrawal. social consult for homeless. 12/23: plan was for dc but patient left prior to completion of order/visit. adviced of risks by RN but accepted all risks. he is unable to find work due to undocumented status and due to this, he continues to drink. multiple interventions/counselling attempted. poor prognosis. diagnosis: Alcohol intoxication, with poisoning Alcohol withdrawal Tachycardia ETOH dependance, Thrombocytopenia, Leukopenia Homelessness, discharge: left AMA Condition at Discharge: Undetermined Final Diagnosis/Problems List Alcohol intoxication, with poisoning Alcohol withdrawal Tachycardia ETOH dependance, Thrombocytopenia, Leukopenia Homelessness, Discharge Disposition: AMA Discharge Instruct/Medications Scheduled Cobalamine Combinations (B-12 + Folic Acid 2500-400 Mcg), 1 TAB PO DAILY Empagliflozin (Jardiance), 10 MG PO DAILY Gemfibrozil (Gemfibrozil), 1 TAB PO BID Lisinopril (Lisinopril), 1 TAB PO DAILY Magnesium Oxide (Magnesium Oxide), 400 MG OR DAILY Metoprolol Succinate (Metoprolol Succinate Er), 25 MG PO DAILY Multiple Vitamin (Multivitamins), 1 TAB PO DAILY Pantoprazole Sodium Sesquihydr (Protonix), 40 MG PO DAILY Spironolactone (Spironolactone), 1 TAB PO DAILY Scheduled PRN Ibuprofen Micronized (Ibuprofen), 600 MG PO Q6HP PRN Ondansetron Odt 4MG Tab (Zofran Po), 4 MG PO TID PRN Discharge Statement: "Patient was advised to return to the ER or call 911 if any headaches, dizziness, shortness of breath, chest pain, abdominal pain, bleeding, fevers, or worsening of medical condition. Patient was counseled about treatment plan, medications, possible side effects, patientverbalized understanding. All questions were answered to the best of my ability. This discharge took greater then 30 minutes in planning, reviewing documentation, counseling the patient, and discussing with other team members." ASSESSMENT ASSESSMENT Assessment Date of Service: Dec 23, 2024 Billing Provider: MORIAH FIERRO MD Common Visit Codes: NOT BILLABLE MORIAH FIERRO MD Dec 23, 2024 16:43
== END 2024-12-23 15:43 | disposition left against medical advice (07) | DRG 812 ==
LOC: ER 21:38 → OVERFLOW 12-21 07:21 → TELE-WESTW 12-21 23:32
PROVIDERS: ADMIT Student in an Organized Health Care Education/Training Program; ATTEND Student in an Organized Health Care Education/Training Program
DX: T51.8X1A Toxic effect of other alcohols, accidental (unintentional), initial encounter (principal); D69.6 Thrombocytopenia, unspecified; D72.819 Decreased white blood cell count, unspecified; F10.139 Alcohol abuse with withdrawal, unspecified; F10.129 Alcohol abuse with intoxication, unspecified; Z59.00 Homelessness unspecified; R13.10 Dysphagia, unspecified; R00.0 Tachycardia, unspecified; Z53.29 Procedure and treatment not carried out because of patient's decision for other reasons; Y92.89 Other specified places as the place of occurrence of the external cause; Y90.8 Blood alcohol level of 240 mg/100 ml or more
CPT/HCPCS: 36415; 71045; 80048; 80053; 80320; 83735; 83880; 84484; 85007; 85025; 85027; 93005; 96374; 96376; G0378

== ENCOUNTER 2025-01-07 16:16 | Inpatient (IN) | payer MEDICAID ==
[~2025-01-07] VITALS: Ht 172 cm; Wt 70.0 kg
--- NOTE | 2025-01-07 17:08 | DVH ---
CHEST RADIOGRAPH Indication: tachycardia Technique: Single frontal view of the chest was obtained COMPARISON: XY CHEST XRAY 1 VIEW on DOS: 12/20/24, XY CHEST PORTABLE on DOS: 12/06/24, XY CHEST PORTABLE on DOS: 11/25/24, XY CHEST PORTABLE on DOS: 11/11/24, XY CHEST XRAY 1 VIEW on DOS: 10/31/24 FINDINGS: Lines and Tubes: None Lungs: Clear Pleura: No effusion. No pneumothorax. Cardiomediastinal contours: Unremarkable Bones: Unremarkable IMPRESSION: No acute disease.
--- NOTE | 2025-01-07 17:26 | ED.PDOC ---
Altered Mental Status HPI Comments 39 y/o M with history of alcohol abuse tachycardia brought in by EMS complaining of chest discomfort and appearing intoxicated with alcohol. Patient admits to drinking multiple shots of liquor today. He denies any shortness of breath. History is limited due to intoxication. Patient was noted to be actively vo miting shortly after arrival. Chief Complaint: ETOH Time Seen by MD: 16:30 Primary Care Provider: NONE Reviewed Notes: Nurses Notes, Medications, Allergies Allergies: Coded Allergies: NO KNOWN ALLERGIES (Unverified , 01/20/24) Home Meds Active Scripts Ibuprofen Micronized (Ibuprofen) 600 Mg Tab, 600 MG PO Q6HP PRN, #30 TAB Prov:LAYA KAPOOR PAC 10/29/24 Pantoprazole Sodium Sesquihydr (Protonix) 40 Mg Tab, 40 MG PO DAILY, #30 TAB Prov:NAYELI SOSA MD 09/30/24 Ondansetron Odt 4MG Tab (ZOFRAN PO) 4 Mg Tb, 4 MG PO TID PRN, #30 TAB ODT TAB-DISSOLVE IN MOUTH, THEN SWALLOW Prov:NAYELI SOSA MD 09/30/24 Cobalamine Combinations (B-12 + Folic Acid 2500-400 Mcg) 1 Tab Tab, 1 TAB PO DAILY for 30 Days, #30 TAB 0 Refills Prov:ALYCIA ANDINO RESIDENT 01/25/24 Multiple Vitamin (Multivitamins) Tab, 1 TAB PO DAILY for 30 Days, #90 TAB 0 Refills Prov:ALYCIA ANDINO [facility] 01/25/24 Magnesium Oxide (MAGNESIUM OXIDE) 400 Mg Tab, 400 MG OR DAILY for 7 Days, #7 TAB Prov:ALYCIA ANDINO [facility] 01/25/24 Gemfibrozil (Gemfibrozil) 600 Mg Tab, 1 TAB PO BID for 30 Days, #60 TAB 2 Refills Prov:ALYCIA ANDINO [facility] 01/25/24 Lisinopril (Lisinopril) 2.5 Mg Tab, 1 TAB PO DAILY for 30 Days, #30 TAB 2 Refills Prov:ALYCIA ANDINO [facility] 01/25/24 Empagliflozin (Jardiance) 10 Mg Tab, 10 MG PO DAILY for 30 Days, #30 TAB 2 Refills Prov:ALYCIA ANDINO [facility] 01/25/24 Metoprolol Succinate (Metoprolol Succinate Er) 25 Mg Tab, 25 MG PO DAILY for 30 Days, #30 TAB 2 Refills Prov:ALYCIA ANDINO RESIDENT 01/25/24 Spironolactone (Spironolactone) 25 Mg Tab, 1 TAB PO DAILY for 30 Days, #30 TAB 2 Refills Prov:ALYCIA ANDINO RESIDENT 01/25/24 Information Source: Patient Mode of Arrival: EMS Past Medical History Past Medical History (Other): Alcohol abuse/dependence, tachycardia Surgical History: Denies all surgeries Family History Family History: Reviewed,noncontributory to illness Social History Smoker: Non-Smoker Alcohol: Heavy Drugs: Denies Drug Use Lives In: Homeless Unable to Obtain due to: Altered Mental Status (Comprehensive systems review unobtainable due to intoxication.) Physical Exam General Appearance: Moderate Distress HEENT: Other (Pupils and face symmetric. Moist mucous membranes.) Neck: Full Range of Motion, Normal Inspection Respiratory: Lungs Clear, No Accessory Muscle Use, No Respiratory Distress, Normal Breath Sounds Cardiovascular: No Edema, No JVD, Tachycardia Breast Exam: Deferred Gastrointestinal: Non Tender, Soft Genitalia: Deferred Pelvic: Deferred Rectal: Deferred Extremities: Normal inspection, Normal range of motion, Non-tender, No pedal edema Neurologic: Alert, Other (Moves all extremities and follows commands. Appears intoxicated.) Cerebellar Function: NOT DONE Reflexes: NOT DONE Skin: Dry, Normal Color, Warm Lymphatic: NOT DONE EKG EKG : Comments Sinus tach, rate 154, normal SC and QRS intervals, QTC prolonged at 490, normal axis, normal QRS, inferior ST-depression Was a procedure done? Was a procedure done?: No Differential Diagnosis (ALOC) Differential Diagnosis: Dehydration, Encephalopathy, Drug Overdose, ETOH Intoxication Other Differential Diagnosis Electrolyte imbalance, alcohol withdrawal, arrhythmia, mi, among others X-Ray, Labs, Meds, VS Vital Signs Date Time Temp Pulse Resp B/P (MAP) Pulse Ox O2 Delivery O2 Flow Rate FiO2 01/07/25 20:00 118 30 124/85 (98) 98 01/07/25 19:00 108 25 116/80 (92) 97 01/07/25 18:00 98.1 112 30 117/81 (93) 98 98.1 01/07/25 18:00 112 30 98 Room Air* 0 21 01/07/25 16:24 154 01/07/25 16:21 98.0 125 16 129/93 98 98.0 Lab Test 01/07/25 20:12 01/07/25 19:25 01/07/25 18:09 Range/Units Troponin I High Sensitivity 19 16 </=54 ng/L White Blood Count 2.7 L 4.4-10.8 10^3/uL Red Blood Count 4.58 4.5-5.90 10^6/uL Hemoglobin 14.1 13.5-17.5 g/dL Hematocrit 41.6 41.0-53.0 % Mean Corpuscular Volume 90.9 80.0-100.0 fL Mean Corpuscular Hemoglobin 30.7 28.0-32.0 pg Mean Corpuscular Hemoglobin Concent 33.8 32.0-36.0 g/dL Red Cell Distribution Width 17.3 H 11.8-14.3 % Platelet Count 193 140-450 10^3/uL Mean Platelet Volume 6.8 L 6.9-10.8 fL Neutrophils (%) (Auto) 36.9 L 37.0-80.0 % Lymphocytes (%) (Auto) 49.5 10.0-50.0 % Monocytes (%) (Auto) 10.8 0.0-12.0 % Eosinophils (%) (Auto) 0.1 0.0-7.0 % Basophils (%) (Auto) 2.7 H 0.0-2.0 % Neutrophils # (Auto) 1.0 L 1.6-8.6 10 ^3/uL Lymphocytes # (Auto) 1.3 0.4-5.4 10 ^3/uL Monocytes # (Auto) 0.3 0-1.3 10 ^3/uL Eosinophils # (Auto) 0 0-0.8 10 ^3/uL Basophils # (Auto) 0.1 0-0.2 10 ^3/uL Nucleated Red Blood Cells 0.3 % Sodium Level 142 136-145 mmol/L Potassium Level 3.4 L 3.5-5.1 mmol/L Chloride Level 103 98-107 mmol/L Carbon Dioxide Level 21 20-31 mmol/L Anion Gap 18 H 5-15 Blood Urea Nitrogen < 5 L 9-23 mg/dL Creatinine 0.68 L 0.700-1.30 mg/dL Glomerular Filtration Rate Calc 121 >90 mL/min BUN/Creatinine Ratio 7.4 L 10.0-20.0 Serum Glucose 113 H 74-106 mg/dL Calcium Level 8.4 L 8.7-10.4 mg/dL Total Bilirubin 0.7 0.2-1.0 mg/dL Aspartate Amino Transferase (AST) 61 H 13-40 U/L Alanine Aminotransferase (ALT) 45 H 7-40 U/L Alkaline Phosphatase 105 46-116 U/L B-Type Natriuretic Peptide 39.76 0-100 pg/mL Total Protein 7.2 5.7-8.2 g/dL Albumin 4.2 3.2-4.8 g/dL Plasma/Serum Blood Alcohol 340.9 H <10 mg/dL Urine Color Yellow Yellow Urine Clarity Clear Clear Urine pH 7.5 5.0-9.0 Urine Specific [place] 1.013 1.001-1.035 Urine Protein 1+ H Negative Urine Ketones Negative Negative Urine Blood 2+ H Negative /uL Urine Nitrite Negative Negative Urine Bilirubin Negative Negative Urine Urobilinogen Normal Negative mg/dL Urine Leukocyte Esterase Negative Negative /uL Urine RBC 76 0 - 3 /hpf Urine Microscopic WBC 2 0-3 /HPF Urine Squamous Epithelial Cells Few <5 /hpf Urine Bacteria None seen None Seen /hpf Urine Mucus Few None Seen Urine Glucose Normal Normal mg/dL Urine Opiates Screen Neg NEGATIVE Urine Fentanyl Screen Neg NEGATIVE Urine Barbiturates Screen Neg NEGATIVE Urine Phencyclidine Screen Neg NEGATIVE Urine Amphetamines Screen Neg NEGATIVE Urine Benzodiazepines Screen Pos NEGATIVE Urine Cocaine Screen Neg NEGATIVE Urine Cannabinoids Screen Neg NEGATIVE Current Medications Medications (Trade) Dose Ordered Sig/Surjit Route Start Time Stop Time Status Last Admin Sodium Chloride 2,000 ml @ 1,000 mls/hr Q2H ONCE IV 01/07/25 16:45 01/07/25 18:44 DC 01/07/25 18:41 Ondansetron HCl (Zofran) 4 mg ONCE ONCE IV 01/07/25 20:30 01/07/25 20:31 DC 01/07/25 20:31 Sodium Chloride 1,000 ml @ 1,000 mls/hr Q1H ONCE IV 01/07/25 20:30 01/07/25 21:29 01/07/25 20:31 [facility] [id number] [place] [id number] Ph: [phone] DIAGNOSTIC IMAGING Diagnostic Imaging Report : [id number] Signed PATIENT: ADMIEN BAIG ACCT: [id number] UNIT: [id number] : 1985 LOC: ER ROOM / BED: / AGE / SEX: 39 / M ADM STATUS: REG ER SERVICE 1631 ORDERING PHYSICIAN: NAYELI SOSA MD PROCEDURE(s): CXRP - CHEST PORTABLE REASON: tachycardia ORDER NUMBER(s): [id number], ACCESSION NUMBER(s): [id number] CHEST RADIOGRAPH Indication: tachycardia Technique: Single frontal view of the chest was obtained COMPARISON: XY CHEST XRAY 1 VIEW on DOS: 12/20/24, XY CHEST PORTABLE on DOS: 12/06/24, XY CHEST PORTABLE on DOS: 11/25/24, XY CHEST PORTABLE on DOS: 11/11/24, XY CHEST XRAY 1 VIEW on DOS: 10/31/24 FINDINGS: Lines and Tubes: None Lungs: Clear Pleura: No effusion. No pneumothorax. Cardiomediastinal contours: Unremarkable Bones: Unremarkable IMPRESSION: No acute disease. ATED BY: ROMEO VELAZQUEZ MD DICTATED DATE/TIME: 01/07/251705 SIGNED BY: ROMEO VELAZQUEZ MD SIGNED DATE/TIME: 01/07/251705 CC: X-Ray, Labs, Meds, VS Comment 39 y/o M with history of alcohol abuse tachycardia brought in by EMS complaining of chest discomfort and appearing intoxicated with alcohol. Vitals remarkable for heart rate 125, P 120 9/93 Exam remarkable for tachycardia and intoxicated appearance Rhythm strip independently interpreted by me: Sinus tach, rate 54, no ectopy. Chest x-ray unremarkable CBC remarkable for WBC 2.7, CMP remarkable for potassium 3.4, AST 61, ALT 45, BNP and 2 serial troponins negative, urine drug screen positive for benzos, serum alcohol 340.9 Patient treated with the following in the ED: 2 L 0.9 normal saline IV bolus, Zofran 4 mg IV, effervescent potassium 50 mEq p.o., Librium 50 mg p.o. On re-evaluation patient's heart rate was down to 118. Other vitals were stable. Patient will be placed on ED observation and will likely be stable for discharge when he is able to ambulate. Time of 1ST Reevaluation: 17:00 Reevaluation 1ST: Unchanged Patient Education/Counseling: Diagnosis, Treatment Family Education/Counseling: No Family Present SEPSIS Sepsis Screen Date sepsis recognized/suspect: Jan 07, 2025 Time Sepsis recognized/suspect: 1621 Recent Procedure: No On Antibiotic Therapy: No Respiratory Rate >20: No Heart Rate >90: Yes Temp<36 C (96.8 F) or >38.3 C: No SBP <90 or MAP <65 mmHG: No New Acute Mental Status Change: No Is the patient on CPAP, BIPAP,: Yes Physician Orders Chest Portable (01/07/25 16:31) Heplock Iv (01/07/25 16:31) Procurement Director (01/07/25 16:31) Blood Pressure (01/07/25 16:31) Pulse Oximetry (01/07/25 16:31) Electrocardigram (01/07/25 16:31) Troponin-I Hs (01/07/25 19:31) Sodium Chloride 0.9% (01/07/25 20:30) Vital Signs Date Time Temp Pulse Resp B/P (MAP) Pulse Ox O2 Delivery O2 Flow Rate FiO2 01/07/25 20:00 118 30 124/85 (98) 98 01/07/25 19:00 108 25 116/80 (92) 97 01/07/25 18:00 98.1 112 30 117/81 (93) 98 98.1 01/07/25 18:00 112 30 98 Room Air* 0 21 01/07/25 16:24 154 01/07/25 16:21 98.0 125 16 129/93 98 98.0 Laboratory Tests Test 01/07/25 19:25 White Blood Count 2.7 10^3/uL (4.4-10.8) L Medications Medications Dose Ordered Sig/Surjit Route Start Time Stop Time Status Last Admin Dose Admin Ondansetron HCl 4 mg ONCE ONCE IV 01/07/25 20:30 01/07/25 20:31 DC 01/07/25 20:31 Sodium Chloride 1,000 ml @ 1,000 mls/hr Q1H ONCE IV 01/07/25 20:30 01/07/25 21:29 01/07/25 20:31 Sodium Chloride 2,000 ml @ 1,000 mls/hr Q2H ONCE IV 01/07/25 16:45 01/07/25 18:44 DC 01/07/25 18:41 Departure 1 Departure Time of Disposition: 21:19 Impression: Primary Impression: Alcohol intoxication Additional Impressions: Tachycardia Nausea and vomiting Disposition: HOME / SELF CARE / HOMELESS Condition: Stable Additional Instructions: Follow-up with your primary doctor in 1-2 days. e-Prescriptions Ondansetron Odt 4MG Tab (ZOFRAN PO) 4 Mg Tb 4 MG PO TID PRN, #20 TAB ODT TAB-DISSOLVE IN MOUTH, THEN SWALLOW Prov: NAYELI SOSA MD 01/07/25 Discharged With: Self Critical Care Note Critical Care Time?: No Stability Stability form required: No Heart Score Heart Score: Heart Score Response (Comments) Value History N/A 0 EKG N/A 0 Age N/A 0 Risk Factors N/A 0 Troponin N/A 0 Total 0 I personally scribed for NAYELI SOSA MD ([email or web address]) on 01/07/25 at 17:26. Electronically submitted by Paulo Cheatham ([email or web address]). I personally scribed for NAYELI SOSA MD ([email or web address]) on 01/07/25 at 17:51. Electronically submitted by Paulo Cheatham ([email or web address]). NAYELI SOSA MD Jan 07, 2025 17:26
[2025-01-07 18:00] VITALS: PULSE 112; RESP 30; O2SAT 98
[2025-01-07] MEDS: SODIUM CHLORIDE 0.9% 2,000 ML IV ONE (18:41)
[2025-01-07 19:37] LABS: Hematocrit 41.6 % (41.0-53.0); Hemoglobin 14.1 g/dL (13.5-17.5); Mean Corpuscular Hemoglobin 30.7 pg (28.0-32.0); Mean Corpuscular Volume 90.9 fL (80.0-100.0); Nucleated Red Blood Cells % 0.3 %
[2025-01-07 19:53] LABS: Albumin 4.2 g/dL (3.2-4.8); Alkaline Phosphatase 105 U/L (46-116); Anion Gap 18 (5-15); Bilirubin, Total 0.7 mg/dL (0.2-1.0); Carbon Dioxide 21 mmol/L (20-31); Chloride 103 mmol/L (98-107); Sodium 142 mmol/L (136-145); Total Protein 7.2 g/dL (5.7-8.2)
[2025-01-07 19:55] LABS: Alanine Aminotransferase 45 U/L (7-40); BUN/Creatinine Ratio 7.4 (10.0-20.0); Blood Urea Nitrogen < 5 mg/dL (9-23); Calcium 8.4 mg/dL (8.7-10.4); Glucose 113 mg/dL (74-106); Potassium 3.4 mmol/L (3.5-5.1)
[2025-01-07] MEDS: SODIUM CHLORIDE 0.9% 1,000 ML IV ONE ×2 (20:31→21:35)
[2025-01-07] MEDS: ONDANSETRON HCL 4 MG/2 ML VIAL IV ONE (20:31)
[2025-01-07 20:34] LABS: Urine Protein, UAD 1+ (Negative)
[2025-01-07 20:38] LABS: Amphetamine Screen, Urine Neg (NEGATIVE); Barbiturate Scree,Urine Neg (NEGATIVE); Benzodiazephine Screen, Urine Pos (NEGATIVE); Cannabinoid Screen, Urine Neg (NEGATIVE); Cocaine Screen, Urine Neg (NEGATIVE); Opiate Scree,Urine Neg (NEGATIVE); Phencyclidine Screen, Urine Neg (NEGATIVE)
[2025-01-07] MEDS: POTASSIUM EFFERVESENT TAB 25 MEQ PO ONE (22:18)
[2025-01-07 23:46] VITALS: PULSE 120; RESP 22; O2SAT 97
[2025-01-08] MEDS: ONDANSETRON HCL 4 MG/2 ML VIAL IV ONE (00:09)
[2025-01-08] MEDS ORDERED: FOLIC ACID 1 MG in D5W 5% 50 ML INJ ONE (01:45)
[2025-01-08] MEDS ORDERED: ONDANSETRON HCL 4 MG/2 ML VIAL IV PRN (01:45)
--- NOTE | 2025-01-08 01:49 | DVHHPRES ---
History of Present Illness Resident Creating Document: KIMBERLY RAM RESIDENT History of Present Illness 39-year-old homeless male with history of alcohol dependence, hypertriglyceridemia induced pancreatitis, hypertension, heart failure with reduced ejection fraction was BIBA to the ER for the evaluation of chest pain, vomiting and diarrhea. Patient appears intoxicated with alcohol. He admits to drinking multiple shots of liquor yesterday, patient is homeless and says that somebody gave it to him. He has been experiencing intractable vomiting, nonbloody, and diarrhea 3 episodes today, large volume nonbloody, also reports experiencing severe chills and feeling of warmth as if his whole body was burning. Patient has been admitted to this facility multiple times for alcohol withdrawal and pancreatitis. He has resting tremors. Reports that the chest pain is sharp and started after vomiting, nonexertional and nonradiating, localized. Denies urinary symptoms/fever at this time. Past medical history:alcohol dependence, hypertriglyceridemia induced pancreatitis, hypertension, heart failure with reduced ejection fraction Past surgical history: None Home medication: Denies Social history: Drinks daily, denies other drug use, patient is homeless Smoke: No ALCOHOL: heavy Drugs: None Lives: Homeless Review of Systems Constitutional: Yes: Chills, Weakness Cardiovascular: Chest Pain Gastrointestinal: Nausea, Vomiting, Abdominal Pain, Diarrhea Allergies: Coded Allergies: NO KNOWN ALLERGIES (Unverified , 01/20/24) Exam Vital Signs Vital Signs Date Time Temp Pulse Resp B/P (MAP) Pulse Ox O2 Delivery O2 Flow Rate FiO2 01/07/25 23:50 98.5 120 22 110/63 (79) 94 98.5 01/07/25 23:46 Room Air* 0 21 Exam Young male patient, lying in the bed in ER, no acute distress but looks disheveled. Lips are chapped. tremors on both bilateral outstretched hand. General: Afebrile,, palor, mucosae are moist Cardiovascular: Tachycardic but Regular S1 and S2. No murmurs, gallops or rubs. No JVD elevation. No pedal edema Respiratory: Normal B/L air entry on room air. Clear lung sounds on auscultation Abdomen: Abdomen is tender diffusely, but soft nondistended, normoactive bowel sounds, no rebound tenderness, no organomegaly, no masses Genitourinary: Deferred MSK/skin: Mobilizes 4 limbs. Skin is dry and warm Neurological: No motor, no sensitive deficits, normal speech. Pupils are isocoric and reactive. Psych/Mental Status: A/Ox3 Labs/Xrays Labs Test 01/07/25 20:12 01/07/25 19:25 01/07/25 18:09 Range/Units Troponin I High Sensitivity 19 </=54 ng/L White Blood Count 2.7 L 4.4-10.8 10^3/uL Red Blood Count 4.58 4.5-5.90 10^6/uL Hemoglobin 14.1 13.5-17.5 g/dL Hematocrit 41.6 41.0-53.0 % Mean Corpuscular Volume 90.9 80.0-100.0 fL Mean Corpuscular Hemoglobin 30.7 28.0-32.0 pg Mean Corpuscular Hemoglobin Concent 33.8 32.0-36.0 g/dL Red Cell Distribution Width 17.3 H 11.8-14.3 % Platelet Count 193 140-450 10^3/uL Mean Platelet Volume 6.8 L 6.9-10.8 fL Neutrophils (%) (Auto) 36.9 L 37.0-80.0 % Lymphocytes (%) (Auto) 49.5 10.0-50.0 % Monocytes (%) (Auto) 10.8 0.0-12.0 % Eosinophils (%) (Auto) 0.1 0.0-7.0 % Basophils (%) (Auto) 2.7 H 0.0-2.0 % Neutrophils # (Auto) 1.0 L 1.6-8.6 10 ^3/uL Lymphocytes # (Auto) 1.3 0.4-5.4 10 ^3/uL Monocytes # (Auto) 0.3 0-1.3 10 ^3/uL Eosinophils # (Auto) 0 0-0.8 10 ^3/uL Basophils # (Auto) 0.1 0-0.2 10 ^3/uL Nucleated Red Blood Cells 0.3 % Sodium Level 142 136-145 mmol/L Potassium Level 3.4 L 3.5-5.1 mmol/L Chloride Level 103 98-107 mmol/L Carbon Dioxide Level 21 20-31 mmol/L Anion Gap 18 H 5-15 Blood Urea Nitrogen < 5 L 9-23 mg/dL Creatinine 0.68 L 0.700-1.30 mg/dL Glomerular Filtration Rate Calc 121 >90 mL/min BUN/Creatinine Ratio 7.4 L 10.0-20.0 Serum Glucose 113 H 74-106 mg/dL Calcium Level 8.4 L 8.7-10.4 mg/dL Total Bilirubin 0.7 0.2-1.0 mg/dL Aspartate Amino Transferase (AST) 61 H 13-40 U/L Alanine Aminotransferase (ALT) 45 H 7-40 U/L Alkaline Phosphatase 105 46-116 U/L B-Type Natriuretic Peptide 39.76 0-100 pg/mL Total Protein 7.2 5.7-8.2 g/dL Albumin 4.2 3.2-4.8 g/dL Plasma/Serum Blood Alcohol 340.9 H <10 mg/dL Urine Color Yellow Yellow Urine Clarity Clear Clear Urine pH 7.5 5.0-9.0 Urine Specific [place] 1.013 1.001-1.035 Urine Protein 1+ H Negative Urine Ketones Negative Negative Urine Blood 2+ H Negative /uL Urine Nitrite Negative Negative Urine Bilirubin Negative Negative Urine Urobilinogen Normal Negative mg/dL Urine Leukocyte Esterase Negative Negative /uL Urine RBC 76 0 - 3 /hpf Urine Microscopic WBC 2 0-3 /HPF Urine Squamous Epithelial Cells Few <5 /hpf Urine Bacteria None seen None Seen /hpf Urine Mucus Few None Seen Urine Glucose Normal Normal mg/dL Urine Opiates Screen Neg NEGATIVE Urine Fentanyl Screen Neg NEGATIVE Urine Barbiturates Screen Neg NEGATIVE Urine Phencyclidine Screen Neg NEGATIVE Urine Amphetamines Screen Neg NEGATIVE Urine Benzodiazepines Screen Pos NEGATIVE Urine Cocaine Screen Neg NEGATIVE Urine Cannabinoids Screen Neg NEGATIVE SEPSIS Sepsis Screen Date sepsis recognized/suspect: Jan 07, 2025 Time Sepsis recognized/suspect: 2335 Recent Procedure: No On Antibiotic Therapy: No Respiratory Rate >20: Yes Heart Rate >90: Yes Temp<36 C (96.8 F) or >38.3 C: No SBP <90 or MAP <65 mmHG: No New Acute Mental Status Change: No Is the patient on CPAP, BIPAP,: No Physician Orders Communication Order (01/07/25 21:22) Admit (01/08/25 01:25) Vital Signs Date Time Temp Pulse Resp B/P (MAP) Pulse Ox O2 Delivery O2 Flow Rate FiO2 01/07/25 23:50 98.5 120 22 110/63 (79) 94 98.5 8/23/25 23:46 120 22 97 Room Air* 0 21 01/07/25 22:00 126 24 113/65 (81) 95 01/07/25 21:00 118 17 126/76 (93) 96 01/07/25 20:00 126 30 124/85 (98) 98 01/07/25 19:00 108 25 116/80 (92) 97 01/07/25 18:00 98.1 112 30 117/81 (93) 98 98.1 01/07/25 18:00 112 30 98 Room Air* 0 21 Laboratory Tests Test 01/07/25 19:25 White Blood Count 2.7 10^3/uL (4.4-10.8) L Medications Medications Dose Ordered Sig/Surjit Route Start Time Stop Time Status Last Admin Dose Admin Chlordiazepoxide HCl 50 mg ONCE ONCE PO 01/07/25 21:30 01/07/25 21:31 DC 01/07/25 22:18 50 MG Ondansetron HCl 4 mg ONCE ONCE IV 01/07/25 20:30 01/07/25 20:31 DC 01/07/25 20:31 4 MG Ondansetron HCl 4 mg ONCE ONCE IV 01/08/25 00:00 01/08/25 00:01 DC 01/08/25 00:09 4 MG Potassium Bicarbonate 50 meq ONCE ONCE PO 01/07/25 21:30 01/07/25 21:31 DC 01/07/25 22:18 50 MEQ Sodium Chloride 1,000 ml @ 1,000 mls/hr Q1H ONCE IV 01/07/25 20:30 01/07/25 21:29 DC 01/07/25 20:31 1,000 MLS/HR Sodium Chloride 1,000 ml @ 1,000 mls/hr Q1H ONCE IV 01/07/25 21:30 01/07/25 22:29 DC 01/07/25 21:35 1,000 MLS/HR Sodium Chloride 2,000 ml @ 1,000 mls/hr Q2H ONCE IV 01/07/25 16:45 01/07/25 18:44 DC 01/07/25 18:41 1,000 MLS/HR Assessment/Plan Assessment/Plan Acute metabolic encephalopathy d/t Acute alcohol intoxication Acute alcohol withdrawal-CIWA score 14 Chronic alcohol dependence Transaminitis alcoholic induced ER. 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 diet Intractable nausea and vomiting History of triglyceride induced pancreatitis Lipase pending Leukopenia Monitor Retic count pending Homelessness Medication noncompliance Social consultation Lovenox 40 mg sc daily Pantoprazole 40 mg IV daily Plan discussed with patient in which all questions have been answered Goals of care discussed for more than 21 minutes, full code status Case discussed with Dr. Vizcarra, patient admitted to telemetry unit Plan discussed with: Patient, Other (Nurse) My Orders Orders - KIMBERLY RAM Procedure Category Date Status Time Admit ADMIT 01/08/25 Transmitted 01:25 Date of Service: Jan 08, 2025 Billing Provider: MIGUEL VIZCARRA MD Common Visit Codes: [id number] INP/OBS CARE (HIGH) KIMBERLY RAM Jan 08, 2025 01:49
[2025-01-08] MEDS: PANTOPRAZOLE 40 MG/10 ML VIAL INJ IV ONE (02:07)
[2025-01-08] MEDS: LORazepam 2MG/ML-1ML VIAL IV SCH (02:10)
[2025-01-08] MEDS: THIAMINE 100mg/ml INJ (200mg/2ml VIAL) IV ONE (02:40)
[2025-01-08] MEDS: FOLIC ACID 1 MG TAB PO ONE (03:07)
--- NOTE | 2025-01-08 03:07 | DVH ---
Exam: XY KUB ABDOMEN SINGLE VIEW Indication: Abdominal tenderness Comparison: None Technique: 1 radiographic views of the abdomen. Findings: Nonobstructive bowel-gas. A few gas distended small bowel loops are present. The lower chest is excl uded. Osseous structures are unremarkable. Impression: 1. Nonobstructive bowel-gas pattern.
[2025-01-08 05:27] LABS: Hematocrit 37.7 % (41.0-53.0); Hemoglobin 12.7 g/dL (13.5-17.5); Mean Corpuscular Hemoglobin 30.7 pg (28.0-32.0); Mean Corpuscular Volume 91.0 fL (80.0-100.0); Nucleated Red Blood Cells % 0.1 %
[2025-01-08 05:43] LABS: Triglycerides 68 mg/dL (< 150)
[2025-01-08 05:45] LABS: Alanine Aminotransferase 42 U/L (7-40); Albumin 4.0 g/dL (3.2-4.8); Alkaline Phosphatase 99 U/L (46-116); Anion Gap 15 (5-15); BUN/Creatinine Ratio 7.6 (10.0-20.0); Blood Urea Nitrogen < 5 mg/dL (9-23); Calcium 7.8 mg/dL (8.7-10.4); Carbon Dioxide 23 mmol/L (20-31); Chloride 102 mmol/L (98-107); Glucose 91 mg/dL (74-106); Potassium 3.5 mmol/L (3.5-5.1); Sodium 140 mmol/L (136-145); Total Protein 6.7 g/dL (5.7-8.2)
[2025-01-08 05:46] LABS: Bilirubin, Total 1.0 mg/dL (0.2-1.0)
[2025-01-08 05:57] LABS: Lipase 40 U/L (12-53)
--- NOTE | 2025-01-08 08:27 | DVHPNRES ---
Progress Note Date Seen: Jan 08, 2025 Resident Creating Document: DALLAS CHANDLER RESDIENT Medical Necessity Reason Pt with a Central, PICC or Fol: No Subjective Review of Systems 39-year-old homeless male with history of alcohol dependence, hypertriglyceridemia induced pancreatitis, hypertension, heart failure with reduced ejection fraction was BIBA to the ER for the evaluation of chest pain, vomiting and diarrhea. Patient appears intoxicated with alcohol. He admits to drinking multiple shots of liquor yesterday, patient is homeless and says that somebody gave it to him. He has been experiencing intractable vomiting, nonbloody, and diarrhea 3 episodes today, large volume nonbloody, also reports experiencing severe chills and feeling of warmth as if his whole body was burning. Patient has been admitted to this facility multiple times for alcohol withdrawal and pancreatitis. He has resting tremors. Reports that the chest pain is sharp and started after vomiting, nonexertional and nonradiating, localized. Denies urinary symptoms/fever at this time. Past medical history:alcohol dependence, hypertriglyceridemia induced pancreatitis, hypertension, heart failure with reduced ejection fraction Past surgical history: None Home medication: Denies Social history: Drinks daily, denies other drug use, patient is homeless Objective vital signs Vital Sign Date Time Temp Pulse Resp B/P (MAP) Pulse Ox O2 Delivery O2 Flow Rate FiO2 01/08/25 06:00 112 14 121/81 (94) 96 01/08/25 03:24 97.7 97.7 01/07/25 23:46 Room Air* 0 21 Total Intake and Output 01/07/25 01/07/25 01/08/25 15:00 23:00 07:00 Intake Total 4000 ml Output Total 950 ml 350 ml Balance 3050 ml -350 ml medications Current Medications Medications Dose Ordered Sig/Surjit Route Start Time Stop Time Status Last Admin Dose Admin Thiamine HCl 100 mg DAILY IV 01/09/25 10:00 Folic Acid 1 mg/ Dextrose 50.2 ml @ 200.8 mls/ hr DAILY INJ 01/09/25 10:00 Multivitamins 1 tab DAILY PO 01/08/25 10:00 Pantoprazole Sodium 40 mg DAILY IV 01/09/25 10:00 Enoxaparin Sodium 40 mg DAILY SC 01/08/25 10:00 Lorazepam 1 mg Q4HR IV 01/08/25 02:00 01/08/25 06:28 1 MG Examination General Appearance: Alert, Oriented X3, Cooperative, No acute distress HEENT: Atraumatic, PERRLA, EOMI, Mucous membrane moist/pink Respiratory: Clear to auscultation, Normal air movement Cardiovascular: Regular rate, Normal S1, Normal S2, No murmurs, no chest wall tenderness Abdominal: Normal bowel sounds, Soft, No tenderness, No hepatospenomegaly, No masses Extremities: No clubbing, No cyanosis, No edema, Normal pulses, No tenderness/swelling Skin: No rashes, No breakdown, No significant lesion Neuro: Normal gait, Normal speech, Strength at 5/5 X4 ext, Normal tone, Sensation intact, Cranial nerves 3-12 NL, Reflexes 2+ Psych/Mental Status: Mental status NL, Mood NL laboratory and microbiology Laboratory Tests 01/08/25 05:03 Test 01/08/25 05:03 Range/Units Serum Glucose 91 74-106 mg/dL Labs and/or images reviewed: Labs reviewed by me, Image(s) reviewed by me Problem List/Assessment/Plan Problem List/Assessment/Plan Acute metabolic encephalopathy, likely due to Acute alcohol intoxication/withdrawal Acute alcohol withdrawal-CIWA score 14 Chronic alcohol dependence Transaminitis alcoholic induced Acute chest pain, ruled out ACS Sinus tachycardia Chronic heart failure with reduced ejection fraction-NYHA class 2 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 Intractable nausea and vomiting, likely due to alcoholic gastritis History of triglyceride induced pancreatitis Leukopenia, likely due to alcohol use disorder Homelessness Medication noncompliance Hypomagnesemia * EKGs shows sinus tachycardia, repeat EKG * Chest x-ray shows no significant intrathoracic abnormalities * Abdominal x-ray shows nonobstructive gas pattern * Serum alcohol shows 340 Plan/recommendation: * Ativan 1 mg q.2 hours * IV fluid * Zofran * Resume home meds DIET: Clear liquid diet DVT PROPHYLAXIS: Lovenox GI PROPHYLAXIS:: Protonix CODE STATUS: Goal of care discussed for more than 18 minutes, full code DISPOSITION: Telemetry Patient's status and plan discussed with the patient. Case discussed with Dr. Yu. Plan discussed with: Patient, Other (RN) Date of Service: Jan 08, 2025 Billing Provider: IRON YU MD Common Visit Codes: NOT BILLABLE DALLAS CHANDLER RESDIENT Jan 08, 2025 08:27 IRON YU MD Jan 09, 2025 11:13
[2025-01-08] MEDS: EMPAGLIFLOZIN 10 MG TAB PO SCH (09:53)
[2025-01-08] MEDS: SPIRONOLACTONE 25 MG TAB PO SCH (09:54)
[2025-01-08] MEDS: MULTIPLE VITAMIN TAB PO SCH (09:54)
[2025-01-08] MEDS: METOPROLOL TARTRATE 25 MG TAB PO SCH (09:54)
[2025-01-08] MEDS: LISINOPRIL 5 MG TAB PO SCH (09:55)
[2025-01-08] MEDS: ENOXAPARIN SOD 40 MG/0.4 ML SYRINGE SC SCH (09:56)
[2025-01-08 19:35] VITALS: PULSE 110; RESP 17; O2SAT 98
[2025-01-09] VITALS (7 sets, daily range): BP systolic 96–117; BP diastolic 66–88; PULSE 89–132; RESP 16–20; TEMP 97.9–98.9; O2SAT 90–98
[2025-01-09] MEDS: THIAMINE 100mg/ml INJ (200mg/2ml VIAL) IV SCH (09:24)
[2025-01-09] MEDS: PANTOPRAZOLE 40 MG/10 ML VIAL INJ IV SCH (09:24)
[2025-01-09] MEDS: FOLIC ACID 1 MG in D5W 5% 50 ML INJ SCH (11:06)
[2025-01-09] MEDS: LORazepam 2MG/ML-1ML VIAL IV SCH (11:08)
--- NOTE | 2025-01-09 11:57 | DVHPN2 ---
Subjective The patient seen and examined at bedside. Still shaking and confuse. Reviewed: Care Plan, H&P, Labs, Medications, Previous Orders, Radiology Changes from previous H/P or p: No Changes Cardiovascular: Chest Pain Gastrointestinal: Nausea, Vomiting, Abdominal Pain, Diarrhea Objective Vitals Vital Signs Date Time Temp Pulse Resp B/P (MAP) Pulse Ox O2 Delivery O2 Flow Rate FiO2 01/09/25 11:12 107 110/70 01/09/25 09:00 98.9 16 98 98.9 01/08/25 23:44 Room Air* 0 21 Intake/Output Intake and Output 01/09/25 07:00 Intake Total 280 ml Output Total 700 ml Balance -420 ml Intake Oral 280 ml Output Urine Total 700 ml General Appearance: Alert, mild distress HEENT: Atraumatic, PERRLA, EOMI, Mucous membr. moist/pink Neck: Supple Lungs: Clear to auscultation, Normal air movement Cardiovascular: Regular rate, Normal S1, Normal S2, No murmurs, Gallops, Rubs Abdomen: Normal bowel sounds, Soft Medications Current Medications Medications Dose Ordered Sig/Surjit Route Start Time Stop Time Status Last Admin Dose Admin Thiamine HCl 100 mg DAILY IV 01/09/25 10:00 01/09/25 09:24 100 MG Folic Acid 1 mg/ Dextrose 50.2 ml @ 200.8 mls/ hr DAILY INJ 01/09/25 10:00 01/09/25 11:06 200.8 MLS/HR Multivitamins 1 tab DAILY PO 01/08/25 10:00 01/09/25 09:23 1 TAB Pantoprazole Sodium 40 mg DAILY IV 01/09/25 10:00 01/09/25 09:24 40 MG Enoxaparin Sodium 40 mg DAILY SC 01/08/25 10:00 01/09/25 09:23 40 MG Lisinopril 2.5 mg DAILY PO 01/08/25 10:00 01/08/25 09:55 2.5 MG Spironolactone 25 mg DAILY PO 01/08/25 10:00 01/09/25 09:23 25 MG Empaglifozin 10 mg DAILY PO 01/08/25 10:00 01/09/25 09:23 10 MG Metoprolol Tartrate 25 mg BID PO 01/08/25 10:00 01/09/25 09:23 25 MG Lorazepam 1 mg Q4H IV 01/09/25 12:00 01/09/25 11:08 1 MG Laboratory Results Laboratory Tests 01/08/25 05:03 Urinalysis Test 01/07/25 18:09 Urine Color Yellow (Yellow) Urine Clarity Clear (Clear) Urine pH 7.5 (5.0-9.0) Urine Specific [place] 1.013 (1.001-1.035) Urine Protein 1+ (Negative) H Urine Ketones Negative (Negative) Urine Blood 2+ /uL (Negative) H Urine Nitrite Negative (Negative) Urine Bilirubin Negative (Negative) Urine Urobilinogen Normal mg/dL (Negative) Urine Leukocyte Esterase Negative /uL (Negative) Urine RBC 76 /hpf (0 - 3) Urine Microscopic WBC 2 /HPF (0-3) Urine Squamous Epithelial Cells Few /hpf (<5) Urine Bacteria None seen /hpf (None Seen) Urine Mucus Few (None Seen) Urine Glucose Normal mg/dL (Normal) Labs and/or images reviewed: Labs reviewed by me Assessment/Plan Assessment/Plan Acute metabolic encephalopathy, likely due to Acute alcohol intoxication/withdrawal Acute alcohol withdrawal-CIWA score 14 Chronic alcohol dependence Transaminitis alcoholic induced Acute chest pain, ruled out ACS Sinus tachycardia Chronic heart failure with reduced ejection fraction-NYHA class 2 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 * Will check CBC and CMP today. * DIET: Clear liquid diet DVT PROPHYLAXIS: Lovenox GI PROPHYLAXIS:: Protonix Plan discussed with: Patient, Other (RN) Date of Service: Jan 09, 2025 Billing Provider: IRON YU MD Common Visit Codes: [id number] INP/OBS CARE(HIGH) IRON YU MD Jan 09, 2025 11:57
[2025-01-09 16:58] LABS: Hematocrit 40.4 % (41.0-53.0); Hemoglobin 13.9 g/dL (13.5-17.5); Mean Corpuscular Hemoglobin 31.3 pg (28.0-32.0); Mean Corpuscular Volume 90.7 fL (80.0-100.0); Nucleated Red Blood Cells % 0.2 %
[2025-01-09 17:13] LABS: Alanine Aminotransferase 35 U/L (7-40); Albumin 4.2 g/dL (3.2-4.8); Anion Gap 9 (5-15); Calcium 9.3 mg/dL (8.7-10.4); Carbon Dioxide 28 mmol/L (20-31); Glucose 101 mg/dL (74-106); Potassium 4.1 mmol/L (3.5-5.1); Total Protein 7.0 g/dL (5.7-8.2)
[2025-01-09 17:14] LABS: Alkaline Phosphatase 122 U/L (46-116); BUN/Creatinine Ratio 6.3 (10.0-20.0); Bilirubin, Total 1.5 mg/dL (0.2-1.0); Blood Urea Nitrogen < 5 mg/dL (9-23); Chloride 98 mmol/L (98-107); Magnesium 1.6 mg/dL (1.6-2.6); Sodium 135 mmol/L (136-145)
[2025-01-09] MEDS: MAGNESIUM SULFATE 1GM/100ML 100 ML IV SCH (18:31)
[2025-01-10] VITALS (9 sets, daily range): BP systolic 95–109; BP diastolic 60–77; PULSE 87–123; RESP 16–18; TEMP 97.8–98.6; O2SAT 96–100
[2025-01-10 07:55] LABS: Hematocrit 39.5 % (41.0-53.0); Hemoglobin 13.5 g/dL (13.5-17.5); Mean Corpuscular Hemoglobin 31.1 pg (28.0-32.0); Mean Corpuscular Volume 91.3 fL (80.0-100.0); Nucleated Red Blood Cells % 0.1 %
[2025-01-10 08:06] LABS: Alanine Aminotransferase 29 U/L (7-40); Albumin 4.2 g/dL (3.2-4.8); Alkaline Phosphatase 112 U/L (46-116); Anion Gap 11 (5-15); Calcium 8.9 mg/dL (8.7-10.4); Carbon Dioxide 26 mmol/L (20-31); Chloride 98 mmol/L (98-107); Glucose 84 mg/dL (74-106); Magnesium 2.2 mg/dL (1.6-2.6); Total Protein 7.0 g/dL (5.7-8.2)
[2025-01-10 08:26] LABS: Potassium 3.4 mmol/L (3.5-5.1); Sodium 135 mmol/L (136-145)
[2025-01-10 08:27] LABS: BUN/Creatinine Ratio 6.6 (10.0-20.0); Bilirubin, Total 1.7 mg/dL (0.2-1.0); Blood Urea Nitrogen < 5 mg/dL (9-23)
--- NOTE | 2025-01-10 11:53 | DVHPN2 ---
Subjective The patient seen and examined at bedside. Still shaking and confuse. Reviewed: Care Plan, H&P, Labs, Medications, Previous Orders, Radiology Changes from previous H/P or p: No Changes Cardiovascular: Chest Pain Gastrointestinal: Nausea, Vomiting, Abdominal Pain, Diarrhea Objective Vitals Vital Signs Date Time Temp Pulse Resp B/P (MAP) Pulse Ox O2 Delivery O2 Flow Rate FiO2 01/10/25 09:15 109/71 01/10/25 09:01 117 01/10/25 09:00 97.8 17 99 97.8 01/08/25 23:44 Room Air* 0 21 Intake/Output Intake and Output 01/10/25 07:00 Intake Total 1050.2 ml Output Total 3410 ml Balance -2359.8 ml Intake Oral 900 ml IV Total 150.2 ml Output Urine Total 3410 ml # Voids 3 # Bowel Movements 1 General Appearance: Alert, mild distress HEENT: Atraumatic, PERRLA, EOMI, Mucous membr. moist/pink Neck: Supple Lungs: Clear to auscultation, Normal air movement Cardiovascular: Regular rate, Normal S1, Normal S2, No murmurs, Gallops, Rubs Abdomen: Normal bowel sounds, Soft Medications Current Medications Medications Dose Ordered Sig/Surjit Route Start Time Stop Time Status Last Admin Dose Admin Thiamine HCl 100 mg DAILY IV 01/09/25 10:00 01/10/25 09:00 100 MG Folic Acid 1 mg/ Dextrose 50.2 ml @ 200.8 mls/ hr DAILY INJ 01/09/25 10:00 01/09/25 11:06 200.8 MLS/HR Multivitamins 1 tab DAILY PO 01/08/25 10:00 01/10/25 09:00 1 TAB Pantoprazole Sodium 40 mg DAILY IV 01/09/25 10:00 01/10/25 09:00 40 MG Enoxaparin Sodium 40 mg DAILY SC 01/08/25 10:00 01/09/25 09:23 40 MG Lisinopril 2.5 mg DAILY PO 01/08/25 10:00 01/10/25 09:15 2.5 MG Spironolactone 25 mg DAILY PO 01/08/25 10:00 01/10/25 09:01 25 MG Empaglifozin 10 mg DAILY PO 01/08/25 10:00 01/10/25 09:00 10 MG Metoprolol Tartrate 25 mg BID PO 01/08/25 10:00 01/10/25 09:01 25 MG Lorazepam 1 mg Q4H IV 01/09/25 12:00 01/10/25 09:00 1 MG Laboratory Results Laboratory Tests 01/10/25 06:43 Chemistry Test 01/09/25 16:25 01/10/25 06:43 Albumin 4.2 g/dL (3.2-4.8) 4.2 g/dL (3.2-4.8) Calcium Level 9.3 mg/dL (8.7-10.4) 8.9 mg/dL (8.7-10.4) Magnesium Level 1.6 mg/dL (1.6-2.6) 2.2 mg/dL (1.6-2.6) Total Protein 7.0 g/dL (5.7-8.2) 7.0 g/dL (5.7-8.2) LFT Test 01/09/25 16:25 01/10/25 06:43 Alanine Aminotransferase (ALT) 35 U/L (7-40) 29 U/L (7-40) Alkaline Phosphatase 122 U/L (46-116) H 112 U/L (46-116) Aspartate Amino Transferase (AST) 34 U/L (13-40) 33 U/L (13-40) Total Bilirubin 1.5 mg/dL (0.2-1.0) H 1.7 mg/dL (0.2-1.0) H Urinalysis Test 01/07/25 18:09 Urine Color Yellow (Yellow) Urine Clarity Clear (Clear) Urine pH 7.5 (5.0-9.0) Urine Specific [place] 1.013 (1.001-1.035) Urine Protein 1+ (Negative) H Urine Ketones Negative (Negative) Urine Blood 2+ /uL (Negative) H Urine Nitrite Negative (Negative) Urine Bilirubin Negative (Negative) Urine Urobilinogen Normal mg/dL (Negative) Urine Leukocyte Esterase Negative /uL (Negative) Urine RBC 76 /hpf (0 - 3) Urine Microscopic WBC 2 /HPF (0-3) Urine Squamous Epithelial Cells Few /hpf (<5) Urine Bacteria None seen /hpf (None Seen) Urine Mucus Few (None Seen) Urine Glucose Normal mg/dL (Normal) Microbiology Microbiology Date/Time Source Procedure Growth Status 01/09/25 05:00 Nose MRSA Screen - Final Complete Assessment/Plan Assessment/Plan Acute metabolic encephalopathy, likely due to Acute alcohol intoxication/withdrawal Acute alcohol withdrawal-CIWA score 14 Chronic alcohol dependence Transaminitis alcoholic induced Acute chest pain, ruled out ACS Sinus tachycardia Chronic heart failure with reduced ejection fraction-NYHA class 2 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 * Will check CBC and CMP today. * * Replace electrolytes * DIET: Clear liquid diet DVT PROPHYLAXIS: Lovenox GI PROPHYLAXIS:: Protonix Plan discussed with: Patient, Other (RN) My Orders Orders - IRON YU MD Procedure Category Date Status Time Mrsa Screen LEOBARDO 01/10/25 In Process 03:43 Hepatitis B Surface LAB 01/10/25 In Process Antigen 05:00 Hepatitis C Antibody LAB 01/10/25 In Process 05:00 * Telemarketing Representative CONS 01/10/25 Transmitted Consult 03:43 Date of Service: Jan 10, 2025 Billing Provider: IRON YU MD Common Visit Codes: [id number] INP/OBS CARE(HIGH) IRON YU MD Jan 10, 2025 11:53
[2025-01-11] VITALS (7 sets, daily range): BP systolic 99–104; BP diastolic 66–71; PULSE 85–124; RESP 17–18; TEMP 95.9–98.1; O2SAT 98–100
[2025-01-11] MEDS: POTASSIUM CHL 20 Meq TABLET PO ONE (08:45)
--- NOTE | 2025-01-11 10:49 | ECG ---
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
--- NOTE | 2025-01-11 11:48 | DVHDS2 ---
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 Intractable nausea and vomiting, likely due to alcoholic gastritis History of triglyceride induced pancreatitis Leukopenia, likely due to alcohol use disorder Homelessness Medication noncompliance Hypomagnesemia Labs/Diagnostic Data: Laboratory Results Test 01/10/25 06:43 01/08/25 05:03 01/07/25 20:12 01/07/25 19:25 White Blood Count 4.2 10^3/uL (4.4-10.8) Red Blood Count 4.33 10^6/uL (4.5-5.90) Hemoglobin 13.5 g/dL (13.5-17.5) Hematocrit 39.5 % (41.0-53.0) Mean Corpuscular Volume 91.3 fL (80.0-100.0) Mean Corpuscular Hemoglobin 31.1 pg (28.0-32.0) Mean Corpuscular Hemoglobin Concent 34.1 g/dL (32.0-36.0) Red Cell Distribution Width 17.0 % (11.8-14.3) Platelet Count 128 10^3/uL (140-450) Mean Platelet Volume 8.3 fL (6.9-10.8) Neutrophils (%) (Auto) 67.2 % (37.0-80.0) Lymphocytes (%) (Auto) 20.4 % (10.0-50.0) Monocytes (%) (Auto) 10.4 % (0.0-12.0) Eosinophils (%) (Auto) 1.6 % (0.0-7.0) Basophils (%) (Auto) 0.4 % (0.0-2.0) Neutrophils # (Auto) 2.8 10 ^3/uL (1.6-8.6) Lymphocytes # (Auto) 0.9 10 ^3/uL (0.4-5.4) Monocytes # (Auto) 0.4 10 ^3/uL (0-1.3) Eosinophils # (Auto) 0.1 10 ^3/uL (0-0.8) Basophils # (Auto) 0 10 ^3/uL (0-0.2) Nucleated Red Blood Cells 0.1 % Sodium Level 135 mmol/L (136-145) Potassium Level 3.4 mmol/L (3.5-5.1) Chloride Level 98 mmol/L (98-107) Carbon Dioxide Level 26 mmol/L (20-31) Anion Gap 11 (5-15) Blood Urea Nitrogen < 5 mg/dL (9-23) Creatinine 0.76 mg/dL (0.700-1.30) Glomerular Filtration Rate Calc 117 mL/min (>90) BUN/Creatinine Ratio 6.6 (10.0-20.0) Serum Glucose 84 mg/dL (74-106) Calcium Level 8.9 mg/dL (8.7-10.4) Magnesium Level 2.2 mg/dL (1.6-2.6) Total Bilirubin 1.7 mg/dL (0.2-1.0) Aspartate Amino Transferase (AST) 33 U/L (13-40) Alanine Aminotransferase (ALT) 29 U/L (7-40) Alkaline Phosphatase 112 U/L (46-116) Total Protein 7.0 g/dL (5.7-8.2) Albumin 4.2 g/dL (3.2-4.8) Reticulocyte Count (auto) 1.31 % (0.5-1.5) Triglycerides Level 68 mg/dL (< 150) Lipase 40 U/L (12-53) Troponin I High Sensitivity 19 ng/L (</=54) B-Type Natriuretic Peptide 39.76 pg/mL (0-100) Plasma/Serum Blood Alcohol 340.9 mg/dL (<10) Test 01/07/25 18:09 Urine Color Yellow (Yellow) Urine Clarity Clear (Clear) Urine pH 7.5 (5.0-9.0) Urine Specific [place] 1.013 (1.001-1.035) Urine Protein 1+ (Negative) Urine Ketones Negative (Negative) Urine Blood 2+ /uL (Negative) Urine Nitrite Negative (Negative) Urine Bilirubin Negative (Negative) Urine Urobilinogen Normal mg/dL (Negative) Urine Leukocyte Esterase Negative /uL (Negative) Urine RBC 76 /hpf (0 - 3) Urine Microscopic WBC 2 /HPF (0-3) Urine Squamous Epithelial Cells Few /hpf (<5) Urine Bacteria None seen /hpf (None Seen) Urine Mucus Few (None Seen) Urine Glucose Normal mg/dL (Normal) Urine Opiates Screen Neg (NEGATIVE) Urine Fentanyl Screen Neg (NEGATIVE) Urine Barbiturates Screen Neg (NEGATIVE) Urine Phencyclidine Screen Neg (NEGATIVE) Urine Amphetamines Screen Neg (NEGATIVE) Urine Benzodiazepines Screen Pos (NEGATIVE) Urine Cocaine Screen Neg (NEGATIVE) Urine Cannabinoids Screen Neg (NEGATIVE) Other Laboratory Tests 01/10/25 06:43 Brief Hx & Hospital Course: This is a 39 years old homeless male with history of alcohol abuse, hypertriglyceridemia induced pancreatitis, hypertension, congestive heart failure systolic type come to emergency department because of chest pain, intractable nausea and vomiting and diarrhea. The patient's troponin level two set is negative The patient appear intoxicated with alcohol. He admits drinking multiple shots of liquor since the day prior to admission. The patient is homeless and said somebody give it to him. After that he experienced intractable nausea vomiting with nonbloody vomitus and diarrhea. He also defecated a large amount of nonbloody stool. He experienced severe chills and feeling warm all over the body like is burning. The patient was admitted. The patient was put on banana bag for detox. The patient was given IV fluid. The patient also found to have electrolytes unbalanced and magnesium and potassium was replaced. The patient was given Ativan as needed for alcohol withdrawal and Librium. Subsequently the patient doing better and will be discharged home today. 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 Patient said he will contact the place and will try to start working there and live there. Physical exam: HEENT: Normocephalic atraumatic pupils equal react to light and accommodation. Extraocular muscles intact, conjunctiva pink, oropharynx moist, no thrush, no exudate. Lymphatic: No lymphadenopathy Cardiovascular exam: S1, S2 was heard. No murmurs, rubs, gallops Lung: Clear on auscultation bilaterally, no wheeze, rale, rhonchi. GI: Abdominal soft, nondistended, nontenderness, positive bowel sounds. Extremity: No crepitus, cyanosis, edema. Pedal pulses present bilateral. Full range of motion. Skin: Normal turgor, no rash. Psych: Alert, oriented x3. Neurology: No focal deficits, cranial nerve II to XII grossly intact. This medical document was created using an electronic medical record system with [employer] computerized dictation system. Although this document has been carefully reviewed, there may still be some phonetic and typographical errors. These areas are purely typographical due to imperfections of the software programs, and do not reflect any compromise in the patient's medical care. 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 Intractable nausea and vomiting, likely due to alcoholic gastritis History of triglyceride induced pancreatitis Leukopenia, likely due to alcohol use disorder Homelessness Medication noncompliance Hypomagnesemia Discharge Disposition: Home Discharge Instruct/Medications Scheduled Cobalamine Combinations (B-12 + Folic Acid 2500-400 Mcg), 1 TAB PO DAILY Empagliflozin (Jardiance), 1 TAB PO DAILY, (Reported) Gemfibrozil (Gemfibrozil), 1 TAB PO BID, (Reported) Lisinopril (Lisinopril), 1 TAB PO DAILY, (Reported) Magnesium Oxide (Magnesium Oxide), 400 MG OR DAILY Metoprolol Succinate (Metoprolol Succinate Er), 1 TAB PO DAILY, (Reported) Multiple Vitamin (Multivitamins), 1 TAB PO DAILY Pantoprazole Sodium Sesquihydr (Protonix), 40 MG PO DAILY Spironolactone (Spironolactone), 1 TAB PO DAILY Scheduled PRN Ibuprofen Micronized (Ibuprofen), 600 MG PO Q6HP PRN Ondansetron Odt 4MG Tab (Zofran Po), 4 MG PO TID PRN Ondansetron Odt 4MG Tab (Zofran Po), 4 MG PO TID PRN Discharge Statement: "Patient was advised to return to the ER or call 911 if any headaches, dizziness, shortness of breath, chest pain, abdominal pain, bleeding, fevers, or worsening of medical condition. Patient was counseled about treatment plan, medications, possible side effects, patientverbalized understanding. All questions were answered to the best of my ability. This discharge took greater then 30 minutes in planning, reviewing documentation, counseling the patient, and discussing with other team members." ASSESSMENT ASSESSMENT Assessment Date of Service: Jan 11, 2025 Billing Provider: IRON YU MD Common Visit Codes: 24877-DEX/OBS DISCH DAY >30min IRON YU MD Jan 11, 2025 11:48
[2025-01-13 14:16] LABS: Hepatitis B Surface Antigen Negative (Negative); Hepatitis C Antibody Negative (Negative)
== END 2025-01-11 16:25 | disposition home or self-care (01) | DRG 816 ==
LOC: ER 16:16 → EDBD 16:16 → OVERFLOW 01-08 01:25 → TELE-WESTW 01-10 02:21
PROVIDERS: ADMIT Internal Medicine; ATTEND Internal Medicine
DX: T51.91XA Toxic effect of unspecified alcohol, accidental (unintentional), initial encounter (principal); G93.41 Metabolic encephalopathy; I42.0 Dilated cardiomyopathy; I50.22 Chronic systolic (congestive) heart failure; I11.0 Hypertensive heart disease with heart failure; K29.20 Alcoholic gastritis without bleeding; F10.229 Alcohol dependence with intoxication, unspecified; I42.6 Alcoholic cardiomyopathy; E83.42 Hypomagnesemia; F10.239 Alcohol dependence with withdrawal, unspecified; R74.01 Elevation of levels of liver transaminase levels; D72.819 Decreased white blood cell count, unspecified; Z59.00 Homelessness unspecified; Z79.84 Long term (current) use of oral hypoglycemic drugs; Z91.148 Patient's other noncompliance with medication regimen for other reason; Z79.899 Other long term (current) drug therapy; Y92.89 Other specified places as the place of occurrence of the external cause; Y90.8 Blood alcohol level of 240 mg/100 ml or more
CPT/HCPCS: 36415; 71045; 74018; 80053; 80307; 80320; 81001; 83690; 83735; 83880; 84478; 84484; 85025; 85045; 86803; 87081; 87340; 93005; 96361; 96374; G0378; J2405; J2470; J7060

== ENCOUNTER 2025-01-28 15:31 | Emergency (ER) | payer MEDICAID ==
[~2025-01-28] VITALS: Ht 165.1 cm; Wt 68.0 kg
--- NOTE | 2025-01-28 15:43 | ED.PDOC ---
Psychiatric HPI Comments 39 y.o male presents to the ED via EMS for an evaluation of alcohol in toxication. EMS reports patient was found inside a convenience store asleep and intoxicated and worker called 911. Upon ED arrival, patient reports drinking beer and his current stressor is being homeless with no support around him. He complains of weakness and body aches. Chief Complaint: ETOH Time Seen by MD: 15:27 Primary Care Provider: NONE Reviewed Notes: Nurses Notes, Agricultural Extension Specialist Notes, Medications, Allergies Information Source: Patient, Emergency Med Personnel Mode of Arrival: EMS Severity of Pain: Severe Severity of Mental Status: Moderate Severity of Symptoms: Moderate Timing: Hours Duration: Since onset Presents with: Alcohol Intoxication Ingestion: ETOH Circumstance: Found:Sleeping Current substance abuse: ETOH Stressors: Homeless History of: Alcoholism Associated signs and symptoms: None Past Medical History Surgical History: Denies all surgeries Family History Family History: Reviewed,noncontributory to illness Social History Smoker: Non-Smoker Alcohol: Heavy Drugs: Denies Drug Use Lives In: Homeless Constitutional: denies: chills, diaphoresis, fatigue, fever, malaise, sweats, weakness, others EENTM: denies: blurred vision, double vision, ear bleeding, ear discharge, ear drainage, ear pain, ear ringing, eye pain, eye redness, hearing loss, mouth pain, mouth swelling, nasal discharge, nose bleeding, nose congestion, nose pain, photophobia, tearing, throat pain, throat swelling, voice changes, others Respiratory: denies: cough, hemoptysis, orthopnea, SOB at rest, shortness of breath, SOB with excertion, stridor, wheezing, others Cardiovascular: denies: chest pain, dizzy spells, diaphoresis, Dyspnea on exertion, edema, irregular heart beat, left arm pain, lightheadedness, palpitations, PND, syncope, others Gastrointestinal: denies: abdomen distended, abdominal pain, blood streaked bowels, constipated, diarrhea, dysphagia, difficulty swallowing, hematemesis, melena, nausea, poor appetite, poor fluid intake, rectal bleeding, rectal pain, vomiting, others Genitourinary: denies: burning, dysuria, flank pain, frequency, hematuria, incontinence, penile discharge, penile sore, pain, testicle pain, testicle swelling, urgency, others Neurological: denies: dizziness, fainting, headache, left sided numbness, left sided weakness, numbness, paresthesia, pre-existing deficit, right sided numbness, right sided weakness, seizure, speech problems, tingling, tremors, weakness, others Musculoskeletal: denies: back pain, gout, joint pain, joint swelling, muscle pain, muscle stiffness, neck pain, others Integumetry: denies: bruises, change in color, change in hair/nails, dryness, laceration, lesions, lumps, rash, wounds, others Allergic/Immunocompromised: denies: Difficulty Healing, Frequent Infections, Hives, Itching, others Hematologic/Lymphatic: denies: anemia, blood clots, easy bleeding, easy bruising, swollen glands, others Endocrine: denies: excessive hunger, excessive sweating, excessive thirst, excessive urination, flushing, intolerance to cold, intolerance to heat, unexplained weight gain, unexplained weight loss, others Psychiatric: reports: others; denies: anxiety, bipolar disorder, depression, hopeless, panic disorder, schizophrenia, sleepless, suicidal Physical Exam General Appearance: Moderate Distress HEENT: Normal ENT Inspection, Pharynx Normal, TMs Normal Neck: Full Range of Motion, Non-Tender, Normal, Normal Inspection Respiratory: Chest Non-Tender, Lungs Clear, No Accessory Muscle Use, No Respiratory Distress, Normal Breath Sounds Cardiovascular: No Edema, No JVD, No Murmur, No Gallop, Normal Peripheral Pulses, Regular Rate/Rhythm Breast Exam: Deferred Gastrointestinal: No Organomegaly, Non Tender, No Pulsatile Mass, Normal Bowel Sounds, Soft Genitalia: Deferred Pelvic: Deferred Rectal: Deferred Extremities: No calf tenderness, Normal capillary refill, Normal inspection, Normal range of motion, Non-tender, No pedal edema Musculoskeletal : Apperance: Normal Neurologic: Alert, member of congress II-XII nml as Tested, No Motor Deficits, Normal Affect, Normal Mood, No Sensory Deficits Cerebellar Function: NOT DONE Reflexes: NOT DONE Skin: Dry, Normal Color, Warm Peripheral Pulses: 3+ Radial (R), 3+ Radial (L) Lymphatic: No Adenopathy Was a procedure done? Was a procedure done?: No Psych Differential Dx Intoxication Differential Dx: Alcohol Withdraw Syndrome, Dehydration, Electrolyte Imbalance X-Ray, Labs, Meds, VS Lab Test 01/28/25 15:36 Range/Units White Blood Count 2.6 L 4.4-10.8 10^3/uL Red Blood Count 4.78 4.5-5.90 10^6/uL Hemoglobin 14.6 13.5-17.5 g/dL Hematocrit 41.7 41.0-53.0 % Mean Corpuscular Volume 87.2 80.0-100.0 fL Mean Corpuscular Hemoglobin 30.5 28.0-32.0 pg Mean Corpuscular Hemoglobin Concent 35.0 32.0-36.0 g/dL Red Cell Distribution Width 16.6 H 11.8-14.3 % Platelet Count 113 L 140-450 10^3/uL Mean Platelet Volume 6.6 L 6.9-10.8 fL Neutrophils (%) (Auto) 48.6 37.0-80.0 % Lymphocytes (%) (Auto) 40.3 10.0-50.0 % Monocytes (%) (Auto) 10.7 0.0-12.0 % Eosinophils (%) (Auto) 0.1 0.0-7.0 % Basophils (%) (Auto) 0.3 0.0-2.0 % Neutrophils # (Auto) 1.3 L 1.6-8.6 10 ^3/uL Lymphocytes # (Auto) 1.1 0.4-5.4 10 ^3/uL Monocytes # (Auto) 0.3 0-1.3 10 ^3/uL Eosinophils # (Auto) 0 0-0.8 10 ^3/uL Basophils # (Auto) 0 0-0.2 10 ^3/uL Nucleated Red Blood Cells 0.1 % Sodium Level 139 136-145 mmol/L Potassium Level 3.3 L 3.5-5.1 mmol/L Chloride Level 98 98-107 mmol/L Carbon Dioxide Level 26 20-31 mmol/L Anion Gap 15 5-15 Blood Urea Nitrogen 7 L 9-23 mg/dL Creatinine 0.75 0.700-1.30 mg/dL Glomerular Filtration Rate Calc 117 >90 mL/min BUN/Creatinine Ratio 9.3 L 10.0-20.0 Serum Glucose 121 H 74-106 mg/dL Calcium Level 8.2 L 8.7-10.4 mg/dL Plasma/Serum Blood Alcohol 450.5 *H <10 mg/dL Patient alert. He is alert. Alcohol level elevated. Vitals stable. Has been here many times for the same situation. Potassium is low. Was given potassium. Establish intravenous access. Was given fluids. Was given thiamine. Continue to monitor. Time of 1ST Reevaluation: 15:40 Reevaluation 1ST: Unchanged Patient Education/Counseling: Diagnosis, Treatment Family Education/Counseling: No Family Present Departure 1 Departure Time of Disposition: 17:01 Impression: Primary Impression: Alcohol intoxication Qualified Codes: F10.920 - Alcohol use, unspecified with intoxication, uncomplicated Disposition: 30 STILL A PATIENT Condition: Good Critical Care Note Critical Care Time?: No Stability Stability form required: No I personally scribed for KAVITHA MAYNARD MD ([email or web address]) on 01/28/25 at 15:43. Electronically submitted by Erendira Novak ([facility]). KAVITHA MAYNARD MD Jan 28, 2025 15:43
[2025-01-28 16:14] LABS: Sodium 139 mmol/L (136-145)
[2025-01-28 16:15] LABS: Anion Gap 15 (5-15); Carbon Dioxide 26 mmol/L (20-31)
[2025-01-28 16:16] LABS: Hematocrit 41.7 % (41.0-53.0); Hemoglobin 14.6 g/dL (13.5-17.5); Mean Corpuscular Hemoglobin 30.5 pg (28.0-32.0); Mean Corpuscular Volume 87.2 fL (80.0-100.0); Nucleated Red Blood Cells % 0.1 %
[2025-01-28 16:20] LABS: BUN/Creatinine Ratio 9.3 (10.0-20.0); Blood Urea Nitrogen 7 mg/dL (9-23); Calcium 8.2 mg/dL (8.7-10.4); Chloride 98 mmol/L (98-107); Glucose 121 mg/dL (74-106); Potassium 3.3 mmol/L (3.5-5.1)
[2025-01-29] MEDS: SODIUM CHLORIDE 0.9% 1,000 ML IV ONE ×2 (04:10→06:23)
[2025-01-29] MEDS: THIAMINE 100mg/ml INJ (200mg/2ml VIAL) IV ONE (04:10)
[2025-01-29 09:49] VITALS: BP 158/98; PULSE 110; RESP 20; TEMP 97.5; O2SAT 99
[2025-01-29] MEDS ORDERED: LORazepam 2MG/ML-1ML VIAL ONE ×4 (10:57→22:49)
[2025-01-29] MEDS ORDERED: THIAMINE 100mg/ml INJ (200mg/2ml VIAL) ONE (11:19)
[2025-01-29] MEDS ORDERED: POTASSIUM CHL 20MEQ/100ML 100 ML IV ONE (16:27)
[2025-01-29] MEDS ORDERED: MULTIPLE VITAMIN TAB ONE (18:38)
[2025-01-29] MEDS ORDERED: ACETAMINOPHEN 325 MG TAB PO ONE (18:49)
[2025-01-30] MEDS ORDERED: LORazepam 2MG/ML-1ML VIAL ONE (02:04)
== END 2025-01-29 09:50 | disposition home or self-care (01) ==
LOC: ER 15:31 → EDBD 15:31 → ER 01-29 09:50
DX: F10.229 Alcohol dependence with intoxication, unspecified (principal); Z59.00 Homelessness unspecified; Z79.899 Other long term (current) drug therapy; Y90.9 Presence of alcohol in blood, level not specified
CPT/HCPCS: 36415; 80048; 80320; 85025; 96361; 96374; 99283; J2060; J3411; J3480; J7030

== ENCOUNTER 2025-01-29 10:41 | Inpatient (IN) | payer MEDICAID ==
[~2025-01-29] VITALS: Ht 175.3 cm; Wt 68.0 kg
[2025-01-29 10:47] VITALS: PULSE 129; RESP 25; O2SAT 98
--- NOTE | 2025-01-29 10:53 | ED.PDOC ---
History of Present Illness HPI Comments 39 y/o M, presents to the ED for CC of seizure. Patient was seen at [facility] on 01/28/25 for Dx:ETOH intoxication and was departed today (01/29/25). When DC, patient was witnessed to have a seizure in the ER lobby, lasting approximately x2min. At this time patient was moved to ER bed 07 for further care. Chief Complaint: Seizure Time Seen by MD: 10:45 Primary Care Provider: NONE Reviewed Notes: Nurses Notes, Medications, Allergies Allergies: Coded Allergies: NO KNOWN ALLERGIES (Unverified , 01/20/24) Home Meds Active Scripts Ondansetron Odt 4MG Tab (ZOFRAN PO) 4 Mg Tb, 4 MG PO TID PRN, #20 TAB ODT TAB-DISSOLVE IN MOUTH, THEN SWALLOW Prov:NAYELI SOSA MD 01/07/25 Ibuprofen Micronized (Ibuprofen) 600 Mg Tab, 600 MG PO Q6HP PRN, #30 TAB Prov:LAYA KAPOOR [facility] 10/29/24 Pantoprazole Sodium Sesquihydr (Protonix) 40 Mg Tab, 40 MG PO DAILY, #30 TAB Prov:NAYELI SOSA MD 09/30/24 Ondansetron Odt 4MG Tab (ZOFRAN PO) 4 Mg Tb, 4 MG PO TID PRN, #30 TAB ODT TAB-DISSOLVE IN MOUTH, THEN SWALLOW Prov:NAYELI SOSA MD 09/30/24 Cobalamine Combinations (B-12 + Folic Acid 2500-400 Mcg) 1 Tab Tab, 1 TAB PO DAILY for 30 Days, #30 TAB 0 Refills Prov:ALYCIA ANDINO RESIDENT 01/25/24 Multiple Vitamin (Multivitamins) Tab, 1 TAB PO DAILY for 30 Days, #90 TAB 0 Refills Prov:ALYCIA ANDINO RESIDENT 01/25/24 Magnesium Oxide (MAGNESIUM OXIDE) 400 Mg Tab, 400 MG OR DAILY for 7 Days, #7 TAB Prov:ALYCIA ANDINO RESIDENT 01/25/24 Spironolactone (Spironolactone) 25 Mg Tab, 1 TAB PO DAILY for 30 Days, #30 TAB 2 Refills Prov:ALYCIA ANDINO RESIDENT 01/25/24 Reported Medications Gemfibrozil (Gemfibrozil) 600 Mg Tab, 1 TAB PO BID for 30 Days, #60 01/09/25 Lisinopril (Lisinopril) 2.5 Mg Tab, 1 TAB PO DAILY for 30 Days, #30 01/09/25 Metoprolol Succinate (Metoprolol Succinate Er) 25 Mg Tab, 1 TAB PO DAILY for 30 Days, #30 01/09/25 Empagliflozin (Jardiance) 10 Mg Tab, 1 TAB PO DAILY for 30 Days, #30 01/09/25 Information Source: Patient Mode of Arrival: Ambulatory Severity: Moderate Timing: Minutes Duration: Since onset Prehospital treatment: None Past Medical History PAST MEDICAL HISTORY: Unobtainable Surgical History: Denies all surgeries Family History Family History: Reviewed,noncontributory to illness Social History Smoker: Non-Smoker Alcohol: Heavy Drugs: Denies Drug Use Lives In: Homeless Neurological: reports: seizure Unable to Obtain due to: Medical Urgency All Other Systems: Reviewed and Negative Physical Exam General Appearance: Moderate Distress HEENT: Normal ENT Inspection, Pharynx Normal, TMs Normal Neck: Full Range of Motion, Non-Tender, Normal, Normal Inspection Respiratory: Chest Non-Tender, Lungs Clear, No Accessory Muscle Use, No Respiratory Distress, Normal Breath Sounds Cardiovascular: No Edema, No JVD, No Murmur, No Gallop, Normal Peripheral Pulses, Regular Rate/Rhythm Breast Exam: Deferred Gastrointestinal: No Organomegaly, Non Tender, No Pulsatile Mass, Normal Bowel Sounds, Soft Genitalia: Deferred Pelvic: Deferred Rectal: Deferred Extremities: No calf tenderness, Normal capillary refill, Normal inspection, Normal range of motion, Non-tender, No pedal edema Musculoskeletal : Apperance: Normal Neurologic: Alert, change management analyst II-XII nml as Tested, No Motor Deficits, Normal Affect, Normal Mood, No Sensory Deficits Cerebellar Function: NOT DONE Reflexes: NOT DONE Skin: Dry, Normal Color, Warm Peripheral Pulses: 3+ Radial (R), 3+ Radial (L) Lymphatic: No Adenopathy Was a procedure done? Was a procedure done?: No Differential Dx Considerations may include: alcohol induced seizure, electrolyte imbalance X-Ray, Labs, Meds, VS Vital Signs Date Time Temp Pulse Resp B/P (MAP) Pulse Ox O2 Delivery O2 Flow Rate FiO2 01/29/25 13:00 112 19 120/86 (97) 98 01/29/25 12:30 131 20 130/87 (101) 98 01/29/25 11:23 135 01/29/25 11:00 141 26 146/84 (104) 97 01/29/25 10:47 98.5 129 25 151/79 (103) 98 98.5 01/29/25 10:47 129 25 98 Room Air* 0 21 01/29/25 10:47 98.5 127 24 151/79 98 98.5 Lab Test 01/29/25 12:32 01/29/25 10:59 Range/Units Urine Color Light-yellow Yellow Urine Clarity Clear Clear Urine pH 6.5 5.0-9.0 Urine Specific [place] 1.012 1.001-1.035 Urine Protein Negative Negative Urine Ketones Trace Negative Urine Blood Negative Negative /uL Urine Nitrite Negative Negative Urine Bilirubin Negative Negative Urine Urobilinogen Normal Negative mg/dL Urine Leukocyte Esterase Negative Negative /uL Urine RBC 1 0 - 3 /hpf Urine Microscopic WBC < 1 0-3 /HPF Urine Squamous Epithelial Cells None seen <5 /hpf Urine Bacteria None seen None Seen /hpf Urine Glucose 3+ H Normal mg/dL Urine Opiates Screen Neg NEGATIVE Urine Fentanyl Screen Neg NEGATIVE Urine Barbiturates Screen Neg NEGATIVE Urine Phencyclidine Screen Neg NEGATIVE Urine Amphetamines Screen Neg NEGATIVE Urine Benzodiazepines Screen Neg NEGATIVE Urine Cocaine Screen Neg NEGATIVE Urine Cannabinoids Screen Neg NEGATIVE White Blood Count 9.2 # 4.4-10.8 10^3/uL Red Blood Count 4.41 L 4.5-5.90 10^6/uL Hemoglobin 13.4 L 13.5-17.5 g/dL Hematocrit 39.8 L 41.0-53.0 % Mean Corpuscular Volume 90.2 80.0-100.0 fL Mean Corpuscular Hemoglobin 30.4 28.0-32.0 pg Mean Corpuscular Hemoglobin Concent 33.7 32.0-36.0 g/dL Red Cell Distribution Width 16.6 H 11.8-14.3 % Platelet Count 89 L 140-450 10^3/uL Mean Platelet Volume 6.8 L 6.9-10.8 fL Neutrophils (%) (Auto) 74.2 37.0-80.0 % Lymphocytes (%) (Auto) 12.8 10.0-50.0 % Monocytes (%) (Auto) 12.6 H 0.0-12.0 % Eosinophils (%) (Auto) 0.0 0.0-7.0 % Basophils (%) (Auto) 0.4 0.0-2.0 % Neutrophils # (Auto) 6.8 1.6-8.6 10 ^3/uL Lymphocytes # (Auto) 1.2 0.4-5.4 10 ^3/uL Monocytes # (Auto) 1.2 0-1.3 10 ^3/uL Eosinophils # (Auto) 0 0-0.8 10 ^3/uL Basophils # (Auto) 0 0-0.2 10 ^3/uL Nucleated Red Blood Cells 0.0 % Sodium Level 134 #L 136-145 mmol/L Potassium Level 2.9 L 3.5-5.1 mmol/L Chloride Level 96 L 98-107 mmol/L Carbon Dioxide Level 13 #L 20-31 mmol/L Anion Gap 25 H 5-15 Blood Urea Nitrogen 7 L 9-23 mg/dL Creatinine 0.98 0.700-1.30 mg/dL Glomerular Filtration Rate Calc 100 >90 mL/min BUN/Creatinine Ratio 7.1 L 10.0-20.0 Serum Glucose 250 #H 74-106 mg/dL Calcium Level 7.8 L 8.7-10.4 mg/dL Plasma/Serum Blood Alcohol < 3.0 <10 mg/dL Current Medications Medications (Trade) Dose Ordered Sig/Surjit Route Start Time Stop Time Status Last Admin Sodium Chloride 1,000 ml @ 1,000 mls/hr Q1H ONCE IV 01/29/25 11:00 01/29/25 11:59 DC 01/29/25 11:13 Sodium Chloride 1,000 ml @ 150 mls/hr Q6H40M ONCE IV 01/29/25 11:00 01/29/25 17:39 01/29/25 11:18 Thiamine HCl 100 mg ONCE ONCE IV 01/29/25 11:00 01/29/25 11:01 DC 01/29/25 11:17 Lorazepam (Ativan Inj) 2 mg ONCE ONCE IV 01/29/25 11:00 01/29/25 11:01 DC 01/29/25 10:55 Lorazepam (Ativan Inj) 2 mg ONCE ONCE IV 01/29/25 11:00 01/29/25 11:01 DC 01/29/25 14:30 Patient alert. Possibly had a seizure. Continues to drink alcohol. Was seen here yesterday for the same symptom. He has a history of alcohol abuse. Has been seen many times in this ER. No obvious injury. Establish intravenous access. Was given fluids. Explained to the patient. Continue monitoring. [facility] [address] [facility] [address] Ph: [phone] DIAGNOSTIC IMAGING Diagnostic Imaging Report : [id number] Signed PATIENT: DAMIEN BAIG ACCT: [id number] UNIT: [id number] : 1985 LOC: ER ROOM / BED: / AGE / SEX: 39 / M ADM STATUS: REG ER SERVICE 1132 ORDERING PHYSICIAN: KAVITHA MAYNARD MD PROCEDURE(s): HWOCT - HEAD WITHOUT CONTRAST REASON: head injury ORDER NUMBER(s): [id number], ACCESSION NUMBER(s): [id number] CLINICAL INFORMATION: 39 years old, Male; head injury. TECHNIQUE: Axial imaging was obtained through the brain without contrast. Cor onal and sagittal reformatted images were obtained, reviewed, and stored. Images were reviewed in brain and bone windows. All CT scans at this medical facility are performed using dose modulation techniques as appropriate to a performed exam including the following: Automated exposure control was utilized; adjustment of the MA and/or KV according to patient size; and use of iterative reconstruction technique. CTDIvol = 52.07 mGy DLP = 833.77 mGy-cm COMPARISON: CT BRAIN on DOS: 11/30/24, CT HEAD WITHOUT CONTRAST on DOS: 01/22/24 FINDINGS: There is no acute intracranial hemorrhage. No mass effect or midline shift. The ventricles and sulci are within normal limits in size for age. Basal cisterns are patent. The calvarium is unremarkable. Mild mucosal thickening of the paranasal sinuses. Partially visualized retention cyst versus polyp in the right maxillary sinus. Mastoid air cells are clear. IMPRESSION: No CT evidence of acute intracranial abnormality. ATED BY: JOHN CATHERINE DO DICTATED DATE/TIME: 01/29/25 1242 SIGNED BY: JOHN CATHERINE DO SIGNED DATE/TIME: 01/29/25 124 CC: Time of 1ST Reevaluation: 11:15 Reevaluation 1ST: Unchanged Patient Education/Counseling: Diagnosis, Treatment Family Education/Counseling: No Family Present SEPSIS Sepsis Screen Physician Orders Sodium Chloride 0.9% (01/29/25 11:00) Head Without Contrast (01/29/25 11:32) Electrocardigram (01/29/25 11:33) Vital Signs Date Time Temp Pulse Resp B/P (MAP) Pulse Ox O2 Delivery O2 Flow Rate FiO2 01/29/25 13:00 112 19 120/86 (97) 98 01/29/25 12:30 131 20 130/87 (101) 98 01/29/25 11:23 135 01/29/25 11:00 141 26 146/84 (104) 97 01/29/25 10:47 98.5 129 25 151/79 (103) 98 98.5 01/29/25 10:47 129 25 98 Room Air* 0 21 01/29/25 10:47 98.5 127 24 151/79 98 98.5 Laboratory Tests Test 01/29/25 10:59 White Blood Count 9.2 10^3/uL (4.4-10.8) # Medications Medications Dose Ordered Sig/Surjit Route Start Time Stop Time Status Last Admin Dose Admin Lorazepam 2 mg ONCE ONCE IV 01/29/25 11:00 01/29/25 11:01 DC 01/29/25 10:55 Lorazepam 2 mg ONCE ONCE IV 01/29/25 11:00 01/29/25 11:01 DC 01/29/25 14:30 Sodium Chloride 1,000 ml @ 150 mls/hr Q6H40M ONCE IV 01/29/25 11:00 01/29/25 17:39 01/29/25 11:18 Sodium Chloride 1,000 ml @ 1,000 mls/hr Q1H ONCE IV 01/29/25 11:00 01/29/25 11:59 DC 01/29/25 11:13 Thiamine HCl 100 mg ONCE ONCE IV 01/29/25 11:00 01/29/25 11:01 DC 01/29/25 11:17 Departure 1 Departure Time of Disposition: 10:56 Impression: Primary Impression: Alcohol withdrawal Qualified Codes: F10.939 - Alcohol use, unspecified with withdrawal, unspecified Additional Impression: Alcohol withdrawal seizure Qualified Codes: F10.939 - Alcohol use, unspecified with withdrawal, unspecified; R56.9 - Unspecified convulsions Disposition: ADMITTED INPATIENT Admit to: Med Surg Condition: Guarded Critical Care Note Critical Care Time?: No Stability Stability form required: No Heart Score Heart Score: Heart Score Response (Comments) Value History N/A 0 EKG N/A 0 Age N/A 0 Risk Factors N/A 0 Troponin N/A 0 Total 0 I personally scribed for KAVITHA MAYNARD MD ([email or web address]) on 01/29/25 at 10:53. Electronically submitted by Wen Jones ([employer]). I personally scribed for KAVITHA MAYNARD MD ([email or web address]) on 01/29/25 at 11:04. Electronically submitted by Wen Jones ([email or web address]). I personally scribed for KAVITHA MAYNARD MD ([email or web address]) on 01/29/25 at 13:31. Electronically submitted by Wen Jones (Cryptonator). KAVITHA MAYNARD MD Jan 29, 2025 10:53
[2025-01-29] MEDS: LORazepam 2MG/ML-1ML VIAL IV ONE ×3 (10:55→18:35)
[2025-01-29 11:10] LABS: Hematocrit 39.8 % (41.0-53.0); Hemoglobin 13.4 g/dL (13.5-17.5); Mean Corpuscular Hemoglobin 30.4 pg (28.0-32.0); Mean Corpuscular Volume 90.2 fL (80.0-100.0); Nucleated Red Blood Cells % 0.0 %
[2025-01-29] MEDS: SODIUM CHLORIDE 0.9% 1,000 ML IV ONE ×2 (11:13→11:18)
[2025-01-29] MEDS: THIAMINE 100mg/ml INJ (200mg/2ml VIAL) IV ONE (11:17)
[2025-01-29 11:22] LABS: Anion Gap 25 (5-15)
[2025-01-29 11:27] LABS: BUN/Creatinine Ratio 7.1 (10.0-20.0)
[2025-01-29 11:28] LABS: Blood Urea Nitrogen 7 mg/dL (9-23); Calcium 7.8 mg/dL (8.7-10.4); Carbon Dioxide 13 mmol/L (20-31); Chloride 96 mmol/L (98-107); Glucose 250 mg/dL (74-106); Potassium 2.9 mmol/L (3.5-5.1); Sodium 134 mmol/L (136-145)
--- NOTE | 2025-01-29 12:45 | DVH ---
CLINICAL INFORMATION: 39 years old, Male; head injury. TECHNIQUE: Axial imaging was obtained through the brain without contrast. Coronal and sagittal reform atted images were obtained, reviewed, and stored. Images were reviewed in brain and bone windows. Al l CT scans at this medical facility are performed using dose modulation techniques as appropriate to a performed exam including the following: Automated exposure control was utilized; adjustment of the MA and/or KV according to patient size; and use of iterative reconstruction technique. CTDIvol = 52.0 7 mGy DLP = 833.77 mGy-cm COMPARISON: CT BRAIN on DOS: 11/30/24, CT HEAD WITHOUT CONTRAST on DOS: 01/22/24 FINDINGS: There is no acute intracranial hemorrhage. No mass effect or midline shift. The ventricles and sulci are within normal limits in size for age. Basal cisterns are patent. The calvarium is unre markable. Mild mucosal thickening of the paranasal sinuses. Partially visualized retention cyst versu s polyp in the right maxillary sinus. Mastoid air cells are clear. IMPRESSION: No CT evidence of acute intracranial abnormality.
[2025-01-29 12:59] LABS: Urine Protein, UAD Negative (Negative)
[2025-01-29 13:05] LABS: Benzodiazephine Screen, Urine Neg (NEGATIVE)
[2025-01-29 13:10] LABS: Amphetamine Screen, Urine Neg (NEGATIVE); Barbiturate Scree,Urine Neg (NEGATIVE); Cannabinoid Screen, Urine Neg (NEGATIVE); Cocaine Screen, Urine Neg (NEGATIVE); Opiate Scree,Urine Neg (NEGATIVE); Phencyclidine Screen, Urine Neg (NEGATIVE)
[2025-01-29] MEDS: POTASSIUM CHL 20MEQ/100ML 100 ML IV ONE (16:25)
[2025-01-29] MEDS ORDERED: MORPHINE SULFATE INJ 2 MG/ml SYRG IV PRN ×2 (17:45)
[2025-01-29] MEDS ORDERED: DEXTROSE (50%) 50ML SYRG IV PRN (17:45)
[2025-01-29] MEDS ORDERED: ONDANSETRON HCL 4 MG/2 ML VIAL IV PRN (17:45)
[2025-01-29] MEDS ORDERED: NITROGLYCERIN 0.4 MG SL TAB SL PRN (17:45)
--- NOTE | 2025-01-29 17:59 | DVHHPRES ---
History of Present Illness Resident Creating Document: SEAN SALDANA RESIDENT History of Present Illness DAMIEN BAIG is a 39 years old male with PMH of alcohol abuse disorder with a questionable liver failure presented to the ED with the chief complaints of seizures. Patient was here in the ED yesterday with a severe alcohol poiso matheus/intoxication left AMA and again presented with a seizures, seizure last approximately 2 minutes and witnessed . The patient initially presented to the ED with the chief complaint of weakness and shakiness all over the body the patient mentioned that he has his last alcoholic drink yesterday. Patient is heavy drinker. And had multiple readmissions with alcohol intoxication and withdrawals but never had seizure. PMH: Alcohol use disorder PSH: None Family history: Noncontributory Social history: Homeless. Heavy drinker but denies other illicit abuse Allergies: No known allergies home medications: None Patient seen and examined at the bedside in the ED. patient is currently feeling drowsy, having tremors, weakness and dizziness but rest of ROS is negative. Review of Systems Allergies: Coded Allergies: NO KNOWN ALLERGIES (Unverified , 01/20/24) Medications Current Medications Medications Dose Ordered Sig/Surjit Route Start Time Stop Time Status Last Admin Dose Admin Lorazepam 1 mg Q2HPRN PRN IV 01/29/25 16:45 Folic Acid 1 mg/ Dextrose 50.2 ml @ 200.8 mls/ hr DAILY INJ 01/30/25 10:00 Multivitamins 1 tab DAILY PO 01/30/25 10:00 Dextrose/Sodium Chloride 1,000 ml @ 100 mls/hr Q10H IV 01/29/25 16:45 Chlordiazepoxide HCl 50 mg Q8H PO 01/29/25 16:45 01/30/25 08:46 Chlordiazepoxide HCl 50 mg Q12HR PO 01/30/25 10:00 01/30/25 22:01 Chlordiazepoxide HCl 25 mg Q12HR PO 01/31/25 10:00 01/31/25 22:01 Chlordiazepoxide HCl 25 mg QAM PO 02/01/25 07:00 02/01/25 07:01 Exam Vital Signs Vital Signs Date Time Temp Pulse Resp B/P (MAP) Pulse Ox O2 Delivery O2 Flow Rate FiO2 01/29/25 13:00 112 19 120/86 (97) 98 9/14/25 10:47 98.5 98.5 01/29/25 10:47 Room Air* 0 21 Exam Pt is lying on bed, disheveled General Appearance: Drowsy, Oriented X3, Cooperative, HEENT: Atraumatic, Mucous membranes moist/pink Respiratory: Clear to auscultation, Normal air movement, No added sounds Cardiovascular: Regular rate, Normal S1, Normal S2, No murmurs Abdominal: Active bowel sounds, Soft, no distention, no tenderness Extremities: No edema, Normal pulses, No tenderness/swelling Skin: No Significant rash, except past surgical scars Neuro: Normal speech, sensorimotor deficits none Psych/Mental Status: Mental status NL, Mood NL Nurse was there as meeting facilitator during examination Labs/Xrays Labs Test 01/29/25 12:32 01/29/25 10:59 Range/Units Urine Color Light-yellow Yellow Urine Clarity Clear Clear Urine pH 6.5 5.0-9.0 Urine Specific [place] 1.012 1.001-1.035 Urine Protein Negative Negative Urine Ketones Trace Negative Urine Blood Negative Negative /uL Urine Nitrite Negative Negative Urine Bilirubin Negative Negative Urine Urobilinogen Normal Negative mg/dL Urine Leukocyte Esterase Negative Negative /uL Urine RBC 1 0 - 3 /hpf Urine Microscopic WBC < 1 0-3 /HPF Urine Squamous Epithelial Cells None seen <5 /hpf Urine Bacteria None seen None Seen /hpf Urine Glucose 3+ H Normal mg/dL Urine Opiates Screen Neg NEGATIVE Urine Fentanyl Screen Neg NEGATIVE Urine Barbiturates Screen Neg NEGATIVE Urine Phencyclidine Screen Neg NEGATIVE Urine Amphetamines Screen Neg NEGATIVE Urine Benzodiazepines Screen Neg NEGATIVE Urine Cocaine Screen Neg NEGATIVE Urine Cannabinoids Screen Neg NEGATIVE White Blood Count 9.2 # 4.4-10.8 10^3/uL Red Blood Count 4.41 L 4.5-5.90 10^6/uL Hemoglobin 13.4 L 13.5-17.5 g/dL Hematocrit 39.8 L 41.0-53.0 % Mean Corpuscular Volume 90.2 80.0-100.0 fL Mean Corpuscular Hemoglobin 30.4 28.0-32.0 pg Mean Corpuscular Hemoglobin Concent 33.7 32.0-36.0 g/dL Red Cell Distribution Width 16.6 H 11.8-14.3 % Platelet Count 89 L 140-450 10^3/uL Mean Platelet Volume 6.8 L 6.9-10.8 fL Neutrophils (%) (Auto) 74.2 37.0-80.0 % Lymphocytes (%) (Auto) 12.8 10.0-50.0 % Monocytes (%) (Auto) 12.6 H 0.0-12.0 % Eosinophils (%) (Auto) 0.0 0.0-7.0 % Basophils (%) (Auto) 0.4 0.0-2.0 % Neutrophils # (Auto) 6.8 1.6-8.6 10 ^3/uL Lymphocytes # (Auto) 1.2 0.4-5.4 10 ^3/uL Monocytes # (Auto) 1.2 0-1.3 10 ^3/uL Eosinophils # (Auto) 0 0-0.8 10 ^3/uL Basophils # (Auto) 0 0-0.2 10 ^3/uL Nucleated Red Blood Cells 0.0 % Sodium Level 134 #L 136-145 mmol/L Potassium Level 2.9 L 3.5-5.1 mmol/L Chloride Level 96 L 98-107 mmol/L Carbon Dioxide Level 13 #L 20-31 mmol/L Anion Gap 25 H 5-15 Blood Urea Nitrogen 7 L 9-23 mg/dL Creatinine 0.98 0.700-1.30 mg/dL Glomerular Filtration Rate Calc 100 >90 mL/min BUN/Creatinine Ratio 7.1 L 10.0-20.0 Serum Glucose 250 #H 74-106 mg/dL Calcium Level 7.8 L 8.7-10.4 mg/dL Plasma/Serum Blood Alcohol < 3.0 <10 mg/dL SEPSIS Sepsis Screen Date sepsis recognized/suspect: Jan 29, 2025 Time Sepsis recognized/suspect: 1040 Recent Procedure: No On Antibiotic Therapy: No Respiratory Rate >20: Yes Heart Rate >90: Yes Temp<36 C (96.8 F) or >38.3 C: No SBP <90 or MAP <65 mmHG: No New Acute Mental Status Change: No Is the patient on CPAP, BIPAP,: No Physician Orders Head Without Contrast (01/29/25 11:32) Electrocardigram (01/29/25 11:33) Potassium Chl 20meq/100ml (01/29/25 16:15) Lorazepam 2mg/Ml Inj (Ativan Inj) (01/29/25 18:00) Lorazepam 2mg/Ml Inj (Ativan Inj) (01/29/25 16:45) Etoh Withdrawal Assessment (01/29/25 16:43) Etoh Withdrawal Assessment NOW (01/29/25 16:43) Folic Acid (01/30/25 10:00) Multiple Vitamin Tablet (Mvi Tab) (01/30/25 10:00) D5w/Sod Chl 0.45% (D5w 1/2ns) (01/29/25 16:45) Chlordiazepoxide Hcl Capsule (Librium Ca (01/29/25 16:45) Chlordiazepoxide Hcl Capsule (Librium Ca (01/30/25 10:00) Chlordiazepoxide Hcl Capsule (Librium Ca (01/31/25 10:00) Chlordiazepoxide Hcl Capsule (Librium Ca (02/01/25 07:00) Admit (01/29/25 17:42) Allergies (01/29/25 17:42) Code Status (01/29/25 17:42) Sodium Chloride Lock (Saline Lock Ns) (01/29/25 22:00) Sodium Chloride 0.9% (01/29/25 17:45) Ondansetron Hcl (Zofran) (01/29/25 17:45) Complete Blood Count (01/30/25 04:00) Comprehensive Metabolic Panel (01/30/25 04:00) Condition: Fair (01/29/25 17:42) Acetaminophen Tablet (Tylenol Tablet) (01/29/25 17:45) Clear Liq Diet (01/29/25 Dinner) Morphine Sulfate Injection (01/29/25 17:45) Nitroglycerin Sublingual (Ntrostat Subli (01/29/25 17:45) Morphine Sulfate Injection (01/29/25 17:45) Oxygen By Nasal Cannula (01/29/25 17:42) Stat Ekg For Chest Pain (01/29/25 17:42) Notify Of Changes From Base (01/29/25 17:42) Display Trimmer For 24 Hours (01/29/25 17:42) Emergency Dysrhythmia Protocol (01/29/25 17:42) Rhythm Strips Once Every Shift (01/29/25 17:42) Beta-Hydroxybutyrate (01/29/25 17:42) Ammonia (9/14/25 17:42) B-Type Natriuretic Peptide (01/29/25 17:42) Hemoglobin A1c (01/29/25 17:42) Hepatic Panel (01/29/25 17:42) Lactic Acid W/ Reflex Order (01/29/25 17:42) Magnesium (01/29/25 17:42) PTPTT (01/29/25 17:42) Rapid Influenza A&B (01/29/25 17:42) Vitamin B12 (01/29/25 17:42) Vitamin D, 25-Hydroxy (01/29/25 17:42) Glucose Blood (Accu-Chek Comfort Curve T (01/29/25 22:00) Insulin R (Human) (Insulin R) (01/29/25 22:00) Dextrose 50% Syringe (01/29/25 17:45) Pantoprazole (Protonix) (01/30/25 10:00) Vital Signs Date Time Temp Pulse Resp B/P (MAP) Pulse Ox O2 Delivery O2 Flow Rate FiO2 01/29/25 13:00 112 19 120/86 (97) 98 01/29/25 12:30 131 20 130/87 (101) 98 01/29/25 11:23 135 01/29/25 11:00 141 26 146/84 (104) 97 01/29/25 10:47 98.5 129 25 151/79 (103) 98 98.5 01/29/25 10:47 129 25 98 Room Air* 0 21 01/29/25 10:47 98.5 127 24 151/79 98 98.5 Laboratory Tests Test 01/29/25 10:59 White Blood Count 9.2 10^3/uL (4.4-10.8) # Medications Medications Dose Ordered Sig/Surjit Route Start Time Stop Time Status Last Admin Dose Admin Lorazepam 2 mg ONCE ONCE IV 01/29/25 11:00 01/29/25 11:01 DC 01/29/25 10:55 2 MG Lorazepam 2 mg ONCE ONCE IV 01/29/25 11:00 01/29/25 11:01 DC 01/29/25 14:30 2 MG Potassium Chloride 100 ml @ 50 mls/hr ONCE ONCE IV 01/29/25 16:15 01/29/25 18:14 01/29/25 16:25 50 MLS/HR Sodium Chloride 1,000 ml @ 150 mls/hr Q6H40M ONCE IV 01/29/25 11:00 01/29/25 17:39 DC 01/29/25 11:18 150 MLS/HR Sodium Chloride 1,000 ml @ 1,000 mls/hr Q1H ONCE IV 01/29/25 11:00 01/29/25 11:59 DC 01/29/25 11:13 1,000 MLS/HR Thiamine HCl 100 mg ONCE ONCE IV 01/29/25 11:00 01/29/25 11:01 DC 01/29/25 11:17 100 MG Assessment/Plan Assessment/Plan # Acute alcohol withdrawal seizures likely # Possible Wernicke's encephalopathy # Acute metabolic encephalopathy likely from a bowel # Alcohol use disorder # Alcohol intoxication/poisoning - telemetry - seizure protocol - [facility] protocol - Ativan as per [facility] protocol - Librium taper dose - IV thiamine, folic acid - D5W half NS - continuously monitor - counseled regarding cessation of alcohol for more than 17 minutes # Hypokalemia - Repleting - Monitor lab # Thrombocytopenia -Monitor lab for now # Hyperglycemia without known diagnosis of diabetes - ordered HbA1c - continuously monitor blood glucose with Accu-Cheks nd ild insulin sliding scale GI PPX: Protonix VTE ppx: SCDs Diet: clear liquids and advanced as tolerated Goals of care addressed with the patient for more than 27 minutes: Full code status Case discussed with Dr. Reid ,patient and nurse Plan discussed with: Patient My Orders Orders - SEAN SALDANA RESIDENT Procedure Category Date Status Time Lorazepam 2mg/Ml Inj PHA 01/29/25 In Process (Ativan Inj) 16:45 Etoh Withdrawal FRANCOISE 01/29/25 In Process Assessment 16:43 Etoh Withdrawal FRANCOISE 01/29/25 In Process Assessment 16:43 Folic Acid PHA 01/30/25 In Process 10:00 Multiple Vitamin PHA 01/30/25 In Process Tablet (Mvi Tab) 10:00 D5w/Sod Chl 0.45% PHA 01/29/25 In Process (D5w 1/2ns) 16:45 Chlordiazepoxide Hcl PHA 01/29/25 In Process Capsule (Librium Ca 16:45 Chlordiazepoxide Hcl PHA 01/30/25 In Process Capsule (Librium Ca 10:00 Chlordiazepoxide Hcl PHA 01/31/25 In Process Capsule (Librium Ca 10:00 Chlordiazepoxide Hcl PHA 02/01/25 In Process Capsule (Librium Ca 07:00 Admit ADMIT 01/29/25 Transmitted 17:42 Allergies FRANCOISE 01/29/25 In Process 17:42 Code Status CODE 01/29/25 Transmitted 17:42 Sodium Chloride Lock PHA 01/29/25 Logged (Saline Lock Ns) 22:00 Sodium Chloride 0.9% PHA 01/29/25 Logged 17:45 Ondansetron Hcl PHA 01/29/25 Logged (Zofran) 17:45 Complete Blood Count LAB 01/30/25 Verified 04:00 Comprehensive LAB 01/30/25 Verified Metabolic Panel 04:00 Condition: Fair FRANCOISE 01/29/25 In Process 17:42 Acetaminophen Tablet PHA 01/29/25 Logged (Tylenol Tablet) 17:45 Clear Liq Diet DIET 01/29/25 Transmitted Dinner Morphine Sulfate PHA 01/29/25 Logged Injection 17:45 Nitroglycerin PHA 01/29/25 Logged Sublingual (Ntrostat 17:45 Morphine Sulfate PHA 01/29/25 Logged Injection 17:45 Oxygen By Nasal RT 01/29/25 Transmitted Cannula 17:42 Stat Ekg For Chest BANNER 01/29/25 In Process Pain 17:42 Notify Of Changes BANNER 01/29/25 In Process From Base 17:42 Display Trimmer For BANNER 01/29/25 In Process 24 Hours 17:42 Emergency Dysrhythmia BANNER 01/29/25 In Process Protocol 17:42 Rhythm Strips Once BANNER 01/29/25 In Process Every Shift 17:42 Beta-Hydroxybutyrate LAB 01/29/25 Logged 17:42 Ammonia LAB 01/29/25 Logged 17:42 B-Type Natriuretic LAB 01/29/25 Logged Peptide 17:42 Hemoglobin A1c LAB 01/29/25 Logged 17:42 Hepatic Panel LAB 01/29/25 Logged 17:42 Lactic Acid W/ Reflex LAB 01/29/25 Logged Order 17:42 Magnesium LAB 01/29/25 Logged 17:42 PTPTT LAB 01/29/25 Logged 17:42 Rapid Influenza A&B LAB 01/29/25 Logged 17:42 Vitamin B12 LAB 01/29/25 Logged 17:42 Vitamin D, 25-Hydroxy LAB 01/29/25 Logged 17:42 Glucose Blood PHA 01/29/25 Logged (Accu-Chek Comfort 22:00 Insulin R (Human) PHA 01/29/25 Logged (Insulin R) 22:00 Dextrose 50% Syringe PHA 01/29/25 Logged 17:45 Pantoprazole PHA 01/30/25 Logged (Protonix) 10:00 SEAN SALDANA RESIDENT Jan 29, 2025 17:59
[2025-01-29] MEDS: FOLIC ACID 1 MG in D5W 5% 50 ML INJ ONE (18:31)
[2025-01-29] MEDS: SODIUM CHLORIDE 0.9% 1,000 ML IV SCH (18:31)
[2025-01-29] MEDS: MULTIPLE VITAMIN TAB PO ONE (18:35)
[2025-01-29] MEDS: D5W/SOD CHL 0.45% 1,000 ML IV SCH (18:35)
[2025-01-29] MEDS: ACETAMINOPHEN 325 MG TAB PO PRN (18:46)
[2025-01-29 19:04] LABS: Alanine Aminotransferase 24.0 U/L (7-40); Albumin 3.4 g/dL (3.2-4.8); Alkaline Phosphatase 95.0 U/L (46-116); Magnesium 1.7 mg/dL (1.6-2.6); Total Protein 6.1 g/dL (5.7-8.2)
[2025-01-29 19:05] LABS: Bilirubin, Direct 0.6 mg/dL (<0.3); Bilirubin, Total 1.5 mg/dL (0.2-1.0)
[2025-01-29 19:30] LABS: INR 1.13 (0.9-1.15); Partial Thromboplastin Time 28.7 SEC (24.5-34.5); Prothrombin Time 11.8 sec (9.3-11.8)
[2025-01-29 20:08] VITALS: PULSE 111; RESP 20; O2SAT 95
[2025-01-29] MEDS: SODIUM CHLOR 0.9% PF (SALINE LOCK) 10ML VIAL/SYR IV SCH (21:11)
[2025-01-29] MEDS: InsuLIN REG 1unit/0.01ml Soln (100units/ml) SC SCH (22:00)
[2025-01-29] MEDS: ACCU-CHEK COMFORT CURVE STRIP VI SCH (22:00)
[2025-01-29 22:07] VITALS: BP 128/88; PULSE 105; RESP 20; TEMP 98.9; O2SAT 96
[2025-01-29 22:08] VITALS: PULSE 107; RESP 18; O2SAT 97
[2025-01-29 22:32] VITALS: BP 128/88; PULSE 108; RESP 19; TEMP 98.9
[2025-01-29] MEDS: LORazepam 2MG/ML-1ML VIAL IV PRN (22:51)
[2025-01-30] VITALS (7 sets, daily range): BP systolic 100–115; BP diastolic 69–87; PULSE 87–112; RESP 17–20; TEMP 97.9–98.6; O2SAT 99–100
[2025-01-30 08:17] LABS: Hemoglobin 12.9 g/dL (13.5-17.5)
[2025-01-30 08:19] LABS: Alanine Aminotransferase 21 U/L (7-40); Albumin 3.3 g/dL (3.2-4.8); Alkaline Phosphatase 94 U/L (46-116); Anion Gap 12 (5-15); Carbon Dioxide 24 mmol/L (20-31); Chloride 102 mmol/L (98-107); Glucose 96 mg/dL (74-106); Sodium 138 mmol/L (136-145); Total Protein 6.2 g/dL (5.7-8.2)
[2025-01-30 08:20] LABS: Hematocrit 37.0 % (41.0-53.0); Mean Corpuscular Hemoglobin 30.9 pg (28.0-32.0); Mean Corpuscular Volume 88.6 fL (80.0-100.0)
[2025-01-30 08:28] LABS: BUN/Creatinine Ratio 8.9 (10.0-20.0); Bilirubin, Total 1.7 mg/dL (0.2-1.0); Blood Urea Nitrogen < 5 mg/dL (9-23); Calcium 7.7 mg/dL (8.7-10.4); Potassium 2.6 mmol/L (3.5-5.1)
[2025-01-30] MEDS: MULTIPLE VITAMIN TAB ONE (09:14)
[2025-01-30] MEDS: PANTOPRAZOLE 40 MG/10 ML VIAL INJ IV ONE (09:14)
[2025-01-30] MEDS: MULTIPLE VITAMIN TAB PO SCH (09:26)
[2025-01-30] MEDS: PANTOPRAZOLE 40 MG/10 ML VIAL INJ IV SCH (09:27)
[2025-01-30 10:20] LABS: Hepatitis B Surface Antigen Negative (Negative)
[2025-01-30] MEDS: CALCIUM GLUC 1,000mg/50ml-NS 50 ML IV ONE ×2 (11:28→12:02)
[2025-01-30] MEDS: POTASSIUM CHL 20MEQ/100ML 0 ML IV ONE (11:28)
[2025-01-30] MEDS: MAGNESIUM SULFATE 1GM/100ML 100 ML IV ONE (11:28)
[2025-01-30] MEDS: POTASSIUM EFFERVESENT TAB 25 MEQ ONE (11:29)
[2025-01-30 11:34] LABS: Total Cells Counted 100.0 (100)
[2025-01-30] MEDS: MAGNESIUM SULFATE 1GM/100ML 100 ML IV SCH (11:50)
[2025-01-30] MEDS: FOLIC ACID 1 MG in D5W 5% 50 ML INJ SCH (12:32)
[2025-01-30] MEDS: POTASSIUM EFFERVESENT TAB 25 MEQ PO ONE (12:32)
--- NOTE | 2025-01-30 12:52 | ECG ---
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
--- NOTE | 2025-01-30 15:37 | DVHPNRES ---
Progress Note Date Seen: Jan 30, 2025 Resident Creating Document: SEAN SALDANA RESIDENT Medical Necessity Reason Pt with a Central, PICC or Fol: No Subjective Review of Systems Patient seen and examined at the bedside. Patient currently reported improvement in his symptoms since admission, no seizure activity reported. Overnight events reviewed. Patient reports: Feels better Objective vital signs Vital Sign Date Time Temp Pulse Resp B/P (MAP) Pulse Ox O2 Delivery O2 Flow Rate FiO2 01/30/25 13:00 98.0 108 20 105/77 (86) 100 98.0 01/30/25 08:15 Room Air* 0 21 Total Intake and Output 01/29/25 01/29/25 01/30/25 15:00 23:00 07:00 Intake Total 1450 ml 850.8 ml 350 ml Output Total 1500 ml Balance 1450 ml 850.8 ml -1150 ml medications Current Medications Medications Dose Ordered Sig/Surjit Route Start Time Stop Time Status Last Admin Dose Admin Lorazepam 1 mg Q2HPRN PRN IV 01/29/25 16:45 01/30/25 02:04 1 MG Folic Acid 1 mg/ Dextrose 50.2 ml @ 200.8 mls/ hr DAILY INJ 01/30/25 10:00 01/30/25 12:32 200.8 MLS/HR Multivitamins 1 tab DAILY PO 01/30/25 10:00 01/30/25 09:26 1 TAB Dextrose/Sodium Chloride 1,000 ml @ 100 mls/hr Q10H IV 01/29/25 16:45 01/29/25 18:35 100 MLS/HR Chlordiazepoxide HCl 50 mg Q12HR PO 01/30/25 10:00 01/30/25 22:01 Chlordiazepoxide HCl 25 mg Q12HR PO 01/31/25 10:00 01/31/25 22:01 Chlordiazepoxide HCl 25 mg QAM PO 02/01/25 07:00 02/01/25 07:01 Sodium Chloride 10 ml Q8HR IV 01/29/25 22:00 01/30/25 13:17 10 ML Sodium Chloride 1,000 ml @ 120 mls/hr Q8H20M IV 01/29/25 17:45 Ondansetron HCl 4 mg Q4HP PRN IV 01/29/25 17:45 Acetaminophen 650 mg Q6HP PRN PO 01/29/25 17:45 01/29/25 18:46 650 MG Morphine Sulfate 2 mg Q4HPRN PRN IV 01/29/25 17:45 Nitroglycerin 0.4 mg Q5MINP PRN SL 01/29/25 17:45 Morphine Sulfate 2 mg Q30M PRN IV 01/29/25 17:45 Diagnostic Test (Pha) 1 strip ACHS 01/29/25 22:00 01/30/25 11:30 1 STRIP Insulin Human Regular ACHS SC 01/29/25 22:00 Dextrose 50 ml UD PRN IV 01/29/25 17:45 Pantoprazole Sodium 40 mg DAILY IV 01/30/25 10:00 01/30/25 09:27 40 MG Examination Pt is lying on bed, disheveled General Appearance: Drowsy, Oriented X3, Cooperative, HEENT: Atraumatic, Mucous membranes moist/pink Respiratory: Clear to auscultation, Normal air movement, No added sounds Cardiovascular: Regular rate, Normal S1, Normal S2, No murmurs Abdominal: Active bowel sounds, Soft, no distention, no tenderness Extremities: No edema, Normal pulses, No tenderness/swelling Skin: No Significant rash, except past surgical scars Neuro: Normal speech, sensorimotor deficits none Psych/Mental Status: Mental status NL, Mood NL Nurse was there as clockmaker during examination laboratory and microbiology Laboratory Tests 01/30/25 06:55 Test 01/30/25 06:55 Range/Units Serum Glucose 96 # 74-106 mg/dL Microbiology Date/Time Source Procedure Growth Status 01/29/25 22:23 Nose MRSA Screen - Final Complete Problem List/Assessment/Plan Problem List/Assessment/Plan # Acute alcohol withdrawal seizures likely # Possible Wernicke's encephalopathy # Acute metabolic encephalopathy likely from a bowel # Alcohol use disorder # Alcohol intoxication/poisoning # Starvation/alcoholic ketosis - telemetry - seizure protocol - [facility] protocol - Ativan as per [facility] protocol - Librium taper dose - IV thiamine, folic acid - D5W half NS - continuously monitor - counseled regarding cessation of alcohol for more than 17 minutes -head CT showed no acute changes # Hypokalemia - Repleting - Monitor lab # Alcoholic liver cirrhosis, compensated # Thrombocytopenia likely due to above -Monitor lab for now # Hypocalcemia, given 1 dose of calcium gluconate # Hyperglycemia without known diagnosis of diabetes - ordered HbA1c within normal limits - continuously monitor blood glucose with Accu-Cheks nd ild insulin sliding scale # Vit D deficiency - Repleting GI PPX: Protonix VTE ppx: SCDs Diet: clear liquids and advanced as tolerated Goals of care addressed with the patient for more than 27 minutes: Full code status Case discussed with ,patient and nurse Plan discussed with: Patient My Orders My Orders Orders - SEAN SALADNA RESIDENT Procedure Category Date Status Time Lorazepam 2mg/Ml Inj PHA 01/29/25 In Process (Ativan Inj) 16:45 Etoh Withdrawal FRANCOISE 01/29/25 In Process Assessment 16:43 Folic Acid PHA 01/30/25 In Process 10:00 Multiple Vitamin PHA 01/30/25 In Process Tablet (Mvi Tab) 10:00 D5w/Sod Chl 0.45% PHA 01/29/25 In Process (D5w 1/2ns) 16:45 Chlordiazepoxide Hcl PHA 01/30/25 In Process Capsule (Librium Ca 10:00 Chlordiazepoxide Hcl PHA 01/31/25 In Process Capsule (Librium Ca 10:00 Chlordiazepoxide Hcl PHA 02/01/25 In Process Capsule (Librium Ca 07:00 Admit ADMIT 01/29/25 Transmitted 17:42 Allergies FRANCOISE 01/29/25 In Process 17:42 Code Status CODE 01/29/25 Transmitted 17:42 Sodium Chloride Lock PHA 01/29/25 In Process (Saline Lock Ns) 22:00 Sodium Chloride 0.9% PHA 01/29/25 In Process 17:45 Ondansetron Hcl PHA 01/29/25 In Process (Zofran) 17:45 Condition: Fair FRANCOISE 01/29/25 In Process 17:42 Acetaminophen Tablet PHA 01/29/25 In Process (Tylenol Tablet) 17:45 Clear Liq Diet DIET 01/29/25 Transmitted Dinner Morphine Sulfate PHA 01/29/25 In Process Injection 17:45 Nitroglycerin PHA 01/29/25 In Process Sublingual (Ntrostat 17:45 Morphine Sulfate PHA 01/29/25 In Process Injection 17:45 Oxygen By Nasal RT 01/29/25 Transmitted Cannula 17:42 Stat Ekg For Chest FRANCOISE 01/29/25 In Process Pain 17:42 Notify Of Changes FRANCOISE 01/29/25 In Process From Base 17:42 Tow Truck Driver For FRANCOISE 01/29/25 In Process 24 Hours 17:42 Emergency Dysrhythmia FRANCOISE 01/29/25 In Process Protocol 17:42 Rhythm Strips Once FRANCOISE 01/29/25 In Process Every Shift 17:42 Glucose Blood PHA 01/29/25 In Process (Accu-Chek Comfort 22:00 Insulin R (Human) PHA 01/29/25 In Process (Insulin R) 22:00 Dextrose 50% Syringe PHA 01/29/25 In Process 17:45 Pantoprazole PHA 01/30/25 In Process (Protonix) 10:00 * Communications Professor CONS 01/29/25 Transmitted Consult 22:40 SEAN SALDANA RESIDENT Jan 30, 2025 15:37
[2025-01-30] MEDS: POTASSIUM CHL 20MEQ/100ML 100 ML IV SCH (16:06)
[2025-01-30] MEDS: ERGOCALCIFEROL 50,000 UNIT(1.25MG) CAP PO SCH (17:02)
[2025-01-30] MEDS: ERGOCALCIFEROL 50,000 UNIT(1.25MG) CAP PO ONE (17:30)
[2025-01-31 01:00] VITALS: BP 122/89; PULSE 101; RESP 18; TEMP 97.7; O2SAT 100
[2025-01-31 05:00] VITALS: BP 102/68; PULSE 101; RESP 17; TEMP 97.6; O2SAT 100
[2025-01-31 06:41] LABS: Hematocrit 36.9 % (41.0-53.0); Hemoglobin 12.6 g/dL (13.5-17.5); Mean Corpuscular Hemoglobin 30.6 pg (28.0-32.0); Mean Corpuscular Volume 89.5 fL (80.0-100.0); Nucleated Red Blood Cells % 0.2 %
[2025-01-31 06:56] LABS: Alanine Aminotransferase 16 U/L (7-40); Albumin 3.4 g/dL (3.2-4.8); Alkaline Phosphatase 90 U/L (46-116); Anion Gap 8 (5-15); Carbon Dioxide 25 mmol/L (20-31); Chloride 105 mmol/L (98-107); Glucose 93 mg/dL (74-106); Magnesium 2.0 mg/dL (1.6-2.6); Sodium 138 mmol/L (136-145); Total Protein 6.2 g/dL (5.7-8.2)
[2025-01-31 06:57] LABS: Bilirubin, Total 1.0 mg/dL (0.2-1.0)
[2025-01-31 07:02] LABS: BUN/Creatinine Ratio 7.4 (10.0-20.0); Blood Urea Nitrogen < 5 mg/dL (9-23); Calcium 7.8 mg/dL (8.7-10.4); Potassium 3.3 mmol/L (3.5-5.1)
[2025-01-31 08:00] VITALS: PULSE 100
[2025-01-31 08:30] VITALS: BP 103/68; PULSE 97; RESP 18; TEMP 97.6; O2SAT 100
[2025-01-31] MEDS: POTASSIUM EFFERVESENT TAB 25 MEQ PO ONE (10:04)
[2025-01-31] MEDS ORDERED: METO25TA93 PO (12:05)
[2025-01-31] MEDS ORDERED: [UNRECOGNIZED DRUG - CODE] PO (12:05)
[2025-01-31] MEDS ORDERED: MULT-1018 PO (12:05)
[2025-01-31] MEDS ORDERED: ZOFR4T PO (12:05)
[2025-01-31] MEDS ORDERED: EMPA1TAB PO (12:05)
[2025-01-31] MEDS ORDERED: PANT40TA2 PO (12:05)
[2025-01-31] MEDS ORDERED: GEMF-66 PO (12:05)
[2025-01-31] MEDS ORDERED: SPIR25TA8 PO (12:05)
[2025-01-31 12:57] VITALS: TEMP 36.4
--- NOTE | 2025-01-31 15:02 | DVHDSRES ---
Discharge Summary Date of Admission Resident Creating Document: SEAN SALDANA RESIDENT Jan 29, 2025 at 17:42 Date of Discharge: Jan 31, 2025 Admitting Diagnosis Alcohol withdrawal seizures Labs/Diagnostic Data: Laboratory Results Test 01/31/25 11:12 01/31/25 05:35 01/30/25 06:55 01/29/25 20:29 POC Glucose 109 mg/dl (70-106) White Blood Count 3.1 10^3/uL (4.4-10.8) Red Blood Count 4.12 10^6/uL (4.5-5.90) Hemoglobin 12.6 g/dL (13.5-17.5) Hematocrit 36.9 % (41.0-53.0) Mean Corpuscular Volume 89.5 fL (80.0-100.0) Mean Corpuscular Hemoglobin 30.6 pg (28.0-32.0) Mean Corpuscular Hemoglobin Concent 34.2 g/dL (32.0-36.0) Red Cell Distribution Width 16.2 % (11.8-14.3) Platelet Count 57 10^3/uL (140-450) Mean Platelet Volume 8.3 fL (6.9-10.8) Neutrophils (%) (Auto) 54.8 % (37.0-80.0) Lymphocytes (%) (Auto) 29.1 % (10.0-50.0) Monocytes (%) (Auto) 13.4 % (0.0-12.0) Eosinophils (%) (Auto) 2.2 % (0.0-7.0) Basophils (%) (Auto) 0.5 % (0.0-2.0) Neutrophils # (Auto) 1.7 10 ^3/uL (1.6-8.6) Lymphocytes # (Auto) 0.9 10 ^3/uL (0.4-5.4) Monocytes # (Auto) 0.4 10 ^3/uL (0-1.3) Eosinophils # (Auto) 0.1 10 ^3/uL (0-0.8) Basophils # (Auto) 0 10 ^3/uL (0-0.2) Nucleated Red Blood Cells 0.2 % Sodium Level 138 mmol/L (136-145) Potassium Level 3.3 mmol/L (3.5-5.1) Chloride Level 105 mmol/L (98-107) Carbon Dioxide Level 25 mmol/L (20-31) Anion Gap 8 (5-15) Blood Urea Nitrogen < 5 mg/dL (9-23) Creatinine 0.68 mg/dL (0.700-1.30) Glomerular Filtration Rate Calc 121 mL/min (>90) BUN/Creatinine Ratio 7.4 (10.0-20.0) Serum Glucose 93 mg/dL (74-106) Calcium Level 7.8 mg/dL (8.7-10.4) Magnesium Level 2.0 mg/dL (1.6-2.6) Total Bilirubin 1.0 mg/dL (0.2-1.0) Aspartate Amino Transferase (AST) 21 U/L (13-40) Alanine Aminotransferase (ALT) 16 U/L (7-40) Alkaline Phosphatase 90 U/L (46-116) Total Protein 6.2 g/dL (5.7-8.2) Albumin 3.4 g/dL (3.2-4.8) Differential Total Cells Counted 100.0 (100) Neutrophils % (Manual) 46 (37.0-80.0) Band Neutrophils % (Manual) 3 Lymphocytes % (Manual) 36 (10.0-50.0) Monocytes % (Manual) 14 (0-12) Eosinophils % (Manual) 0 (0-7) Basophils % (Manual) 0 (0.0-2.0) Metamyelocytes % (manual) 0 Myelocytes % (Manual) 0 Promyelocytes % (Manual) 0 Blast Cells % (Manual) 0 Reactive Lymphocytes 1 Platelet Estimate Decreased HIV (1&2) Antibody Negative (Negative) Test 01/29/25 18:30 01/29/25 18:15 01/29/25 12:32 01/29/25 10:59 Influenza Type A Antigen Negative (Negative) Influenza Type B Antigen Negative (Negative) Prothrombin Time 11.8 sec (9.3-11.8) Prothrombin Time INR 1.13 (0.9-1.15) Activated Partial Thromboplast Time 28.7 SEC (24.5-34.5) Hemoglobin A1c 5.4 % A1C (<5.7) Lactic Acid Level 1.1 mmol/L (0.4-2.0) Direct Bilirubin 0.6 mg/dL (<0.3) Ammonia 34 umol/L (11-32) B-Type Natriuretic Peptide 78.66 pg/mL (0-100) Vitamin B12 Level 236 pg/mL (211-911) Vitamin D 25-Hydroxy 14.7 ng/mL (30.0-100) Beta-Hydroxybutyric Acid 0.873 mmol/L (< 0.4) Hepatitis C Antibody Negative (Negative) Urine Color Light-yellow (Yellow) Urine Clarity Clear (Clear) Urine pH 6.5 (5.0-9.0) Urine Specific [place] 1.012 (1.001-1.035) Urine Protein Negative (Negative) Urine Ketones Trace (Negative) Urine Blood Negative /uL (Negative) Urine Nitrite Negative (Negative) Urine Bilirubin Negative (Negative) Urine Urobilinogen Normal mg/dL (Negative) Urine Leukocyte Esterase Negative /uL (Negative) Urine RBC 1 /hpf (0 - 3) Urine Microscopic WBC < 1 /HPF (0-3) Urine Squamous Epithelial Cells None seen /hpf (<5) Urine Bacteria None seen /hpf (None Seen) Urine Glucose 3+ mg/dL (Normal) Urine Opiates Screen Neg (NEGATIVE) Urine Fentanyl Screen Neg (NEGATIVE) Urine Barbiturates Screen Neg (NEGATIVE) Urine Phencyclidine Screen Neg (NEGATIVE) Urine Amphetamines Screen Neg (NEGATIVE) Urine Benzodiazepines Screen Neg (NEGATIVE) Urine Cocaine Screen Neg (NEGATIVE) Urine Cannabinoids Screen Neg (NEGATIVE) Plasma/Serum Blood Alcohol < 3.0 mg/dL (<10) Hepatitis B Surface Antigen Negative (Negative) Hepatitis B Surface Antibody Negative (Negative) Other Laboratory Tests 01/31/25 05:35 Brief Hx & Hospital Course: Mr. Thien Rider, a 39-year-old male with a significant history of alcohol use disorder and suspected alcoholic liver cirrhosis, presented to the Emergency Department with seizures lasting approximately 2 minutes, witnessed by staff. He had been seen in the ED the previous day for severe alcohol intoxication and left against medical advice, only to return with complaints of generalized weakness and shakiness. He reported his last alcoholic drink was consumed the day prior. Notably, although he has had multiple admissions for alcohol intoxication and withdrawal, this was his first episode of seizure activity. The patient was admitted for further evaluation and management of acute alcohol withdrawal seizures, possible Wernickes encephalopathy, acute metabolic encephalopathy likely secondary to bowel dysfunction, alcohol intoxication/poisoning, starvation/alcoholic ketosis, and underlying alcohol use disorder. Management included telemetry monitoring, seizure precautions, CIWA protocol with Ativan administration, Librium taper, IV thiamine and folic acid supplementation, and IV fluids with D5W half NS. Electrolyte abnormalities were addressed, including hypokalemia and hypocalcemia, with appropriate repletion and monitoring. Hyperglycemia was also noted and managed. Imaging with head CT showed no acute intracranial changes. Laboratory findings were consistent with compensated alcoholic liver cirrhosis and thrombocytopenia, which will be monitored. The patients condition improved during hospitalization; he became hemodynamically stable and was deemed safe for discharge. He was counseled extensively for over 17 minutes regarding alcohol cessation and advised on healthy lifestyle modifications including diet and exercise. Discharge planning included follow-up with the discharge clinic and primary care provider for continued care and support. Pt is lying on bed General Appearance: Alert, Oriented X3, Cooperative, Not in acute distress HEENT: Atraumatic, Mucous membranes moist/pink Respiratory: Clear to auscultation, Normal air movement, No added sounds Cardiovascular: Regular rate, Normal S1, Normal S2, No murmurs Abdominal: Active bowel sounds, Soft, no distention, no tenderness Extremities: No edema, Normal pulses, No tenderness/swelling Skin: No Significant rash, except past surgical scars Neuro: Normal speech, sensorimotor deficits none Psych/Mental Status: Mental status NL, Mood NL Nurse was there as traffic rate computer during examination Operations or Procedures CLINICAL INFORMATION: 39 years old, Male; head injury. COMPARISON: CT BRAIN on DOS: 11/30/24, CT HEAD WITHOUT CONTRAST on DOS: 01/22/24 FINDINGS: There is no acute intracranial hemorrhage. No mass effect or midline shift. The ventricles and sulci are within normal limits in size for age. Basal cisterns are patent. The calvarium is unremarkable. Mild mucosal thickening of the paranasal sinuses. Partially visualized retention cyst versus polyp in the right maxillary sinus. Mastoid air cells are clear. IMPRESSION: No CT evidence of acute intracranial abnormality. Condition at Discharge: Stable Final Diagnosis/Problems List # Acute alcohol withdrawal seizures likely # Possible Wernicke's encephalopathy # Acute metabolic encephalopathy likely from a bowel # Alcohol use disorder # Alcohol intoxication/poisoning # Hypokalemia # Thrombocytopenia # Hyperglycemia without known diagnosis of diabetes Discharge Disposition: Home Discharge Instruct/Medications Diet: Consistent carbohydrate, Cardiac 2g Na,low cholest Activity: No Restrictions, As Tolerated Follow Up/Referral: PCP [place] clinic Medications: Per emr Scheduled Cobalamine Combinations (B-12 + Folic Acid 2500-400 Mcg), 1 TAB PO DAILY Empagliflozin (Jardiance), 1 TAB PO DAILY Gemfibrozil (Gemfibrozil), 1 TAB PO BID Lisinopril (Lisinopril), 1 TAB PO DAILY, (Reported) Magnesium Oxide (Magnesium Oxide), 400 MG OR DAILY Metoprolol Succinate (Metoprolol Succinate Er), 1 TAB PO DAILY Multiple Vitamin (Multivitamins), 1 TAB PO DAILY Pantoprazole Sodium Sesquihydr (Protonix), 40 MG PO DAILY Spironolactone (Spironolactone), 1 TAB PO DAILY Scheduled PRN Ibuprofen Micronized (Ibuprofen), 600 MG PO Q6HP PRN Ondansetron Odt 4MG Tab (Zofran Po), 4 MG PO TID PRN Ondansetron Odt 4MG Tab (Zofran Po), 4 MG PO TID PRN Discharge Statement: "Patient was advised to return to the ER or call 911 if any headaches, dizziness, shortness of breath, chest pain, abdominal pain, bleeding, fevers, or worsening of medical condition. Patient was counseled about treatment plan, medications, possible side effects, patientverbalized understanding. All questions were answered to the best of my ability. This discharge took greater then 30 minutes in planning, reviewing documentation, counseling the patient, and discussing with other team members." ASSESSMENT ASSESSMENT Assessment # Acute alcohol withdrawal seizures likely # Possible Wernicke's encephalopathy # Acute metabolic encephalopathy likely from a bowel # Alcohol use disorder # Alcohol intoxication/poisoning # Hypokalemia # Thrombocytopenia # Hyperglycemia without known diagnosis of diabetes SEAN SALDANA RESIDENT Jan 31, 2025 15:02
== END 2025-01-31 13:40 | disposition home or self-care (01) | DRG 53 ==
LOC: ER 10:41 → OVERFLOW 17:42 → TELE-WESTW 22:07
PROVIDERS: ADMIT Internal Medicine Geriatric Medicine; ATTEND Internal Medicine Geriatric Medicine
DX: G40.89 Other seizures (principal); G93.41 Metabolic encephalopathy; D69.6 Thrombocytopenia, unspecified; E51.2 Wernicke's encephalopathy; E83.51 Hypocalcemia; Z59.00 Homelessness unspecified; K70.30 Alcoholic cirrhosis of liver without ascites; T51.91XA Toxic effect of unspecified alcohol, accidental (unintentional), initial encounter; F10.129 Alcohol abuse with intoxication, unspecified; F10.139 Alcohol abuse with withdrawal, unspecified; E87.6 Hypokalemia; R73.9 Hyperglycemia, unspecified; Y90.9 Presence of alcohol in blood, level not specified; Y92.89 Other specified places as the place of occurrence of the external cause; T73.0XXA Starvation, initial encounter
CPT/HCPCS: 36415; 70450; 80048; 80053; 80076; 80307; 80320; 81001; 82010; 82140; 82306; 82607; 82962; 83036; 83605; 83735; 83880; 85007; 85025; 85027; 85610; 85730; 86703; 86706; 86803; 87081; 87340; 87804; 93005; 96365; 96375; G0378; J2470; J3480; J7060

== ENCOUNTER 2025-02-11 09:54 | Emergency (ER) | payer MEDICAID ==
[~2025-02-11] VITALS: Ht 175.3 cm; Wt 68.1 kg
[2025-02-11 10:15] VITALS: BP 103/61; PULSE 118; RESP 18; TEMP 98.7; O2SAT 96
== END 2025-02-11 10:43 | disposition left against medical advice (07) ==
LOC: ER 09:54 → EDBD 09:54 → ER 10:43
DX: R07.89 Other chest pain (principal); Z79.899 Other long term (current) drug therapy

== ENCOUNTER 2025-02-13 14:08 | Emergency (ER) | payer MEDICAID, OTHER ==
[~2025-02-13] VITALS: Ht 175.3 cm; Wt 72.7 kg
[2025-02-13 14:14] VITALS: BP 119/76; RESP 18; TEMP 98.6; O2SAT 99
--- NOTE | 2025-02-13 14:22 | ED.PDOC ---
History of Present Illness HPI Comments 39-year-old male brought by paramedics from [address] in front of a restaurant for chest discomfort. Patient does have a history of alcohol abuse has been here many times for the same symptom. Unknown whether he has a place to live. Patient has been here in the past for whether he has place to live. No sign of any injury. Chief Complaint: Chest Pain Time Seen by MD: 14:11 Reviewed Notes: Nurses Notes, Medications, Allergies Allergies: Coded Allergies: NO KNOWN ALLERGIES (Unverified , 02/13/25) Information Source: Patient, Emergency Med Personnel Mode of Arrival: EMS Severity: Moderate Timing: Hours Duration: Since onset Past Medical History PAST MEDICAL HISTORY: Denies Surgical History: Denies all surgeries Social History Smoker: Non-Smoker Alcohol: Heavy Drugs: Denies Drug Use Constitutional: denies: chills, diaphoresis, fatigue, fever, malaise, sweats, weakness, others EENTM: denies: blurred vision, double vision, ear bleeding, ear discharge, ear drainage, ear pain, ear ringing, eye pain, eye redness, hearing loss, mouth pain, mouth swelling, nasal discharge, nose bleeding, nose congestion, nose pain, photophobia, tearing, throat pain, throat swelling, voice changes, others Respiratory: denies: cough, hemoptysis, orthopnea, SOB at rest, shortness of breath, SOB with excertion, stridor, wheezing, others Cardiovascular: reports: chest pain; denies: dizzy spells, diaphoresis, Dyspnea on exertion, edema, irregular heart beat, left arm pain, lightheadedness, palpitations, PND, syncope, others Gastrointestinal: denies: abdomen distended, abdominal pain, blood streaked bowels, constipated, diarrhea, dysphagia, difficulty swallowing, hematemesis, melena, nausea, poor appetite, poor fluid intake, rectal bleeding, rectal pain, vomiting, others Genitourinary: denies: burning, dysuria, flank pain, frequency, hematuria, incontinence, penile discharge, penile sore, pain, testicle pain, testicle swelling, urgency, others Neurological: denies: dizziness, fainting, headache, left sided numbness, left sided weakness, numbness, paresthesia, pre-existing deficit, right sided numbness, right sided weakness, seizure, speech problems, tingling, tremors, weakness, others Musculoskeletal: denies: back pain, gout, joint pain, joint swelling, muscle pain, muscle stiffness, neck pain, others Integumetry: denies: bruises, change in color, change in hair/nails, dryness, laceration, lesions, lumps, rash, wounds, others Allergic/Immunocompromised: denies: Difficulty Healing, Frequent Infections, Hives, Itching, others Hematologic/Lymphatic: denies: anemia, blood clots, easy bleeding, easy bruising, swollen glands, others Endocrine: denies: excessive hunger, excessive sweating, excessive thirst, excessive urination, flushing, intolerance to cold, intolerance to heat, unexplained weight gain, unexplained weight loss, others Psychiatric: denies: anxiety, bipolar disorder, depression, hopeless, panic disorder, schizophrenia, sleepless, suicidal, others Physical Exam General Appearance: Moderate Distress HEENT: Normal ENT Inspection, Pharynx Normal, TMs Normal Neck: Full Range of Motion, Non-Tender, Normal, Normal Inspection Respiratory: Chest Non-Tender, Lungs Clear, No Accessory Muscle Use, No Respiratory Distress, Normal Breath Sounds Cardiovascular: No Edema, No JVD, No Murmur, No Gallop, Normal Peripheral Pulses, Tachycardia Breast Exam: Deferred Gastrointestinal: No Organomegaly, Non Tender, No Pulsatile Mass, Normal Bowel Sounds, Soft Genitalia: Deferred Pelvic: Deferred Rectal: Deferred Extremities: No calf tenderness, Normal capillary refill, Normal inspection, Normal range of motion, Non-tender, No pedal edema Musculoskeletal : Apperance: Normal Neurologic: Alert, carpenter assistant installer II-XII nml as Tested, No Motor Deficits, Normal Affect, Normal Mood, No Sensory Deficits Cerebellar Function: NOT DONE Reflexes: NOT DONE Skin: Dry, Normal Color, Warm Peripheral Pulses: 3+ Radial (R), 3+ Radial (L) Lymphatic: No Adenopathy Was a procedure done? Was a procedure done?: No EKG EKG : Pulse Rate (adult): 125 Cardiac Rhythm: ST Differential Dx Considerations may include: Alcohol abuse Musculoskeletal pain X-Ray, Labs, Meds, VS Vital Signs Date Time Temp Pulse Resp B/P (MAP) Pulse Ox O2 Delivery O2 Flow Rate FiO2 02/13/25 14:14 98.6 110 18 119/76 99 98.6 Patient alert. Vitals stable. Complaining of chest pain. Answering questions. Establish intravenous access. Was given fluids. Was given thiamine. Reviewed his previous visit. No leg swelling. No discoloration. Saturation pristine on room air. He is anxious. Explained to the patient. Continue monitoring. Time of 1ST Reevaluation: 14:18 Reevaluation 1ST: Unchanged Patient Education/Counseling: Diagnosis, Treatment, Prognosis Family Education/Counseling: No Family Present SEPSIS Sepsis Screen Date sepsis recognized/suspect: Feb 13, 2025 Time Sepsis recognized/suspect: 1411 Recent Procedure: No On Antibiotic Therapy: No Respiratory Rate >20: No Heart Rate >90: Yes Temp<36 C (96.8 F) or >38.3 C: No SBP <90 or MAP <65 mmHG: No New Acute Mental Status Change: No Is the patient on CPAP, BIPAP,: No Physician Orders Sodium Chloride 0.9% (02/13/25 14:30) Troponin-I Hs (02/13/25 14:16) Troponin-I Hs (02/13/25 15:16) Troponin-I Hs (02/13/25 17:16) Thiamine Inj (02/13/25 14:30) Blood Alcohol (02/13/25 14:16) Vital Signs Date Time Temp Pulse Resp B/P (MAP) Pulse Ox O2 Delivery O2 Flow Rate FiO2 02/13/25 14:14 98.6 110 18 119/76 99 98.6 Departure 1 Departure Time of Disposition: 14:21 Impression: Primary Impression: Alcohol abuse Additional Impressions: Musculoskeletal chest pain Gastritis Qualified Codes: K29.00 - Acute gastritis without bleeding Disposition: 30 STILL A PATIENT Condition: Good Discharged With: Self Critical Care Note Critical Care Time?: No Stability Stability form required: No Heart Score Heart Score: Heart Score Response (Comments) Value History Slightly Suspicious 0 EKG Normal 0 Age <45 0 Risk Factors No known risk factors 0 Troponin Normal limit 0 Total 0 KAVITHA MAYNARD MD Feb 13, 2025 14:22
[2025-02-13 14:27] VITALS: PULSE 125
[2025-02-13] MEDS ORDERED: THIAMINE 100mg/ml INJ (200mg/2ml VIAL) IV ONE (14:30)
[2025-02-13] MEDS ORDERED: PANTOPRAZOLE 40 MG/10 ML VIAL INJ IV ONE (14:30)
[2025-02-13] MEDS ORDERED: SODIUM CHLORIDE 0.9% 1,000 ML IVB ONE (14:30)
--- NOTE | 2025-02-13 19:16 | ECG ---
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
== END 2025-02-13 17:51 | disposition left against medical advice (07) ==
LOC: EDUNIT# 14:08 → EDBD 14:08 → ER 14:08
DX: F10.10 Alcohol abuse, uncomplicated (principal); K29.70 Gastritis, unspecified, without bleeding; R07.89 Other chest pain; Y90.9 Presence of alcohol in blood, level not specified
CPT/HCPCS: 36415; 80320; 84484; 93005

== ENCOUNTER 2025-03-03 18:07 | Emergency (ER) | payer MEDICAID ==
[~2025-03-03] VITALS: Ht 175.3 cm; Wt 81.8 kg
[2025-03-03 18:07] VITALS: BP 129/62; PULSE 100; RESP 16; TEMP 98
--- NOTE | 2025-03-03 18:45 | ED.PDOC ---
History of Present Illness HPI Comments 39-year-old male with past medical history of diabetes, hypertension, alcohol abuse presenting for evaluation of right-sided neck pain. Patient denies any trauma, injury. No associated numbness, weakness of the extremity. Patient is very well known to staff for frequent visits related to his alcohol abuse. Does admit to continued alcohol consumption. Chief Complaint: Neck Pain Time Seen by MD: 18:11 Primary Care Provider: NONE Allergies: Coded Allergies: NO KNOWN ALLERGIES (Unverified , 01/20/24) Home Meds Active Scripts Gemfibrozil (Gemfibrozil) 600 Mg Tab, 1 TAB PO BID for 30 Days, #60 TAB Prov:[facility] 01/31/25 Metoprolol Succinate (Metoprolol Succinate Er) 25 Mg Tab, 1 TAB PO DAILY for 30 Days, #30 TAB Prov:[facility] 01/31/25 Empagliflozin (Jardiance) 10 Mg Tab, 1 TAB PO DAILY for 30 Days, #30 TAB Prov:[facility] 01/31/25 Pantoprazole Sodium Sesquihydr (Protonix) 40 Mg Tab, 40 MG PO DAILY for 30 Days, #30 TAB Prov:[facility] 01/31/25 Ondansetron Odt 4MG Tab (ZOFRAN PO) 4 Mg Tb, 4 MG PO TID PRN, #30 TAB ODT TAB-DISSOLVE IN MOUTH, THEN SWALLOW Prov:[facility] 01/31/25 Cobalamine Combinations (B-12 + Folic Acid 2500-400 Mcg) 1 Tab Tab, 1 TAB PO DAILY for 30 Days, #30 TAB 0 Refills Prov:[facility] 01/31/25 Multiple Vitamin (Multivitamins) Tab, 1 TAB PO DAILY for 30 Days, #90 TAB 0 Refills Prov:[facility] 01/31/25 Spironolactone (Spironolactone) 25 Mg Tab, 1 TAB PO DAILY for 30 Days, #30 TAB 2 Refills Prov:[facility] 01/31/25 Ondansetron Odt 4MG Tab (ZOFRAN PO) 4 Mg Tb, 4 MG PO TID PRN, #20 TAB ODT TAB-DISSOLVE IN MOUTH, THEN SWALLOW Prov:NAYELI SOSA MD 01/07/25 Ibuprofen Micronized (Ibuprofen) 600 Mg Tab, 600 MG PO Q6HP PRN, #30 TAB Prov:LAYA [facility]AP[facility]OR [facility] 10/29/24 Magnesium Oxide (MAGNESIUM OXIDE) 400 Mg Tab, 400 MG OR DAILY for 7 Days, #7 TAB Prov:ALYCIA ANDINO RESIDENT 01/25/24 Reported Medications Lisinopril (Lisinopril) 2.5 Mg Tab, 1 TAB PO DAILY for 30 Days, #30 01/09/25 Information Source: Patient Mode of Arrival: EMS Past Medical History PAST MEDICAL HISTORY: DM, HTN, Denies Past Medical History (Other): Alcohol Abuse Surgical History: Denies all surgeries Family History Family History: Reviewed,noncontributory to illness Social History Smoker: Non-Smoker Alcohol: Heavy Drugs: Denies Drug Use Lives In: Homeless Constitutional: denies: chills, diaphoresis, fatigue, fever, malaise, sweats, weakness, others EENTM: denies: blurred vision, double vision, ear bleeding, ear discharge, ear drainage, ear pain, ear ringing, eye pain, eye redness, hearing loss, mouth pain, mouth swelling, nasal discharge, nose bleeding, nose congestion, nose pain, photophobia, tearing, throat pain, throat swelling, voice changes, others Respiratory: denies: cough, hemoptysis, orthopnea, SOB at rest, shortness of breath, SOB with excertion, stridor, wheezing, others Cardiovascular: denies: chest pain, dizzy spells, diaphoresis, Dyspnea on exertion, edema, irregular heart beat, left arm pain, lightheadedness, palpitations, PND, syncope, others Gastrointestinal: denies: abdomen distended, abdominal pain, blood streaked bowels, constipated, diarrhea, dysphagia, difficulty swallowing, hematemesis, melena, nausea, poor appetite, poor fluid intake, rectal bleeding, rectal pain, vomiting, others Neurological: denies: dizziness, fainting, headache, left sided numbness, left sided weakness, numbness, paresthesia, pre-existing deficit, right sided numbness, right sided weakness, seizure, speech problems, tingling, tremors, weakness, others Musculoskeletal: reports: back pain, gout, joint pain, joint swelling, muscle pain, muscle stiffness, neck pain, others Integumetry: denies: bruises, change in color, change in hair/nails, dryness, laceration, lesions, lumps, rash, wounds, others Allergic/Immunocompromised: denies: Difficulty Healing, Frequent Infections, Hives, Itching, others Hematologic/Lymphatic: denies: anemia, blood clots, easy bleeding, easy bruising, swollen glands, others Endocrine: denies: excessive hunger, excessive sweating, excessive thirst, excessive urination, flushing, intolerance to cold, intolerance to heat, unexplained weight gain, unexplained weight loss, others Physical Exam General Appearance: None HEENT: Normal ENT Inspection Neck: None, Normal, Normal Inspection, Other (No overlying erythema, warmth, edema along the neck, no asymmetric swelling of the neck) Respiratory: No Accessory Muscle Use, No Respiratory Distress, Normal Breath Sounds Cardiovascular: No JVD, Normal Peripheral Pulses, Regular Rate/Rhythm Breast Exam: Deferred Gastrointestinal: Non Tender, Soft Genitalia: Deferred Pelvic: Deferred Rectal: Deferred Extremities: None, Normal capillary refill, Normal range of motion, Non-tender Neurologic: Alert Cerebellar Function: Normal Reflexes: Normal Skin: None Lymphatic: No Adenopathy Was a procedure done? Was a procedure done?: No Differential Dx Considerations may include: Muscular neck pain vs cervical radiculopathy X-Ray, Labs, Meds, VS Vital Signs Date Time Temp Pulse Resp B/P (MAP) Pulse Ox O2 Delivery O2 Flow Rate FiO2 03/03/25 18:07 98.0 100 16 129/62 98 98.0 Time of 1ST Reevaluation: 18:39 (Patient with no signs for distress. Resting comfortably) Reevaluation 1ST: Improved Patient Education/Counseling: Diagnosis, Treatment, Need For Follow Up Family Education/Counseling: No Family Present SEPSIS Sepsis Screen Date sepsis recognized/suspect: Mar 03, 2025 Time Sepsis recognized/suspect: 1803 Recent Procedure: No On Antibiotic Therapy: No Respiratory Rate >20: No Heart Rate >90: Yes Temp<36 C (96.8 F) or >38.3 C: No SBP <90 or MAP <65 mmHG: No New Acute Mental Status Change: No Is the patient on CPAP, BIPAP,: No SEPSIS EXCLUSION NOTE: Patient has mild tachycardia thought to be due to alcohol intoxication and not sepsis Vital Signs Date Time Temp Pulse Resp B/P (MAP) Pulse Ox O2 Delivery O2 Flow Rate FiO2 03/03/25 18:07 98.0 100 16 129/62 98 98.0 Departure 1 Departure Time of Disposition: 18:42 (39-year-old male with past medical history of diabetes, hypertension, alcohol abuse presenting for atraumatic right-sided neck pain over the past day. Upon physical examination the patient has no bruising, no signs of any trauma. Does not warrant any x-ray or CT imaging of the cervica l spine as I do not suspect underlying fractures. Patient has normal neuro/motor function, no findings concerning for acute cord compromise of the cervical spine. No indication for your emergent MR imaging of the cervical spine. Patient likely with muscular pain. Was offered oral Tylenol, ibuprofen for analgesia. Stable for discharge for further outpatient management.) Impression: Primary Impression: Musculoskeletal neck pain Additional Impression: Neck muscle spasm Disposition: 01 HOME / SELF CARE / HOMELESS Condition: Stable Discharged With: Self Critical Care Note Critical Care Time?: No Stability Stability form required: ELIZABETH Dutta MD Mar 03, 2025 18:45
[2025-03-03 19:40] VITALS: O2SAT 98
[2025-03-03] MEDS: IBUPROFEN 600 MG TAB PO ONE (19:49)
[2025-03-03] MEDS: ACETAMINOPHEN 325 MG TAB PO ONE (19:50)
== END 2025-03-03 20:29 | disposition home or self-care (01) ==
LOC: ER 18:07 → EDUNIT# 18:07 → EDBD 18:07 → ER 20:29
DX: M62.838 Other muscle spasm (principal); F10.10 Alcohol abuse, uncomplicated; I10 Essential (primary) hypertension; E11.9 Type 2 diabetes mellitus without complications; M54.2 Cervicalgia

== ENCOUNTER 2025-04-21 15:58 | Emergency (ER) | payer MEDICAID ==
[~2025-04-21] VITALS: Ht 165.1 cm; Wt 72.7 kg
[2025-04-21] MEDS: LIDOCAINE VISCOUS 2% 15ML UD PO ONE (16:31)
[2025-04-21] MEDS: SUCRALFATE 1 GM TAB PO ONE (16:32)
[2025-04-21] MEDS: PANTOPRAZOLE 40 MG TAB PO ONE (16:32)
[2025-04-21 16:40] LABS: Hematocrit 42.5 % (41.0-53.0); Hemoglobin 14.1 g/dL (13.5-17.5); Mean Corpuscular Hemoglobin 29.0 pg (28.0-32.0); Mean Corpuscular Volume 87.2 fL (80.0-100.0); Nucleated Red Blood Cells % 0.2 %
[2025-04-21 16:57] LABS: Albumin 4.6 g/dL (3.2-4.8); Alkaline Phosphatase 96 U/L (46-116); Anion Gap 14 (5-15); BUN/Creatinine Ratio 15.5 (10.0-20.0); Blood Urea Nitrogen 13 mg/dL (9-23); Carbon Dioxide 26 mmol/L (20-31); Chloride 104 mmol/L (98-107); Glucose 101 mg/dL (74-106); Lipase 44 U/L (12-53); Magnesium 1.8 mg/dL (1.6-2.6); Potassium 3.9 mmol/L (3.5-5.1); Sodium 144 mmol/L (136-145); Total Protein 8.1 g/dL (5.7-8.2)
[2025-04-21 16:58] LABS: Alanine Aminotransferase 55 U/L (7-40); Bilirubin, Total 0.5 mg/dL (0.2-1.0); Calcium 8.7 mg/dL (8.7-10.4)
--- NOTE | 2025-04-21 17:06 | DVH ---
CHEST RADIOGRAPH Indication: cp Technique: Single frontal view of the chest was obtained COMPARISON: XY CHEST XRAY 1 VIEW on DOS: 04/14/25, XY CHEST PORTABLE on DOS: 01/07/25, XY CHEST XRAY 1 VIEW on DOS: 12/20/24, XY CHEST PORTABLE on DOS: 12/06/24, XY CHEST PORTABLE on DOS: 11/25/24 FINDINGS: Lines and Tubes: None Lungs: Clear Pleura: No effusion. No pneumothorax. Cardiomediastinal contours: Unremarkable Bones: Unremarkable IMPRESSION: No acute disease.
[2025-04-21] MEDS: SODIUM CHLORIDE 0.9% 1,000 ML IV ONE (17:15)
--- NOTE | 2025-04-21 17:19 | ED.PDOC ---
HPI Comments HPI: Poor Historian. 39-year-old male male brought in by ambulance because he was found in the parking lot. Patient was found with alcohol with him. Patient is known to the ER for history of homelessness and alcohol abuse. Patient has been to the ER multiple times in the past for the same thing. Per EMS, patient was ambulatory at the scene. Patient did not appear to be in any distress. Patient admits to use of alcohol. Patient while in route complained of some nonspecific midsternal chest discomfort. Denies any other associated symptoms. Patient appears intoxicated. Past Medical History: Alcohol abuse Past Surgical History: REVIEW OF SYSTEMS: CONSTITUTIONAL: Denies acute: fever, diaphoresis, chills, HEAD: Denies acute: headache, photophobia Eyes: Denies acute: Double vision, vision loss, eye pain, eye discharge. EARS: Denies acute: tinnitus, hearing loss, ear discharge, ear pain, THROAT: Denies acute: sore throat, swelling, difficulty swallowing , pain with swallowing, change in voice. NECK: Denies acute: neck pain, neck swelling, stiff neck. HEART: Denies acute : palpitations, LUNGS: Denies acute: SOB, wheezing, cough, hemoptysis ABDOMEN: Denies acute: abdominal pain, Nausea, Vomiting, diarrhea, melena , hematemesis, hematochezia SKIN: Denies acute: rash, redness, lesions, itchiness. EXTREMITIES: Denies acute: calf pain, numbness, tingling, weakness, denies pain in extremity. Denies acute: Low back pain. Neuro: Denies acute: focal neurological deficit, motor or sensory focal neurological deficit, tremors, seizure like activity, confusion, dizziness, change in mental status, loss of bowel or bladder function, cauda equina like symptoms. : Denies acute: dysuria, hematuria, flank pain, increase in urinary frequency. PSYCH: Denies acute: hallucination, suicidal ideation, homicidal ideation. PHYSICAL EXAM: General: ----no---acute distress, awake and alert. Head: normocephalic, atraumatic. No raccoon's eyes, no waller sign. Neck: supple, trachea is midline, no swelling. Throat: Normal phonation. Eyes:, no erythema, no purulent discharge, no proptosis, no icterus. Heart: regular rate, regular rhythm, no significant murmur appreciated. Lungs: no apparent respiratory distress, Able to speak in full sentences. No wheezing, no rhonchi, no crackles. No stridors Clear to auscultation bilaterally. Abdomen: non tender to palpation, non distended, soft, no guarding, no rebound, + bowel sounds. Neuro: Awake, Alert, oriented to name, self, situation, follows commands GCS=15. Speech is normal. Skin: no petechia, no purpura, no cyanosis, non-pale, not jaundice. Lower extremities: --no - Pitting edema no deformity, no focal swelling, no calf TTP. Makes eye contact. moves all four extremities. Face: no apparent facial droop. Ambulating in the ED independently. ED COURSE: DISCLAIMER: This medical document was created using an electronic medical record system with voice recognition software and computerized dictation system. Although this document has been carefully reviewed, there might still be some phonetic and typographical errors. Occasional wrong-word or "sound-alike" substitutions may have occurred due to the inherent limitations of voice recognition software. These areas are purely typographical due to imperfections of the software yvonne reyes and do not reflect any compromise in the patient's medical care. Please read the chart carefully and recognize, using context, where these substitutions have occurred. Chief Complaint: ETOH Time Seen by MD: 16:14 Primary Care Provider: NONE Reviewed Notes: Allergies Allergies: Coded Allergies: NO KNOWN ALLERGIES (Unverified , 01/20/24) Home Meds Active Scripts Gemfibrozil (Gemfibrozil) 600 Mg Tab, 1 TAB PO BID for 30 Days, #60 TAB Prov:SEAN SALDANA RESIDENT 01/31/25 Metoprolol Succinate (Metoprolol Succinate Er) 25 Mg Tab, 1 TAB PO DAILY for 30 Days, #30 TAB Prov:ELIANE SALDANA RESIDENT 01/31/25 Empagliflozin (Jardiance) 10 Mg Tab, 1 TAB PO DAILY for 30 Days, #30 TAB Prov:SHANAELIANE RESIDENT 01/31/25 Pantoprazole Sodium Sesquihydr (Protonix) 40 Mg Tab, 40 MG PO DAILY for 30 Days, #30 TAB Prov:ELIANE [facility]DANAH. [facility] 01/31/25 Ondansetron Odt 4MG Tab (ZOFRAN PO) 4 Mg Tb, 4 MG PO TID PRN, #30 TAB ODT TAB-DISSOLVE IN MOUTH, THEN SWALLOW Prov:ELIANE SALDANAH. [facility] 01/31/25 Cobalamine Combinations (B-12 + Folic Acid 2500-400 Mcg) 1 Tab Tab, 1 TAB PO DAILY for 30 Days, #30 TAB 0 [facility] 01/31/25 Multiple Vitamin (Multivitamins) Tab, 1 TAB PO DAILY for 30 Days, #90 TAB 0 [facility] 01/31/25 Spironolactone (Spironolactone) 25 Mg Tab, 1 TAB PO DAILY for 30 Days, #30 TAB 2 [facility] 01/31/25 Ondansetron Odt 4MG Tab (ZOFRAN PO) 4 Mg Tb, 4 MG PO TID PRN, #20 TAB ODT TAB-DISSOLVE IN MOUTH, THEN SWALLOW Prov:NAYELI SOSA MD 01/07/25 Ibuprofen Micronized (Ibuprofen) 600 Mg Tab, 600 MG PO Q6HP PRN, #30 TAB Prov:LAYA KAPOOR 10/29/24 Magnesium Oxide (MAGNESIUM OXIDE) 400 Mg Tab, 400 MG OR DAILY for 7 Days, #7 TAB Prov:ALYCIA ANDINO [facility] 01/25/24 Reported Medications Lisinopril (Lisinopril) 2.5 Mg Tab, 1 TAB PO DAILY for 30 Days, #30 01/09/25 Information Source: Patient, Emergency Med Personnel Mode of Arrival: EMS Past Medical History PAST MEDICAL HISTORY: DM, HTN, Denies Surgical History: Denies all surgeries Family History Family History: Reviewed,noncontributory to illness Social History Smoker: Non-Smoker Alcohol: Heavy Drugs: Denies Drug Use Lives In: Homeless Was a procedure done? Was a procedure done?: No CP Differential Dx Differential Diagnosis: N/A Differential Diagnosis: Other (Ddx include but not limitied to gastritis, musculoskeletal pain, radiculopathy, atypical chest pain, dissection, aneurysm, ACS, unstable angina, hiatal hernia, GERD, anxiety, costochondritis, PE, pneumothroax, neoplasm, cardiac ischemia, drug abuse, anemia.) X-Ray, Labs, Meds, VS Vital Signs Date Time Temp Pulse Resp B/P (MAP) Pulse Ox O2 Delivery O2 Flow Rate FiO2 04/21/25 17:24 98.4 82 18 118/74 (89) 98 98.4 04/21/25 17:24 82 18 98 Room Air 04/21/25 16:05 98.6 100 18 119/72 99 98.6 Lab Test 04/22/25 00:25 04/21/25 21:11 04/21/25 18:33 04/21/25 16:22 Range/Units Plasma/Serum Blood Alcohol 255.3 H 494.5 *H <10 mg/dL Troponin I High Sensitivity 28 31 35 </=54 ng/L White Blood Count 5.5 4.4-10.8 10^3/uL Red Blood Count 4.88 4.5-5.90 10^6/uL Hemoglobin 14.1 13.5-17.5 g/dL Hematocrit 42.5 41.0-53.0 % Mean Corpuscular Volume 87.2 80.0-100.0 fL Mean Corpuscular Hemoglobin 29.0 28.0-32.0 pg Mean Corpuscular Hemoglobin Concent 33.2 32.0-36.0 g/dL Red Cell Distribution Width 16.5 H 11.8-14.3 % Platelet Count 221 140-450 10^3/uL Mean Platelet Volume 6.6 L 6.9-10.8 fL Neutrophils (%) (Auto) 48.0 37.0-80.0 % Lymphocytes (%) (Auto) 47.0 10.0-50.0 % Monocytes (%) (Auto) 4.0 0.0-12.0 % Eosinophils (%) (Auto) 0.2 0.0-7.0 % Basophils (%) (Auto) 0.8 0.0-2.0 % Neutrophils # (Auto) 2.6 1.6-8.6 10 ^3/uL Lymphocytes # (Auto) 2.6 0.4-5.4 10 ^3/uL Monocytes # (Auto) 0.2 0-1.3 10 ^3/uL Eosinophils # (Auto) 0 0-0.8 10 ^3/uL Basophils # (Auto) 0 0-0.2 10 ^3/uL Nucleated Red Blood Cells 0.2 % Sodium Level 144 136-145 mmol/L Potassium Level 3.9 3.5-5.1 mmol/L Chloride Level 104 98-107 mmol/L Carbon Dioxide Level 26 20-31 mmol/L Anion Gap 14 5-15 Blood Urea Nitrogen 13 9-23 mg/dL Creatinine 0.84 0.700-1.30 mg/dL Glomerular Filtration Rate Calc 113 >90 mL/min BUN/Creatinine Ratio 15.5 10.0-20.0 Serum Glucose 101 74-106 mg/dL Calcium Level 8.7 8.7-10.4 mg/dL Magnesium Level 1.8 1.6-2.6 mg/dL Total Bilirubin 0.5 0.2-1.0 mg/dL Aspartate Amino Transferase (AST) 90 H 13-40 U/L Alanine Aminotransferase (ALT) 55 H 7-40 U/L Alkaline Phosphatase 96 46-116 U/L Total Protein 8.1 5.7-8.2 g/dL Albumin 4.6 3.2-4.8 g/dL Lipase 44 12-53 U/L Current Medications Medications (Trade) Dose Ordered Sig/Surjit Route Start Time Stop Time Status Last Admin Sodium Chloride 1,000 ml @ 1,000 mls/hr Q1H ONCE IV 04/21/25 16:15 04/21/25 17:14 DC 04/21/25 17:15 Sucralfate (Carafate Tab) 1 gm ONCE ONCE PO 04/21/25 16:15 04/21/25 16:16 DC 04/21/25 16:32 Pantoprazole Sodium (Protonix Tablet) 40 mg ONCE ONCE PO 04/21/25 16:15 04/21/25 16:16 DC 04/21/25 16:32 Lidocaine HCl (Xylocaine 2% Viscous) 10 ml ONCE ONCE PO 04/21/25 16:15 04/21/25 16:16 DC 04/21/25 16:31 X-Ray, Labs, Meds, VS Comment [facility] [id number] [place] [id number] Ph: [phone] DIAGNOSTIC IMAGING Diagnostic Imaging Report : [id number] Signed PATIENT: DAMIEN BAIG ACCT: [id number] UNIT: [id number] : 1985 LOC: ER ROOM / BED: / AGE / SEX: 39 / M ADM STATUS: REG ER SERVICE 1614 ORDERING PHYSICIAN: FELICIA SCOTT DO PROCEDURE(s): CXRP - CHEST PORTABLE REASON: cp ORDER NUMBER(s): [id number], ACCESSION NUMBER(s): [id number] CHEST RADIOGRAPH Indication: cp Technique: Single frontal view of the chest was obtained COMPARISON: XY CHEST XRAY 1 VIEW on DOS: 04/14/25, XY CHEST PORTABLE on DOS: 01/07/25, XY CHEST XRAY 1 VIEW on DOS: 12/20/24, XY CHEST PORTABLE on DOS: 12/06/24, XY CHEST PORTABLE on DOS: 11/25/24 FINDINGS: Lines and Tubes: None Lungs: Clear Pleura: No effusion. No pneumothorax. Cardiomediastinal contours: Unremarkable Bones: Unremarkable IMPRESSION: No acute disease. ATED BY: SUE VELAZQUEZ MD DICTATED DATE/TIME: 04/21/251702 SIGNED BY: SUE VELAZQUEZ MD SIGNED DATE/TIME: 04/21/251702 CC: Time of 1ST Reevaluation: 03:44 ( ) Reevaluation 1ST: Resolved Patient Education/Counseling: Diagnosis, Treatment Family Education/Counseling: No Family Present Assigned to Dr. Dr. Munoz. Comments MDM: patient presented with the above HPI.-cardiac an alcohol abuse-----workup was initiated. patient was found with the above mentioned diagnosis. the following medications were ordered: please refer to order lists of meds and tests obtained by myself Dr. Scott. Patient ED course and VS have been stabilized. Patient has been reassessed in the ED and remained in a stable condition. Patient has been observed in the ED adequate length of time to insure improvement/stability. Escalation of care considered: Consideration of escalation to observation or admission Patient's alcohol level continues to trend down. We will continue to monitor here in the ED. Patient was given a GI cocktail earlier. Patient's heart score is low. Patient is awaiting repeat ETOH level in the morning and social service consult. The care of this patient was signed out to my colleague Dr. Munoz. All the reports of any imaging studies that were ordered by myself were reviewed by myself. SEPSIS Sepsis Screen Date sepsis recognized/suspect: Apr 21, 2025 Time Sepsis recognized/suspect: 1605 Recent Procedure: No On Antibiotic Therapy: No Respiratory Rate >20: No Heart Rate >90: Yes Temp<36 C (96.8 F) or >38.3 C: No SBP <90 or MAP <65 mmHG: No New Acute Mental Status Change: No Is the patient on CPAP, BIPAP,: No Physician Orders Hogshead Weigher (04/21/25 ) Chest Portable (04/21/25 16:14) Electrocardigram (04/21/25 16:14) Electrocardigram (04/21/25 17:14) Electrocardigram (04/21/25 19:14) * Electrical Manufacturing Engineer Consult (04/22/25 ) Vital Signs Date Time Temp Pulse Resp B/P (MAP) Pulse Ox O2 Delivery O2 Flow Rate FiO2 04/21/25 17:24 98.4 82 18 118/74 (89) 98 98.4 04/21/25 17:24 82 18 98 Room Air 04/21/25 16:05 98.6 100 18 119/72 99 98.6 Laboratory Tests Test 04/21/25 16:22 White Blood Count 5.5 10^3/uL (4.4-10.8) Medications Medications Dose Ordered Sig/Surjit Route Start Time Stop Time Status Last Admin Dose Admin Lidocaine HCl 10 ml ONCE ONCE PO 04/21/25 16:15 04/21/25 16:16 DC 04/21/25 16:31 Pantoprazole Sodium 40 mg ONCE ONCE PO 04/21/25 16:15 04/21/25 16:16 DC 04/21/25 16:32 Sodium Chloride 1,000 ml @ 1,000 mls/hr Q1H ONCE IV 04/21/25 16:15 04/21/25 17:14 DC 04/21/25 17:15 Sucralfate 1 gm ONCE ONCE PO 04/21/25 16:15 04/21/25 16:16 DC 04/21/25 16:32 Departure 1 Departure Time of Disposition: 03:02 Impression: Primary Impression: Alcohol abuse Additional Impressions: Homelessness Chest pain Disposition: 30 STILL A PATIENT Condition: Stable Discharged With: Self Critical Care Note Critical Care Time?: No Heart Score Heart Score: Heart Score Response (Comments) Value History Slightly Suspicious 0 EKG Normal 0 Age <45 0 Risk Factors 1 or 2 risk factors 1 Troponin Normal limit 0 Total 1 I personally scribed for FELICIA SCOTT DO ([email or web address]) on 04/21/25 at 21:13. Electronically submitted by Zeeshan Estevez ([email or web address]). FELICIA SCOTT DO Apr 21, 2025 17:19
[2025-04-21 17:24] VITALS: BP 118/74; PULSE 82; RESP 18; TEMP 98.4; O2SAT 98
== END 2025-04-22 09:25 | disposition left against medical advice (07) ==
LOC: ER 15:58 → EDBD 15:58 → ER 04-22 09:25
DX: F10.10 Alcohol abuse, uncomplicated (principal); R07.89 Other chest pain; Z59.00 Homelessness unspecified; Z79.899 Other long term (current) drug therapy
CPT/HCPCS: 36415; 71045; 80053; 80320; 83690; 83735; 84484; 85025; 96360

== ENCOUNTER 2025-05-01 21:35 | Emergency (ER) | payer MEDICAID ==
[~2025-05-01] VITALS: Ht 165.1 cm; Wt 61.3 kg
[2025-05-01 21:40] VITALS: O2SAT 97
--- NOTE | 2025-05-01 21:57 | ECG ---
[facility] Test Date: 2025-05-01 Test Time: 21:47:51 Pat Name: DAMIEN BAIG Department: ED Room: Gender: M Lamination Builder: GAVIN : 1985 Requested By: BHARATH BETTENCOURT* Order Number: [id number] Reading MD: Patric Nix Measurements Intervals [place] Rate: 112 P: 92 MO: 124 QRS: 44 QRSD: 114 T: 87 QT: 387 QTc: 529 Interpretive Statements Sinus tachycardia Borderline intraventricular conduction delay ST elev, probable normal early repol pattern Prolonged QT interval Artifact in lead(s) II,III,aVR,aVF,V1,V2,V5,V6 and baseline wander in lead(s) V3 Electronically Signed On 05-04-2025 17:18:28 PST by Patric Nix Please click the below link to view image of tracing.
--- NOTE | 2025-05-01 22:22 | DVH ---
EXAM: XY CHEST PORTABLE CLINICAL HISTORY: cp TECHNIQUE: Single frontal view of the chest WID: COMPARISON: XY CHEST PORTABLE on DOS: 04/21/25 FINDINGS: Lines and tubes: None Chest: The heart size and pulmonary vasculature is within normal limits. No pleural effusion, pneumothorax, or consolidation. The osseous structures are grossly intact. IMPRESSION: 1. No acute cardiopulmonary abnormality.
--- NOTE | 2025-05-01 22:23 | ED.PDOC ---
HPI Comments This is a 39 year old male PANCHO presenting to the ED with chief complaint of chest pain. Patient reports that he has been experiencing chest pain for a month, worsening tonight. Patient admits to heavily drinking ETOH. Patient has been seen multiple times in the past for complaints of chest pain and ETOH abuse. EMS states patient had walked into a restaurant tonight complaining of chest pain, prompting 911 to be called. Patient denies any SOB, drug use, dizziness, headache, cough, or N/V. Chief Complaint: Chest Pain Time Seen by MD: 22:20 Primary Care Provider: NONE Reviewed Notes: Nurses Notes, Medications, Allergies Allergies: Coded Allergies: NO KNOWN ALLERGIES (Unverified , 01/20/24) Home Meds Active Scripts Gemfibrozil (Gemfibrozil) 600 Mg Tab, 1 TAB PO BID for 30 Days, #60 TAB Prov:[facility] 01/31/25 Metoprolol Succinate (Metoprolol Succinate Er) 25 Mg Tab, 1 TAB PO DAILY for 30 Days, #30 TAB Prov:[facility] 01/31/25 Empagliflozin (Jardiance) 10 Mg Tab, 1 TAB PO DAILY for 30 Days, #30 TAB Prov:[facility] 01/31/25 Pantoprazole Sodium Sesquihydr (Protonix) 40 Mg Tab, 40 MG PO DAILY for 30 Days, #30 TAB Prov:[facility] 01/31/25 Ondansetron Odt 4MG Tab (ZOFRAN PO) 4 Mg Tb, 4 MG PO TID PRN, #30 TAB ODT TAB-DISSOLVE IN MOUTH, THEN SWALLOW [facility] Cobalamine Combinations (B-12 + Folic Acid 2500-400 Mcg) 1 Tab Tab, 1 TAB PO DAILY for 30 Days, #30 TAB 0 Refills Prov:[facility] 01/31/25 Multiple Vitamin (Multivitamins) Tab, 1 TAB PO DAILY for 30 Days, #90 TAB 0 Refills Prov:[facility] 01/31/25 Spironolactone (Spironolactone) 25 Mg Tab, 1 TAB PO DAILY for 30 Days, #30 TAB 2 Refills Prov:[facility] 01/31/25 Ondansetron Odt 4MG Tab (ZOFRAN PO) 4 Mg Tb, 4 MG PO TID PRN, #20 TAB ODT TAB-DISSOLVE IN MOUTH, THEN SWALLOW Prov:NAYELI SOSA MD 01/07/25 Ibuprofen Micronized (Ibuprofen) 600 Mg Tab, 600 MG PO Q6HP PRN, #30 TAB Prov:LAYA KAPOOR PAC 10/29/24 Magnesium Oxide (MAGNESIUM OXIDE) 400 Mg Tab, 400 MG OR DAILY for 7 Days, #7 TAB Prov:ALYCIA ANDINO [facility]IDENT 01/25/24 Reported Medications Lisinopril (Lisinopril) 2.5 Mg Tab, 1 TAB PO DAILY for 30 Days, #30 01/09/25 Information Source: Patient Mode of Arrival: EMS Severity: Moderate Timing: Hours Duration: Since onset Prehospital treatment: None Location: Chest (L) Radiation: No Radiation Quality: Sharp Onset: Other (ETOH abuse) Cardiac Risk Factors: HTN, Diabetes PE Risk Factors: None Past Medical History PAST MEDICAL HISTORY: DM, HTN Surgical History: Denies all surgeries Family History Family History: Reviewed,noncontributory to illness Social History Smoker: Non-Smoker Alcohol: Heavy Drugs: Denies Drug Use Lives In: Homeless Constitutional: denies: chills, diaphoresis, fatigue, fever, malaise, sweats, weakness, others EENTM: denies: blurred vision, double vision, ear bleeding, ear discharge, ear drainage, ear pain, ear ringing, eye pain, eye redness, hearing loss, mouth pain, mouth swelling, nasal discharge, nose bleeding, nose congestion, nose ginger n, photophobia, tearing, throat pain, throat swelling, voice changes, others Respiratory: denies: cough, hemoptysis, orthopnea, SOB at rest, shortness of breath, SOB with excertion, stridor, wheezing, others Cardiovascular: reports: chest pain; denies: dizzy spells, diaphoresis, Dyspnea on exertion, edema, irregular heart beat, left arm pain, lightheadedness, palpitations, PND, syncope, others Gastrointestinal: denies: abdomen distended, abdominal pain, blood streaked bowels, constipated, diarrhea, dysphagia, difficulty swallowing, hematemesis, me jorge, nausea, poor appetite, poor fluid intake, rectal bleeding, rectal pain, vomiting, others Genitourinary: denies: burning, dysuria, flank pain, frequency, hematuria, incontinence, penile discharge, penile sore, pain, testicle pain, testicle swelling, urgency, others Neurological: denies: dizziness, fainting, headache, left sided numbness, left sided weakness, numbness, paresthesia, pre-existing deficit, right sided numbness, right sided weakness, seizure, speech problems, tingling, tremors, weakness, others Musculoskeletal: denies: back pain, gout, joint pain, joint swelling, muscle pain, muscle stiffness, neck pain, others Integumetry: denies: bruises, change in color, change in hair/nails, dryness, laceration, lesions, lumps, rash, wounds, others Allergic/Immunocompromised: denies: Difficulty Healing, Frequent Infections, Hives, Itching, others Hematologic/Lymphatic: denies: anemia, blood clots, easy bleeding, easy bruising, swollen glands, others Endocrine: denies: excessive hunger, excessive sweating, excessive thirst, excessive urination, flushing, intolerance to cold, intolerance to heat, unexplained weight gain, unexplained weight loss, others Psychiatric: denies: anxiety, bipolar disorder, depression, hopeless, panic disorder, schizophrenia, sleepless, suicidal, others All Other Systems: Reviewed and Negative Physical Exam General Appearance: No Apparent Distress, Normal HEENT: Normal ENT Inspection, Pharynx Normal, TMs Normal Neck: Full Range of Motion, Non-Tender, Normal, Normal Inspection Respiratory: Chest Non-Tender, Lungs Clear, No Accessory Muscle Use, No Respiratory Distress, Normal Breath Sounds Cardiovascular: No Edema, No JVD, No Murmur, No Gallop, Normal Peripheral Pulses, Regular Rate/Rhythm, Other (Chest pain reproducible with palpation.) Breast Exam: Deferred Gastrointestinal: No Organomegaly, Non Tender, No Pulsatile Mass, Normal Bowel Sounds, Soft Genitalia: Deferred Pelvic: Deferred Rectal: Deferred Extremities: No calf tenderness, Normal capillary refill, Normal inspection, Normal range of motion, Non-tender, No pedal edema Musculoskeletal : Apperance: Normal Neurologic: Alert, production metal sprayer II-XII nml as Tested, No Motor Deficits, Normal Affect, Normal Mood, No Sensory Deficits Cerebellar Function: Normal Reflexes: Normal Skin: Dry, Normal Color, Warm Lymphatic: No Adenopathy EKG EKG : Pulse Rate (adult): 112 Parachute: Normal Cardiac Rhythm: ST Was a procedure done? Was a procedure done?: No CP Differential Dx Differential Diagnosis: Angina, Anxiety / Panic Attack Differential Diagnosis: Chest Wall Pain X-Ray, Labs, Meds, VS Vital Signs Date Time Temp Pulse Resp B/P (MAP) Pulse Ox O2 Delivery O2 Flow Rate FiO2 05/01/25 22:40 115 05/01/25 22:23 112 05/01/25 21:47 112 05/01/25 21:40 98.2 120 18 181/83 97 98.2 Lab Test 05/01/25 22:57 05/01/25 21:46 Range/Units Troponin I High Sensitivity Pending 34 </=54 ng/L White Blood Count 4.1 L 4.4-10.8 10^3/uL Red Blood Count 5.03 4.5-5.90 10^6/uL Hemoglobin 14.3 13.5-17.5 g/dL Hematocrit 43.0 41.0-53.0 % Mean Corpuscular Volume 85.5 80.0-100.0 fL Mean Corpuscular Hemoglobin 28.4 28.0-32.0 pg Mean Corpuscular Hemoglobin Concent 33.2 32.0-36.0 g/dL Red Cell Distribution Width 16.4 H 11.8-14.3 % Platelet Count 235 140-450 10^3/uL Mean Platelet Volume 6.4 L 6.9-10.8 fL Neutrophils (%) (Auto) 37.0-80.0 % Lymphocytes (%) (Auto) 10.0-50.0 % Monocytes (%) (Auto) 0.0-12.0 % Basophils (%) (Auto) 0.0-2.0 % Neutrophils # (Auto) 1.6-8.6 10 ^3/uL Lymphocytes # (Auto) 0.4-5.4 10 ^3/uL Monocytes # (Auto) 0-1.3 10 ^3/uL Differential Total Cells Counted Pending Neutrophils % (Manual) Pending Band Neutrophils % (Manual) Pending Lymphocytes % (Manual) Pending Monocytes % (Manual) Pending Eosinophils % (Manual) Pending Basophils % (Manual) Pending Metamyelocytes % (manual) Pending Myelocytes % (Manual) Pending Promyelocytes % (Manual) Pending Blast Cells % (Manual) Pending Reactive Lymphocytes Pending Platelet Estimate Pending Sodium Level 145 136-145 mmol/L Potassium Level 4.3 3.5-5.1 mmol/L Chloride Level 105 98-107 mmol/L Carbon Dioxide Level 25 20-31 mmol/L Anion Gap 15 5-15 Blood Urea Nitrogen 11 9-23 mg/dL Creatinine 0.82 0.700-1.30 mg/dL Glomerular Filtration Rate Calc 114 >90 mL/min BUN/Creatinine Ratio 13.4 10.0-20.0 Serum Glucose 103 74-106 mg/dL Calcium Level 8.6 L 8.7-10.4 mg/dL Current Medications Medications (Trade) Dose Ordered Sig/Surjit Route Start Time Stop Time Status Last Admin Ondansetron HCl (Zofran) 4 mg ONCE ONCE IV 05/01/25 22:45 05/01/25 22:46 DC 05/01/25 22:57 X-Ray, Labs, Meds, VS Comment Imaging was reviewed by this provider, there is no obvious pathological or acute disease process. Pending radiology review Labs were reviewed by this provider, no abnormalities Vital signs reviewed by this provider, clinically stable Time of 1ST Reevaluation: 23:19 Reevaluation 1ST: Improved Patient Education/Counseling: Diagnosis, Treatment, Need For Follow Up (Follow up with PCP next available appointment. Return to the emergency department if symptoms worsen.) Family Education/Counseling: No Family Present SEPSIS Sepsis Screen Date sepsis recognized/suspect: May 01, 2025 Time Sepsis recognized/suspect: 2139 Recent Procedure: No On Antibiotic Therapy: No Respiratory Rate >20: No Heart Rate >90: Yes Temp<36 C (96.8 F) or >38.3 C: No SBP <90 or MAP <65 mmHG: No New Acute Mental Status Change: No Is the patient on CPAP, BIPAP,: No Physician Orders Complete Blood Count (05/01/25 21:51) Chest Portable (05/01/25 21:51) Troponin-I Hs (05/01/25 22:51) Troponin-I Hs (05/02/25 00:51) Electrocardigram (05/02/25 00:51) Vital Signs Date Time Temp Pulse Resp B/P (MAP) Pulse Ox O2 Delivery O2 Flow Rate FiO2 05/01/25 22:40 115 05/01/25 22:23 112 05/01/25 21:47 112 05/01/25 21:40 98.2 120 18 181/83 97 98.2 Laboratory Tests Test 05/01/25 21:46 White Blood Count 4.1 10^3/uL (4.4-10.8) L Medications Medications Dose Ordered Sig/Surjit Route Start Time Stop Time Status Last Admin Dose Admin Ondansetron HCl 4 mg ONCE ONCE IV 05/01/25 22:45 05/01/25 22:46 DC 05/01/25 22:57 Departure 1 Departure Time of Disposition: 23:03 Impression: Primary Impression: Musculoskeletal chest pain Disposition: 01 HOME / SELF CARE / HOMELESS Condition: Stable Discharged With: Self Critical Care Note Critical Care Time?: No Stability Stability form required: No Heart Score Heart Score: Heart Score Response (Comments) Value History Slightly Suspicious 0 EKG Normal 0 Age <45 0 Risk Factors No known risk factors 0 Troponin Normal limit 0 Total 0 I personally scribed for BHARATH BERNARDO ([email or web address]) on 05/01/25 at 22:23. Electronically submitted by Zeeshan Estevez ([email or web address]). BHARATH BERNARDO May 01, 2025 22:23
[2025-05-01 22:26] LABS: Chloride 105 mmol/L (98-107); Potassium 4.3 mmol/L (3.5-5.1)
[2025-05-01 22:27] LABS: Hematocrit 43.0 % (41.0-53.0); Hemoglobin 14.3 g/dL (13.5-17.5); Mean Corpuscular Hemoglobin 28.4 pg (28.0-32.0); Mean Corpuscular Volume 85.5 fL (80.0-100.0)
[2025-05-01 22:28] LABS: Anion Gap 15 (5-15); Carbon Dioxide 25 mmol/L (20-31)
[2025-05-01 22:33] LABS: BUN/Creatinine Ratio 13.4 (10.0-20.0); Blood Urea Nitrogen 11 mg/dL (9-23); Glucose 103 mg/dL (74-106)
--- NOTE | 2025-05-01 22:43 | ECG ---
[facility] Test Date: 2025-05-01 Test Time: 22:40:50 Pat Name: DAMIEN BAIG Department: ED Room: Gender: M [employer] Tr[employer]: GAVIN : 1985 Requested By: BHARATH BETTENCOURT* Order Number: [id number] Reading MD: Patric Nix Measurements Intervals [place] Rate: 115 P: 57 [place]: 133 QRS: 40 QRSD: 114 T: 55 QT: 368 QTc: 509 Interpretive Statements Sinus tachycardia Probable left atrial enlargement Borderline intraventricular conduction delay Prolonged QT interval Baseline wander in lead(s) V3 Electronically Signed On 05-04-2025 17:18:34 PST by Patric Nix Please click the below link to view image of tracing.
[2025-05-01 22:44] LABS: Calcium 8.6 mg/dL (8.7-10.4); Sodium 145 mmol/L (136-145)
[2025-05-01] MEDS: ONDANSETRON HCL 4 MG/2 ML VIAL IV ONE (22:57)
[2025-05-01 23:46] LABS: Total Cells Counted 100.0 (100)
[2025-05-02 00:33] VITALS: BP 119/77; PULSE 100; RESP 16; TEMP 98.6
[2025-05-02] MEDS: KETOROLAC TROMETH 30 MG/ML 1ML VIAL IV ONE (01:04)
== END 2025-05-02 01:25 | disposition home or self-care (01) ==
LOC: EDSEX 21:35 → EDBD 21:35 → ER 21:35
DX: R07.89 Other chest pain (principal); I10 Essential (primary) hypertension; E11.9 Type 2 diabetes mellitus without complications; Z79.899 Other long term (current) drug therapy; Z79.84 Long term (current) use of oral hypoglycemic drugs; Z59.00 Homelessness unspecified
CPT/HCPCS: 36415; 71045; 80048; 84484; 85007; 85027; 93005; 96374; 96375; 99285; J1885; J2405

== ENCOUNTER 2025-05-09 15:00 | Emergency (ER) | payer MEDICAID, OTHER ==
[~2025-05-09] VITALS: Ht 172.7 cm; Wt 63.6 kg
[2025-05-09 15:10] VITALS: BP 119/89; PULSE 103; RESP 18; TEMP 98; O2SAT 94
--- NOTE | 2025-05-09 15:14 | ED.PDOC ---
History of Present Illness HPI Comments 39-year-old male PANCHO with the chief complaint of chest pain. Patient Reports on having chest discomfort for an unknown time and cause. EMS state that the patient follow up bystander to call 911 near [facility] [address] and has been noncompliant since. Patient is a poor historian. Denies any other sy mptoms at this time. Denies chills, fever, N/V/D, SOB. No other associated symptoms, modifiers, recent injuries or sick contacts present at this time. Chief Complaint: ETOH Time Seen by MD: 14:40 Reviewed Notes: Nurses Notes, Medications, Allergies Allergies: Coded Allergies: NO KNOWN ALLERGIES (Unverified , 01/20/24) Home Meds Active Scripts Gemfibrozil (Gemfibrozil) 600 Mg Tab, 1 TAB PO BID for 30 Days, #60 TAB [facility]/25 Metoprolol Succinate (Metoprolol Succinate Er) 25 Mg Tab, 1 TAB PO DAILY for 30 Days, #30 TAB Prov:[facility] 01/31/25 Empagliflozin (Jardiance) 10 Mg Tab, 1 TAB PO DAILY for 30 Days, #30 TAB Prov:[facility] 01/31/25 Pantoprazole Sodium Sesquihydr (Protonix) 40 Mg Tab, 40 MG PO DAILY for 30 Days, #30 TAB Prov:[facility] 01/31/25 Ondansetron Odt 4MG Tab (ZOFRAN PO) 4 Mg Tb, 4 MG PO TID PRN, #30 TAB ODT TAB-DISSOLVE IN MOUTH, THEN SWALLOW [facility] 01/[facility]/25 Cobalamine Combinations (B-12 + Folic Acid 2500-400 Mcg) 1 Tab Tab, 1 TAB PO DAILY for 30 Days, #30 TAB 0 [facility] 01/31/25 Multiple Vitamin (Multivitamins) Tab, 1 TAB PO DAILY for 30 Days, #90 TAB 0 [facility] 01/31/25 Spironolactone (Spironolactone) 25 Mg Tab, 1 TAB PO DAILY for 30 Days, #30 TAB 2 [facility] 01/31/25 Ondansetron Odt 4MG Tab (ZOFRAN PO) 4 Mg Tb, 4 MG PO TID PRN, #20 TAB ODT TAB-DISSOLVE IN MOUTH, THEN SWALLOW Prov:NAYELI SOSA MD 01/07/25 Ibuprofen Micronized (Ibuprofen) 600 Mg Tab, 600 MG PO Q6HP PRN, #30 TAB Prov:[facility] 10/29/24 Magnesium Oxide (MAGNESIUM OXIDE) 400 Mg Tab, 400 MG OR DAILY for 7 Days, #7 TAB Prov:ALYCIA [facility] 01/25/24 Reported Medications Lisinopril (Lisinopril) 2.5 Mg Tab, 1 TAB PO DAILY for 30 Days, #30 01/09/25 Information Source: Patient Mode of Arrival: EMS Severity: Moderate Timing: Came on: Gradually Duration: Since onset Prehospital treatment: None Past Medical History PAST MEDICAL HISTORY: Denies Surgical History: Denies all surgeries Family History Family History: Reviewed,noncontributory to illness, Unknown Social History Smoker: Non-Smoker Alcohol: Denies ETOH Use Drugs: Denies Drug Use Lives In: Homeless Constitutional: denies: chills, diaphoresis, fatigue, fever, malaise, sweats, weakness, others EENTM: denies: blurred vision, double vision, ear bleeding, ear discharge, ear drainage, ear pain, ear ringing, eye pain, eye redness, hearing loss, mouth pain, mouth swelling, nasal discharge, nose bleeding, nose congestion, nose pain, photophobia, tearing, throat pain, throat swelling, voice changes, others Respiratory: denies: cough, hemoptysis, orthopnea, SOB at rest, shortness of breath, SOB with excertion, stridor, wheezing, others Cardiovascular: reports: chest pain (Chest wall); denies: dizzy spells, diaphoresis, Dyspnea on exertion, edema, irregular heart beat, left arm pain, lightheadedness, palpitations, PND, syncope, others Gastrointestinal: denies: abdomen distended, abdominal pain, blood streaked bowels, constipated, diarrhea, dysphagia, difficulty swallowing, hematemesis, melena, nausea, poor appetite, poor fluid intake, rectal bleeding, rectal pain, vomiting, others Genitourinary: denies: burning, dysuria, flank pain, frequency, hematuria, incontinence, penile discharge, penile sore, pain, testicle pain, testicle swelling, urgency, others Neurological: denies: dizziness, fainting, headache, left sided numbness, left sided weakness, numbness, paresthesia, pre-existing deficit, right sided numbness, right sided weakness, seizure, speech problems, tingling, tremors, weakness, others Musculoskeletal: denies: back pain, gout, joint pain, joint swelling, muscle pain, muscle stiffness, neck pain, others Integumetry: denies: bruises, change in color, change in hair/nails, dryness, laceration, lesions, lumps, rash, wounds, others Allergic/Immunocompromised: denies: Difficulty Healing, Frequent Infections, Hives, Itching, others Hematologic/Lymphatic: denies: anemia, blood clots, easy bleeding, easy bruising, swollen glands, others Endocrine: denies: excessive hunger, excessive sweating, excessive thirst, excessive urination, flushing, intolerance to cold, intolerance to heat, unexplained weight gain, unexplained weight loss, others Psychiatric: denies: anxiety, bipolar disorder, depression, hopeless, panic disorder, schizophrenia, sleepless, suicidal, others All Other Systems: Reviewed and Negative Physical Exam General Appearance: Moderate Distress, Normal HEENT: Normal ENT Inspection, Pharynx Normal, TMs Normal Neck: Full Range of Motion, Non-Tender, Normal, Normal Inspection Respiratory: Chest Non-Tender, Lungs Clear, No Accessory Muscle Use, No Respiratory Distress, Normal Breath Sounds Cardiovascular: No Edema, No JVD, No Murmur, No Gallop, Normal Peripheral Pulses, Regular Rate/Rhythm Breast Exam: Deferred Gastrointestinal: No Organomegaly, Non Tender, No Pulsatile Mass, Normal Bowel Sounds, Soft Genitalia: Deferred Pelvic: Deferred Rectal: Deferred Extremities: No calf tenderness, Normal capillary refill, Normal inspection, Normal range of motion, Non-tender, No pedal edema Musculoskeletal : Apperance: Normal Neurologic: Alert, hand former II-XII nml as Tested, No Motor Deficits, Normal Affect, Normal Mood, No Sensory Deficits Cerebellar Function: Normal Reflexes: Normal Skin: Dry, Normal Color, Warm Peripheral Pulses: 3+ Radial (R), 3+ Radial (L) Lymphatic: No Adenopathy Was a procedure done? Was a procedure done?: No Differential Dx Considerations may include: Alcohol abuse X-Ray, Labs, Meds, VS Vital Signs Date Time Temp Pulse Resp B/P (MAP) Pulse Ox O2 Delivery O2 Flow Rate FiO2 05/09/25 15:10 98.0 103 18 119/89 94 98.0 Patient alert. Complaining of generalized body aches. Vitals stable. Answering questions. Reviewed his previous visit. Has been here many times. Counseled patient on effects of drinking for 15 minutes. He was given sandwich. No leg swelling. No shortness a breath. Respiratory rate within normal limits. Heart rate clinically within normal limits. Saturation pristine on room air. No acute process. Explained to the patient. Was told to follow up with his primary care physician. Was told to come back if there is any problem. Time of 1ST Reevaluation: 15:11 Reevaluation 1ST: Improved Patient Education/Counseling: Diagnosis, Treatment, Prognosis Family Education/Counseling: No Family Present SEPSIS Sepsis Screen Vital Signs Date Time Temp Pulse Resp B/P (MAP) Pulse Ox O2 Delivery O2 Flow Rate FiO2 05/09/25 15:10 98.0 103 18 119/89 94 98.0 Departure 1 Departure Time of Disposition: 16:24 Impression: Primary Impression: Alcohol abuse Disposition: 01 HOME / SELF CARE / HOMELESS Condition: Good Discharged With: Self Critical Care Note Critical Care Time?: No Stability Stability form required: No Heart Score Heart Score: Heart Score Response (Comments) Value History N/A 0 EKG N/A 0 Age N/A 0 Risk Factors N/A 0 Troponin N/A 0 Total 0 I personally scribed for KAVITHA MAYNARD MD ([email or web address]) on 05/09/25 at 15:14. Electronically submitted by Butch Mckeon ([email or web address]). KAVITHA MAYNARD MD May 09, 2025 15:14
== END 2025-05-10 05:12 | disposition home or self-care (01) ==
LOC: EDUNIT# 15:00 → ER 15:00 → EDBD 15:00 → ER 05-10 05:12
DX: F10.10 Alcohol abuse, uncomplicated (principal); Z79.899 Other long term (current) drug therapy